=== PATIENT | female | born 1930 | race Caucasian/White ===

== ENCOUNTER 2016-12-04 13:31 | Inpatient (IN) | payer MEDICARE, OTHER ==
[~2016-12-04] VITALS: Ht 152.4 cm; Wt 71.8 kg
[~2016-12-04 13:31] MED LIST: ADV25050 INH; ASPI325T4 PO; CARV6.2579 PO; LEVO50TA71 PO; LEVO750T25 PO; OMEP20CA9 PO; PRED5TAB PO; PROM6.25 PO; TIOT18CA IH; ZOC10 PO
[2016-12-04] MEDS ORDERED: SOD CHLORIDE 0.9% 500 ML IV STA (13:40)
[2016-12-04 14:08] LABS: BASOPHILS % 0.3 % (0.0-2.0); EOSINOPHILS # 0.2 10^3/ul (0.0-0.5); EOSINOPHILS % 2.8 % (0.0-7.0); HEMATOCRIT 33.4 % (37.0-47.0); HEMOGLOBIN 10.7 g/dl (12.0-16.0); LYMPHOCYTES % 25.4 % (15.0-51.0); MEAN CORPUSCULAR HEMOGLOBIN 29.6 pg (29.0-33.0); MEAN CORPUSCULAR VOLUME 92.3 fl (82.0-101.0); MEAN PLATELET VOLUME 8.7 fl (7.4-10.4); MONOCYTE # 0.7 10^3/ul (0.3-0.9); MONOCYTES % 8.5 % (0.0-11.0); NEUTROPHIL # 4.8 10^3/ul (1.6-7.5); NEUTROPHILS % 62.7 % (39.0-77.0); PLATELET COUNT 238 10^3/UL (140-415); RED BLOOD COUNT 3.62 10^6/ul (4.20-5.40); RED CELL DISTRIBUTION WIDTH 12.9 % (11.5-14.5); WHITE BLOOD COUNT 7.7 10^3/ul (4.8-10.8)
--- NOTE | 2016-12-04 14:28 | ERD ---
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 The history is provided by the daughter who states that she was talking with her mother who slumped over in a chair. She was unresponsive for less than 1 minute without seizure activity. EMS reports a second episode of syncope when I evaluated her. She had bradycardia in the field and hypotension in the field in the 70s. They started IV fluids. Upon arrival the patient is mentating well and denies any chest pain or shortness of breath. Family denies her taking extra medications. The patient denies any headache no fevers or chills no abdominal pain or back pain. ROS All systems reviewed and are negative except as per history of present illness. Medications Home Meds Reported Medications Simvastatin* (Zocor*) 20 Mg Tablet, 20 MG PO QHS, #30 TAB 12/04/16 Levothyroxine Sodium* (Levothyroxine Sodium*) 75 Mcg Tablet, 75 MCG PO BEFORE BREAKFAST, #30 TAB 12/04/16 Formoterol Fumarate (Perforomist) 20 Mcg/2 Ml Vial.neb, 20 MCG INHALATION BID, VIAL 12/04/16 Carvedilol* (Carvedilol*) 6.25 Mg Tablet, 6.25 MG PO BID, TAB 06/18/14 Aspirin* (Aspirin*) 325 Mg Tablet, 325 MG PO DAILY, TAB 06/18/14 Discontinued Reported Medications Salmeterol Xinaf/Fluticasone* (Advair*) 250-50 Diskus Inhaler, 1 INH INH BID, INH 06/18/14 Tiotropium [place]* (Spiriva*) 18 Mcg Cap.w.dev, 1 INH IH DAILY, EA 06/18/14 Omeprazole* (Prilosec*) 20 Mg Capsule.dr, 20 MG PO DAILY, CAP 06/18/14 Simvastatin (Simvastatin) 10 Mg Tablet, 10 MG PO HS, TAB 06/18/14 Levothyroxine Sodium* (Levoxyl*) 50 Mcg Tablet, 50 MCG PO AC BREAKFAST, TAB 06/18/14 Promethazine Hcl* (Phenergan* Liq) 6.25 Mg/5 Ml Syrup, 20 ML PO BID Y for COUGH , ML 06/18/14 Discontinued Scripts Prednisone* (Prednisone*) 5 Mg Tab, 10 MG PO DAILY, #30 TAB Take 2 tablets a day for 5 days, then 1 tablet a day for 5 days, then stop Prov:BANDAR GALAVIZ 06/20/14 Levofloxacin* (Levaquin*) 750 Mg Tablet, 750 MG PO DAILY for 5 Days, TAB Prov:BANDAR GALAVIZ 06/20/14 Allergies Allergies: Coded Allergies: No Known Allergy (Unverified , 12/04/16) PMhx/Soc History of Surgery: Yes (RT SHOULDER) Hx Neurological Disorder: Yes (MILD DEMENTIA) Hx Respiratory Disorders: Yes (PULMONARY FIBROSIS) Hx Cardiac Disorders: Yes (HTN) Hx Psychiatric Problems: No Hx Miscellaneous Medical Probl: No Hx Alcohol Use: No Hx Substance Use: No Hx Tobacco Use: No Smoking Status: Never smoker FmHx Family History: No diabetes Physical Exam Vitals Vital Signs Date Time Temp Pulse Resp B/P Pulse Ox O2 Delivery O2 Flow Rate FiO2 12/04/16 15:45 98.6 18 18 159/69 100 Room Air 12/04/16 15:30 17 17 141/60 100 Nasal Cannula 2.0 12/04/16 14:00 Nasal Cannula 2 12/04/16 13:35 97.8 48 20 150/68 100 Physical Exam General: Well developed, well nourished, no acute distress Head: Normocephalic, atraumatic. Eyes: Pupils equally reactive, EOM intact ENT: Moist mucous membranes Neck: Supple, no lymphadenopathy Respiratory: Lungs clear bilaterally, no distress Cardiovascular: Bradycardia, no murmurs, rubs, or gallops Abdominal: Soft, non-tender, non-distended, no peritoneal signs : Deferred MSK: No edema, no unilateral swelling, 5/5 strength Neurologic: Alert and oriented, moving all extremities, normal speech, no focal weakness, no cerebellar signs Skin: No rash Psych: Normal mood Result Diagram: 12/04/16 1400 12/04/16 1400 Results 24 hrs Laboratory Tests Test 12/04/16 14:00 12/04/16 16:00 White Blood Count 7.710^3/ul Red Blood Count 3.6210^6/ul Hemoglobin 10.7g/dl Hematocrit 33.4% Mean Corpuscular Volume 92.3fl Mean Corpuscular Hemoglobin 29.6pg Mean Corpuscular Hemoglobin Concent 32.0g/dl Red Cell Distribution Width 12.9% Platelet Count 30470^3/UL Mean Platelet Volume 8.7fl Neutrophils % 62.7% Lymphocytes % 25.4% Monocytes % 8.5% Eosinophils % 2.8% Basophils % 0.3% Nucleated Red Blood Cells % 0.0/100WBC Neutrophils # 4.810^3/ul Lymphocytes # 2.010^3/ul Monocytes # 0.710^3/ul Eosinophils # 0.210^3/ul Basophils # 0.010^3/ul Nucleated Red Blood Cells # 0.010^3/ul Prothrombin Time 14.1Sec Prothrombin Time Ratio 1.1 INR International Normalized Ratio 1.09 Activated Partial Thromboplast Time 31.8Sec Sodium Level 130mmol/L Potassium Level 4.4mmol/L Chloride Level 91mmol/L Carbon Dioxide Level 37mmol/L Anion Gap 6 Blood Urea Nitrogen 9mg/dl Creatinine 0.69mg/dl Glucose Level 99mg/dl Calcium Level 8.8mg/dl Troponin I < 0.012ng/ml Free Thyroxine Index 3.02ug/ml Thyroxine (T4) 7.9ug/dl Triiodothyronine (T3) Uptake 38.2% Hemoglobin A1c 5.3% Ferritin 31.0ng/ml B-Type Natriuretic Peptide 364PG/ML Thyroid Stimulating Hormone (TSH) 30.300MIU/L Current Medications Medications (Trade) Dose Ordered Sig/Gaudencio Route PRN Reason Start Time Stop Time Status Last Admin Dose Admin Sodium Chloride (NS) 500 ml @ 500 mls/hr Q1H STAT IV 12/04/16 13:40 12/04/16 14:39 DC 12/04/16 13:46 Ondansetron HCl (Zofran Inj) 4 mg ER BRIDGE PRN IV NAUSEA AND/OR VOMITING 12/04/16 15:30 12/05/16 15:29 Acetaminophen (Tylenol Tab) 650 mg ER BRIDGE PRN PO MILD PAIN/FEVER 12/04/16 15:30 12/05/16 15:29 IV Flush (NS 3 ml) 3 ml PER PROTOCOL IV 12/04/16 16:30 Ondansetron HCl (Zofran Inj) 4 mg Q6H PRN IV NAUSEA AND/OR VOMITING 12/04/16 16:30 Acetaminophen (Tylenol Tab) 650 mg Q6H PRN PO PAIN LEVEL 1-3 OR FEVER 12/04/16 16:30 Aspirin (Aspirin) 325 mg DAILY PO 12/05/16 09:00 Levothyroxine Sodium (Synthroid) 75 mcg BEFORE BREAKFAST PO 12/05/16 07:00 Atorvastatin Calcium (Lipitor) 10 mg DAILY@21 PO 12/04/16 21:00 Benazepril HCl (Lotensin) 5 mg BID PO 12/04/16 21:00 Albuterol (Proventil 0.083% (Neb)) 2.5 mg Q6HWA RESP THERAPY HHN 12/04/16 20:00 Albuterol (Proventil 0.083% (Neb)) 2.5 mg Q4H RESP THERAPY PRN HHN SHORTNESS OF BREATH 12/04/16 16:30 Procedures/MDM EKG, MONITORS, & DIAGNOSTIC IMAGING: Rhythm strip: From EMS Rate/Rhythm: Sinus bradycardia Impression: No evidence of ischemia or arrhythmia, sinus bradycardia EKG #1 EKG: I reviewed and interpreted a 12-lead EKG. Rhythm: Sinus bradycardia Ectopy: None Intervals: No abnormalities, normal QRS and QTC ST segments: No elevations or depressions T waves: No contiguous inversions EKG #2 EKG: I reviewed and interpreted a 12-lead EKG. Rhythm: Sinus bradycardia Ectopy: None Intervals: No abnormalities ST segments: No elevations or depressions T waves: No contiguous inversions Chest x-ray: I reviewed and interpreted a 1 view of the chest Mediastinum: No enlargement Cardiac silhouette: No cardiomegaly Airspace: Clear lung jasso bilaterally without evidence of pneumothorax Bones: No evidence of fracture LAB INTERPRETATION: Negative troponin MEDICAL DECISION MAKING: The patient presents with symptomatic bradycardia and 2 episodes of syncope. In the field she was bradycardic and hypotensive. Upon arrival however she remains bradycardic but her blood pressure is 150 systolic and she is maintaining mentation and blood pressure. At this time the patient is perfusing. Differential includes cardiac ischemia, electrolyte disturbance, medication related. The patient does take a beta-rosie, this is the most likely culprit. No evidence of heart block. Consider sick sinus syndrome. ER COURSE: Upon arrival the patient was mentating well. An IV access was obtained and the patient was placed on the monitor. She had bradycardia but normal blood pressure and was mentating well. Pacer pads were placed on the patient. She was given normal saline. The family expressed interest to be transferred to [facility] given continuity of care. We made a phone call but they do not have any telemetry beds. The patient cannot be transferred at this point. The family states understanding. The patient has remained hemodynamically stable without hypotension she has not required intervention or pacing. She is pending hospitalization at this point. I kept the patient and/or family informed of laboratory and diagnostic imaging results throughout the emergency room course. DISPOSITION PLAN: Telemetry admission for symptomatic bradycardia and syncope CONSULTATION: Accepting care team and consultations: I discussed the current laboratory data, diagnostic imaging and emergency care provided. Admitting team: Dr. Anderson Admitting team indication: Insurance directed Departure Diagnosis: Primary Impression: Symptomatic bradycardia Additional Impression: Syncope Syncope type: unspecified Qualified Code: R55 - Syncope, unspecified syncope type Condition: Stable STANLEY EUCEDA MD Dec 04, 2016 14:28
[2016-12-04 14:36] LABS: INR 1.09; PROTIME 14.1 Sec (12.2-14.2); PT RATIO 1.1
[2016-12-04 14:37] LABS: PARTIAL THROMBOPLASTIN TIME 31.8 Sec (25.0-35.0)
[2016-12-04 14:45] LABS: ANION GAP 6 (8-16); BLOOD UREA NITROGEN 9 mg/dl (7-20); CALCIUM 8.8 mg/dl (8.4-10.2); CARBON DIOXIDE 37 mmol/L (21-31); CHLORIDE 91 mmol/L (97-110); CREATININE 0.69 mg/dl (0.44-1.00); GLUCOSE 99 mg/dl (70-220); POTASSIUM 4.4 mmol/L (3.5-5.1); SODIUM 130 mmol/L (135-144)
--- NOTE | 2016-12-04 14:50 | RADRPT ---
PROCEDURE: Chest x-ray CLINICAL INDICATION: Chest pain TECHNIQUE: Chest single view COMPARISON: 06/19/2014 FINDINGS: There is stable moderate cardiomegaly and an sclerotic aortic calcification. Bilateral interstitial markings are noted. This is felt to represent mild interstitial CHF superimposed on chronic change. Lung volumes are low. Costophrenic angles sharp. There is right shoulder prosthesis. Bones are osteo penic.. IMPRESSION: 1. Stable moderate cardiomegaly and an sclerotic aortic calcification. 2. Mild interstitial CHF. 3. This is superimposed on chronic underlying interstitial change. 4. Right shoulder replacement. 5. Osteopenia RPTAT: HH .Lester Blackman MD, MD Date Time Electronically viewed and signed by .Lester Blackman MD, on 12/04/2016 14:50 .W/
[2016-12-04 14:59] LABS: TROPONIN-I < 0.012 ng/ml (0.00-0.12)
[2016-12-04 15:02] LABS: T3 UPTAKE 38.2 % (23.5-40.5)
[2016-12-04] MEDS ORDERED: FORM20VI INHALATION (15:19)
[2016-12-04] MEDS ORDERED: SIMV20TA PO (15:20)
[2016-12-04] MEDS ORDERED: LEVO75TA5 PO (15:20)
[2016-12-04] MEDS ORDERED: ONDANSETRON 4 MG INJ IV PRN ×2 (15:30→16:30)
[2016-12-04] MEDS ORDERED: ACETAMINOPHEN 325 MG TAB PO PRN ×2 (15:30→16:30)
[2016-12-04 15:45] VITALS: TEMP 98.6
--- NOTE | 2016-12-04 16:16 | HP ---
Date/Time of Note Date/Time of Note DATE: 12/04/16 TIME: 16:01 Assessment/Plan VTE Prophylaxis VTE Prophylaxis Intervention: SCD's Lines/Catheters [facility] Saline Lock Assessment/Plan Chief Complaint/Hosp Course 1. Syncope. Etiology unclear. Most probably secondary to underlying sinus bradycardia. The patient's beta-blockers will be put on hold. The patient will be evaluated for other causes of syncope. A brain CT scan will be obtained. Carotid Doppler study will be obtained to evaluate for any hemodynamically significant stenosis. A 2D echocardiogram will be obtained to evaluate the left ventricular ejection fraction and to evaluate for any underlying wall motion abnormalities. 2. Sinus bradycardia with first-degree AV block. Will avoid all AV jeff blocking agents. The patient will be closely monitored on telemetry. Cardiology consult will be obtained. 3. Pulmonary fibrosis. The patient will be continued on inhaled bronchodilators. The patient will be continued on supplemental oxygen. 4. Essential hypertension. The patient will be started on appropriate antihypertensives. Beta-blockers or other AV ejff blocking agents will be avoided. 5. Hypothyroidism. The patient's Synthroid will be resumed. However, thyroid function panel will be obtained specifically in the setting of underlying sinus bradycardia. 6. Dyslipidemia. The patient's statins will be resumed. A fasting lipid panel will be obtained. 7. Hyponatremia. Etiology unclear. The patient received 500 cc of IV normal saline in the ER. We will monitor the patient's electrolyte levels closely. 8. Normocytic, normochromic anemia. Etiology unclear. Will obtain an iron panel. We will monitor the H&H closely. Plan: The patient will be admitted to inpatient telemetry floor. The patient will be started on a low-cholesterol diet. The patient will be started on DVT prophylaxis. The patient will remain a full code. Activities will be with assist. The rest of the patient's management will be based on the clinical course and the results of diagnostic studies. Based on the patient's clinical presentation, she most probably requires at least one midnight's stay for further management and evaluation of her clinical presentation. The case and management of this patient was fully discussed with Dr. Anderson. Problems: HPI/ROS Admit Date/Time Admit Date/Time Hx of Present Illness Reason for admission: Syncope 2, bradycardia. Consultants 1. Franco Valerio MD, Cardiology. This is an 86-year-old female with past medical history of essential hypertension, hypothyroidism, and pulmonary fibrosis on home oxygen who was brought in by paramedics secondary to a witnessed syncopal episode at home followed by a second episode of witnessed syncope in the emergency room. As per the patient's daughter who was at the bedside, the patient has been feeling more lucid since the night of 12/03/2016. The patient's daughter dropped the patient at her sister's house. While the patient was sitting and eating lunch, she was found to be unresponsive and leaning backward. The patient's family members were able to hold the patient and prevent her from falling down. As per report, the patient was unresponsive for less than 1 minute. There was no reported seizure activity. There was no reported urinary incontinence. EMS found her to have significant bradycardia in the field with the patient hypotensive in the field with systolic blood pressure in the 70s. The patient denied any chest pain. She denied any dyspnea other than her chronic dyspnea secondary to pulmonary fibrosis. She denied any headache. The patient takes Coreg 6.25 twice daily at home. The patient took her morning dose of Coreg today. The patient's family verbalized that she follows up with a webfed offset press operator at [facility]. She also has a flight communications operator at [facility]. The patient's family verbalized no known coronary artery disease or other heart problems other than hypertension. In the emergency room, the patient was noticed to have sinus bradycardia with first-degree AV block. She was treated with IV bolus of sodium chloride. She was also noticed to have hyponatremia. ROS Constitutional: no complaints Eyes: no complaints ENT: no complaints Respiratory: shortness of breath (Chronic) Cardiovascular: no complaints Gastrointestinal: no complaints Genitourinary: no complaints Musculoskeletal: no complaints Skin: no complaints Neurologic: no complaints Endocrine: no complaints Lymphatic: no complaints Psychological: no complaints Immunologic: no complaints PMH/Family/Social Past Medical History Medical History: high cholesterol, hypertension, hypothyroid, other (Pulmonary fibrosis on O2 24X7) Past Surgical History Past Surgical Hx: other (Right shoulder surgery) Social History Lives at home with her daughter. Alcohol Use: none Smoking Status: Never smoker Drug Use: none Exam/Review of Systems Vital Signs Vitals Vital Signs Date Time Temp Pulse Resp B/P Pulse Ox O2 Delivery O2 Flow Rate FiO2 12/04/16 14:00 Nasal Cannula 2 12/04/16 13:35 97.8 48 20 150/68 100 Exam Exam General: Adequately build 86 year-old female lying in bed in no apparent distress. HEENT: Normocephalic, atraumatic. Eyes: Anicteric sclerae, conjunctivae clear. ENT: Nasal septum midline, oral mucosa moist. Neck supple, no JVD noticed. Respiratory: Bilaterally diminished breath sounds. Bilateral rales. Cardiovascular: S1, S2 heard. Bradycardia. Abdomen: Soft, nontender, and nondistended. Bowel sounds positive in all 4 quadrants. Genitourinary: Deferred. Extremities: No cyanosis no edema. Peripheral pulses palpable. Neurologic: Cranial nerves II through XII grossly intact. The patient is awake, alert, and oriented. Skin: Normal skin turgor. No skin rashes. Labs Result Diagram: 12/04/16 1400 12/04/16 1400 Procedures Procedures CXR IMPRESSION: 1. Stable moderate cardiomegaly and an sclerotic aortic calcification. 2. Mild interstitial CHF. 3. This is superimposed on chronic underlying interstitial change. 4. Right shoulder replacement. 5. Osteopenia. 12-Lead EKG Sinus bradycardia with 1st degree AV block. KENNY OVIEDO NP Dec 04, 2016 16:12
[2016-12-04] MEDS ORDERED: ALBUTEROL 0.083% (NEB) 2.5 MG/3 ML AMP HHN PRN (16:30)
[2016-12-04] MEDS ORDERED: NACL 0.9% 3 ML SYG IV SCH (16:30)
--- NOTE | 2016-12-04 17:12 | RADRPT ---
PROCEDURE: CT Brain without contrast. CLINICAL INDICATION: Syncope TECHNIQUE: A CT of the brain was performed on a GE [id number] 64-slice CT scanner utilizing axial imaging from the skull base through the vertex without IV contrast. Multiplanar reformatted images were made. Images were reviewed on a PACS workstation. The CTDIvol is 43.4 mGy and the DLP is 720 mGycm. One or more of the following dose reduction techniques were used: Automated exposure control. Adjustment of the mA and/or kV according to patient size. Use of iterative reconstruction technique. COMPARISON: None FINDINGS: There is no intracranial hemorrhage, mass effect, or midline shift. No extra-axial fluid collection is seen. The ventricles and sulci are normal in size and configuration. The density of the brain is normal, and the chowdhury white matter differentiation appears well-preserved. Limited evaluation of th e paranasal sinuses demonstrates partial opacification of the right ethmoid air cells as well as air -fluid levels in the sphenoid sinuses. The bilateral mastoid air cells are clear. IMPRESSION: 1. No evidence of acute intracranial pathology. 2. Limited evaluation of the paranasal sinuses demonstrates partial opacification of the right ethmo id air cells as well as air-fluid levels in the sphenoid sinuses. Recommend correlation for sinus di sease. Physician Juan Digeo Date Time Electronically viewed and signed by Physician Juan Diego on 12/04/2016 17:12 ML/
[2016-12-04 17:22] LABS: THYROID STIMULATING HORMONE 30.3 MIU/L (0.465-4.680)
[2016-12-04] MEDS: ALBUTEROL 0.083% (NEB) 2.5 MG/3 ML AMP HHN SCH (20:00)
[2016-12-04] MEDS: BENAZEPRIL 5 MG TAB PO SCH (21:00)
[2016-12-04 21:35] VITALS: PULSE 50
[2016-12-04 21:48] LABS: IRON 58 ug/dl (35-150)
[2016-12-04 21:58] LABS: TOTAL IRON BINDING CAPACITY 255 ug/dl (241-421)
[2016-12-04 22:09] VITALS: PULSE 40
[2016-12-04 22:17] VITALS: BP 179/78; RESP 18
[2016-12-04 22:20] LABS: CREATINE KINASE < 20 IU/L (23-200)
[2016-12-04] MEDS: ATORVASTATIN 10 MG TAB PO SCH (22:36)
[2016-12-04 22:58] LABS: CK-MB 0.47 ng/ml (0.0-2.4); TROPONIN-I < 0.012 ng/ml (0.00-0.12)
[2016-12-04] MEDS ORDERED: hydrALAzine 20 MG INJ IV ONE (23:00)
[2016-12-04 23:41] VITALS: Ht 152.4 cm; Wt 71.8 kg
[2016-12-05] VITALS (12 sets, daily range): BP systolic 128–194; BP diastolic 63–80; PULSE 40–64; RESP 16–18
[2016-12-05] MEDS ORDERED: BUDE0.25 INHALATION (00:03)
[2016-12-05 03:04] LABS: CREATINE KINASE < 20 IU/L (23-200); TROPONIN-I < 0.012 ng/ml (0.00-0.12)
[2016-12-05] MEDS: LEVOTHYROXINE 75 MCG TAB PO SCH (06:37)
[2016-12-05] MEDS: ALBUTEROL 0.083% (NEB) 2.5 MG/3 ML AMP HHN SCH (07:53)
[2016-12-05 08:39] LABS: BASOPHILS % 0.3 % (0.0-2.0); EOSINOPHILS # 0.2 10^3/ul (0.0-0.5); EOSINOPHILS % 3.6 % (0.0-7.0); HEMATOCRIT 35.4 % (37.0-47.0); HEMOGLOBIN 11.2 g/dl (12.0-16.0); LYMPHOCYTES # 1.9 10^3/ul (0.8-2.9); LYMPHOCYTES % 32.9 % (15.0-51.0); MEAN CORPUSCULAR HEMOGLOBIN 28.5 pg (29.0-33.0); MEAN CORPUSCULAR HGB CONC 31.6 g/dl (32.0-37.0); MEAN CORPUSCULAR VOLUME 90.1 fl (82.0-101.0); MEAN PLATELET VOLUME 9.5 fl (7.4-10.4); MONOCYTE # 0.5 10^3/ul (0.3-0.9); MONOCYTES % 8.1 % (0.0-11.0); NEUTROPHIL # 3.2 10^3/ul (1.6-7.5); NEUTROPHILS % 54.8 % (39.0-77.0); PLATELET COUNT 279 10^3/UL (140-415); RED BLOOD COUNT 3.93 10^6/ul (4.20-5.40); RED CELL DISTRIBUTION WIDTH 13.1 % (11.5-14.5); WHITE BLOOD COUNT 5.9 10^3/ul (4.8-10.8)
[2016-12-05] MEDS: BENAZEPRIL 5 MG TAB PO SCH (08:51)
[2016-12-05] MEDS: ASPIRIN 325 MG TAB PO SCH (08:51)
[2016-12-05 09:02] LABS: ALBUMIN 3.9 g/dl (3.3-4.9); ALBUMIN/GLOBULIN RATIO 1.14; BILIRUBIN,INDIRECT 0.4 mg/dl (0-1.1); BILIRUBIN,TOTAL 0.4 mg/dl (0.2-1.3); CREATININE 0.57 mg/dl (0.44-1.00); POTASSIUM 4.4 mmol/L (3.5-5.1); TOTAL PROTEIN 7.3 g/dl (6.1-8.1)
[2016-12-05 09:05] LABS: CHOL/HDL RATIO 2.2 RATIO; MAGNESIUM 1.8 mg/dl (1.7-2.5); PHOSPHORUS 4.1 mg/dl (2.5-4.9)
[2016-12-05] MEDS ORDERED: FORMOTEROL FUMARATE 20 MCG INHALATION SCH (09:30)
[2016-12-05] MEDS ORDERED: IPRATROPIUM ×2 (10:00→14:38)
[2016-12-05] MEDS ORDERED: [UNRECOGNIZED DRUG - OTHER] (10:00)
[2016-12-05] MEDS ORDERED: [UNRECOGNIZED DRUG - REMARK] XX SCH (10:30)
--- NOTE | 2016-12-05 10:47 | RADRPT ---
PROCEDURE: US carotid arteries. CLINICAL INDICATION: Syncope. Dizziness para TECHNIQUE: Multiple sonographic images of the carotid arteries and vertebral arteries were obtaine d utilizing chowdhury scale, duplex, and color-flow imaging. The images were reviewed on a PACS workstati on. COMPARISON: No prior studies are available for comparison. FINDINGS: Evaluation of the right carotid bifurcation region reveals mild atherosclerotic disease. Evaluation of the left carotid bifurcation region reveals mild atherosclerotic disease. There is antegrade flow within the vertebral arteries bilaterally. RIGHT CAROTID MEASUREMENTS: Common Carotid [id number] (cm/sec) Internal Carotid Artery 67 (cm/sec) External Carotid Artery 49 (cm/sec) Vertebral Artery 30 (cm/sec) Internal Carotid/Common Carotid1.1 LEFT CAROTID MEASUREMENTS: Common Carotid [id number] (cm/sec) Internal Carotid Artery 61 (cm/sec) External Carotid Artery 63 (cm/sec) Vertebral Artery 31 (cm/sec) Internal Carotid/Common Carotid0.9 Validated velocity measurements with angiographic measurements. Velocity criteria are extrapolated f rom diameter data as defined by the Society of Radiologists in Ultrasound Consensus Conference. Radi ology 2003; 229;340-346. This study does indirectly reference the measurement of the distal ICA zahra meter as the denominator for stenosis measurement. IMPRESSION: 1. Less than 50% stenosis bilaterally in the internal carotid arteries. 2. Normal antegrade flow in the vertebral arteries bilaterally. RPTAT: QQ SRU Consensus Conference Criteria for the Diagnosis of Carotid Artery Stenosis* Degree of Stenosis, % ICA PSV, cm/sec Plaque Estimate, % ICA/CCA PSV Ratio Normal <125 None <2.0 <50 <125 <50 <2.0 50 69 125-230 >50 2.0-4.0 >70 but less than near occlusion >230 >50 <4.0 Near occlusion High, low, or undetectable Visible Variable Total occlusion Undetectable Visible, no detectable lumen Not applicable *Cartoid artery stenosis: chowdhury-scale and Doppler US diagnosis. Society of Radiologists in Ultrasound Consensus Conference. Radiology 2003; 229: 340-346 .Andrew Saleem MD, Date Time Electronically viewed and signed by .Andrew Saleem MD, on 12/05/2016 10:47 .R/
[2016-12-05] MEDS: SOD CHLORIDE 0.9% 1,000 ML IV SCH (13:24)
--- NOTE | 2016-12-05 14:28 | PN ---
Date/Time of Note Date/Time of Note DATE: 12/05/16 TIME: 14:21 Assessment/Plan VTE Prophylaxis VTE Prophylaxis Intervention: SCD's Lines/Catheters [facility] Saline Lock Urinary Cath still in place: No Assessment/Plan Chief Complaint/Hosp Course Assessment and plan 1. Syncope suspect secondary to sinus bradycardia. Beta-blockers on hold at present. Echocardiogram is pending. Cardiology consultation is pending as well. CT scan of the brain was obtained with no significant findings. Will follow up. Continue fall precautions. Physical therapy to follow. 2. Bradycardia with AV block first-degree. Monitor on telemetry. Lead Instructor/Flight Attendant consultation is pending. 3. History of pulmonary fibrosis. Foot Specialist consulted. Will resume patient's home regimen. 4. Essential hypertension. Continue antihypertensives. Off beta blockers at present. 5. Hypothyroidism. Continue on Synthroid. Adjust as needed. 6. Dyslipidemia. Continue on statin 7. Hyponatremia. Continue IV fluids. Monitor level. Disposition plan: Monitor on telemetry. Lead Instructor/Flight Attendant eval pending. PT to follow. Resume patient's home pulmonary medications. Discussed plan of care with Problems: Subjective 24 Hr Interval Summary Free Text/Dictation Signs of distress seen at this time. Sitting in chair. No reports of chest pain or shortness of breath. Exam/Review of Systems Vital Signs Vitals Vital Signs Date Time Temp Pulse Resp B/P Pulse Ox O2 Delivery O2 Flow Rate FiO2 12/05/16 14:11 3.0 12/05/16 12:56 45 12/05/16 11:34 97.8 18 128/80 99 12/05/16 08:00 Nasal Cannula 12/05/16 07:55 28 Intake and Output 12/04/16 12/04/16 12/05/16 15:00 23:00 07:00 Intake Total 150 ml Balance 150 ml Exam Constitutional: alert, oriented Psych: nl mood/affect Head: normocephalic Eyes: nl conjunctiva Neck: supple Respiratory: other (Fine crackles auscultated at lung bases) Cardiovascular: other (Irregular rate) Gastrointestinal: non-tender, soft Musculoskeletal: No nl gait and stance Neurological: nl mental status, nl speech Results Result Diagram: 12/05/16 0740 12/05/16 0740 Results 24 hrs Laboratory Tests Test 12/04/16 16:00 12/04/16 21:16 12/05/16 01:42 12/05/16 07:40 Hemoglobin A1c 5.3 Ferritin 31.0 B-Type Natriuretic Peptide 364 Thyroid Stimulating Hormone (TSH) 30.300 H Iron Level 58 Total Iron Binding Capacity 255 Percent Iron Saturation 23 Creatine Kinase < 20 L < 20 L Creatine Kinase Index Creatinine Kinase MB (Mass) 0.47 0.50 Troponin I < 0.012 < 0.012 Free Thyroxine 1.23 White Blood Count 5.9 # Red Blood Count 3.93 L Hemoglobin 11.2 L Hematocrit 35.4 L Mean Corpuscular Volume 90.1 Mean Corpuscular Hemoglobin 28.5 L Mean Corpuscular Hemoglobin Concent 31.6 L Red Cell Distribution Width 13.1 Platelet Count 279 Mean Platelet Volume 9.5 Neutrophils % 54.8 Lymphocytes % 32.9 Monocytes % 8.1 Eosinophils % 3.6 Basophils % 0.3 Nucleated Red Blood Cells % 0.0 Neutrophils # 3.2 Lymphocytes # 1.9 Monocytes # 0.5 Eosinophils # 0.2 Basophils # 0.0 Nucleated Red Blood Cells # 0.0 Sodium Level 130 L Potassium Level 4.4 Chloride Level 87 L Carbon Dioxide Level 36 H Anion Gap 11 Blood Urea Nitrogen 8 Creatinine 0.57 Glucose Level 97 Calcium Level 9.0 Phosphorus Level 4.1 Magnesium Level 1.8 Total Bilirubin 0.4 Direct Bilirubin 0.00 Indirect Bilirubin 0.4 Aspartate Amino Transf (AST/SGOT) 30 Alanine Aminotransferase (ALT/SGPT) 28 Alkaline Phosphatase 94 Total Protein 7.3 Albumin 3.9 Globulin 3.40 H Albumin/Globulin Ratio 1.14 Triglycerides Level 54 Cholesterol Level 128 LDL Cholesterol, Calculated 60 HDL Cholesterol 57 Cholesterol/HDL Ratio 2.2 Medications Medications Current Medications Ondansetron HCl (Zofran Inj) 4 mg Q6H PRN IV NAUSEA AND/OR VOMITING; Start at 16:30 Acetaminophen (Tylenol Tab) 650 mg Q6H PRN PO PAIN LEVEL 1-3 OR FEVER; Start 12/04/16 at 16:30 Aspirin (Aspirin) 325 mg DAILY PO Last administered on 12/05/16 08:51; Admin Dose 325 MG; Start 12/05/16 at 09:00 Atorvastatin Calcium (Lipitor) 10 mg DAILY@21 PO Last administered on 22:36; Admin Dose 10 MG; Start 12/04/16 at 21:00 Benazepril HCl (Lotensin) 5 mg BID PO Last administered on 12/05/16 08:51; Admin Dose 5 MG; Start 12/04/16 at 21:00 Miscellaneous Information 20 mcg BID INHALATION ; Start 12/05/16 at 09:30; Status UNV Miscellaneous Information MEDICATION REQUIRES CLARIFICATION: Q8H XX ; Start 12/05/16 at 10:30 Sodium Chloride (NS) 1,000 ml @ 60 mls/hr [id number] IV Last administered on 13:24; Admin Dose 60 MLS/HR; Start 12/05/16 at 13:00 JEWEL DUARTE Dec 05, 2016 14:28
--- NOTE | 2016-12-05 16:38 | CONS ---
Date/Time of Note Date/Time of Note DATE: 12/05/16 TIME: 16:31 Assessment/Plan Assessment/Plan Additional Assessment/Plan Syncope Bradycardia Pulmonary fibrosis on home oxygen Hypertension Hyponatremia -Patient with 2 episodes of syncope yesterday. As per the family, heart rate in the emergency room was 37. Patient was on Coreg. On review of telemetry, heart rate ranged from mid 40s-60s. Agree with the seeing Coreg with hold any AV jeff blocking agents. Check echocardiogram, continue telemetry monitoring. Carotid ultrasound with no hemodynamic significant stenosis. Increased dose of JANA inhibitor given hypertension. Consultation Date/Type/Reason Admit Date/Time Type of Consultation: cv Reason for Consultation Syncope Hx of Present Illness This is an 86-year-old female with history of pulmonary fibrosis on home oxygen , hypertension presents with syncopal episode yesterday. As per the daughter, patient was at home and then became lightheaded and lost consciousness. Patient was laid down on the floor. EMS arrived and patient's mental status did slowly improve had a recurrent episode of syncope. As per the ER notes, patient was hypotensive with systolic blood pressure in the 70s but heart rate is not known. Patient was given IV fluids and improved. Since then, patient has been feeling better. Prior to this, she denies any history of syncope. She did have a Holter monitor placed a few years ago secondary palpitations. She is currently feeling back to her baseline mentally as per the family, this is her baseline. 12 point review of systems was performed with all pertinent positives and negatives mentioned above and all else is negative Eyes: no complaints ENT: no complaints Respiratory: shortness of breath (Chronic) Cardiovascular: no complaints Gastrointestinal: no complaints Genitourinary: no complaints Musculoskeletal: no complaints Skin: no complaints Neurologic: no complaints Lymphatic: no complaints Psychological: nl mood/affect Immunologic: no complaints Past Medical History Medical History: high cholesterol, hypertension, hypothyroid, other (Pulmonary fibrosis on O2 24X7) Past Surgical History Past Surgical Hx: other (Right shoulder surgery) Family History Significant Family History: no pertinent family hx Social History Alcohol Use: none Smoking Status: Never smoker Drug Use: none Exam/Review of Systems Vital Signs Vitals Vital Signs Date Time Temp Pulse Resp B/P Pulse Ox O2 Delivery O2 Flow Rate FiO2 12/05/16 15:46 98.1 66 18 178/63 99 12/05/16 14:11 3.0 12/05/16 08:00 Nasal Cannula 12/05/16 07:55 28 Intake and Output 12/04/16 12/04/16 12/05/16 15:00 23:00 07:00 Intake Total 150 ml Balance 150 ml Exam No apparent distress, family at bedside Constitutional: alert, frail, oriented Head: normocephalic Respiratory: other (Coarse breath sounds bilaterally with scattered fine rhonchi, no wheezing) Cardiovascular: other (S1-S2 heard), regular rate and rhythm Gastrointestinal: bowel sounds, non-tender, soft Extremities: edema (Trace) Results Result Diagram: 12/05/1640 12/05/16 0740 Results 24 hrs Laboratory Tests Test 12/04/16 21:16 12/05/16 01:42 12/05/16 07:40 Iron Level 58 Total Iron Binding Capacity 255 Percent Iron Saturation 23 Creatine Kinase < 20 L < 20 L Creatine Kinase Index Creatinine Kinase MB (Mass) 0.47 0.50 Troponin I < 0.012 < 0.012 Free Thyroxine 1.23 White Blood Count 5.9 # Red Blood Count 3.93 L Hemoglobin 11.2 L Hematocrit 35.4 L Mean Corpuscular Volume 90.1 Mean Corpuscular Hemoglobin 28.5 L Mean Corpuscular Hemoglobin Concent 31.6 L Red Cell Distribution Width 13.1 Platelet Count 279 Mean Platelet Volume 9.5 Neutrophils % 54.8 Lymphocytes % 32.9 Monocytes % 8.1 Eosinophils % 3.6 Basophils % 0.3 Nucleated Red Blood Cells % 0.0 Neutrophils # 3.2 Lymphocytes # 1.9 Monocytes # 0.5 Eosinophils # 0.2 Basophils # 0.0 Nucleated Red Blood Cells # 0.0 Sodium Level 130 L Potassium Level 4.4 Chloride Level 87 L Carbon Dioxide Level 36 H Anion Gap 11 Blood Urea Nitrogen 8 Creatinine 0.57 Glucose Level 97 Calcium Level 9.0 Phosphorus Level 4.1 Magnesium Level 1.8 Total Bilirubin 0.4 Direct Bilirubin 0.00 Indirect Bilirubin 0.4 Aspartate Amino Transf (AST/SGOT) 30 Alanine Aminotransferase (ALT/SGPT) 28 Alkaline Phosphatase 94 Total Protein 7.3 Albumin 3.9 Globulin 3.40 H Albumin/Globulin Ratio 1.14 Triglycerides Level 54 Cholesterol Level 128 LDL Cholesterol, Calculated 60 HDL Cholesterol 57 Cholesterol/HDL Ratio 2.2 Medications Medications Current Medications Ondansetron HCl (Zofran Inj) 4 mg Q6H PRN IV NAUSEA AND/OR VOMITING; Start at 16:30 Acetaminophen (Tylenol Tab) 650 mg Q6H PRN PO PAIN LEVEL 1-3 OR FEVER; Start 12/04/16 at 16:30 Aspirin (Aspirin) 325 mg DAILY PO Last administered on 12/05/16 08:51; Admin Dose 325 MG; Start 12/05/16 at 09:00 Atorvastatin Calcium (Lipitor) 10 mg DAILY@21 PO Last administered on 22:36; Admin Dose 10 MG; Start 12/04/16 at 21:00 Benazepril HCl 5 mg 5 mg BID PO Last administered on 12/05/16 08:51; Admin Dose 5 MG; Start 12/04/16 at 21:00 Sodium Chloride (NS) 1,000 ml @ 60 mls/hr [id number] IV Last administered on 13:24; Admin Dose 60 MLS/HR; Start 12/05/16 at 13:00 Procedures Procedures ECG done yesterday at 1332 demonstrates sinus bradycardia at 48 bpm, first- degree AV block at 214 ms, QRS 74 ms, no significant ischemic STT wave abnormalities Asad Underwood DO Dec 05, 2016 16:38
[2016-12-05] MEDS ORDERED: BENAZEPRIL 10 MG TAB PO SCH (16:42)
[2016-12-05] MEDS ORDERED: hydrALAzine 20 MG INJ IV PRN (17:00)
[2016-12-05] MEDS: ATORVASTATIN 10 MG TAB PO SCH (20:26)
[2016-12-05] MEDS: BENAZEPRIL 10 MG TAB PO SCH (20:28)
[2016-12-05] MEDS: IPRATROPIUM (NEB) 0.5 MG/2.5 ML AMP HHN SCH (20:35)
[2016-12-05] MEDS: PERFOROMIST INH SCH (20:41)
[2016-12-05] MEDS: BUDESONIDE (NEB) 0.25 MG/2 ML AMP HHN SCH (20:46)
[2016-12-06] VITALS (11 sets, daily range): BP systolic 90–154; BP diastolic 51–67; PULSE 50–73; RESP 18–20
[2016-12-06] MEDS: SOD CHLORIDE 0.9% 1,000 ML IV SCH (05:40)
[2016-12-06] MEDS: LEVOTHYROXINE 75 MCG TAB PO SCH (06:56)
[2016-12-06 07:57] LABS: BASOPHILS % 0.3 % (0.0-2.0); EOSINOPHILS # 0.2 10^3/ul (0.0-0.5); HEMOGLOBIN 12.7 g/dl (12.0-16.0); LYMPHOCYTES % 32.5 % (15.0-51.0); MEAN CORPUSCULAR HEMOGLOBIN 29.3 pg (29.0-33.0); MEAN CORPUSCULAR HGB CONC 32.6 g/dl (32.0-37.0); MEAN CORPUSCULAR VOLUME 89.9 fl (82.0-101.0); MEAN PLATELET VOLUME 9.1 fl (7.4-10.4); MONOCYTE # 0.4 10^3/ul (0.3-0.9); MONOCYTES % 7.1 % (0.0-11.0); NEUTROPHIL # 3.4 10^3/ul (1.6-7.5); NEUTROPHILS % 55.8 % (39.0-77.0); PLATELET COUNT 270 10^3/UL (140-415); RED BLOOD COUNT 4.34 10^6/ul (4.20-5.40); RED CELL DISTRIBUTION WIDTH 13.2 % (11.5-14.5); WHITE BLOOD COUNT 6.1 10^3/ul (4.8-10.8)
[2016-12-06 08:17] LABS: CALCIUM 8.8 mg/dl (8.4-10.2); CREATININE 0.62 mg/dl (0.44-1.00); POTASSIUM 4.9 mmol/L (3.5-5.1)
[2016-12-06] MEDS: ASPIRIN 325 MG TAB PO SCH (08:42)
[2016-12-06] MEDS: BENAZEPRIL 10 MG TAB PO SCH (08:44)
[2016-12-06] MEDS: PERFOROMIST INH SCH ×2 (09:00→20:30)
[2016-12-06] MEDS: BUDESONIDE (NEB) 0.25 MG/2 ML AMP HHN SCH ×2 (11:28→20:29)
[2016-12-06] MEDS: IPRATROPIUM (NEB) 0.5 MG/2.5 ML AMP HHN SCH ×2 (11:28→20:29)
--- NOTE | 2016-12-06 11:55 | RADRPT ---
Echocardiogram Report Patient Name: DEMETRIO FARMER Gender: Female Date: 1930 Study Date: 05-Dec-2016 Supervisor Shuttle Preparation: Anibal [facility] Location: [address] Ref. Physician: KENNY OVIEDO Quality: Technically Difficult Study Procedures: Transthoracic echocardiogram with complete 2D, M-Mode, and doppler examination. Indications: Evaluate Left Ventricular function. 2D/M Mode Doppler Measurement Value Normal Ranges Measurement Value Normal Ranges LVIDd 2D 3.2 3.5 - 5.6 cm AV Peak Arturo 1.6 m/sec LVIDs 2D 2.1 2.1 - 4.1 cm AV Peak PG 9.7 mmHg LVPWd 2D 1.3 0.6 - 1.1 cm LVOT Peak Arturo 1.2 m/sec IVSd 2D 1.6 0.6 - 1.1 cm LVOT Peak PG 6.1 mmHg AoR Diam 2D 2.7 2.0 - 3.7 cm MV E Peak Arturo 0.7 m/sec EDV 2D 40.3 cm3 MV A Peak Arturo 1.1 m/sec ESV 2D 8.8 cm3 MV E/A 0.6 LA Dimen 2D 3.2 2.3 - 4.0 cm MV Decel Time 299 msec MV Decel Posey 2 MV E/A 0.6 TR Peak Arturo 2.9 m/sec TR Peak PG 34.0 mmHg RVSP 37.0 mmHg Findings Left Ventricle: Normal left ventricular systolic function. Normal left ventricular cavity size. Mild concentric left ventricular hypertrophy. Ejection fraction is visually estimated at 65 %. Tissue Doppler/Mitral Doppler indices are consistent with impaired relaxation (Stage I diastolic dysfunction). Right Ventricle: Normal right ventricular size. Normal right ventricular systolic function. Left Atrium: The left atrium is normal in size. Right Atrium: The right atrium is normal in size. Mitral Valve: Mild mitral leaflet calcification. Mild mitral annular calcification. Trace mitral regurgitation. Aortic Valve: No significant aortic stenosis or insufficiency. Aortic cusps appear mildly calcified. Tricuspid Valve: Normal appearance of the tricuspid valve. Estimated peak PA systolic pressure 37 mmHg. There is mild tricuspid regurgitation. Pulmonic Valve: Pulmonic valve not well visualized. There is trace pulmonic regurgitation. Pericardium: Normal pericardium with no significant pericardial effusion. Aorta: Normal aortic root. IVC: Normal size and normal respiratory collapse consistent with normal right atrial pressure. Conclusions Normal left ventricular systolic function. Normal left ventricular cavity size. Mild concentric left ventricular hypertrophy. Ejection fraction is visually estimated at 65 %. Tissue Doppler/Mitral Doppler indices are consistent with impaired relaxation (Stage I diastolic dysfunction). Normal right ventricular size. Normal right ventricular systolic function. The left atrium is normal in size. The right atrium is normal in size. Estimated peak PA systolic pressure 37 mmHg. There is mild tricuspid regurgitation. No significant valvular stenosis or regurgitation seen of remaining visualized valves. Normal pericardium with no significant pericardial effusion. Electronically Signed By: Asad Underwood 06-Dec-2016 11:54:27 -0700 Patient Name: DEMETRIO FARMER Study Date: 05-Dec-[id number]
[2016-12-06] MEDS ORDERED: SODIUM CHLORIDE 1 GM TAB PO ONE (12:00)
--- NOTE | 2016-12-06 12:05 | CONS ---
Date/Time of Note Date/Time of Note DATE: 12/06/16 TIME: 12:03 Assessment/Plan Assessment/Plan Additional Assessment/Plan Syncope Preserved ejection fraction Bradycardia, improved Pulmonary fibrosis on home oxygen Hypertension Hyponatremia -Telemetry reviewed with no significant bradycardia or AV block. Ambulate today without symptoms. Blood pressure on the lower end, decrease dose of benazepril. Continue to hold beta-rosie or any other AV jeff blocking agents. No need for pacemaker at the current time. Consultation Date/Type/Reason Admit Date/Time Dec 04, 2016 at 15:29 Initial Consult Date Type of Consultation: cv 24 HR Interval Summary Free Text/Dictation Patient feeling better today, ambulate without dizziness, shortness of breath or lightheadedness. Exam/Review of Systems Vital Signs Vitals Vital Signs Date Time Temp Pulse Resp B/P Pulse Ox O2 Delivery O2 Flow Rate FiO2 12/06/16 11:32 80 18 98 Nasal Cannula 3.0 12/06/16 11:11 97.7 90/51 12/05/16 07:55 28 Intake and Output 12/05/16 12/05/16 12/06/16 15:00 23:00 07:00 Intake Total 980 ml Balance 980 ml Exam Sitting in chair, family bedside, no apparent distress Constitutional: alert, oriented Head: normocephalic Respiratory: other (Coarse breath sounds bilaterally, no wheezing) Cardiovascular: other (S1-S2 heard), regular rate and rhythm Gastrointestinal: bowel sounds, non-tender, soft Extremities: edema Results Result Diagram: 12/06/1627 12/06/16 0727 Results 24 hrs Laboratory Tests Test 12/06/16 07:27 White Blood Count 6.1 Red Blood Count 4.34 Hemoglobin 12.7 Hematocrit 39.0 Mean Corpuscular Volume 89.9 Mean Corpuscular Hemoglobin 29.3 Mean Corpuscular Hemoglobin Concent 32.6 Red Cell Distribution Width 13.2 Platelet Count 270 Mean Platelet Volume 9.1 Neutrophils % 55.8 Lymphocytes % 32.5 Monocytes % 7.1 Eosinophils % 4.0 Basophils % 0.3 Nucleated Red Blood Cells % 0.0 Neutrophils # 3.4 Lymphocytes # 2.0 Monocytes # 0.4 Eosinophils # 0.2 Basophils # 0.0 Nucleated Red Blood Cells # 0.0 Sodium Level 129 L Potassium Level 4.9 Chloride Level 88 L Carbon Dioxide Level 29 Anion Gap 17 H Blood Urea Nitrogen 10 Creatinine 0.62 Glucose Level 106 Calcium Level 8.8 Medications Medications Current Medications Ondansetron HCl (Zofran Inj) 4 mg Q6H PRN IV NAUSEA AND/OR VOMITING; Start at 16:30 Acetaminophen (Tylenol Tab) 650 mg Q6H PRN PO PAIN LEVEL 1-3 OR FEVER; Start 12/04/16 at 16:30 Aspirin (Aspirin) 325 mg DAILY PO Last administered on 12/06/16 08:42; Admin Dose 325 MG; Start 12/05/16 at 09:00 Atorvastatin Calcium 10 mg 10 mg DAILY@21 PO Last administered on 12/05/16 20 :26; Admin Dose 10 MG; Start 12/04/16 at 21:00 Sodium Chloride (NS) 1,000 ml @ 60 mls/hr [id number] IV Last administered on 13:24; Admin Dose 60 MLS/HR; Start 12/05/16 at 13:00 Benazepril HCl (Lotensin) 10 mg BID PO Last administered on 12/06/16 08:44; Admin Dose 10 MG; Start 12/05/16 at 21:00 Hydralazine HCl (Apresoline) 10 mg Q6H PRN IV sbp>160 Last administered on 00:17; Admin Dose 10 MG; Start 12/05/16 at 17:00 Sodium Chloride (Nacl) 2 gm ONCE ONCE PO ; Start 12/06/16 at 12:00; Stop at 12:01; Status Asad Kennedy DO Dec 06, 2016 12:05
[2016-12-06] MEDS ORDERED: VIT D2 (12:15)
[2016-12-06] MEDS ORDERED: BENA5TAB2 PO (13:38)
--- NOTE | 2016-12-06 13:42 | PDOCDIS ---
Discharge Instructions DIAGNOSIS Discharge Diagnosis 1. Syncope suspect secondary to sinus bradycardia. 2. Bradycardia with AV block first-degree. 3. History of pulmonary fibrosis. 4. Essential hypertension. 5. Hypothyroidism. 6. Dyslipidemia. 7. Hyponatremia. CONDITION Patient Condition: Stable FOLLOW UP/APPOINTMENTS Follow-up Plan 1. Follow up with your primary care provider in one week OTHER ORDERS: Other Orders: 1. Follow up with your primary care provider in a week for follow up for labs: basic metabolic panel JEWEL DUARTE Dec 06, 2016 13:42
[2016-12-06] MEDS ORDERED: ERGOCALCIFEROL 50,000 UNIT CAP PO SCH (14:00)
[2016-12-06] MEDS ORDERED: hydrALAzine 20 MG INJ IV PRN (17:00)
--- NOTE | 2016-12-06 20:01 | CONS ---
DATE OF ADMISSION: 12/04/2016 DATE OF CONSULTATION: TYPE OF CONSULTATION: Pulmonary. REASON FOR CONSULTATION: Shortness of breath. Thank you, Dr. Garcia, for this consultation. HISTORY OF PRESENT ILLNESS: This is a pleasant 86-year-old lady with a history of idiopathic pulmon rachel fibrosis. Came in with a several day history of increasing congestion and syncopal episode. Sh e was found to have no evidence of heart block. Blood pressure was on the low side, thought seconda ry to antihypertensive Benazepril, which was adjusted, and beta rosie was also held. The patient has since improved. Reports no further symptoms. Respiratory status remains stable at baseline. S he is followed by Dr. Thomas Martino of pulmonary and is scheduled to see him in a few weeks' time. PAST MEDICAL HISTORY: Idiopathic pulmonary fibrosis, essential hypertension. MEDICATIONS: Per chart. ALLERGIES: NONE. SOCIAL HISTORY: Nonsmoker, no alcohol, no history of drug use. FAMILY HISTORY: Noncontributory. REVIEW OF SYSTEMS: A 12-point review of systems was negative other than that mentioned above. PHYSICAL EXAMINATION: GENERAL: Well-nourished, well-developed lady, comfortable at rest, no acute distress. VITAL SIGNS: Currently afebrile, pulse is 80, blood pressure 95/60, O2 saturation 96% on 3 liters n rachel cannula. NECK: Supple. No JVD or lymphadenopathy. CARDIAC: S1, S2. No added sounds or murmurs. CHEST: Diminished air entry bilaterally. ABDOMEN: Soft, nontender. No guarding or rebound. EXTREMITIES: No cyanosis, clubbing, edema. NEUROLOGIC: Grossly intact. LABORATORIES: White count 6.1, hemoglobin 12.7. BUN 10, creatinine 0.62. IMAGING: Chest x-ray showed mild interstitial CHF, chronic interstitial changes. IMPRESSION AND PLAN: 1. Syncopal episode, likely secondary to excessive antihypertensives. 2. History of underlying idiopathic pulmonary fibrosis. The patient's medications have been adjust ed. She continues supplemental O2. Follow up with her primary surgical technician in 1 week's time. I discussed the case with the patient's daughter over the phone. Dictated By: SOO PATEL/OCDI Conf#: [id number] DID#: [id number]
[2016-12-06] MEDS: ATORVASTATIN 10 MG TAB PO SCH (20:13)
[2016-12-06] MEDS: BENAZEPRIL 5 MG TAB PO SCH (20:14)
--- NOTE | 2016-12-06 22:42 | RADRPT ---
Vent Rate: 76 bpm RR Interval: 0 msec TN Interval: 196 msec QRS Duration: 82 msec QT Interval: 380 msec QTC Interval: 427 msec P-R-T [place]: 49 - 13 - 20 degrees Normal sinus rhythm Possible Anterior infarct , age undetermined Abnormal ECG Electronically Signed By: Asad Underwood [id number]
[2016-12-07] VITALS (8 sets, daily range): BP systolic 149–161; BP diastolic 66–73; PULSE 56–71; RESP 16–20
[2016-12-07] MEDS: LEVOTHYROXINE 75 MCG TAB PO SCH (06:37)
[2016-12-07] MEDS: ASPIRIN 325 MG TAB PO SCH (08:21)
[2016-12-07] MEDS: BENAZEPRIL 5 MG TAB PO SCH (08:21)
[2016-12-07 08:31] LABS: BASOPHILS % 0.3 % (0.0-2.0); EOSINOPHILS # 0.3 10^3/ul (0.0-0.5); EOSINOPHILS % 3.5 % (0.0-7.0); HEMATOCRIT 36.5 % (37.0-47.0); HEMOGLOBIN 11.9 g/dl (12.0-16.0); LYMPHOCYTES # 2.7 10^3/ul (0.8-2.9); MEAN CORPUSCULAR HEMOGLOBIN 29.3 pg (29.0-33.0); MEAN CORPUSCULAR HGB CONC 32.6 g/dl (32.0-37.0); MEAN CORPUSCULAR VOLUME 89.9 fl (82.0-101.0); MEAN PLATELET VOLUME 9.1 fl (7.4-10.4); MONOCYTE # 0.5 10^3/ul (0.3-0.9); MONOCYTES % 7.5 % (0.0-11.0); NEUTROPHIL # 3.6 10^3/ul (1.6-7.5); NEUTROPHILS % 50.4 % (39.0-77.0); PLATELET COUNT 294 10^3/UL (140-415); RED BLOOD COUNT 4.06 10^6/ul (4.20-5.40); RED CELL DISTRIBUTION WIDTH 13.4 % (11.5-14.5); WHITE BLOOD COUNT 7.2 10^3/ul (4.8-10.8)
[2016-12-07 09:10] LABS: CALCIUM 9.3 mg/dl (8.4-10.2); CREATININE 0.6 mg/dl (0.44-1.00); POTASSIUM 4.6 mmol/L (3.5-5.1)
[2016-12-07] MEDS: IPRATROPIUM (NEB) 0.5 MG/2.5 ML AMP HHN SCH (09:31)
[2016-12-07] MEDS: BUDESONIDE (NEB) 0.25 MG/2 ML AMP HHN SCH (09:31)
[2016-12-07] MEDS: PERFOROMIST INH SCH (09:32)
--- NOTE | 2016-12-07 11:52 | CONS ---
Date/Time of Note Date/Time of Note DATE: 12/07/16 TIME: 11:50 Consult Date/Type/Reason Admit Date/Time Dec 04, 2016 at 15:29 Initial Consult Date Type of Consultation: Pulmonary Subjective No significant changes. Patient remained stable. Denies dizziness or chest pain baseline dyspnea. Objective Vital Signs Date Time Temp Pulse Resp B/P Pulse Ox O2 Delivery O2 Flow Rate FiO2 12/07/16 09:32 2.0 12/07/16 09:32 76 18 97 Nasal Cannula 12/07/16 08:04 97.9 157/70 12/05/16 07:55 28 Intake and Output 12/06/16 12/06/16 12/07/16 15:00 23:00 07:00 Intake Total 900 ml 1050 ml Output Total 1 ml Balance 900 ml 1049 ml Exam PHYSICAL EXAMINATION GENERAL: Elderly lady comfortable at rest no acute distress VITAL SIGNS: see below. HEENT: Pupils equal, round, and reactive to light CARDIAC: S1, S2, 1/6 systolic ejection murmur CHEST: Diminished air entry bilaterally. Bibasilar rales. ABDOMEN: Mildly distended. Bowel sounds present no guarding or rebound EXTREMITIES: No cyanosis, clubbing edema +1 NEUROLOGIC: Generalized weakness Results/Medications Result Diagram: 12/07/16 0753 12/07/16 0753 Results 24 hrs Laboratory Tests Test 12/06/16 15:03 12/07/16 07:53 Sodium Level 128 L 132 L White Blood Count 7.2 Red Blood Count 4.06 L Hemoglobin 11.9 L Hematocrit 36.5 L Mean Corpuscular Volume 89.9 Mean Corpuscular Hemoglobin 29.3 Mean Corpuscular Hemoglobin Concent 32.6 Red Cell Distribution Width 13.4 Platelet Count 294 Mean Platelet Volume 9.1 Neutrophils % 50.4 Lymphocytes % 38.0 Monocytes % 7.5 Eosinophils % 3.5 Basophils % 0.3 Nucleated Red Blood Cells % 0.0 Neutrophils # 3.6 Lymphocytes # 2.7 Monocytes # 0.5 Eosinophils # 0.3 Basophils # 0.0 Nucleated Red Blood Cells # 0.0 Potassium Level 4.6 Chloride Level 92 L Carbon Dioxide Level 34 H Anion Gap 11 Blood Urea Nitrogen 9 Creatinine 0.60 Glucose Level 105 Calcium Level 9.3 Medications Current Medications Ondansetron HCl (Zofran Inj) 4 mg Q6H PRN IV NAUSEA AND/OR VOMITING; Start at 16:30 Acetaminophen (Tylenol Tab) 650 mg Q6H PRN PO PAIN LEVEL 1-3 OR FEVER; Start 12/04/16 at 16:30 Aspirin (Aspirin) 325 mg DAILY PO Last administered on 12/07/16 08:21; Admin Dose 325 MG; Start 12/05/16 at 09:00 Atorvastatin Calcium 10 mg 10 mg DAILY@21 PO Last administered on 12/06/16 20 :13; Admin Dose 10 MG; Start 12/04/16 at 21:00 Sodium Chloride (NS) 1,000 ml @ 60 mls/hr [id number] IV Last administered on 13:24; Admin Dose 60 MLS/HR; Start 12/05/16 at 13:00 Benazepril HCl (Lotensin) 5 mg BID PO Last administered on 12/07/16 08:21; Admin Dose 5 MG; Start 12/06/16 at 21:00 Hydralazine HCl (Apresoline) 5 mg Q6H PRN IV sbp>170; Start 12/06/16 at 17:00 Ergocalciferol (Drisdol) 50,000 unit Tu@09 PO Last administered on 12/06/16 14:14; Admin Dose 50,000 UNIT; Start 12/06/16 at 14:00 Assessment/Plan Chief Complaint/Hosp Course Assessment 1. Hypotension likely secondary to BP medications 2. 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 Cardiac medications adjusted 2. Continue supplemental O2 and follow-up with her outpatient hand alterations tailor Problems: SOO FERRARA [facility] Dec 07, 2016 11:52
--- NOTE | 2016-12-07 13:16 | CONS ---
Date/Time of Note Date/Time of Note DATE: 12/07/16 TIME: 13:15 Assessment/Plan Assessment/Plan Additional Assessment/Plan Syncope Preserved ejection fraction Bradycardia, improved Pulmonary fibrosis on home oxygen Hypertension Hyponatremia -Telemetry reviewed with no significant bradycardia or AV block. Blood pressure trend overall remains stable, will tolerate slightly higher blood pressures, even systolic in the 150s given recent syncope. Continue to hold beta-rosie or any other AV jeff blocking agents. No need for pacemaker at the current time. DC planning Consultation Date/Type/Reason Admit Date/Time Dec 04, 2016 at 15:29 Type of Consultation: cv 24 HR Interval Summary Free Text/Dictation Denies dizziness, shortness of breath or palpitations. Feeling better Exam/Review of Systems Vital Signs Vitals Vital Signs Date Time Temp Pulse Resp B/P Pulse Ox O2 Delivery O2 Flow Rate FiO2 12/07/16 12:13 71 12/07/16 11:56 97.8 16 155/67 100 12/07/16 09:32 2.0 12/07/16 09:32 Nasal Cannula 12/05/16 07:55 28 Intake and Output 12/06/16 12/06/16 12/07/16 15:00 23:00 07:00 Intake Total 900 ml 1050 ml Output Total 1 ml Balance 900 ml 1049 ml Exam No apparent distress, sitting in chair, family at bedside Constitutional: alert, oriented Head: normocephalic Respiratory: other (Scattered fine rhonchi, no wheezing) Cardiovascular: other (S1-S2 heard), regular rate and rhythm Gastrointestinal: bowel sounds, non-tender, soft Extremities: edema (Trace) Results Result Diagram: 12/07/16 0753 12/07/16 0753 Results 24 hrs Laboratory Tests Test 12/06/16 15:03 12/07/16 07:53 Sodium Level 128 L 132 L White Blood Count 7.2 Red Blood Count 4.06 L Hemoglobin 11.9 L Hematocrit 36.5 L Mean Corpuscular Volume 89.9 Mean Corpuscular Hemoglobin 29.3 Mean Corpuscular Hemoglobin Concent 32.6 Red Cell Distribution Width 13.4 Platelet Count 294 Mean Platelet Volume 9.1 Neutrophils % 50.4 Lymphocytes % 38.0 Monocytes % 7.5 Eosinophils % 3.5 Basophils % 0.3 Nucleated Red Blood Cells % 0.0 Neutrophils # 3.6 Lymphocytes # 2.7 Monocytes # 0.5 Eosinophils # 0.3 Basophils # 0.0 Nucleated Red Blood Cells # 0.0 Potassium Level 4.6 Chloride Level 92 L Carbon Dioxide Level 34 H Anion Gap 11 Blood Urea Nitrogen 9 Creatinine 0.60 Glucose Level 105 Calcium Level 9.3 Medications Medications Current Medications Ondansetron HCl (Zofran Inj) 4 mg Q6H PRN IV NAUSEA AND/OR VOMITING; Start at 16:30 Acetaminophen (Tylenol Tab) 650 mg Q6H PRN PO PAIN LEVEL 1-3 OR FEVER; Start 12/04/16 at 16:30 Aspirin (Aspirin) 325 mg DAILY PO Last administered on 12/07/16 08:21; Admin Dose 325 MG; Start 12/05/16 at 09:00 Atorvastatin Calcium 10 mg 10 mg DAILY@21 PO Last administered on 12/06/16 20 :13; Admin Dose 10 MG; Start 12/04/16 at 21:00 Sodium Chloride (NS) 1,000 ml @ 60 mls/hr [id number] IV Last administered on 13:24; Admin Dose 60 MLS/HR; Start 12/05/16 at 13:00 Benazepril HCl (Lotensin) 5 mg BID PO Last administered on 12/07/16 08:21; Admin Dose 5 MG; Start 12/06/16 at 21:00 Hydralazine HCl (Apresoline) 5 mg Q6H PRN IV sbp>170; Start 12/06/16 at 17:00 Ergocalciferol (Drisdol) 50,000 unit Tu@09 PO Last administered on 12/06/16 14:14; Admin Dose 50,000 UNIT; Start 12/06/16 at 14:00 Asad Underwood DO Dec 07, 2016 13:16
== END 2016-12-07 14:00 | disposition home health service (06) | DRG 309 ==
LOC: E/R 13:31 → TEL 15:29
PROVIDERS: ADMIT Internal Medicine; ATTEND Internal Medicine
DX: R00.1 Bradycardia, unspecified (principal); J96.11 Chronic respiratory failure with hypoxia; J84.10 Pulmonary fibrosis, unspecified; E87.1 Hypo-osmolality and hyponatremia; I95.2 Hypotension due to drugs; I10 Essential (primary) hypertension; E03.9 Hypothyroidism, unspecified; E78.5 Hyperlipidemia, unspecified; D64.9 Anemia, unspecified; T46.4X5A Adverse effect of angiotensin-converting-enzyme inhibitors, initial encounter; Z99.81 Dependence on supplemental oxygen; Y92.9 Unspecified place or not applicable
CPT/HCPCS: 70450; 71010; 80048; 80053; 80061; 82550; 82553; 82728; 83036; 83540; 83735; 83880; 84100; 84295; 84436; 84439; 84443; 84479; 84484; 85025; 85610; 85730; 93005; 93306; 93880; 94640; 97116; 97161; 97530; J0360; J7030; J7040

== ENCOUNTER 2018-03-28 10:48 | Observation (INO) | payer MEDICARE, OTHER ==
[2018-03-28] VITALS (8 sets, daily range): BP systolic 140–170; BP diastolic 65–78; PULSE 70–78; RESP 17–21; Ht 152.4 cm; Wt 72.4 kg
[~2018-03-28] VITALS: Ht 152.4 cm; Wt 72.4 kg
[~2018-03-28 10:48] MED LIST changes: -ADV25050 INH; +ASPI325T30 PO; -ASPI325T4 PO; +BENA5TAB33 PO; +BUDE0.25 INHALATION; -CARV6.2579 PO; +FORM20VI INHALATION; +IPRATROPIUM; -LEVO50TA71 PO; -LEVO750T25 PO; +LEVO75TA5 PO; -OMEP20CA9 PO; -PRED5TAB PO; -PROM6.25 PO; +SIMV20TA PO; -TIOT18CA IH; +VIT D2; -ZOC10 PO
[2018-03-28] MEDS ORDERED: ASPI325T32 PO (11:49)
[2018-03-28] MEDS ORDERED: ASPI-817 PO (11:49)
[2018-03-28] MEDS ORDERED: LEVO88TA3 PO (11:49)
[2018-03-28] MEDS ORDERED: SIMV20TA PO (11:52)
[2018-03-28] MEDS ORDERED: CHOL100062 PO (11:52)
[2018-03-28] MEDS ORDERED: IPRA3AMP29 INHALATION (11:53)
[2018-03-28] MEDS ORDERED: BUDE0.25 INHALATION (11:53)
[2018-03-28] MEDS ORDERED: ONDANSETRON 4 MG INJ IV PRN ×2 (13:00→14:00)
[2018-03-28] MEDS ORDERED: ACETAMINOPHEN 325 MG TAB PO PRN (13:00)
--- NOTE | 2018-03-28 13:04 | ERD ---
ER Documentation Chief Complaint Chief Complaint Sob while getting the mail HPI Patient is an 87-year-old female with pulmonary fibrosis and hypertension who presents with shortness of breath. The patient was brought in by ambulance. The patient had shortness of breath with minimal exertion just going to the mailbox and then syncopized. She uses oxygen 24 hours a day for her pulmonary fibrosis. She has no fevers. She has a usual cough. She denies chest pain. She was "unresponsive" by the granddaughter until oxygen was placed by paramedics. Her primary doctor is at [facility]. ROS All systems reviewed and are negative except as per history of present illness. Medications Home Meds Reported Medications Ipratropium-Albuterol (Ipratropium-Albuterol) 0.5-3 Mg/3 Ml Ampul.neb, 3 ML INHALATION Q6, #30 VIAL 03/28/18 Budesonide* (Budesonide*) 0.25 Mg/2 Ml Ampul.neb, 0.25 MG INHALATION BID, AMP 03/28/18 Cholecalciferol* (Vitamin D3*) 1,000 Unit Tablet, 1000 UNIT PO DAILY, TAB 03/28/18 Simvastatin* (Zocor*) 20 Mg Tablet, 20 MG PO QHS, #30 TAB 03/28/18 Aspirin* (Aspirin* EC) 325 Mg Tab, 325 MG PO DAILY, TAB 03/28/18 Levothyroxine Sodium* (Levothyroxine Sodium*) 88 Mcg Tablet, 88 MCG PO BEFORE BREAKFAST, #30 TAB 03/28/18 Discontinued Reported Medications Aspirin* (Aspirin* EC) 81 Mg Tablet.dr, 81 MG PO DAILY, TAB 03/28/18 [Vit D2] No Conflict Check, 81054 Q 7DAYS 12/06/16 [Ipratropium] No Conflict Check 12/05/16 Budesonide* (Budesonide*) 0.25 Mg/2 Ml Ampul.neb, 0.25 MG INHALATION BID, AMP 12/05/16 Simvastatin* (Zocor*) 20 Mg Tablet, 20 MG PO QHS, #30 TAB 12/04/16 Levothyroxine Sodium* (Levothyroxine Sodium*) 75 Mcg Tablet, 75 MCG PO BEFORE BREAKFAST, #30 TAB 12/04/16 Formoterol Fumarate (Perforomist) 20 Mcg/2 Ml Vial.neb, 20 MCG INHALATION BID, VIAL 12/04/16 Aspirin* (Aspirin*) 325 Mg Tablet, 325 MG PO DAILY, TAB 06/18/14 Discontinued Scripts Benazepril Hcl* (Benazepril Hcl*) 5 Mg Tablet, 5 MG PO BID, #60 TAB Prov:JEWEL DUARTE 12/06/16 Allergies Allergies: Coded Allergies: No Known Allergy (Unverified , 03/28/18) PMhx/Soc History of Surgery: Yes (R shoulder) Anesthesia Reaction: No Hx Neurological Disorder: Yes (mild dementia ) Hx Respiratory Disorders: Yes (pulmonary fribosis ) Hx Cardiac Disorders: Yes (HTN has been off meds.) Hx Psychiatric Problems: No Hx Miscellaneous Medical Probl: Yes Hx Alcohol Use: No Hx Substance Use: No Hx Tobacco Use: No Smoking Status: Never smoker FmHx Family History: diabetes Physical Exam Vitals Vital Signs Date Temp Pulse Resp B/P (MAP) Pulse Ox O2 O2 Flow FiO2 Time Delivery Rate 03/28/18 Nasal 4.0 11:03 Cannula 03/28/18 Nasal 4 11:03 Cannula 03/28/18 98.6 78 22 109/91 100 11:00 (97) Physical Exam Const: No acute distress Head: Atraumatic Eyes: Normal Conjunctiva ENT: Normal External Ears, Nose and Mouth. Neck: Full range of motion. No meningismus. Resp: Crackles diffusely Cardio: Regular rate and rhythm, no murmurs Abd: Soft, non tender, non distended. Normal bowel sounds Skin: No petechiae or rashes Back: No midline or flank tenderness Ext: No cyanosis, or edema Neur: Awake and alert Psych: Normal Mood and Affect Result Diagram: 03/28/18 1149 03/28/18 1149 Results 24 hrs Laboratory Tests Test 03/28/18 11:49 03/28/18 11:53 White Blood Count 8.5 10^3/ul Red Blood Count 3.99 10^6/ul Hemoglobin 11.3 g/dl Hematocrit 36.6 % Mean Corpuscular Volume 91.7 fl Mean Corpuscular Hemoglobin 28.3 pg Mean Corpuscular Hemoglobin Concent 30.9 g/dl Red Cell Distribution Width 13.5 % Platelet Count 288 10^3/UL Mean Platelet Volume 9.4 fl Immature Granulocytes % 0.400 % Neutrophils % 76.4 % Lymphocytes % 14.1 % Monocytes % 6.3 % Eosinophils % 2.6 % Basophils % 0.2 % Nucleated Red Blood Cells % 0.0 /100WBC Immature Granulocytes # 0.030 10^3/ul Neutrophils # 6.5 10^3/ul Lymphocytes # 1.2 10^3/ul Monocytes # 0.5 10^3/ul Eosinophils # 0.2 10^3/ul Basophils # 0.0 10^3/ul Nucleated Red Blood Cells # 0.0 10^3/ul Prothrombin Time 12.2 Sec Prothrombin Time Ratio 1.0 INR International Normalized Ratio 0.89 Activated Partial Thromboplast Time 38.1 Sec Sodium Level 133 mmol/L Potassium Level 4.7 mmol/L Chloride Level 87 mmol/L Carbon Dioxide Level 38 mmol/L Anion Gap 8 Blood Urea Nitrogen 11 mg/dl Creatinine 0.59 mg/dl Est Glomerular Filtrat Rate mL/min mL/min Glucose Level 128 mg/dl Calcium Level 9.3 mg/dl Total Bilirubin 0.3 mg/dl Direct Bilirubin 0.00 mg/dl Indirect Bilirubin 0.3 mg/dl Aspartate Amino Transf (AST/SGOT) 26 IU/L Alanine Aminotransferase (ALT/SGPT) 8 IU/L Alkaline Phosphatase 81 IU/L Troponin I 0.016 ng/ml Total Protein 7.9 g/dl Albumin 4.1 g/dl Globulin 3.80 g/dl Albumin/Globulin Ratio 1.07 POC Venous Lactate 2.3 mmol/L Current Medications Medications Dose Sig/Gaudencio Start Time Status Last (Trade) Ordered Route PRN Stop Time Admin Dose Reason Admin Ondansetron 4 mg ER BRIDGE 03/28/18 HCl (Zofran PRN IV 13:00 Inj) NAUSEA/VOMITI 03/29/18 12:59 NG 650 mg ER BRIDGE 03/28/18 Acetaminophen PRN PO 13:00 (Tylenol .MILD PAIN 03/29/18 12:59 Tab) 1-3 OR TEMP Procedures/MDM Chest x-ray read by radiology. EKG read by me: Rate/Rhythm: Regular rate and rhythm at a normal rate Intervals: Normal Impression: No evidence of ischemia or arrhythmia Patient is a 87-year-old female with hypertension and pulmonary fibrosis who presents with syncope. The patient will need to be admitted for telemetry monitoring. She was placed on submental oxygen. The patient will be admitted to the care of the panel team to a telemetry observation bed. Departure Diagnosis: Primary Impression: Syncope Syncope type: unspecified Qualified Codes: R55 - Syncope and collapse Additional Impression: Shortness of breath Condition: ARABELLA Jones MD Mar 28, 2018 13:04
[2018-03-28] MEDS ORDERED: SOD CHLORIDE 0.9% 1,000 ML IV SCH (13:41)
[2018-03-28] MEDS ORDERED: ALBUTEROL/IPRATROPIUM (NEB) 3 ML AMP INH PRN ×2 (14:00→15:00)
[2018-03-28] MEDS ORDERED: IPRA5POW MC (15:02)
[2018-03-28] MEDS ORDERED: FORM20VI INHALATION (15:02)
[2018-03-28] MEDS ORDERED: FUROSEMIDE 20 MG INJ IV ONE (16:00)
[2018-03-28] MEDS ORDERED: METHYLPREDNISOLONE 40 MG INJ IV ONE (16:00)
--- NOTE | 2018-03-28 16:29 | HP ---
DATE OF ADMISSION: 03/28/2018 PRESENTING COMPLAINT: Syncopal episode and shortness of breath. HISTORY OF PRESENTING COMPLAINT: This is a very pleasant 87-year-old female who was brought in by her daughter and her granddaughter after she had a transient syncopal episode earlier the day today. The patient has a history of chronic hypoxic respiratory failure secondary to idiopathic pulmonary fibrosis and she is cared for at home with her family. She is on oxygen 24/7 at 2 to 3 liters a minute at home. Today while the family was attempting to go out, the patient had lost of consciousness transiently and the family panicked and called 911 and the ambulance brought her to the emergency room for evaluation. She was not out for more than a few minutes. She had been having some shortness of breath with exertion prior to this happened. However, the patient had not complained about chest pain. She had not complained about dizziness. There is no extremity weakness and she sustained no deformity from the episode and did not hit her head. There have been no fevers. No abdominal pain. No melenic stools. No dysuria or hematuria. PAST MEDICAL HISTORY: 1. Positive for idiopathic pulmonary fibrosis with chronic hypoxemic respiratory failure. 2. Chronic mild dementia. 3. Hypothyroidism. 4. Dyslipidemia. PAST SURGICAL HISTORY: Right shoulder surgery with titanium plate in place ALLERGIES: SHE HAS NO KNOWN DRUG ALLERGIES. SOCIAL HISTORY: Never smoker, never drinker, never abused drugs. FAMILY HISTORY: Noncontributory. HOME MEDICATIONS: Reviewed and reconciled. The patient's primary care doctor and conference organizer work at [facility]. PHYSICAL EXAMINATION: VITAL SIGNS: Temperature 96, pulse 70, respirations 18, blood pressure 140/65, saturations ____ about 96% to 97% with a rate of about 3 to 4 liters a minute. GENERAL: The patient was lying in bed, fairly comfortable elderly female. She was in no significant distress. HEENT: Head is normocephalic and atraumatic. Pupils are equal and reactive with minimal conjunctival pallor. Mucous membranes were moist. Posterior pharynx was clear of erythema and exudate. NECK: Supple without significant JVD. CHEST: With diminished breath sounds significantly bilaterally. There was some coarseness to her breath sounds. Prior documentation did note that the patient had crackles when she first got here. ABDOMEN: Soft, nontender, nondistended. Normoactive bowel sounds. EXTREMITIES: She had minimal to no lower extremity edema. SKIN: Devoid of rash or jaundice. PSYCHIATRIC: She was calm, cooperative with exam. LABORATORY VALUES: She had a microcytic and hypochromic picture with a hemoglobin of 11.3. Her serum sodium and chloride was low at 133 and 87. Her CO2 levels were high at 38. The rest of her basic metabolic profile and her liver profile were basically unremarkable. A venous lactate in the emergency room was elevated at 2.3. Regarding the CO2 levels on prior admission here about a year ago, CO2 levels were also elevated intermittently at that time. IMAGING STUDIES: Chest x-ray shows a left lower lobe opacity that is similar to previous imaging, likely secondary to chronic pulmonary fibrosis but an infiltrate cannot be ruled out. No other imaging studies to report at this time. DIAGNOSTIC DATA: EKG shows sinus rhythm without concern of acute ischemic pathology. ASSESSMENT: This is a pleasant 87-year-old female who came in after a couple of days' history of shortness of breath ____ and transient syncopal episode, currently managed for the followin. Transient syncope, likely secondary to transient hypoxia. 2. Chronic idiopathic pulmonary fibrosis with exacerbation. 3. Chronic hypoxemic respiratory failure with mild acute exacerbation secondary to #2. 4. Rule out congestive heart failure. 5. Lactic acidosis secondary to hypoxemia. 6. Chronic hypothyroidism. 7. Dyslipidemia. 8. Hyponatremia. 9. Hypochromic anemia (chronic and stable). PLAN OF CARE: Admit her to telemetry floor and basically work up for syncopal episode. In addition, treat her for pulmonary fibrosis exacerbation. She will get scheduled bronchodilator therapy. I will give 1 dose of diuresis. Continue intravenous steroids and home inhaled steroids. We will get pulmonary and cardiology consultations as well. Continue all other home medications for her comorbidities. We will be getting a new 2D echo. The last one we have on file was from more than a year ago. We will also get a urinalysis to rule out an occult urinary tract infection and check urine sodium as well for her hyponatremia. Further interventions will depend on her clinical course. Prior to discharge, we will have the physical therapist evaluate her and ensure that she is safe for ambulation. This plan of care has been discussed with patient and family in detail. Questions have been answered. She will be on Lovenox and Pepcid. Dictated By: SCOT MAC MD BA/NTS Conf#: [id number] DID#: [id number] CC: AKSHAT HAY MD;*EndCC* MTDD
[2018-03-28] MEDS ORDERED: hydrALAzine 20 MG INJ IV PRN (17:00)
[2018-03-28] MEDS ORDERED: LEVOFLOXACIN 500MG/D5W (PMX) 100 ML IVPB SCH (18:00)
[2018-03-28] MEDS ORDERED: LEVOFLOXACIN 500MG/D5W (PMX) 100 ML IVPB ONE (18:00)
--- NOTE | 2018-03-28 19:11 | CONS ---
DATE OF ADMISSION: 03/28/2018 DATE OF CONSULTATION: 03/28/2018 TYPE OF CONSULTATION: Cardiology. REASON FOR CONSULTATION: Syncope, rule cardiac rhythm. REQUESTING PHYSICIAN: Scot Mac MD, from the hospitalist service. HISTORY OF PRESENT ILLNESS: Ms. Marcio Johnson is an 87-year-old female with a history of idiopathic pu lmonary fibrosis on home O2, mild dementia, hypothyroidism, dyslipidemia, who presented with worsenin g respiratory failure and presyncopal, syncopal episode at home. Per daughter at bedside, the patien veena had been having problems with oxygenation and turned off oxygenation overnight. She did fine. In the morning, they went to get her up and walked her and as they are walking around on a portable O2 o f 3 liters, she began to feel faint and somewhat collapsed in her granddaughter's arms. The granddau danna laid her on the ground and 911 was called. Upon arrival, temperature was 98.6, blood pressure 109/91, pulse 78, respiratory rate 22, satting 100%. The patient's labs, white blood cell count of 8 .5, hemoglobin 11.3, platelet count of 288. Sodium 133, potassium 4.7, creatinine 0.59, BUN 11. Tro ponin negative. INR 0.89. The patient underwent a chest x-ray revealing stable bilateral interstiti al marking, chronic lung changes, ____ lung bases similar to remote prior exam, likely to chronic int erstitial lung disease and a carotid Doppler that revealed ____, mild to moderate calcified plaque in the left carotid bulb; otherwise, no evidence for hemodynamic significant stenoses in the bilateral internal carotid arteries. The patient's electrocardiogram revealed normal sinus rhythm, rate of 75, normal axis, inferior Q's, borderline anterior progression with lead malpositioned. The patient was subsequently admitted to the telemetry floor where at this time she is monitored on telemetry reveal ing sinus rhythm, no significant arrhythmias or pauses. PAST MEDICAL HISTORY: As above in HPI. MEDICATIONS CURRENTLY IN HOSPITAL: 1. Aspirin 81 mg daily. 2. Vitamin D. 3. Solu-Medrol. 4. Lovenox 40 mg subcutaneously daily. 5. Synthroid 88 mcg daily. 6. Pepcid 20 mg q.12. 7. Pulmicort. 8. Lipitor 10 mg at bedtime. 9. Atrovent. 10. Lasix 20 mg x1. 11. Solu-Medrol 40 mg IV. 12. Levofloxacin. 13. DuoNeb 14. Zofran p.r.n. ALLERGIES: NO KNOWN DRUG ALLERGIES. SOCIAL HISTORY: No current tobacco, EtOH or illicit drug use. FAMILY HISTORY: No history of sudden cardiac or early CAD. REVIEW OF SYSTEMS: As above in HPI. CONSTITUTIONAL: No fevers, chills. PULMONARY: Pulmonary fibrosis, shortness of breath. GASTROINTESTINAL: No vomiting. GENITOURINARY: No hematuria. MUSCULOSKELETAL: Degenerative joint disease. PSYCHIATRIC: No documented psych history. NEUROLOGIC: No documented history of CVA. ENDOCRINE: Thyroid disease. PHYSICAL EXAMINATION: VITAL SIGNS: Temperature of 98.6, blood pressure most recently 140/65, pulse 73, respiratory rate of 18, satting 97%. GENERAL: The patient is alert, awake, in no acute distress. NECK: JVP approximately is 9 cm of water. CHEST: Diffuse coarse sounds throughout. HEART: Regular rate and rhythm. Normal S1, increased S2, I/ systolic murmur. ABDOMEN: Positive bowel sounds, soft. EXTREMITIES: No significant pitting edema, 1+ pulses bilateral posterior tibial. LABORATORY DATA: As above in HPI. No further labs for my review at this time. IMAGING STUDIES: As above in HPI. No further imaging for my review at this time. ELECTROCARDIOGRAM: As above in HPI. No further electrocardiograms for my review at this time. IMPRESSION: 1. Syncope, presyncope, rule out cardiac etiology. Rule out cardiac arrhythmia, likely due to chron ic hypoxia. 2. Abnormal electrocardiogram with inferior Q's. Assess for acute coronary syndrome. 3. Hypertension, borderline. 4. History of dyslipidemia. 5. Pulmonary fibrosis. 6. Mild dementia. 7. Anemia. 8. Hyponatremia. RECOMMENDATIONS: 1. At this time, we would maintain the patient on telemetry monitoring to follow rhythm and rates cl osely. 2. We would complete the patient's rule out for myocardial infarction to ensure the patient's EKG ab normalities are chronic in nature and not due to recent acute coronary syndrome. 3. Check a 2D echo for this patient's ejection fraction, wall motion or ruling out major valve abnor malities. 4. Continue to check serial EKGs, assess for significant ongoing changes, an EKG in the morning, EKG for any complaints of chest pain or change in rhythm. 5. Check a fasting lipid panel and initiate the patient on lipid-lowering medication as necessary. 6. Check orthostatics to ensure that orthostasis is not contributing to the patient's fall. 7. Continue the patient's baseline steroids, bronchodilators. 8. We will check a BNP to further assess the patient's current volume status. Thank you for allowing me to take part in the care of this patient. I will continue to follow her al leni very closely with you with further recommendations to be made as the patient progresses through [facility] clinical course. Dictated By: AKSHAT VELOZ/CODI Conf#: [id number] DID#: [id number] CC: SCOT MAC MD;*End*
[2018-03-28] MEDS: ALBUTEROL/IPRATROPIUM (NEB) 3 ML AMP HHN SCH (20:05)
[2018-03-28] MEDS: BUDESONIDE (NEB) 0.25 MG/2 ML AMP INH SCH (20:11)
[2018-03-28] MEDS ORDERED: IPRATROPIUM (NEB) 0.5 MG/2.5 ML AMP HHN SCH (21:00)
[2018-03-28] MEDS ORDERED: FORMOTEROL FUMARATE 20 MCG INHALATION SCH (21:00)
[2018-03-28] MEDS: ATORVASTATIN 10 MG TAB PO SCH (21:59)
[2018-03-28] MEDS: FAMOTIDINE 20 MG TAB PO SCH (21:59)
[2018-03-28] MEDS ORDERED: ARTIFICIAL TEARS 15 ML OPH BOTH EYES SCH (22:30)
[2018-03-28] MEDS ORDERED: ARTIFICIAL TEARS 15 ML OPH BOTH EYES PRN (23:00)
[2018-03-29] VITALS (13 sets, daily range): BP systolic 125–177; BP diastolic 58–94; PULSE 65–93; RESP 16–20
[2018-03-29] MEDS ORDERED: traZODone 50 MG TAB PO PRN (00:30)
[2018-03-29] MEDS: ALBUTEROL/IPRATROPIUM (NEB) 3 ML AMP HHN SCH ×4 (02:00→20:32)
[2018-03-29] MEDS: LEVOTHYROXINE 88 MCG TAB PO SCH (06:15)
[2018-03-29] MEDS: BUDESONIDE (NEB) 0.25 MG/2 ML AMP INH SCH ×2 (08:22→20:32)
[2018-03-29] MEDS: METHYLPREDNISOLONE 40 MG INJ IV SCH (08:34)
[2018-03-29] MEDS: FAMOTIDINE 20 MG TAB PO SCH ×2 (08:34→21:22)
[2018-03-29] MEDS: ASPIRIN 81 MG TAB PO SCH (08:35)
[2018-03-29] MEDS: CHOLECALCIFEROL 1,000 UNIT TAB PO SCH (08:35)
[2018-03-29] MEDS ORDERED: INFLUENZA VIRUS VACCINE 0.5 ML (DISPENSING) IM* ONE (09:00)
[2018-03-29] MEDS: ENOXAPARIN 30 MG/0.3 ML SYG SC SCH (09:09)
--- NOTE | 2018-03-29 12:39 | CONS ---
Assessment/Plan Assessment/Plan Hospital Course (Demo Recall) IMPRESSION: 1. Syncope, presyncope, rule out cardiac etiology. Rule out cardiac arrhythmia, likely due to chronic hypoxia.-neg trop x 3. neg orthostatics 2. Abnormal electrocardiogram with inferior Q's. Assess for acute coronary syndrome. 3. Hypertension-labile 4. History of dyslipidemia. 5. Pulmonary fibrosis. 6. Mild dementia. 7. Anemia. 8. Hyponatremia.-ongoing and slightly worse REcc: -Continue asa/statin -will f/u echo -start low dose antihypertensives -contineu steroids/bronchodilators Consultation Date/Type/Reason Admit Date/Time Mar 28, 2018 at 12:50 Initial Consult Date 03/28/18 Type of Consult Cardiology Reason for Consultation syncope Requesting Provider: SCOT MAC Date/Time of Note DATE: 03/29/18 TIME: 12:36 Exam/Review of Systems Vital Signs Vitals Vital Signs Date Temp Pulse Resp B/P (MAP) Pulse Ox O2 O2 Flow FiO2 Time Delivery Rate 03/29/18 97.9 83 18 177/94 96 11:42 (121) 03/29/18 Nasal 3.0 08:35 Cannula 03/29/18 28 08:24 Intake and Output 03/28/18 03/28/18 03/29/18 1515:00 23:00 07:00 IntakeIntake Total 280 ml 240 ml OutputOutput Total 150 ml BalanceBalance 130 ml 240 ml Exam Exam Review of Systems: CONSTITUTIONAL: No fevers, chills. PULMONARY: No sob CARDIOVASCULAR: No chest pain/palpitations GASTROINTESTINAL: No nausea/vomiting. GENITOURINARY: No hematuria/dysuria. MUSCULOSKELETAL: No myagias/arthalgias. PSYCHIATRIC: The patient denies depression. NEUROLOGIC: generalized weakness Constitutional: alert Psych: no complaints Head: normocephalic ENMT: mucosa pink and moist Neck: supple, jvd (9 cm water) Respiratory: diminished breath sounds (at bases/B) Cardiovascular: regular rate and rhythm Gastrointestinal: soft, non-tender Musculoskeletal: muscle weakness (generalized) Extremities: edema (none) Neurological: other (No focal deficits) Labs Result Diagram: 03/29/18 0815 03/29/18 0815 Results 24hrs Laboratory Tests Test 03/28/18 16:09 03/28/18 17:40 03/28/18 21:53 03/29/18 08:15 Lactic Acid Level 1.3 0.7 Creatine Kinase 21 L 28 Creatine Kinase 4.5 2.9 Index Creatinine Kinase MB 0.94 0.82 (Mass) Troponin I 0.055 0.032 B-Type Natriuretic 236 Peptide Urine Color YELLOW Urine Clarity CLOUDY A Urine pH 8.0 Urine Specific 1.010 [place] Urine Ketones NEGATIVE Urine Nitrite NEGATIVE Urine Bilirubin NEGATIVE Urine Urobilinogen NEGATIVE Urine Leukocyte NEGATIVE Esterase Urine Microscopic 2 RBC Urine Microscopic 2 WBC Urine Squamous FEW Epithelial Cells Urine Amorphous MANY A Crystals Urine Bacteria FEW A Urine Mucus FEW A Urine Hemoglobin NEGATIVE Urine Random Sodium 102 H Urine Glucose NEGATIVE Urine Total Protein NEGATIVE White Blood Count 5.6 # Red Blood Count 3.66 L Hemoglobin 10.3 L Hematocrit 32.6 L Mean Corpuscular 89.1 Volume Mean Corpuscular 28.1 L Hemoglobin Mean Corpuscular 31.6 L Hemoglobin Concent Red Cell 13.4 Distribution Width Platelet Count 278 Mean Platelet Volume 9.1 Immature 0.400 Granulocytes % Neutrophils % 59.8 Lymphocytes % 25.9 Monocytes % 8.7 Eosinophils % 4.8 Basophils % 0.4 Nucleated Red Blood 0.0 Cells % Immature 0.020 Granulocytes # Neutrophils # 3.4 Lymphocytes # 1.5 Monocytes # 0.5 Eosinophils # 0.3 Basophils # 0.0 Nucleated Red Blood 0.0 Cells # Sodium Level 130 L Potassium Level 4.6 Chloride Level 87 L Carbon Dioxide Level 37 H Anion Gap 6 Blood Urea Nitrogen 12 Creatinine 0.54 Est Glomerular Filtrat Rate mL/min Glucose Level 101 Calcium Level 8.7 Magnesium Level 1.8 Iron Level 57 Total Iron Binding 257 Capacity Percent Iron 22 Saturation Thyroid Stimulating 2.710 Hormone (TSH) Free Thyroxine 1.07 Medications Medications Current Medications Ondansetron HCl (Zofran Inj) 4 mg Q6H PRN IV NAUSEA/VOMITING; Start 03/28/18 at 14:00 Aspirin (Aspirin) 81 mg DAILY PO Last administered on 03/29/18at 08:35; Admin Dose 81 MG; Start 03/29/18 at 09:00 Famotidine (Pepcid) 20 mg Q12 PO Last administered on 03/29/18at 08:34; Admin Dose 20 MG; Start 03/28/18 at 21:00 Budesonide (Pulmicort (Neb)) 0.25 mg BID RESP THERAPY INH Last administered on 03/29/18 08:22; Admin Dose 0.25 MG; Start 03/28/18 at 21:00 Cholecalciferol (Vitamin D) 1,000 unit DAILY PO Last administered on 03/29/18 08:35; Admin Dose 1,000 UNIT; Start 03/29/18 at 09:00 Levothyroxine Sodium (Synthroid) 88 mcg BEFORE BREAKFAST PO Last administered on 03/29/18 06:15; Admin Dose 88 MCG; Start 03/29/18 at 07:00 Atorvastatin Calcium (Lipitor) 10 mg DAILY@21 PO Last administered on 03/28/18 21:59; Admin Dose 10 MG; Start 03/28/18 at 21:00 Albuterol/ Ipratropium (Duoneb) 3 ml Q6H RESP THERAPY PRN INH sob; Start 03/28/18 at 15:00 Miscellaneous Information 20 mcg BID INHALATION ; Start 03/28/18 at 21:00; Status UNV Methylprednisolone Sodium Succinate (Solu-Medrol) 40 mg DAILY IV Last administered on 03/29/18 08:34; Admin Dose 40 MG; Start 03/29/18 at 09:00 Albuterol/ Ipratropium (Duoneb) 3 ml Q6H RESP THERAPY HHN Last administered on 03/29/18 08:05; Admin Dose 3 ML; Start 03/28/18 at 20:00; Stop 03/30/18 at 19:59 Enoxaparin Sodium (Lovenox) 30 mg DAILY SC Last administered on 03/29/18 09:09; Admin Dose 30 MG; Start 03/29/18 at 09:00 Hydralazine HCl (Apresoline) 10 mg Q4H PRN IV SBP>170; Start 03/28/18 at 17:00 Levofloxacin/ Dextrose 50 ml @ 50 mls/hr Q24H IVPB ; Start 03/29/18 at 18:00 Eye Lubricant (Artificial Tears Oph) 2 drop PRN PRN BOTH EYES DRY EYES; Start 03/28/18 at 23:00 Trazodone HCl (Desyrel) 50 mg HS PRN PO INSOMNIA Last administered on 03/29/18 00:39; Admin Dose 50 MG; Start 03/29/18 at 00:30 Patient Own Medication 1 ea BID HHN ; Start 03/29/18 at 21:00 AKSHAT HAY Mar 29, 2018 12:39
--- NOTE | 2018-03-29 14:20 | RADRPT ---
Echocardiogram Report Patient Name: Vanessa FARMERnt ID: [id number] : 1930 (87y 7m)Study Date: 03/29/2018 9:27:03 AM Gender: FAccession #: [id number] Tech: Varun Guzmán [facility] Location: [address] Ref.Physician: SCOT MAC Height(Cm): BSA: Weight(Kg): Quality: AdequateAccount #: Procedures: Echocardiographic Report: Transthoracic echocardiogram with complete 2D, M-Mode, and doppler examination. Indications: Syncope. Measurements: 2D/M Mode Doppler Measurement Value Normal Range Measurement Value Normal Range LVIDd 2D 4.9 [ 3.8 - 5.2 ] cm AV Peak Arturo 1.5 [ 100.0 - 170.0 ] cm/sec LVIDs 2D 3.3 [ 2.2 - 3.5 ] cm AV Peak PG 9.0 [ 2.0 - 9.0 ] mmHg LVPWd 2D 0.9 [ 0.6 - 0.9 ] cm LVOT Peak Arturo 1.3 [ 70.0 - 110.0 ] cm/sec IVSd 2D 1.0 [ 0.6 - 0.9 ] cm LVOT Peak PG 6.0 [ 2.0 - 6.0 ] mmHg AoR Diam 2D 2.6 [ 2.3 - 3.1 ] cm MV E Peak Arturo 0.7 [ 60.0 - 130.0 ] cm/sec EDV 2D 114.0 [ 46.0 - 106.0 ] ml MV A Peak Arturo 1.1 [ 100.0 - 120.0 ] cm/sec ESV 2D 43.5 [ 14.0 - 42.0 ] ml MV E/A 0.6 [ 0.8 - 1.5 ] ratio EF 2D 61.8 [ 54.0 - 74.0 ] percent MV Decel Time 176 [ 104 - 258 ] msec LA Dimen 2D 4.6 [ 2.7 - 3.8 ] cm Lat E` Arturo 0.0 [ 10.0 - 15.0 ] cm/sec Lateral E/E` 14.7 [ 1.0 - 2.0 ] ratio Med E` Arturo 0.0 cm/sec MV E/A 0.6 [ 0.8 - 1.5 ] ratio TR Peak Arturo 4.5 [ 100.0 - 280.0 ] cm/sec TR Peak PG 81.0 mmHg RVSP 84.0 [ 10.0 - 36.0 ] mmHg Findings: Left Ventricle: Normal left ventricular systolic function. Normal left ventricular cavity size. Normal left ventricular wall thickness. Ejection fraction is visually estimated at 65 %. Tissue Doppler/Mitral Doppler indices are consistent with impaired relaxation (Stage I diastolic dysfunction). Right Ventricle: Normal right ventricular size. Normal right ventricular systolic function. Left Atrium: There is mild enlargement of left atrium. Right Atrium: The right atrium is normal in size. Mitral Valve: Mild mitral leaflet calcification. Mild mitral annular calcification. Trace mitral regurgitation. Aortic Valve: No significant aortic stenosis or insufficiency. Aortic cusps appear mildly calcified. Tricuspid Valve: Normal appearance of the tricuspid valve. Estimated peak PA systolic pressure 84 mmHg. There is moderate tricuspid regurgitation. Pulmonic Valve: Pulmonic valve not well visualized. Pericardium: Trivial pericardial effusion. Aorta: Normal aortic root. IVC: Normal size and normal respiratory collapse consistent with normal right atrial pressure. Conclusions: Normal left ventricular systolic function. Normal left ventricular cavity size. Normal left ventricular wall thickness. Ejection fraction is visually estimated at 65 %. Tissue Doppler/Mitral Doppler indices are consistent with impaired relaxation (Stage I diastolic dysfunction). There is mild enlargement of left atrium. Mild mitral leaflet calcification. Mild mitral annular calcification. Trace mitral regurgitation. Normal appearance of the tricuspid valve. Estimated peak PA systolic pressure 84 mmHg. There is moderate tricuspid regurgitation. Pulmonic valve not well visualized. Trivial pericardial effusion. Electronically Signed By: Toy Soria 2018-03-29 14:19:27 PST
--- NOTE | 2018-03-29 16:22 | PDOCDIS ---
Discharge Instructions CONDITION [id number] Patient Condition: [id number] Good HOME CARE INSTRUCTIONS: [id number] Diet Instructions: [id number] Regular ACTIVITY: [id number] Activity Restrictions: [id number] Slowly Increase Activity FOLLOW UP/APPOINTMENTS Follow-up Plan FOLLOW UP WITH YOUR PRIMARY CARE PHYSICIAN IN 1-2 WEEKS JONAH RIOJAS Mar 29, 2018 16:22
--- NOTE | 2018-03-29 16:29 | DS ---
Date/Time of Note Date/Time of Note DATE: 03/29/18 TIME: 16:24 Discharge Summary Admission/Discharge Info Admit Date/Time Mar 28, 2018 at 12:50 Discharge Date/Time March 29, 2018 Discharge Diagnosis 1. Syncope secondary to hypoxia from pulmonary fibrosis Vitals and echo are stable 2. Chronic idiopathic pulmonary fibrosis Continue home meds and supplements O2 3. Hypothyroidism Continue meds 4. Anemia of chronic disease Monitor 5. Bacteriuria with no infection UA is negative for pyuria Patient asymptomatic and is likely colonized, no indication for antibiotics Patient Condition: Good Hospital Course Patient is a 87-year-old female history of chronic idiopathic pulmonary fibrosis, hypothyroidism who presents with syncope secondary to hypoxia due to exacerbation of her pulmonary fibrosis. Carotid ultrasound and 2D echo showed no significant acute findings with preserved EF, patient had no evidence of pneumonia or sepsis and was stable for DC to home. On day of discharge patient's vitals, labs of exam are stable, patient and family were offered home health but they were not interested. Home Meds Reported Medications Formoterol Fumarate (Perforomist) 20 Mcg/2 Ml Vial.neb, 20 MCG INHALATION BID, V IAL 03/28/18 Ipratropium Cook (Ipratropium Cook) 5 Gm Powder, 10.5 MG MC BID 03/28/18 Ipratropium-Albuterol (Ipratropium-Albuterol) 0.5-3 Mg/3 Ml Ampul.neb, 3 ML INHALATION Q6, #30 VIAL 03/28/18 Budesonide* (Budesonide*) 0.25 Mg/2 Ml Ampul.neb, 0.25 MG INHALATION BID, AMP 03/28/18 Cholecalciferol* (Vitamin D3*) 1,000 Unit Tablet, 1000 UNIT PO DAILY, TAB 03/28/18 Simvastatin* (Zocor*) 20 Mg Tablet, 20 MG PO QHS, #30 TAB 03/28/18 Aspirin* (Aspirin* EC) 325 Mg Tab, 325 MG PO DAILY, TAB 03/28/18 Levothyroxine Sodium* (Levothyroxine Sodium*) 88 Mcg Tablet, 88 MCG PO BEFORE BREAKFAST, #30 TAB 03/28/18 Discontinued Reported Medications Aspirin* (Aspirin* EC) 81 Mg Tablet.dr, 81 MG PO DAILY, TAB 03/28/18 [Vit D2] No Conflict Check, [id number] Q 7DAYS 12/06/16 [Ipratropium] No Conflict Check 12/05/16 Budesonide* (Budesonide*) 0.25 Mg/2 Ml Ampul.neb, 0.25 MG INHALATION BID, AMP 12/05/16 Simvastatin* (Zocor*) 20 Mg Tablet, 20 MG PO QHS, #30 TAB 12/04/16 Levothyroxine Sodium* (Levothyroxine Sodium*) 75 Mcg Tablet, 75 MCG PO BEFORE BREAKFAST, #30 TAB 12/04/16 Formoterol Fumarate (Perforomist) 20 Mcg/2 Ml Vial.neb, 20 MCG INHALATION BID, VIAL 12/04/16 Aspirin* (Aspirin*) 325 Mg Tablet, 325 MG PO DAILY, TAB 06/18/14 Discontinued Scripts Benazepril Hcl* (Benazepril Hcl*) 5 Mg Tablet, 5 MG PO BID, #60 TAB Prov:JEWEL DUARTE 12/06/16 Follow-up Plan FOLLOW UP WITH YOUR PRIMARY CARE PHYSICIAN IN 1-2 WEEKS Primary Care Provider Not On Staff Doctor Time spent on discharge: > 30 minutes JONAH RIOJAS Mar 29, 2018 16:29
[2018-03-29] MEDS ORDERED: LEVOFLOXACIN 250MG/D5W (PMX) 50 ML IVPB SCH (18:00)
[2018-03-29] MEDS ORDERED: FORMETEROL HHN SCH (21:00)
[2018-03-29] MEDS: ATORVASTATIN 10 MG TAB PO SCH (21:22)
[2018-03-29] MEDS: BENAZEPRIL 10 MG TAB PO SCH (21:23)
[2018-03-30 01:00] VITALS: PULSE 70
[2018-03-30] MEDS: ALBUTEROL/IPRATROPIUM (NEB) 3 ML AMP HHN SCH ×2 (02:50→08:28)
[2018-03-30 04:00] VITALS: PULSE 69
[2018-03-30 07:17] VITALS: BP 140/66; PULSE 69; RESP 16
[2018-03-30] MEDS: LEVOTHYROXINE 88 MCG TAB PO SCH (08:07)
[2018-03-30 08:50] VITALS: PULSE 63
[2018-03-30] MEDS: FAMOTIDINE 20 MG TAB PO SCH (08:51)
[2018-03-30] MEDS: ASPIRIN 81 MG TAB PO SCH (08:51)
[2018-03-30] MEDS: BENAZEPRIL 10 MG TAB PO SCH (08:52)
[2018-03-30] MEDS: CHOLECALCIFEROL 1,000 UNIT TAB PO SCH (08:52)
[2018-03-30] MEDS: METHYLPREDNISOLONE 40 MG INJ IV SCH (08:52)
[2018-03-30] MEDS: ENOXAPARIN 30 MG/0.3 ML SYG SC SCH (09:02)
== END 2018-03-30 10:16 | disposition home or self-care (01) ==
LOC: E/R 10:48 → TEL 12:50
PROVIDERS: ADMIT Family Medicine; ATTEND Internal Medicine
DX: J84.112 Idiopathic pulmonary fibrosis (principal); E03.9 Hypothyroidism, unspecified; D64.9 Anemia, unspecified; R94.31 Abnormal electrocardiogram [ECG] [EKG]; E78.5 Hyperlipidemia, unspecified; E87.1 Hypo-osmolality and hyponatremia; F03.90 Unspecified dementia, unspecified severity, without behavioral disturbance, psychotic disturbance, mood disturbance, and anxiety; Z79.82 Long term (current) use of aspirin
CPT/HCPCS: 36415; 71045; 80048; 80053; 81001; 82550; 82553; 83540; 83605; 83735; 83880; 84300; 84439; 84443; 84484; 85025; 85610; 85730; 87040; 87086; 87400; 90686; 93005; 93306; 93880; 94640; 94664; 97161; 99285; G0378; J1650; J1956; J2920; J7030

== ENCOUNTER 2018-04-26 23:35 | Inpatient (IN) | payer MEDICARE, OTHER ==
[~2018-04-26] VITALS: Ht 154.9 cm; Wt 76.0 kg
[~2018-04-26 23:35] MED LIST changes: -ASPI325T30 PO; +ASPI325T32 PO; -BENA5TAB33 PO; +CHOL100062 PO; +IPRA3AMP29 INHALATION; +IPRA5POW MC; -IPRATROPIUM; -LEVO75TA5 PO; +LEVO88TA3 PO; -VIT D2
[2018-04-26] MEDS ORDERED: VANCOMYCIN 1 GM (PMX) 250 ML IVPB STA (23:52)
[2018-04-26] MEDS ORDERED: CEFEPIME 1GM/50 ML (PMX) 50 ML IVPB STA (23:52)
[2018-04-27] VITALS (26 sets, daily range): BP systolic 103–149; BP diastolic 48–93; PULSE 59–81; RESP 18–35; Ht 154.9 cm; Wt 76.0 kg
[2018-04-27] MEDS ORDERED: ALBUTEROL 0.083% (NEB) 2.5 MG/3 ML AMP INH ONE
--- NOTE | 2018-04-27 00:18 | ERD ---
ER Documentation Chief Complaint Chief Complaint BIBA, pt dtr at bedside; SOB, chronic cough; hx of pulmonary fibrosis HPI This is a 87-year-old female who is on 24/7 oxygen for pulmonary fibrosis. The patient has a chronic cough and has been a little bit worse lately according to family. The patient was given some promethazine cough syrup this evening and the family checked on her about 20 minutes later and she was difficult to arouse. They got scared and called the ambulance and so the patient became arousable about 5-10 minutes later. Patient says she feels back to normal and feels fine. She is in no respiratory distress no chest pain no recent fever no abdominal pain or vomiting or dysuria ROS All systems reviewed and are negative except as per history of present illness. Medications Home Meds Reported Medications Formoterol Fumarate (Perforomist) 20 Mcg/2 Ml Vial.neb, 20 MCG INHALATION BID, VIAL 03/28/18 Ipratropium [place] (Ipratropium [place]) 5 Gm Powder, 10.5 MG MC BID 03/28/18 Ipratropium-Albuterol (Ipratropium-Albuterol) 0.5-3 Mg/3 Ml Ampul.neb, 3 ML INHALATION Q6, #30 VIAL 03/28/18 Budesonide* (Budesonide*) 0.25 Mg/2 Ml Ampul.neb, 0.25 MG INHALATION BID, AMP 03/28/18 Cholecalciferol* (Vitamin D3*) 1,000 Unit Tablet, 1000 UNIT PO DAILY, TAB 03/28/18 Simvastatin* (Zocor*) 20 Mg Tablet, 20 MG PO QHS, #30 TAB 03/28/18 Aspirin* (Aspirin* EC) 325 Mg Tab, 325 MG PO DAILY, TAB 03/28/18 Levothyroxine Sodium* (Levothyroxine Sodium*) 88 Mcg Tablet, 88 MCG PO BEFORE BREAKFAST, #30 TAB 03/28/18 Allergies Allergies: Coded Allergies: No Known Allergy (Unverified , 04/27/18) PMhx/Soc History of Surgery: Yes (right shoulder - titanium implant) Anesthesia Reaction: No Hx Neurological Disorder: Yes (forgetfulness) Hx Respiratory Disorders: Yes (pulmonary fibrosis) Hx Cardiac Disorders: Yes (htn) Hx Psychiatric Problems: No Hx Miscellaneous Medical Probl: Yes (idiopathic pulmonary fibrosis with chronic hypoxemic resp failure, mild dem) Hx Alcohol Use: No Hx Substance Use: No Hx Tobacco Use: No Smoking Status: Never smoker FmHx Family History: No coronary disease Physical Exam Vitals Vital Signs Date Temp Pulse Resp B/P (MAP) Pulse Ox O2 O2 Flow FiO2 Time Delivery Rate 04/27/18 65 33 99 Non 15.0 00:16 Rebreather Mask 04/27/18 Non 15.0 00:16 Rebreather 04/26/18 Non 15 23:56 Rebreather 04/26/18 98.9 73 20 154/82 100 23:54 (106) Physical Exam Const: Well-developed, well-nourished Head: Atraumatic, normocephalic Eyes: Normal Conjunctiva, PERRLA, EOMI, normal sclera, no nystagmus ENT: Normal External Ears, Nose and Mouth, moist mucus membranes. Neck: Full range of motion. No meningismus, no lymphadenopathy. Resp: Decreased breath sounds bilaterally Cardio: Regular rate and rhythm, no murmurs, S1 S2 present Abd: Soft, non tender x 4, non distended. Normal bowel sounds, no guarding or rebound, no pulsitile abdominal masses or bruits Skin: No petechiae or rashes, no ecchymosis , no maculopapular rash Back: No midline or flank tenderness Ext: No cyanosis, or edema, FROM x 4, normal inspection, neurovascular ly intact x 4 Neur: Awake and alert, STR 5/5 x 4, sensation intact x 4, no focal findings, cerebellum intact Psych: Normal Mood and Affect Result Diagram: 04/26/18704/26/187 Results 24 hrs Laboratory Tests Test 04/26/18 00:08 White Blood Count 6.4 10^3/ul Red Blood Count 4.05 10^6/ul Hemoglobin 11.4 g/dl Hematocrit 36.0 % Mean Corpuscular Volume 88.9 fl Mean Corpuscular Hemoglobin 28.1 pg Mean Corpuscular Hemoglobin Concent 31.7 g/dl Red Cell Distribution Width 13.3 % Platelet Count 263 10^3/UL Mean Platelet Volume 8.9 fl Immature Granulocytes % 0.500 % Neutrophils % 74.5 % Lymphocytes % 12.8 % Monocytes % 11.4 % Eosinophils % 0.5 % Basophils % 0.3 % Nucleated Red Blood Cells % 0.0 /100WBC Immature Granulocytes # 0.030 10^3/ul Neutrophils # 4.8 10^3/ul Lymphocytes # 0.8 10^3/ul Monocytes # 0.7 10^3/ul Eosinophils # 0.0 10^3/ul Basophils # 0.0 10^3/ul Nucleated Red Blood Cells # 0.0 10^3/ul Sodium Level 119 mmol/L Potassium Level 5.7 mmol/L Chloride Level 77 mmol/L Carbon Dioxide Level 39 mmol/L Anion Gap 3 Blood Urea Nitrogen 16 mg/dl Creatinine 0.50 mg/dl Est Glomerular Filtrat Rate mL/min mL/min Glucose Level 97 mg/dl Calcium Level 8.7 mg/dl Total Bilirubin 0.2 mg/dl Direct Bilirubin 0.00 mg/dl Indirect Bilirubin 0.2 mg/dl Aspartate Amino Transf (AST/SGOT) 37 IU/L Alanine Aminotransferase (ALT/SGPT) 23 IU/L Alkaline Phosphatase 84 IU/L Troponin I 0.046 ng/ml B-Type Natriuretic Peptide 1060 PG/ML Total Protein 7.3 g/dl Albumin 3.7 g/dl Globulin 3.60 g/dl Albumin/Globulin Ratio 1.02 Current Medications Medications Dose Sig/Gaudencio Start Time Status Last (Trade) Ordered Route PRN Stop Time Admin Dose Reason Admin Albuterol 7.5 mg ONCE ONCE 04/27/18 DC 04/27/18 (Proventil INH 00:00 00:15 0.083% (Neb)) 04/27/18 00:01 Cefepime HCl 50 ml @ ONCE STAT 04/26/18 DC 04/27/18 100 mls/hr IVPB 23:52 00:20 04/27/18 00:21 Vancomycin 250 ml @ ONCE STAT 04/26/18 DC 04/26/18 HCl 125 mls/hr IVPB 23:52 23:52 04/27/18 01:51 Sodium 500 ml @ Q1H STAT 04/27/18 04/27/18 Chloride 500 mls/hr IV 01:42 02:05 04/27/18 02:41 Procedures/MDM Ordering MD: CAREY FERNANDEZ DO Location: E/R Room/Bed: PROCEDURE: Portable chest x-ray. CLINICAL INDICATION: Shortness of breath. TECHNIQUE: Portable AP view of the chest. COMPARISON: 06/19/2014. FINDINGS: There is increased interstitial prominence. Bilateral lower lung opacities are n oted. The cardiac silhouette is enlarged. There are aortic calcifications. There is a small to moderate left pleural effusion. There is no pneumothorax. There is a right shoulder hemiarthroplasty. IMPRESSION: Increased interstitial prominence. This is nonspecific but could represent interstitial edema, a viral chest infection, and/or chronic lung changes. Bilateral lower lung opacities, possibly representing atelectasis or pneumonia. Small to moderate left pleural effusion. Enlarged cardiac silhouette and aortic atherosclerosis. RPTAT: HTAR .Jacky Elise MD, MD Date Time Electronically viewed and signed by .Jacky Elise MD, MD on 04/27/2018 01:55 .R/ CC: CAREY FERNANDEZ DO [id number] This patient has some blood cultures and antibiotics given however she has some probable atelectasis in the bases and less likely pneumonia which she is been treated just in case. The patient has hyponatremia of sodium of 119. We will need to admit for this reason. Patient was likely sleepy because she was given promethazine cough syrup. She feels completely normal at this time however again we will need to admit for low sodium and other electrolyte disturbance Departure Diagnosis: Primary Impression: Hyponatremia Condition: Stable CAREY FERNANDEZ DO Apr 27, 2018 00:18
[2018-04-27] MEDS ORDERED: SOD CHLORIDE 0.9% 500 ML IV STA (01:42)
[2018-04-27] MEDS ORDERED: ACETAMINOPHEN 325 MG TAB PO PRN ×2 (02:30→03:00)
[2018-04-27] MEDS ORDERED: ONDANSETRON 4 MG INJ IV PRN ×2 (02:30→03:00)
[2018-04-27] MEDS ORDERED: SOD CHLORIDE 0.9% 1,000 ML IV SCH (02:57)
[2018-04-27] MEDS ORDERED: NACL 0.9% 3 ML SYG IV SCH (03:00)
[2018-04-27] MEDS: LEVOTHYROXINE 88 MCG TAB PO SCH (06:13)
--- NOTE | 2018-04-27 06:41 | HP ---
Date/Time of Note Date/Time of Note DATE: 04/27/18 TIME: 06:29 Assessment/Plan VTE Prophylaxis Pharmacological prophylaxis: heparin Lines/Catheters IV Catheter Type (from Nrs): Saline Lock Assessment/Plan Assessment/Plan 1. Syncope VS lethargic: Patient was given promethazine for her chronic cough last night in bed this morning she was difficult to arouse -She was admitted here last month for syncope. At that time 2D echo and carotid Doppler ultrasound were negative. -Patient with severe hyponatremia -Admit to telemetry -We will consider head CT -Treat hyponatremia -PT eval 2. Hyponatremia -Check urine electrolytes, osmolality and uric acid -Suspect from hypovolemia, therefore will be placed on NS IVF -Nephrology consult 3. Pulmonary fibrosis -Supplemental oxygen. Continue home inhalers -Add steroid because of worsening cough -Follow-up chest CT 4. Hypothyroidism continue Synthroid 5. Dyslipidemia: Continue statin 6. Dementia: Supportive care Result Diagram: 04/27/18 0523 04/27/18 0523 Results 24hrs Laboratory Tests Test 04/27/18 05:23 White Blood Count 6.2 Red Blood Count 4.09 L Hemoglobin 11.5 L Hematocrit 37.3 Mean Corpuscular Volume 91.2 Mean Corpuscular Hemoglobin 28.1 L Mean Corpuscular Hemoglobin Concent 30.8 L Red Cell Distribution Width 13.5 Platelet Count 240 Mean Platelet Volume 8.7 Immature Granulocytes % 0.300 Neutrophils % 81.8 H Lymphocytes % 8.0 L Monocytes % 9.1 Eosinophils % 0.3 Basophils % 0.5 Nucleated Red Blood Cells % 0.0 Immature Granulocytes # 0.020 Neutrophils # 5.0 Lymphocytes # 0.5 L Monocytes # 0.6 Eosinophils # 0.0 Basophils # 0.0 Nucleated Red Blood Cells # 0.0 Sodium Level 123 L Potassium Level 4.9 Chloride Level 79 L Carbon Dioxide Level 41 *H Anion Gap 3 L Blood Urea Nitrogen 14 Creatinine 0.52 Est Glomerular Filtrat Rate mL/min Glucose Level 111 Osmolality 260 L Uric Acid 3.1 Calcium Level 8.6 Magnesium Level 2.0 Total Bilirubin 0.1 L Direct Bilirubin 0.00 Indirect Bilirubin 0.1 Aspartate Amino Transf (AST/SGOT) 31 Alanine Aminotransferase (ALT/SGPT) 21 Alkaline Phosphatase 88 Total Protein 7.1 Albumin 3.6 Globulin 3.50 H Albumin/Globulin Ratio 1.02 Triglycerides Level 35 Cholesterol Level 106 LDL Cholesterol, Calculated 40 HDL Cholesterol 59 Cholesterol/HDL Ratio 1.7 Thyroid Stimulating Hormone (TSH) Pending HPI/ROS Admit Date/Time Admit Date/Time Apr 27, 2018 at 02:15 Hx of Present Illness This is an 87-year-old female with a history of dementia, pulmonary fibrosis, hypothyroidism, dyslipidemia who was brought to the ER after she was found unresponsive. She was given promethazine last night and about 30 minutes or so after when the family tries to wake her up, she was very lethargic and difficult to arouse. It took about 10 minutes for the patient to wake up. No focal weakness/numbness, seizure-like activity, facial droop, slurred speech reported Patient was admitted here last month for syncope which was thought to be from hypoxia caused by her pulmonary fibrosis. At that time echo and carotid Doppler ultrasound were nondiagnostic. Reportedly patient has been coughing, which is chronic. When she presented to ER, sodium was found to be 119, potassium 5.7. Chest x- ray shows the following Increased interstitial prominence. This is nonspecific but could represent interstitial edema, a viral chest infection, and/or chronic lung changes. Bilateral lower lung opacities, possibly representing atelectasis or pneumonia. Small to moderate left pleural effusion. Enlarged cardiac silhouette and aortic atherosclerosis. PMH/Family/Social Past Medical History Medical History: other (See HPI) Medications Current Medications Ondansetron HCl (Zofran Inj) 4 mg BRIDGE ORDER PRN IV NAUSEA/VOMITING; Start 04/27/18 at 02:30; Stop 04/28/18 at 02:29 Acetaminophen (Tylenol Tab) 650 mg ER BRIDGE PRN PO .MILD PAIN 1-3 OR TEMP; Start 04/27/18 at 02:30; Stop 04/28/18 at 02:29 Sodium Chloride 1,000 ml @ 100 mls/hr Q10H IV Last administered on 04/27/18at 05:29; Admin Dose 100 MLS/HR; Start 04/27/18 at 02:57 IV Flush (NS 3 ml) 3 ml PER PROTOCOL IV ; Start 04/27/18 at 03:00 Ondansetron HCl (Zofran Inj) 4 mg Q6H PRN IV NAUSEA/VOMITING; Start 04/27/18 at 03:00 Acetaminophen (Tylenol Tab) 650 mg Q6H PRN PO .PAIN 1-3 OR TEMP; Start 04/27/18 at 03:00 Aspirin (Ecotrin) 325 mg DAILY PO ; Start 04/27/18 at 09:00 Budesonide (Pulmicort (Neb)) 0.25 mg BID RESP THERAPY INH ; Start 04/27/18 at 09:00 Cholecalciferol (Vitamin D) 1,000 unit DAILY PO ; Start 04/27/18 at 09:00 Albuterol/ Ipratropium (Duoneb) 3 ml Q6H RESP THERAPY INH ; Start 04/27/18 at 08:00 Levothyroxine Sodium (Synthroid) 88 mcg BEFORE BREAKFAST PO Last administered on 04/27/18at 06:13; Admin Dose 88 MCG; Start 04/27/18 at 07:00 Miscellaneous Information 20 mcg BID INHALATION ; Start 04/27/18 at 09:00; Status UNV Miscellaneous Information 10.5 mg BID MC ; Start 04/27/18 at 09:00; Status UNV Atorvastatin Calcium (Lipitor) 10 mg DAILY@21 PO ; Start 04/27/18 at 21:00 Coded Allergies: No Known Allergy (Unverified , 04/27/18) Past Surgical History Past Surgical Hx: other (See HPI) Family History Significant Family History: no pertinent family hx Social History Alcohol Use: none Smoking Status: Never smoker Drug Use: none Exam/Review of Systems Vital Signs Vitals Vital Signs Date Temp Pulse Resp B/P (MAP) Pulse Ox O2 O2 Flow FiO2 Time Delivery Rate 04/27/18 100 12.0 05:17 04/27/18 77 04:02 04/27/18 28 129/60 Non 03:30 (83) Rebreather 04/26/18 98.9 23:54 Exam Constitutional: other (No acute distress noted even though occasionally she was coughing. She is not oriented.) Head: normocephalic, atraumatic Eyes: PERRL Respiratory: congested cough, other Cardiovascular: regular rate and rhythm, nl pulses Gastrointestinal: soft, non-tender Extremities: normal pulses RICHARDSON BROWN MD Apr 27, 2018 06:40
[2018-04-27] MEDS: ALBUTEROL/IPRATROPIUM (NEB) 3 ML AMP INH SCH ×3 (08:06→21:03)
[2018-04-27] MEDS: ASPIRIN (EC) 325 MG TAB PO SCH (08:47)
[2018-04-27] MEDS: CHOLECALCIFEROL 1,000 UNIT TAB PO SCH (08:48)
--- NOTE | 2018-04-27 08:49 | CONS ---
DATE OF ADMISSION: 04/27/2018 DATE OF CONSULTATION: 04/27/2018 TYPE OF CONSULTATION: Nephrology. REASON FOR CONSULTATION: Hyponatremia. HISTORY OF PRESENT ILLNESS: This is an 87-year-old female with a past medical history of pulmonary f ibrosis, dyslipidemia, previous history of hypothyroidism, who presents to [facility] Emerge ncy Room after patient was found unresponsive. The patient was admitted 1 month ago to [facility] for syncope. At that time, the patient had a cardiac workup which was nondiagnostic. The patient was subsequently discharged. She has been complaining recently of cough. Patient was given promethazine. When she woke in the morning she felt lethargic, unable to be aroused. As a res ult, the patient was brought in to [facility] Emergency Room. Upon arrival, the patient in the Emergency Department was noted to have sodium 119, potassium 5.7. Chest x-ray was done which howie wed nonspecific findings, possible viral infection, bilateral lung opacities were noted and small to moderate left pleural effusion. In the Emergency Room, the patient was given IV fluids and admitted to telemetry for evaluation. The patient was also started on IV antibiotics. In terms of the patient's sodium history, the patient has had previous episodes of hyponatremia per p atient's family, they are aware of it, but no formal diagnosis has been made. The patient during thi s time has also had poor p.o. intake, has been drinking moderate amounts of water. There has been no hemoptysis, hematemesis or hematochezia. PAST MEDICAL HISTORY: As stated above, history of pulmonary fibrosis, history of hypothyroidism, dys lipidemia. PAST SURGICAL HISTORY: Reviewed. ALLERGIES: No known drug allergies. FAMILY HISTORY: No family history of kidney disease. SOCIAL HISTORY: Does not drink, smoke or do drugs. MEDICATIONS: The patient's medications have been reviewed. REVIEW OF SYSTEMS: A 14-point review of systems was conducted. Pertinent positives stated in HPI, o therwise negative. PHYSICAL EXAMINATION: VITAL SIGNS: Blood pressure is 133/66, respiration 19, pulse 81, temperature 97.6. HEENT: Head is normocephalic. NECK: Supple. HEART: Regular rate. LUNGS: Show diminished breath sounds at the base. ABDOMEN: Soft, nontender to palpation without rebound or guarding. EXTREMITIES: Negative for clubbing, cyanosis. Trace edema. DERMATOLOGIC: No rashes. MUSCULOSKELETAL: No joint effusions. NEUROLOGIC: No change in exam. MEDICATIONS: The patient's medications have been reviewed. LABORATORY DATA: Shows sodium 133, potassium 4.9. bicarbonate 41, BUN 14, creatinine 0.52. White c ount 6.2, hemoglobin 11.5, platelet count is 240. IMAGING STUDIES: Reviewed. ASSESSMENT AND PLAN: This is an 87-year-old female who presents with: 1. Hyponatremia, possible acute, possible chronic. 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 The fabienne ent's full evaluation will be done. Plan is to check urine sodium, urine osmolarity, a TSH level, ur ic acid level, a.m. cortisol level. The patient's sodium levels have been improving with IV hydratio n. Will continue to monitor serial sodium levels closely to ensure correction of no more than 10 to 12 mEq in any 24-hour period. The patient's sodium level appropriately corrected 4 mEq in 24 hours. 2. Hyperkalemia, resolved. 3. Alkalosis. Etiology is possibly compensatory due to chronic respiratory failure. Will check an ABG. 4. Anemia. Continue to monitor hemoglobin and hematocrit levels. 5. Lethargy, syncope, etiology may be secondary to hyponatremia. The patient had previous neurologi c workup that was negative. Continue to monitor on telemetry. 6. Chronic respiratory failure, pulmonary fibrosis. Continue current medical management. Continue supplemental oxygen. Continue inhalers. 7. Hypothyroidism. Continue Synthroid. 8. Dyslipidemia. Continue statin therapy. Thank you, Dr. Brown, for this interesting consult. It will be a pleasure to follow patient with you throughout the hospital course. Dictated By: GABO DURAN DO NR/NTS Conf#: [id number] DID#: [id number] CC: RICHARDSON BROWN MD;*End*
[2018-04-27] MEDS ORDERED: ARFORMOTEROL TARTRATE 15MCG/2 ML AMP INH SCH (09:00)
[2018-04-27] MEDS ORDERED: METHYLPREDNISOLONE 125 MG INJ IV SCH (09:00)
[2018-04-27] MEDS ORDERED: IPRATROPIUM (NEB) 0.5 MG/2.5 ML AMP INH SCH (09:00)
[2018-04-27] MEDS ORDERED: METHYLPREDNISOLONE 40 MG INJ IV SCH (10:00)
[2018-04-27] MEDS ORDERED: FUROSEMIDE 20 MG INJ IV ONE (10:00)
[2018-04-27] MEDS ORDERED: METHYLPREDNISOLONE 125 MG INJ IV ONE (10:00)
[2018-04-27] MEDS ORDERED: ALBUTEROL/IPRATROPIUM (NEB) 3 ML AMP HHN PRN (10:00)
[2018-04-27] MEDS: PIPER-TAZO 3.375 GM IV (PMX) 100 ML IVPB SCH ×3 (11:17→23:31)
--- NOTE | 2018-04-27 15:00 | PN ---
Date/Time of Note Date/Time of Note DATE: 04/27/18 TIME: 15:00 Assessment/Plan VTE Prophylaxis Risk score (from [facility])>0 risk: 4 SCD applied (from [facility]): Yes Pharmacological prophylaxis: LMWH Lines/Catheters IV Catheter Type (from [facility]): Peripheral IV Assessment/Plan Assessment/Plan 1. Respiratory failure, acute on chronic, on BiPAP, follow up with pulmonology 2. Possible aspiration pneumonia, on zosyn 3. Severe pulmonary fibrosis, chronic, poor prognosis 4. Altered mental status, respiratory failure related, on BiPAP 5. Hyponatremia, pulmonary inflammation related, on IVF with NS 6. Hyperkalemia due to respiratory acidosis, on BiPAP 7. Hypothyroidism continue Synthroid 8. Dyslipidemia 9. Dementia: Supportive care 10. DVT prophylaxis: lovenox Result Diagram: 04/27/18 0523 04/27/18 1133 Results 24hrs Laboratory Tests Test 04/27/18 05:23 04/27/18 08:01 04/27/18 11:33 04/27/18 13:20 White Blood Count 6.2 Red Blood Count 4.09 L Hemoglobin 11.5 L Hematocrit 37.3 Mean Corpuscular 91.2 Volume Mean Corpuscular 28.1 L Hemoglobin Mean Corpuscular 30.8 L Hemoglobin Concen t Red Cell 13.5 Distribution Width Platelet Count 240 Mean Platelet 8.7 Volume Immature 0.300 Granulocytes % Neutrophils % 81.8 H Lymphocytes % 8.0 L Monocytes % 9.1 Eosinophils % 0.3 Basophils % 0.5 Nucleated Red 0.0 Blood Cells % Immature 0.020 Granulocytes # Neutrophils # 5.0 Lymphocytes # 0.5 L Monocytes # 0.6 Eosinophils # 0.0 Basophils # 0.0 Nucleated Red 0.0 Blood Cells # Sodium Level 123 L 126 L Potassium Level 4.9 5.2 H Chloride Level 79 L 81 L Carbon Dioxide 41 *H 35 H Level Anion Gap 3 L 10 # Blood Urea 14 13 Nitrogen Creatinine 0.52 0.53 Est Glomerular Filtrat Rate mL/min Glucose Level 111 108 Osmolality 260 L Uric Acid 3.3 Calcium Level 8.6 8.4 Magnesium Level 2.0 Total Bilirubin 0.1 L Direct Bilirubin 0.00 Indirect 0.1 Bilirubin Aspartate Amino 31 Transf (AST/SGOT) Alanine 21 Aminotransferase (ALT/SGPT) Alkaline 88 Phosphatase Total Protein 7.1 Albumin 3.6 Globulin 3.50 H Albumin/Globulin 1.02 Ratio Triglycerides 35 Level Cholesterol Level 106 LDL Cholesterol, 40 Calculated HDL Cholesterol 59 Cholesterol/HDL 1.7 Ratio Thyroid 3.220 Stimulating Hormone (TSH) Random Cortisol 16.0 Blood Gas Blood arterial Specimen Source Arterial Blood 04/27/2018 8:40:0 Date Drawn 0 AM Arterial Blood pH 7.253 *L (Temp corrected) Arterial Blood 91.4 *H pCO2 (Temp correct) Arterial Blood 110.1 H pO2 (Temp corrected) Arterial Blood 39.5 H HCO3 Arterial Blood 9.2 H Base Excess Arterial Blood 97.8 Oxygen Saturation Abhishek Test N/A Arterial Blood Right Brachial Gas Puncture Site Arterial 0.4 Blood Carboxyhemo globin Arterial Blood 0.3 Methemoglobin Blood Gas A-a O2 40.6 H Differential Oxyhemoglobin 97.1 Percent Blood Gas 37.0 Temperature Blood Gas NASAL CANNULA Modality FiO2 36.0 Blood Gas KAYLENE GALVIN Critical Value Read Back Blood Gas TM Notified Whom Blood Gas 04/27/2018 8:48:0 Notified Time 0 AM Urine Color YELLOW Urine Clarity CLEAR Urine pH 6.0 Urine Specific 1.010 [place] Urine Ketones NEGATIVE Urine Nitrite NEGATIVE Urine Bilirubin NEGATIVE Urine NEGATIVE Urobilinogen Urine Leukocyte NEGATIVE Esterase Urine Hemoglobin NEGATIVE Urine Random 81 Sodium Urine Random 44.9 Potassium Urine Glucose NEGATIVE Urine Total NEGATIVE Protein Subjective 24 Hr Interval Summary Free Text/Dictation responds to pain Exam/Review of Systems Exam Vitals Vital Signs Date Temp Pulse Resp B/P (MAP) Pulse Ox O2 O2 Flow FiO2 Time Delivery Rate 04/27/18 72 29 118/52 96 BIPAP 14:00 (74) 04/27/18 99.1 13:17 04/27/18 50 13:00 04/27/18 5.0 08:16 Constitutional: well developed, other (resp[onsds to pain) Head: normocephalic, atraumatic Eyes: nl conjunctiva, EOMI, nl lids ENMT: nl external ears & nose, nl lips & teeth, nl nasal mucosa & septum Neck: supple, non-tender Respiratory: diminished breath sounds Cardiovascular: regular rate and rhythm, nl pulses Gastrointestinal: soft, nl liver, spleen Musculoskeletal: nl extremities to inspection Extremities: normal pulses; No calf tenderness, No cyanosis, No clubbing, No edema, No pitting pedal edema, No palpable cord, No tenderness, No other Neurological: lethargic, other (responds to pain) Results Results 24hrs Laboratory Tests Test 04/27/18 05:23 04/27/18 08:01 04/27/18 11:33 04/27/18 13:20 White Blood Count 6.2 Red Blood Count 4.09 L Hemoglobin 11.5 L Hematocrit 37.3 Mean Corpuscular 91.2 Volume Mean Corpuscular 28.1 L Hemoglobin Mean Corpuscular 30.8 L Hemoglobin Concen t Red Cell 13.5 Distribution Width Platelet Count 240 Mean Platelet 8.7 Volume Immature 0.300 Granulocytes % Neutrophils % 81.8 H Lymphocytes % 8.0 L Monocytes % 9.1 Eosinophils % 0.3 Basophils % 0.5 Nucleated Red 0.0 Blood Cells % Immature 0.020 Granulocytes # Neutrophils # 5.0 Lymphocytes # 0.5 L Monocytes # 0.6 Eosinophils # 0.0 Basophils # 0.0 Nucleated Red 0.0 Blood Cells # Sodium Level 123 L 126 L Potassium Level 4.9 5.2 H Chloride Level 79 L 81 L Carbon Dioxide 41 *H 35 H Level Anion Gap 3 L 10 # Blood Urea 14 13 Nitrogen Creatinine 0.52 0.53 Est Glomerular Filtrat Rate mL/min Glucose Level 111 108 Osmolality 260 L Uric Acid 3.3 Calcium Level 8.6 8.4 Magnesium Level 2.0 Total Bilirubin 0.1 L Direct Bilirubin 0.00 Indirect 0.1 Bilirubin Aspartate Amino 31 Transf (AST/SGOT) Alanine 21 Aminotransferase (ALT/SGPT) Alkaline 88 Phosphatase Total Protein 7.1 Albumin 3.6 Globulin 3.50 H Albumin/Globulin 1.02 Ratio Triglycerides 35 Level Cholesterol Level 106 LDL Cholesterol, 40 Calculated HDL Cholesterol 59 Cholesterol/HDL 1.7 Ratio Thyroid 3.220 Stimulating Hormone (TSH) Random Cortisol 16.0 Blood Gas Blood arterial Specimen Source Arterial Blood 04/27/2018 8:40:0 Date Drawn 0 AM Arterial Blood pH 7.253 *L (Temp corrected) Arterial Blood 91.4 *H pCO2 (Temp correct) Arterial Blood 110.1 H pO2 (Temp corrected) Arterial Blood 39.5 H HCO3 Arterial Blood 9.2 H Base Excess Arterial Blood 97.8 Oxygen Saturation Abhishek Test N/A Arterial Blood Right Brachial Gas Puncture Site Arterial 0.4 Blood Carboxyhemo globin Arterial Blood 0.3 Methemoglobin Blood Gas A-a O2 40.6 H Differential Oxyhemoglobin 97.1 Percent Blood Gas 37.0 Temperature Blood Gas NASAL CANNULA Modality FiO2 36.0 Blood Gas KAYLENE GALVIN Critical Value Read Back Blood Gas TM Notified Whom Blood Gas 04/27/2018 8:48:0 Notified Time 0 AM Urine Color YELLOW Urine Clarity CLEAR Urine pH 6.0 Urine Specific 1.010 [place] Urine Ketones NEGATIVE Urine Nitrite NEGATIVE Urine Bilirubin NEGATIVE Urine NEGATIVE Urobilinogen Urine Leukocyte NEGATIVE Esterase Urine Hemoglobin NEGATIVE Urine Random 81 Sodium Urine Random 44.9 Potassium Urine Glucose NEGATIVE Urine Total NEGATIVE Protein Medications Medication Current Medications IV Flush (NS 3 ml) 3 ml PER PROTOCOL IV ; Start 04/27/18 at 03:00 Ondansetron HCl (Zofran Inj) 4 mg Q6H PRN IV NAUSEA/VOMITING; Start 04/27/18 at 03:00 Acetaminophen (Tylenol Tab) 650 mg Q6H PRN PO .PAIN 1-3 OR TEMP; Start 04/27/18 at 03:00 Aspirin (Ecotrin) 325 mg DAILY PO ; Start 04/27/18 at 09:00 Budesonide (Pulmicort (Neb)) 0.25 mg BID RESP THERAPY INH ; Start 04/27/18 at 09:00 Cholecalciferol (Vitamin D) 1,000 unit DAILY PO ; Start 04/27/18 at 09:00 Albuterol/ Ipratropium (Duoneb) 3 ml Q6H RESP THERAPY INH Last administered on 04/27/18at 08:06; Admin Dose 3 ML; Start 04/27/18 at 08:00 Levothyroxine Sodium (Synthroid) 88 mcg BEFORE BREAKFAST PO Last administered on 04/27/18at 06:13; Admin Dose 88 MCG; Start 04/27/18 at 07:00 Atorvastatin Calcium (Lipitor) 10 mg DAILY@21 PO ; Start 04/27/18 at 21:00 Albuterol/ Ipratropium (Duoneb) 3 ml Q2H RESP THERAPY PRN HHN shortness of breath; Start 04/27/18 at 10:00 Piperacillin Sod/ Tazobactam Sod 100 ml @ 200 mls/hr Q6 IVPB Last administered on 04/27/18at 11:17; Admin Dose 200 MLS/HR; Start 04/27/18 at 10:00 Methylprednisolone Sodium Succinate (Solu-Medrol) 40 mg BID IV ; Start 04/27/18 at 21:00 HELENE QUICK MD Apr 27, 2018 15:00
--- NOTE | 2018-04-27 15:19 | CONS ---
DATE OF ADMISSION: 04/27/2018 DATE OF CONSULTATION: TYPE OF CONSULTATION: Pulmonary. REASON FOR CONSULTATION: Shortness of breath. Thank you, Dr. Brown, for this consultation. 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 The p atient was found to be minimally responsive with evidence of hypercapnia and significant hyponatremia . This morning, she is still lethargic, placed on noninvasive positive pressure ventilation and lewis sferred to intensive care unit. PAST MEDICAL HISTORY: Idiopathic pulmonary fibrosis for the last 7 to 10 years and early dementia. MEDICATIONS: Per chart. ALLERGIES: NONE. SOCIAL HISTORY: Nonsmoker, no alcohol, no history of drug use. FAMILY HISTORY: Noncontributory. SYSTEMS REVIEW: A 12-point review of systems was negative other than that mentioned above. PHYSICAL EXAMINATION: GENERAL: Elderly-appearing lady, lethargic, on bilevel ventilation. VITAL SIGNS: Currently afebrile, pulse is 60, blood pressure 149/90, O2 saturation 96%, FiO2 of 50%. NECK: Supple. No JVD or lymphadenopathy. CARDIAC: S1, S2. No added sounds or murmurs. CHEST: Diminished air entry bilaterally. ABDOMEN: Soft, nontender. No guarding or rebound. EXTREMITIES: No cyanosis, clubbing. A 1+ edema. NEUROLOGIC: Generalized weakness. LABORATORY DATA: White count 6.2, hemoglobin 11.5, platelets 240. BUN 13, creatinine 0.53. Initial ABG: pH 7.25, pCO2 of 91, pO2 of 110. DIAGNOSTIC DATA: Chest x-ray shows significant interstitial lung disease, possible left lower lobe p neumonia. IMPRESSION AND PLAN: Progressive hypoxemic and hypercapnic respiratory failure secondary to likely a cute exacerbation of idiopathic pulmonary fibrosis, possible component of diastolic dysfunction also. I had a long discussion with the patient's family and primary pulmonary physician based at [facility]. He feels and I feel that intubation and mechanical ventilation would not be consistent with he r goals of care. He will discuss this with the DPOA and we may change code status. In the meantime, she will continue current supportive care with steroids, antibiotics and noninvasive positive pressu re ventilation. Dictated By: SOO FERRARA MD SV/NTS Conf#: [id number] DID#: [id number] CC: HELENE QUICK MD; RICHARDSON BROWN MD;*EndCC*
[2018-04-27] MEDS: BUDESONIDE (NEB) 0.25 MG/2 ML AMP INH SCH ×2 (16:34→21:03)
[2018-04-27] MEDS: DEXTROSE 5%-0.9% NACL 1,000 ML IV SCH (16:36)
--- NOTE | 2018-04-27 18:15 | CONS ---
Assessment/Plan Assessment/Plan Assessment/Plan (Daily) I am in the process of attempting to contact family members and establish goals of care is most important to make sure that family members have spoken to the physician at [facility]. That would be most helpful if patient's pulmonary physician who knows her best speak to family members. In lieu of that we will still speak to family members about goals of care in patient's overall prognosis. Palliative care note to follow Consultation Date/Type/Reason Admit Date/Time Apr 27, 2018 at 02:15 Date/Time of Note DATE: 04/27/18 TIME: 18:14 Hx of Present Illness I am asked to see this unfortunate 87-year-old female who was admitted to [facility] unresponsive with hypoxic and hypercapnic respiratory failure secondary to idiopathic pulmonary fibrosis. However in reviewing patient's medical records the family feels that she may have became unresponsive secondary to the use of a antitussive. She has a history of pulmonary fibrosis being followed by pulmonary physician at [facility] and apparently symptoms were worsening for a few days prior to this emergency hospitalization. I have an incomplete database at this time however Dr. Hernández has been in contact with patient's pulmonary doctor and he is in contact with family members but patient's CODE STATUS has not changed at this time. It is noted in medical records at patient's addition would in all likelihood not impro ve her overall outcome or quality of life. Other medical problems include aspiration pneumonia altered mental status, hyponatremia fluid and electrolyte abnormalities and dementia. I am asked to speak to family members and so far as goals of care however once again I do not have information as to the conversation between patient's primary applications systems analyst and family members. It is noted by primary care team at [facility] patient's overall prognosis is extremely poor Past Medical History Medical History: other (See HPI) Home Meds Reported Medications Formoterol Fumarate (Perforomist) 20 Mcg/2 Ml Vial.neb, 20 MCG INHALATION BID, VIAL 03/28/18 Ipratropium Sagle (Ipratropium Sagle) 5 Gm Powder, 10.5 MG MC BID 03/28/18 Ipratropium-Albuterol (Ipratropium-Albuterol) 0.5-3 Mg/3 Ml Ampul.neb, 3 ML INHALATION Q6, #30 VIAL 03/28/18 Budesonide* (Budesonide*) 0.25 Mg/2 Ml Ampul.neb, 0.25 MG INHALATION BID, AMP 03/28/18 Cholecalciferol* (Vitamin D3*) 1,000 Unit Tablet, 1000 UNIT PO DAILY, TAB 03/28/18 Simvastatin* (Zocor*) 20 Mg Tablet, 20 MG PO QHS, #30 TAB 03/28/18 Aspirin* (Aspirin* EC) 325 Mg Tab, 325 MG PO DAILY, TAB 03/28/18 Levothyroxine Sodium* (Levothyroxine Sodium*) 88 Mcg Tablet, 88 MCG PO BEFORE BREAKFAST, #30 TAB 03/28/18 Medications Current Medications IV Flush (NS 3 ml) 3 ml PER PROTOCOL IV ; Start 04/27/18 at 03:00 Ondansetron HCl (Zofran Inj) 4 mg Q6H PRN IV NAUSEA/VOMITING; Start 04/27/18 at 03:00 Acetaminophen (Tylenol Tab) 650 mg Q6H PRN PO .PAIN 1-3 OR TEMP; Start 04/27/18 at 03:00 Aspirin (Ecotrin) 325 mg DAILY PO ; Start 04/27/18 at 09:00 Budesonide (Pulmicort (Neb)) 0.25 mg BID RESP THERAPY INH Last administered on 04/27/18at 16:34; Admin Dose 0.25 MG; Start 04/27/18 at 09:00 Cholecalciferol (Vitamin D) 1,000 unit DAILY PO ; Start 04/27/18 at 09:00 Albuterol/ Ipratropium (Duoneb) 3 ml Q6H RESP THERAPY INH Last administered on 04/27/18at 15:44; Admin Dose 3 ML; Start 04/27/18 at 08:00 Levothyroxine Sodium (Synthroid) 88 mcg BEFORE BREAKFAST PO Last administered on 04/27/18at 06:13; Admin Dose 88 MCG; Start 04/27/18 at 07:00 Atorvastatin Calcium (Lipitor) 10 mg DAILY@21 PO ; Start 04/27/18 at 21:00 Albuterol/ Ipratropium (Duoneb) 3 ml Q2H RESP THERAPY PRN HHN shortness of breath; Start 04/27/18 at 10:00 Piperacillin Sod/ Tazobactam Sod 100 ml @ 200 mls/hr Q6 IVPB Last administered on 04/27/18at 17:42; Admin Dose 200 MLS/HR; Start 04/27/18 at 10:00 Methylprednisolone Sodium Succinate (Solu-Medrol) 40 mg BID IV ; Start 04/27/18 at 21:00 Dextrose/Sodium Chloride 1,000 ml @ 75 mls/hr [id number] IV Last administered on 04/27/18at 16:36; Admin Dose 75 MLS/HR; Start 04/27/18 at 15:30 Enoxaparin Sodium (Lovenox) 40 mg DAILY SC ; Start 04/28/18 at 09:00 Allergies: Coded Allergies: No Known Allergy (Unverified , 04/27/18) Past Surgical History Past Surgical Hx: other (See HPI) Social History Alcohol Use: none Smoking Status: Never smoker Drug Use: none Exam/Review of Systems Exam Vitals Vital Signs Date Temp Pulse Resp B/P (MAP) Pulse Ox O2 O2 Flow FiO2 Time Delivery Rate 04/27/18 71 97 40 17:29 04/27/18 99.0 29 125/59 BIPAP 16:00 (81) 04/27/18 5.0 08:16 Results Result Diagram: 04/27/18 0523 04/27/18 1133 Results 24hrs Laboratory Tests Test 04/27/18 05:23 04/27/18 08:01 04/27/18 11:33 04/27/18 13:20 White Blood 6.2 Count Red Blood Count 4.09 L Hemoglobin 11.5 L Hematocrit 37.3 Mean Corpuscular 91.2 Volume Mean Corpuscular 28.1 L Hemoglobin Mean Corpuscular 30.8 L Hemoglobin Kristy nt Red Cell 13.5 Distribution Width Platelet Count 240 Mean Platelet 8.7 Volume Immature 0.300 Granulocytes % Neutrophils % 81.8 H Lymphocytes % 8.0 L Monocytes % 9.1 Eosinophils % 0.3 Basophils % 0.5 Nucleated Red 0.0 Blood Cells % Immature 0.020 Granulocytes # Neutrophils # 5.0 Lymphocytes # 0.5 L Monocytes # 0.6 Eosinophils # 0.0 Basophils # 0.0 Nucleated Red 0.0 Blood Cells # Sodium Level 123 L 126 L Potassium Level 4.9 5.2 H Chloride Level 79 L 81 L Carbon Dioxide 41 *H 35 H Level Anion Gap 3 L 10 # Blood Urea 14 13 Nitrogen Creatinine 0.52 0.53 Est Glomerular Filtrat Rate mL/min Glucose Level 111 108 Osmolality 260 L Uric Acid 3.3 Calcium Level 8.6 8.4 Magnesium Level 2.0 Total Bilirubin 0.1 L Direct Bilirubin 0.00 Indirect 0.1 Bilirubin Aspartate Amino 31 Transf (AST/SGOT ) Alanine 21 Aminotransferase (ALT/SGPT) Alkaline 88 Phosphatase Total Protein 7.1 Albumin 3.6 Globulin 3.50 H Albumin/Globulin 1.02 Ratio Triglycerides 35 Level Cholesterol 106 Level LDL Cholesterol, 40 Calculated HDL Cholesterol 59 Cholesterol/HDL 1.7 Ratio Thyroid 3.220 Stimulating Hormone (TSH) Random Cortisol 16.0 Blood Gas Blood arterial Specimen Source Arterial Blood 04/27/2018 8:40: Date Drawn 00 AM Arterial Blood 7.253 *L pH (Temp corrected) Arterial Blood 91.4 *H pCO2 (Temp correct) Arterial Blood 110.1 H pO2 (Temp corrected) Arterial Blood 39.5 H HCO3 Arterial Blood 9.2 H Base Excess Arterial Blood 97.8 Oxygen Saturatio n Abhishek Test N/A Arterial Blood Right Brachial Gas Puncture Site Arterial 0.4 Blood Carboxyhem oglobin Arterial Blood 0.3 Methemoglobin Blood Gas A-a O2 40.6 H Differential Oxyhemoglobin 97.1 Percent Blood Gas 37.0 Temperature Blood Gas NASAL CANNULA Modality FiO2 36.0 Blood Gas KAYLENE GALVIN Critical Value Read Back Blood Gas TM Notified Whom Blood Gas 04/27/2018 8:48: Notified Time 00 AM Urine Color YELLOW Urine Clarity CLEAR Urine pH 6.0 Urine Specific 1.010 [place] Urine Ketones NEGATIVE Urine Nitrite NEGATIVE Urine Bilirubin NEGATIVE Urine NEGATIVE Urobilinogen Urine Leukocyte NEGATIVE Esterase Urine Hemoglobin NEGATIVE Urine Osmolality 382 Urine Random 35.35 Creatinine Urine Random 82 Sodium Urine Random 44.9 Potassium Urine Glucose NEGATIVE Urine Total 34.0 H Protein Urine Opiates Negative Screen Urine Negative Barbiturates Urine Negative Amphetamines Screen Urine Negative Benzodiazepines Screen Urine Cocaine Negative Screen Urine Negative Cannabinoids Test 04/27/18 16:00 Blood Gas Blood arterial Specimen Source Arterial Blood 04/27/2018 4:00: Date Drawn 46 PM Arterial Blood 7.264 *L pH (Temp corrected) Arterial Blood 92.3 *H pCO2 (Temp correct) Arterial Blood 88.4 pO2 (Temp corrected) Arterial Blood 40.9 *H HCO3 Arterial Blood 10.2 H Base Excess Arterial Blood 96.5 Oxygen Saturatio n Abhishek Test ACCEPTAB Arterial Blood Right Radial Gas Puncture Site Arterial 0.8 Blood Carboxyhem oglobin Arterial Blood 0.3 Methemoglobin Blood Gas A-a O2 164.3 H Differential Oxyhemoglobin 95.4 Percent Blood Gas 37.0 Temperature Blood Gas 14.0 Respiration Rate Blood Gas Actual 32 Respiration Rate Blood Gas MASK - BIPAP Modality FiO2 50.0 Blood Gas 10 Pressure Support Blood Gas 15/5 IPAP/EPAP Ratio Blood Gas Richard. ARTURO Critical Value Read Back Blood Gas M.DRaghav Notified Whom Blood Gas 04/27/2018 4:11: Notified Time 35 PM Medications Medication Current Medications IV Flush (NS 3 ml) 3 ml PER PROTOCOL IV ; Start 04/27/18 at 03:00 Ondansetron HCl (Zofran Inj) 4 mg Q6H PRN IV NAUSEA/VOMITING; Start 04/27/18 at 03:00 Acetaminophen (Tylenol Tab) 650 mg Q6H PRN PO .PAIN 1-3 OR TEMP; Start 04/27/18 at 03:00 Aspirin (Ecotrin) 325 mg DAILY PO ; Start 04/27/18 at 09:00 Budesonide (Pulmicort (Neb)) 0.25 mg BID RESP THERAPY INH Last administered on 04/27/18at 16:34; Admin Dose 0.25 MG; Start 04/27/18 at 09:00 Cholecalciferol (Vitamin D) 1,000 unit DAILY PO ; Start 04/27/18 at 09:00 Albuterol/ Ipratropium (Duoneb) 3 ml Q6H RESP THERAPY INH Last administered on 04/27/18at 15:44; Admin Dose 3 ML; Start 04/27/18 at 08:00 Levothyroxine Sodium (Synthroid) 88 mcg BEFORE BREAKFAST PO Last administered on 04/27/18at 06:13; Admin Dose 88 MCG; Start 04/27/18 at 07:00 Atorvastatin Calcium (Lipitor) 10 mg DAILY@21 PO ; Start 04/27/18 at 21:00 Albuterol/ Ipratropium (Duoneb) 3 ml Q2H RESP THERAPY PRN HHN shortness of breath; Start 04/27/18 at 10:00 Piperacillin Sod/ Tazobactam Sod 100 ml @ 200 mls/hr Q6 IVPB Last administered on 04/27/18at 17:42; Admin Dose 200 MLS/HR; Start 04/27/18 at 10:00 Methylprednisolone Sodium Succinate (Solu-Medrol) 40 mg BID IV ; Start 04/27/18 at 21:00 Dextrose/Sodium Chloride 1,000 ml @ 75 mls/hr [id number] IV Last administered on 04/27/18at 16:36; Admin Dose 75 MLS/HR; Start 04/27/18 at 15:30 Enoxaparin Sodium (Lovenox) 40 mg DAILY SC ; Start 04/28/18 at 09:00 JUDITH MCBRIDE Apr 27, 2018 18:15
[2018-04-27] MEDS ORDERED: NON-FORMULARY/PATIENT OWN MED (Simvastatin* (Zocor*) 20 MG) PO SCH (21:00)
[2018-04-27] MEDS: ATORVASTATIN 10 MG TAB PO SCH (21:00)
[2018-04-27] MEDS: METHYLPREDNISOLONE 40 MG INJ IV SCH (21:33)
[2018-04-28] VITALS (33 sets, daily range): BP systolic 103–137; BP diastolic 44–87; PULSE 60–84; RESP 16–40
[2018-04-28] MEDS ORDERED: VANCOMYCIN 1 GM 250 ML IVPB SCH (01:00)
[2018-04-28] MEDS ORDERED: VANCOMYCIN IV PER PHARMACY XX SCH (01:00)
[2018-04-28] MEDS: ALBUTEROL/IPRATROPIUM (NEB) 3 ML AMP INH SCH ×4 (02:02→20:09)
[2018-04-28] MEDS: PIPER-TAZO 3.375 GM IV (PMX) 100 ML IVPB SCH ×3 (05:12→18:01)
[2018-04-28] MEDS: ASPIRIN (EC) 325 MG TAB PO SCH (08:23)
[2018-04-28] MEDS: DEXTROSE 5%-0.9% NACL 1,000 ML IV SCH (08:23)
[2018-04-28] MEDS: METHYLPREDNISOLONE 40 MG INJ IV SCH (08:23)
[2018-04-28] MEDS: LEVOTHYROXINE 88 MCG TAB PO SCH (08:24)
[2018-04-28] MEDS: CHOLECALCIFEROL 1,000 UNIT TAB PO SCH (08:24)
[2018-04-28] MEDS: ENOXAPARIN 40 MG/0.4 ML SYG SC SCH (08:25)
--- NOTE | 2018-04-28 09:33 | PN ---
Date/Time of Note Date/Time of Note DATE: 04/28/18 TIME: 09:32 Objective Vitals Vital Signs Date Temp Pulse Resp B/P (MAP) Pulse Ox O2 O2 Flow FiO2 Time Delivery Rate 04/28/18 67 100 40 08:55 04/28/18 97.9 36 110/49 BIPAP 04:00 (69) 04/27/18 5.0 08:16 Intake and Output 04/27/18 04/27/18 04/28/18 1515:00 23:00 07:00 IntakeIntake Total 100 ml 625 ml 650 ml OutputOutput Total 900 ml 675 ml 300 ml BalanceBalance -800 ml -50 ml 350 ml Results Result Diagram: 04/28/18 0424 04/28/18 0423 Medications Medications Current Medications IV Flush (NS 3 ml) 3 ml PER PROTOCOL IV ; Start 04/27/18 at 03:00 Ondansetron HCl (Zofran Inj) 4 mg Q6H PRN IV NAUSEA/VOMITING; Start 04/27/18 at 03:00 Acetaminophen (Tylenol Tab) 650 mg Q6H PRN PO .PAIN 1-3 OR TEMP; Start 04/27/18 at 03:00 Aspirin (Ecotrin) 325 mg DAILY PO Last administered on 04/28/18at 08:23; Admin Dose 325 MG; Start 04/27/18 at 09:00 Budesonide (Pulmicort (Neb)) 0.25 mg BID RESP THERAPY INH Last administered on 04/27/18at 21:03; Admin Dose 0.25 MG; Start 04/27/18 at 09:00 Cholecalciferol (Vitamin D) 1,000 unit DAILY PO Last administered on 04/28/18 08:24; Admin Dose 1,000 UNIT; Start 04/27/18 at 09:00 Albuterol/ Ipratropium (Duoneb) 3 ml Q6H RESP THERAPY INH Last administered on 04/28/18at 08:52; Admin Dose 3 ML; Start 04/27/18 at 08:00 Levothyroxine Sodium (Synthroid) 88 mcg BEFORE BREAKFAST PO Last administered on 04/28/18 08:24; Admin Dose 88 MCG; Start 04/27/18 at 07:00 Atorvastatin Calcium (Lipitor) 10 mg DAILY@21 PO ; Start 04/27/18 at 21:00 Albuterol/ Ipratropium (Duoneb) 3 ml Q2H RESP THERAPY PRN HHN shortness of breath; Start 04/27/18 at 10:00 Piperacillin Sod/ Tazobactam Sod 100 ml @ 200 mls/hr Q6 IVPB Last administered on 04/28/18at 05:12; Admin Dose 200 MLS/HR; Start 04/27/18 at 10:00 Methylprednisolone Sodium Succinate (Solu-Medrol) 40 mg BID IV Last administered on 04/28/18at 08:23; Admin Dose 40 MG; Start 04/27/18 at 21:00 Dextrose/Sodium Chloride 1,000 ml @ 75 mls/hr [id number] IV Last administered on 04/28/18at 08:23; Admin Dose 75 MLS/HR; Start 04/27/18 at 15:30 Enoxaparin Sodium (Lovenox) 40 mg DAILY SC Last administered on 04/28/18at 08:25; Admin Dose 40 MG; Start 04/28/18 at 09:00 Vancomycin HCl (Vanco Iv Per Pharmacy) VANCOMYCIN PER PHARMACY PER PROTOCOL XX ; Start 04/28/18 at 01:00 Vancomycin HCl 250 ml @ 125 mls/hr Q36H IVPB Last administered on 04/28/18at 01:24; Admin Dose 125 MLS/HR; Start 04/28/18 at 01:00 Miscellaneous Information (*Rx Drug Level Order Reminder*) RANDOM VANCO LEVEL... ONCE ONCE XX ; Start 04/29/18 at 05:00; Stop 04/29/18 at 05:01 VTE Prophylaxis Risk score (from Ns)>0 risk: 5 SCD applied (from Ns): Yes Lines/Catheters IV Catheter Type: Strange in Place: Yes Cont'd strange catheter reason: terminal illness/intractable pain Assessment/Plan Hospital Course Subjective Patient doing well, alert, on BiPAP, daughter at bedside, answered all questions Objective Physical exam General: Patient is laying in bed and answers questions appropriately Mentation: Patient is alert and oriented 4, Head: Normocephalic atraumatic Eyes: EOMI, pupils reactive to light Neck: Supple, nontender, midline Respiratory: Coarse to auscultation bilaterally Cardiovascular: regular rate, no obvious murmurs Gastrointestinal: non-tender to palpation, bowel sounds heard. Neurological: Moves all extremities spontaneously Skin: No new skin lesions Assessment and plan Acute hypoxic hypercapnic respiratory failure -Likely combination of likely pneumonia, pleural effusion and moderate to severe pulmonary fibrosis. -In ICU, on BiPAP Pneumonia -Broad-spectrum IV antibiotics Encephalopathy -Likely secondary to hypercapnia, improving, patient is now alert and oriented Severe pulmonary fibrosis -Chronic, follows up at [facility], likely reason why patient suffers from recurrent respiratory failure -DuoNeb, budesonide, steroids Electrolyte derangement -Due to multiple reasons as above, mild IV hydration as patient is not eating well subsequently being on BiPAP Hypothyroidism -Continue home meds Dyslipidemia -Continue home meds Disposition -Over 40 minutes of critical care time was spent on this evaluation -Spoke with daughter, TANNER at bedside, patient is full code at the moment, intubation will be on a case by case basis will need to confirm with daughter before elective intubation. MERNA BLAKE Apr 28, 2018 09:33
--- NOTE | 2018-04-28 09:39 | PN ---
Date/Time of Note Date/Time of Note DATE: 04/28/18 TIME: 09:36 Assessment/Plan VTE Prophylaxis Risk score (from Nsg)>0 risk: 5 SCD applied (from Nsg): Yes Pharmacological prophylaxis: other Lines/Catheters IV Catheter Type (from Nrsg): Urinary Cath still in place: Yes Reason Cath still needed: urinary retention Assessment/Plan Hospital Course all noted remains in icu serum sodium is stable There has been no hemoptysis, hematemesis or hematochezia. d/w Dr Mcmillan PHYSICAL EXAMINATION: HEENT: Head is normocephalic. NECK: Supple. HEART: Regular rate. LUNGS: Show diminished breath sounds at the base. ABDOMEN: Soft, nontender to palpation without rebound or guarding. EXTREMITIES: Negative for clubbing, cyanosis. Trace edema. DERMATOLOGIC: No rashes. MUSCULOSKELETAL: No joint effusions. NEUROLOGIC: No change in exam. MEDICATIONS: The patient's medications have been reviewed. ASSESSMENT AND PLAN: This is an 87-year-old female who presents with: 1. Hyponatremia, possible acute, possible chronic. urine studies reviewed. possible siadh due to pulm fibrosis. hypervolemic. will dc ivf. will give one dose of bumex. no indication for 3 percent saline 2. Hyperkalemia, resolved. 3. Alkalosis. Etiology is possibly compensatory due to chronic respiratory failure. 4. Anemia. Continue to monitor hemoglobin and hematocrit levels. 5. Lethargy, syncope, etiology may be secondary to hyponatremia. The patient had previous neurologic workup that was negative. Continue to monitor on telemetry. 6. Chronic respiratory failure, pulmonary fibrosis. Continue current medical management. Continue supplemental oxygen. Continue inhalers. 7. Hypothyroidism. Continue Synthroid. 8. Dyslipidemia. Continue statin therapy. Result Diagram: 04/28/18 0424 04/28/18 0423 Results 24hrs Laboratory Tests Test 04/27/18 11:33 04/27/18 13:20 04/27/18 16:00 04/27/18 20:00 Sodium Level 126 L Potassium Level 5.2 H Chloride Level 81 L Carbon Dioxide 35 H Level Anion Gap 10 # Blood Urea 13 Nitrogen Creatinine 0.53 Est Glomerular Filtrat Rate mL/min Glucose Level 108 Calcium Level 8.4 Urine Color YELLOW Urine Clarity CLEAR Urine pH 6.0 Urine Specific 1.010 [place] Urine Ketones NEGATIVE Urine Nitrite NEGATIVE Urine Bilirubin NEGATIVE Urine NEGATIVE Urobilinogen Urine Leukocyte NEGATIVE Esterase Urine Hemoglobin NEGATIVE Urine Osmolality 382 Urine Random 35.35 Creatinine Urine Random 82 Sodium Urine Random 44.9 Potassium Urine Glucose NEGATIVE Urine Total 34.0 H Protein Urine Opiates Negative Screen Urine Negative Barbiturates Urine Negative Amphetamines Screen Urine Negative Benzodiazepines Screen Urine Cocaine Negative Screen Urine Negative Cannabinoids Blood Gas Blood arterial Blood arterial Specimen Source Arterial Blood 04/27/2018 4:00: 04/27/2018 8:35: Date Drawn 46 PM 45 PM Arterial Blood 7.264 *L 7.258 *L pH (Temp corrected) Arterial Blood 92.3 *H 95.6 *H pCO2 (Temp correct) Arterial Blood 88.4 87.4 pO2 (Temp corrected) Arterial Blood 40.9 *H 41.7 *H HCO3 Arterial Blood 10.2 H 11.1 H Base Excess Arterial Blood 96.5 96.2 Oxygen Saturatio n Abhishek Test ACCEPTAB ACCEPTAB Arterial Blood Right Radial Left Radial Gas Puncture Site Arterial 0.8 0.3 Blood Carboxyhem oglobin Arterial Blood 0.3 0.3 Methemoglobin Blood Gas A-a O2 164.3 H 87.9 H Differential Oxyhemoglobin 95.4 95.6 Percent Blood Gas 37.0 37.0 Temperature Blood Gas 14.0 24.0 Respiration Rate Blood Gas Actual 32 27 Respiration Rate Blood Gas MASK - BIPAP MASK - BIPAP Modality FiO2 50.0 40.0 Blood Gas 10 13 Pressure Support Blood Gas 15 20/8 IPAP/EPAP Ratio Blood Gas Sean GUTIERREZ RN Critical Value Read Back Blood Gas Romy UP Notified Whom Blood Gas 04/27/2018 4:11: 04/27/2018 8:48: Notified Time 35 PM 37 PM Test 04/28/18 04:23 04/28/18 04:24 04/28/18 07:00 Sodium Level 126 L Potassium Level 4.5 Chloride Level 80 L Carbon Dioxide 40 H Level Anion Gap 6 Blood Urea 15 Nitrogen Creatinine 0.52 Est Glomerular Filtrat Rate mL/min Glucose Level 139 Calcium Level 8.3 L Phosphorus Level 3.7 Magnesium Level 1.9 White Blood 4.1 #L Count Red Blood Count 3.68 L Hemoglobin 10.2 L Hematocrit 32.9 L Mean Corpuscular 89.4 Volume Mean Corpuscular 27.7 L Hemoglobin Mean Corpuscular 31.0 L Hemoglobin Kristy nt Red Cell 13.2 Distribution Width Platelet Count 242 Mean Platelet 9.2 Volume Immature 0.500 H Granulocytes % Neutrophils % 89.6 H Lymphocytes % 7.2 L Monocytes % 2.7 Eosinophils % 0.0 Basophils % 0.0 Nucleated Red 0.0 Blood Cells % Immature 0.020 Granulocytes # Neutrophils # 3.6 Lymphocytes # 0.3 L Monocytes # 0.1 L Eosinophils # 0.0 Basophils # 0.0 Nucleated Red 0.0 Blood Cells # Blood Gas Blood arterial Specimen Source Arterial Blood 04/28/2018 8:50: Date Drawn 20 AM Arterial Blood 7.355 pH (Temp corrected) Arterial Blood 79.0 H pCO2 (Temp correct) Arterial Blood 76.3 L pO2 (Temp corrected) Arterial Blood 43.1 *H HCO3 Arterial Blood 14.7 H Base Excess Arterial Blood 94.9 L Oxygen Saturatio n Abhishek Test ACCEPTAB Arterial Blood Right Radial Gas Puncture Site Arterial 0.5 Blood Carboxyhem oglobin Arterial Blood 0.2 Methemoglobin Blood Gas A-a O2 118.1 H Differential Oxyhemoglobin 94.2 Percent Blood Gas 37.0 Temperature Blood Gas 24.0 Respiration Rate Blood Gas Actual 40 Respiration Rate Blood Gas MASK - BIPAP Modality FiO2 40.0 Blood Gas 12 Pressure Support Blood Gas 20/8 IPAP/EPAP Ratio Blood Gas ASHA Mcneal Critical Value Read Back Blood Gas MDA Notified Whom Blood Gas 04/28/2018 9:01: Notified Time 41 AM Exam/Review of Systems Exam Vitals Vital Signs Date Temp Pulse Resp B/P (MAP) Pulse Ox O2 O2 Flow FiO2 Time Delivery Rate 04/28/18 67 100 40 08:55 04/28/18 97.9 36 110/49 BIPAP 04:00 (69) 04/27/18 5.0 08:16 Intake and Output 04/27/18 04/27/18 04/28/18 1515:00 23:00 07:00 IntakeIntake Total 100 ml 625 ml 650 ml OutputOutput Total 900 ml 675 ml 300 ml BalanceBalance -800 ml -50 ml 350 ml Results Results 24hrs Laboratory Tests Test 04/27/18 11:33 04/27/18 13:20 04/27/18 16:00 04/27/18 20:00 Sodium Level 126 L Potassium Level 5.2 H Chloride Level 81 L Carbon Dioxide 35 H Level Anion Gap 10 # Blood Urea 13 Nitrogen Creatinine 0.53 Est Glomerular Filtrat Rate mL/min Glucose Level 108 Calcium Level 8.4 Urine Color YELLOW Urine Clarity CLEAR Urine pH 6.0 Urine Specific 1.010 [place] Urine Ketones NEGATIVE Urine Nitrite NEGATIVE Urine Bilirubin NEGATIVE Urine NEGATIVE Urobilinogen Urine Leukocyte NEGATIVE Esterase Urine Hemoglobin NEGATIVE Urine Osmolality 382 Urine Random 35.35 Creatinine Urine Random 82 Sodium Urine Random 44.9 Potassium Urine Glucose NEGATIVE Urine Total 34.0 H Protein Urine Opiates Negative Screen Urine Negative Barbiturates Urine Negative Amphetamines Screen Urine Negative Benzodiazepines Screen Urine Cocaine Negative Screen Urine Negative Cannabinoids Blood Gas Blood arterial Blood arterial Specimen Source Arterial Blood 04/27/2018 4:00: 04/27/2018 8:35: Date Drawn 46 PM 45 PM Arterial Blood 7.264 *L 7.258 *L pH (Temp corrected) Arterial Blood 92.3 *H 95.6 *H pCO2 (Temp correct) Arterial Blood 88.4 87.4 pO2 (Temp corrected) Arterial Blood 40.9 *H 41.7 *H HCO3 Arterial Blood 10.2 H 11.1 H Base Excess Arterial Blood 96.5 96.2 Oxygen Saturatio n Abhishek Test ACCEPTAB ACCEPTAB Arterial Blood Right Radial Left Radial Gas Puncture Site Arterial 0.8 0.3 Blood Carboxyhem oglobin Arterial Blood 0.3 0.3 Methemoglobin Blood Gas A-a O2 164.3 H 87.9 H Differential Oxyhemoglobin 95.4 95.6 Percent Blood Gas 37.0 37.0 Temperature Blood Gas 14.0 24.0 Respiration Rate Blood Gas Actual 32 27 Respiration Rate Blood Gas MASK - BIPAP MASK - BIPAP Modality FiO2 50.0 40.0 Blood Gas 10 13 Pressure Support Blood Gas 27/06 20/8 IPAP/EPAP Ratio Blood Gas Sean GUTIERREZ RN Critical Value Read Back Blood Gas Romy UP Notified Whom Blood Gas 04/27/2018 4:11: 04/27/2018 8:48: Notified Time 35 PM 37 PM Test 04/28/18 04:23 04/28/18 04:24 04/28/18 07:00 Sodium Level 126 L Potassium Level 4.5 Chloride Level 80 L Carbon Dioxide 40 H Level Anion Gap 6 Blood Urea 15 Nitrogen Creatinine 0.52 Est Glomerular Filtrat Rate mL/min Glucose Level 139 Calcium Level 8.3 L Phosphorus Level 3.7 Magnesium Level 1.9 White Blood 4.1 #L Count Red Blood Count 3.68 L Hemoglobin 10.2 L Hematocrit 32.9 L Mean Corpuscular 89.4 Volume Mean Corpuscular 27.7 L Hemoglobin Mean Corpuscular 31.0 L Hemoglobin Kristy nt Red Cell 13.2 Distribution Width Platelet Count 242 Mean Platelet 9.2 Volume Immature 0.500 H Granulocytes % Neutrophils % 89.6 H Lymphocytes % 7.2 L Monocytes % 2.7 Eosinophils % 0.0 Basophils % 0.0 Nucleated Red 0.0 Blood Cells % Immature 0.020 Granulocytes # Neutrophils # 3.6 Lymphocytes # 0.3 L Monocytes # 0.1 L Eosinophils # 0.0 Basophils # 0.0 Nucleated Red 0.0 Blood Cells # Blood Gas Blood arterial Specimen Source Arterial Blood 04/28/2018 8:50: Date Drawn 20 AM Arterial Blood 7.355 pH (Temp corrected) Arterial Blood 79.0 H pCO2 (Temp correct) Arterial Blood 76.3 L pO2 (Temp corrected) Arterial Blood 43.1 *H HCO3 Arterial Blood 14.7 H Base Excess Arterial Blood 94.9 L Oxygen Saturatio n Abhishek Test ACCEPTAB Arterial Blood Right Radial Gas Puncture Site Arterial 0.5 Blood Carboxyhem oglobin Arterial Blood 0.2 Methemoglobin Blood Gas A-a O2 118.1 H Differential Oxyhemoglobin 94.2 Percent Blood Gas 37.0 Temperature Blood Gas 24.0 Respiration Rate Blood Gas Actual 40 Respiration Rate Blood Gas MASK - BIPAP Modality FiO2 40.0 Blood Gas 12 Pressure Support Blood Gas 20/8 IPAP/EPAP Ratio Blood Gas ASHA R.NRaghav Critical Value Read Back Blood Gas [facility] Notified Whom Blood Gas 04/28/2018 9:01: Notified Time 41 AM Medications Medication Current Medications IV Flush (NS 3 ml) 3 ml PER PROTOCOL IV ; Start 04/27/18 at 03:00 Ondansetron HCl (Zofran Inj) 4 mg Q6H PRN IV NAUSEA/VOMITING; Start 04/27/18 at 03:00 Acetaminophen (Tylenol Tab) 650 mg Q6H PRN PO .PAIN 1-3 OR TEMP; Start 04/27/18 at 03:00 Aspirin (Ecotrin) 325 mg DAILY PO Last administered on 3/16/19at 08:23; Admin Dose 325 MG; Start 04/27/18 at 09:00 Budesonide (Pulmicort (Neb)) 0.25 mg BID RESP THERAPY INH Last administered on 04/27/18 21:03; Admin Dose 0.25 MG; Start 04/27/18 at 09:00 Cholecalciferol (Vitamin D) 1,000 unit DAILY PO Last administered on 04/28/18 08:24; Admin Dose 1,000 UNIT; Start 04/27/18 at 09:00 Albuterol/ Ipratropium (Duoneb) 3 ml Q6H RESP THERAPY INH Last administered on 04/28/18 08:52; Admin Dose 3 ML; Start 04/27/18 at 08:00 Levothyroxine Sodium (Synthroid) 88 mcg BEFORE BREAKFAST PO Last administered on 04/28/18 08:24; Admin Dose 88 MCG; Start 04/27/18 at 07:00 Atorvastatin Calcium (Lipitor) 10 mg DAILY@21 PO ; Start 04/27/18 at 21:00 Albuterol/ Ipratropium (Duoneb) 3 ml Q2H RESP THERAPY PRN HHN shortness of breath; Start 04/27/18 at 10:00 Piperacillin Sod/ Tazobactam Sod 100 ml @ 200 mls/hr Q6 IVPB Last administered on 04/28/18 05:12; Admin Dose 200 MLS/HR; Start 04/27/18 at 10:00 Methylprednisolone Sodium Succinate (Solu-Medrol) 40 mg BID IV Last administered on 04/28/18 08:23; Admin Dose 40 MG; Start 04/27/18 at 21:00 Dextrose/Sodium Chloride 1,000 ml @ 75 mls/hr [id number] IV Last administered on 04/28/18 08:23; Admin Dose 75 MLS/HR; Start 04/27/18 at 15:30 Enoxaparin Sodium (Lovenox) 40 mg DAILY SC Last administered on 04/28/18 08:25; Admin Dose 40 MG; Start 04/28/18 at 09:00 Vancomycin HCl (Vanco Iv Per Pharmacy) VANCOMYCIN PER PHARMACY PER PROTOCOL XX ; Start 04/28/18 at 01:00 Vancomycin HCl 250 ml @ 125 mls/hr Q36H IVPB Last administered on 3/16/19at 01:24; Admin Dose 125 MLS/HR; Start 04/28/18 at 01:00 Miscellaneous Information (*Rx Drug Level Order Reminder*) RANDOM VANCO LEVEL... ONCE ONCE XX ; Start 04/29/18 at 05:00; Stop 04/29/18 at 05:01 JUANITA METCALF DO Apr 28, 2018 09:39
[2018-04-28] MEDS ORDERED: BUMETANIDE 1 MG INJ IV ONE (10:00)
[2018-04-28] MEDS: BUDESONIDE (NEB) 0.25 MG/2 ML AMP INH SCH ×2 (11:56→20:00)
--- NOTE | 2018-04-28 12:09 | CONS ---
Consult Date/Type/Reason Admit Date/Time Apr 27, 2018 at 02:15 Initial Consult Date Type of Consultation: Pulm/CCM Date/Time of Note DATE: 04/28/18 TIME: 12:04 Subjective Remains on BiPAP 18/8; FiO2 .40. Awake and alert. Objective Vitals Vital Signs Date Temp Pulse Resp B/P (MAP) Pulse Ox O2 O2 Flow FiO2 Time Delivery Rate 04/28/18 65 97 40 11:53 04/28/18 27 109/55 BIPAP 11:00 (73) 04/28/18 98.2 08:00 04/27/18 5.0 08:16 Intake and Output 04/27/18 04/27/18 04/28/18 1515:00 23:00 07:00 IntakeIntake Total 100 ml 625 ml 725 ml OutputOutput Total 900 ml 675 ml 300 ml BalanceBalance -800 ml -50 ml 425 ml Exam NECK: Supple. No JVD or lymphadenopathy. CARDIAC: S1, S2. No added sounds or murmurs. CHEST: Bibasilar fine inspiratory rales ABDOMEN: Soft, nontender. No guarding or rebound. EXTREMITIES: No cyanosis, clubbing. 1+ edema. NEUROLOGIC: Generalized weakness. Results/Medications Result Diagram: 04/28/18 0424 04/28/18 0423 Results 24 hrs Laboratory Tests Test 04/27/18 13:20 04/27/18 16:00 04/27/18 20:00 04/28/18 04:23 Urine Color YELLOW Urine Clarity CLEAR Urine pH 6.0 Urine Specific 1.010 [place] Urine Ketones NEGATIVE Urine Nitrite NEGATIVE Urine Bilirubin NEGATIVE Urine NEGATIVE Urobilinogen Urine Leukocyte NEGATIVE Esterase Urine Hemoglobin NEGATIVE Urine Osmolality 382 Urine Random 35.35 Creatinine Urine Random 82 Sodium Urine Random 44.9 Potassium Urine Glucose NEGATIVE Urine Total 34.0 H Protein Urine Opiates Negative Screen Urine Negative Barbiturates Urine Negative Amphetamines Screen Urine Negative Benzodiazepines Screen Urine Cocaine Negative Screen Urine Negative Cannabinoids Blood Gas Blood arterial Blood arterial Specimen Source Arterial Blood 04/27/2018 4:00: 04/27/2018 8:35: Date Drawn 46 PM 45 PM Arterial Blood 7.264 *L 7.258 *L pH (Temp corrected) Arterial Blood 92.3 *H 95.6 *H pCO2 (Temp correct) Arterial Blood 88.4 87.4 pO2 (Temp corrected) Arterial Blood 40.9 *H 41.7 *H HCO3 Arterial Blood 10.2 H 11.1 H Base Excess Arterial Blood 96.5 96.2 Oxygen Saturatio n Abhishek Test ACCEPTAB ACCEPTAB Arterial Blood Right Radial Left Radial Gas Puncture Site Arterial 0.8 0.3 Blood Carboxyhem oglobin Arterial Blood 0.3 0.3 Methemoglobin Blood Gas A-a O2 164.3 H 87.9 H Differential Oxyhemoglobin 95.4 95.6 Percent Blood Gas 37.0 37.0 Temperature Blood Gas 14.0 24.0 Respiration Rate Blood Gas Actual 32 27 Respiration Rate Blood Gas MASK - BIPAP MASK - BIPAP Modality FiO2 50.0 40.0 Blood Gas 10 13 Pressure Support Blood Gas 27/06 20/8 IPAP/EPAP Ratio Blood Gas Sean GUTIERREZ RN Critical Value Read Back Blood Gas Romy UP Notified Whom Blood Gas 04/27/2018 4:11: 04/27/2018 8:48: Notified Time 35 PM 37 PM Sodium Level 126 L Potassium Level 4.5 Chloride Level 80 L Carbon Dioxide 40 H Level Anion Gap 6 Blood Urea 15 Nitrogen Creatinine 0.52 Est Glomerular Filtrat Rate mL/min Glucose Level 139 Calcium Level 8.3 L Phosphorus Level 3.7 Magnesium Level 1.9 Test 04/28/18 04:24 04/28/18 07:00 White Blood 4.1 #L Count Red Blood Count 3.68 L Hemoglobin 10.2 L Hematocrit 32.9 L Mean Corpuscular 89.4 Volume Mean Corpuscular 27.7 L Hemoglobin Mean Corpuscular 31.0 L Hemoglobin Kristy nt Red Cell 13.2 Distribution Width Platelet Count 242 Mean Platelet 9.2 Volume Immature 0.500 H Granulocytes % Neutrophils % 89.6 H Lymphocytes % 7.2 L Monocytes % 2.7 Eosinophils % 0.0 Basophils % 0.0 Nucleated Red 0.0 Blood Cells % Immature 0.020 Granulocytes # Neutrophils # 3.6 Lymphocytes # 0.3 L Monocytes # 0.1 L Eosinophils # 0.0 Basophils # 0.0 Nucleated Red 0.0 Blood Cells # Blood Gas Blood arterial Specimen Source Arterial Blood 04/28/2018 8:50: Date Drawn 20 AM Arterial Blood 7.355 pH (Temp corrected) Arterial Blood 79.0 H pCO2 (Temp correct) Arterial Blood 76.3 L pO2 (Temp corrected) Arterial Blood 43.1 *H HCO3 Arterial Blood 14.7 H Base Excess Arterial Blood 94.9 L Oxygen Saturatio n Abhishek Test ACCEPTAB Arterial Blood Right Radial Gas Puncture Site Arterial 0.5 Blood Carboxyhem oglobin Arterial Blood 0.2 Methemoglobin Blood Gas A-a O2 118.1 H Differential Oxyhemoglobin 94.2 Percent Blood Gas 37.0 Temperature Blood Gas 24.0 Respiration Rate Blood Gas Actual 40 Respiration Rate Blood Gas MASK - BIPAP Modality FiO2 40.0 Blood Gas 12 Pressure Support Blood Gas 20/8 IPAP/EPAP Ratio Blood Gas JOVITA R.NRaghav Critical Value Read Back Blood Gas MDA Notified Whom Blood Gas 04/28/2018 9:01: Notified Time 41 AM Home Meds Reported Medications Formoterol Fumarate (Perforomist) 20 Mcg/2 Ml Vial.neb, 20 MCG INHALATION BID, VIAL 03/28/18 Ipratropium Left Hand (Ipratropium Left Hand) 5 Gm Powder, 10.5 MG MC BID 03/28/18 Ipratropium-Albuterol (Ipratropium-Albuterol) 0.5-3 Mg/3 Ml Ampul.neb, 3 ML INHALATION Q6, #30 VIAL 03/28/18 Budesonide* (Budesonide*) 0.25 Mg/2 Ml Ampul.neb, 0.25 MG INHALATION BID, AMP 03/28/18 Cholecalciferol* (Vitamin D3*) 1,000 Unit Tablet, 1000 UNIT PO DAILY, TAB 03/28/18 Simvastatin* (Zocor*) 20 Mg Tablet, 20 MG PO QHS, #30 TAB 03/28/18 Aspirin* (Aspirin* EC) 325 Mg Tab, 325 MG PO DAILY, TAB 03/28/18 Levothyroxine Sodium* (Levothyroxine Sodium*) 88 Mcg Tablet, 88 MCG PO BEFORE BREAKFAST, #30 TAB 03/28/18 Medications Current Medications IV Flush (NS 3 ml) 3 ml PER PROTOCOL IV ; Start 04/27/18 at 03:00 Ondansetron HCl (Zofran Inj) 4 mg Q6H PRN IV NAUSEA/VOMITING; Start 04/27/18 at 03:00 Acetaminophen (Tylenol Tab) 650 mg Q6H PRN PO .PAIN 1-3 OR TEMP; Start 04/27/18 at 03:00 Aspirin (Ecotrin) 325 mg DAILY PO Last administered on 04/28/18 08:23; Admin Dose 325 MG; Start 04/27/18 at 09:00 Budesonide (Pulmicort (Neb)) 0.25 mg BID RESP THERAPY INH Last administered on 04/28/18 11:56; Admin Dose 0.25 MG; Start 04/27/18 at 09:00 Cholecalciferol (Vitamin D) 1,000 unit DAILY PO Last administered on 04/28/18 08:24; Admin Dose 1,000 UNIT; Start 04/27/18 at 09:00 Albuterol/ Ipratropium (Duoneb) 3 ml Q6H RESP THERAPY INH Last administered on 04/28/18 08:52; Admin Dose 3 ML; Start 04/27/18 at 08:00 Levothyroxine Sodium (Synthroid) 88 mcg BEFORE BREAKFAST PO Last administered on 04/28/18 08:24; Admin Dose 88 MCG; Start 04/27/18 at 07:00 Atorvastatin Calcium (Lipitor) 10 mg DAILY@21 PO ; Start 04/27/18 at 21:00 Albuterol/ Ipratropium (Duoneb) 3 ml Q2H RESP THERAPY PRN HHN shortness of breath; Start 04/27/18 at 10:00 Piperacillin Sod/ Tazobactam Sod 100 ml @ 200 mls/hr Q6 IVPB Last administered on 04/28/18 11:31; Admin Dose 200 MLS/HR; Start 04/27/18 at 10:00 Methylprednisolone Sodium Succinate (Solu-Medrol) 40 mg BID IV Last administered on 04/28/18 08:23; Admin Dose 40 MG; Start 04/27/18 at 21:00 Enoxaparin Sodium (Lovenox) 40 mg DAILY SC Last administered on 04/28/18 08:25; Admin Dose 40 MG; Start 04/28/18 at 09:00 Vancomycin HCl (Vanco Iv Per Pharmacy) VANCOMYCIN PER PHARMACY PER PROTOCOL XX ; Start 04/28/18 at 01:00 Vancomycin HCl 250 ml @ 125 mls/hr Q36H IVPB Last administered on 04/28/18 01:24; Admin Dose 125 MLS/HR; Start 04/28/18 at 01:00 Miscellaneous Information (*Rx Drug Level Order Reminder*) RANDOM VANCO LEVEL... ONCE ONCE XX ; Start 04/29/18 at 05:00; Stop 04/29/18 at 05:01 Assessment/Plan Assessment/Plan (Daily) IMP: 1. 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 Acute exacerbation of IPF 3. Hyponatremia 4. Anemia 5. G+ cocci bacteremia RECS: 1. Increase solumedrol to 250 mg BID x 3 days for AEIPF 2. Continue abx 3. Gentle diuresis 4. ECHO 5. Continue BiPAP for the time being Case d/w RN and family 40 min cc time SKYLA DODSON MD Apr 28, 2018 12:09
[2018-04-28] MEDS ORDERED: METHYLPREDNISOLONE 40 MG INJ IV SCH (21:00)
[2018-04-28] MEDS: SOD CHLORIDE 0.9% IV SCH (21:47)
[2018-04-28] MEDS: ATORVASTATIN 10 MG TAB PO SCH (21:47)
[2018-04-28] MEDS: METHYLPRED NA SUCC IV SCH (21:47)
[2018-04-29] VITALS (28 sets, daily range): BP systolic 118–160; BP diastolic 55–91; PULSE 57–96; RESP 17–49
[2018-04-29] MEDS: PIPER-TAZO 3.375 GM IV (PMX) 100 ML IVPB SCH ×5 (00:40→23:33)
[2018-04-29] MEDS: ALBUTEROL/IPRATROPIUM (NEB) 3 ML AMP INH SCH ×4 (01:48→19:49)
[2018-04-29] MEDS: CHOLECALCIFEROL 1,000 UNIT TAB PO SCH (08:55)
[2018-04-29] MEDS: SOD CHLORIDE 0.9% IV SCH ×2 (08:55→21:06)
[2018-04-29] MEDS: ASPIRIN (EC) 325 MG TAB PO SCH (08:55)
[2018-04-29] MEDS: LEVOTHYROXINE 88 MCG TAB PO SCH (08:55)
[2018-04-29] MEDS: METHYLPRED NA SUCC IV SCH ×2 (08:55→21:06)
[2018-04-29] MEDS: ENOXAPARIN 40 MG/0.4 ML SYG SC SCH (08:56)
[2018-04-29] MEDS ORDERED: BUDESONIDE (NEB) 0.5MG/2ML AMP ONE (09:00)
[2018-04-29] MEDS: BUDESONIDE (NEB) 0.5MG/2ML AMP INH SCH ×2 (09:06→19:49)
--- NOTE | 2018-04-29 09:15 | PN ---
Date/Time of Note Date/Time of Note DATE: 04/29/18 TIME: 09:14 Objective Vitals Vital Signs Date Temp Pulse Resp B/P (MAP) Pulse Ox O2 O2 Flow FiO2 Time Delivery Rate 04/29/18 98.0 66 27 160/70 97 BIPAP 08:00 (100) 04/29/18 40 03:10 04/27/18 5.0 08:16 Intake and Output 04/28/18 04/28/18 04/29/18 1515:00 23:00 07:00 IntakeIntake Total 285 ml 664 ml 470 ml OutputOutput Total 1075 ml 700 ml 425 ml BalanceBalance -790 ml -36 ml 45 ml Results Result Diagram: 04/29/188 04/29/18447 Medications Medications Current Medications IV Flush (NS 3 ml) 3 ml PER PROTOCOL IV ; Start 04/27/18 at 03:00 Ondansetron HCl (Zofran Inj) 4 mg Q6H PRN IV NAUSEA/VOMITING; Start 04/27/18 at 03:00 Acetaminophen (Tylenol Tab) 650 mg Q6H PRN PO .PAIN 1-3 OR TEMP; Start 04/27/18 at 03:00 Aspirin (Ecotrin) 325 mg DAILY PO Last administered on 04/29/18at 08:55; Admin Dose 325 MG; Start 04/27/18 at 09:00 Cholecalciferol (Vitamin D) 1,000 unit DAILY PO Last administered on 04/29/18at 08:55; Admin Dose 1,000 UNIT; Start 04/27/18 at 09:00 Albuterol/ Ipratropium (Duoneb) 3 ml Q6H RESP THERAPY INH Last administered on 04/29/18at 09:02; Admin Dose 3 ML; Start 04/27/18 at 08:00 Levothyroxine Sodium (Synthroid) 88 mcg BEFORE BREAKFAST PO Last administered on 04/29/18at 08:55; Admin Dose 88 MCG; Start 04/27/18 at 07:00 Atorvastatin Calcium (Lipitor) 10 mg DAILY@21 PO Last administered on 04/28/18at 21:47; Admin Dose 10 MG; Start 04/27/18 at 21:00 Albuterol/ Ipratropium (Duoneb) 3 ml Q2H RESP THERAPY PRN HHN shortness of breath; Start 04/27/18 at 10:00 Piperacillin Sod/ Tazobactam Sod 100 ml @ 200 mls/hr Q6 IVPB Last administered on 04/29/18at 05:37; Admin Dose 200 MLS/HR; Start 04/27/18 at 10:00 Enoxaparin Sodium (Lovenox) 40 mg DAILY SC Last administered on 04/29/18at 08:56; Admin Dose 40 MG; Start 04/28/18 at 09:00 Vancomycin HCl (Vanco Iv Per Pharmacy) VANCOMYCIN PER PHARMACY PER PROTOCOL XX ; Start 04/28/18 at 01:00 Vancomycin HCl 250 ml @ 125 mls/hr Q36H IVPB Last administered on 04/28/18at 01:24; Admin Dose 125 MLS/HR; Start 04/28/18 at 01:00 Methylprednisolone Sodium Succinate 250 mg/Sodium Chloride 104 ml @ 208 mls/hr BID IV Last administered on 04/29/18at 08:55; Admin Dose 208 MLS/HR; Start 04/28/18 at 21:00 Budesonide (Pulmicort (Neb)) 0.5 mg BID RESP THERAPY INH Last administered on 04/29/18at 09:06; Admin Dose 0.5 MG; Start 04/29/18 at 09:00 VTE Prophylaxis Risk score (from Nsg)>0 risk: 9 SCD applied (from Nsg): Yes Lines/Catheters IV Catheter Type: Strange in Place: Yes Cont'd strange catheter reason: terminal illness/intractable pain Assessment/Plan Hospital Course Subjective Patient doing well, alert, on BiPAP, grand daughter at bedside, answered all questions Objective Physical exam General: Patient is laying in bed and answers questions appropriately Mentation: Patient is alert and oriented 4, Head: Normocephalic atraumatic Eyes: EOMI, pupils reactive to light Neck: Supple, nontender, midline Respiratory: Coarse to auscultation bilaterally Cardiovascular: regular rate, no obvious murmurs Gastrointestinal: non-tender to palpation, bowel sounds heard. Neurological: Moves all extremities spontaneously Skin: No new skin lesions Assessment and plan Acute hypoxic hypercapnic respiratory failure -Likely combination of likely pneumonia, pleural effusion and moderate to severe pulmonary fibrosis. -In ICU, on BiPAP Pneumonia -Broad-spectrum IV antibiotics Encephalopathy -Likely secondary to hypercapnia, improving, patient is now alert and oriented Severe pulmonary fibrosis -Chronic, follows up at [facility], likely reason why patient suffers from recurrent respiratory failure -DuoNeb, budesonide, steroids high dose per pulm Electrolyte derangement -Due to multiple reasons as above, mild IV hydration as patient is not eating well subsequently being on BiPAP Hypothyroidism -Continue home meds Dyslipidemia -Continue home meds Disposition -Over 40 minutes of critical care time was spent on this evaluation -Spoke with daughter, POA at bedside, patient is full code at the moment, intubation will be on a case by case basis will need to confirm with daughter before elective intubation. MERNA BLAKE Apr 29, 2018 09:15
[2018-04-29] MEDS: VANCOMYCIN 1 GM 250 ML IVPB SCH (10:15)
--- NOTE | 2018-04-29 10:31 | PN ---
Date/Time of Note Date/Time of Note DATE: 04/29/18 TIME: 10:30 Assessment/Plan VTE Prophylaxis Risk score (from Nsg)>0 risk: 9 SCD applied (from Nsg): Yes Pharmacological prophylaxis: other Lines/Catheters IV Catheter Type (from Nrsg): Urinary Cath still in place: Yes Reason Cath still needed: urinary retention Assessment/Plan Hospital Course all noted remains in icu serum sodium is increasing There has been no hemoptysis, hematemesis or hematochezia. d/w Dr Mcmillan PHYSICAL EXAMINATION: HEENT: Head is normocephalic. NECK: Supple. HEART: Regular rate. LUNGS: Show diminished breath sounds at the base. ABDOMEN: Soft, nontender to palpation without rebound or guarding. EXTREMITIES: Negative for clubbing, cyanosis. Trace edema. DERMATOLOGIC: No rashes. MUSCULOSKELETAL: No joint effusions. NEUROLOGIC: No change in exam. MEDICATIONS: The patient's medications have been reviewed. ASSESSMENT AND PLAN: This is an 87-year-old female who presents with: 1. Hyponatremia, possible acute, possible chronic. urine studies reviewed. possible siadh due to pulm fibrosis. hypervolemic. monitor off ivf. s/p bumex. no indication for 3 percent saline. has met alkalosis. Ph at target. diamox is not indicated 2. Hyperkalemia, resolved. 3. Alkalosis. Etiology is possibly compensatory due to chronic respiratory failure. 4. Anemia. Continue to monitor hemoglobin and hematocrit levels. 5. Lethargy, syncope, etiology may be secondary to hyponatremia. The patient had previous neurologic workup that was negative. Continue to monitor on telemetry. 6. Chronic respiratory failure, pulmonary fibrosis. Continue current medical management. Continue supplemental oxygen. Continue inhalers. 7. Hypothyroidism. Continue Synthroid. 8. Dyslipidemia. Continue statin therapy. Result Diagram: 04/29/18 0448 04/29/18 0448 Results 24hrs Laboratory Tests Test 04/29/18 04:48 04/29/18 05:00 White Blood Count 5.4 # Red Blood Count 3.69 L Hemoglobin 10.2 L Hematocrit 33.0 L Mean Corpuscular Volume 89.4 Mean Corpuscular Hemoglobin 27.6 L Mean Corpuscular Hemoglobin Concent 30.9 L Red Cell Distribution Width 13.2 Platelet Count 248 Mean Platelet Volume 9.1 Immature Granulocytes % 0.400 Neutrophils % 94.1 H Lymphocytes % 3.5 L Monocytes % 2.0 Eosinophils % 0.0 Basophils % 0.0 Nucleated Red Blood Cells % 0.0 Immature Granulocytes # 0.020 Neutrophils # 5.1 Lymphocytes # 0.2 L Monocytes # 0.1 L Eosinophils # 0.0 Basophils # 0.0 Nucleated Red Blood Cells # 0.0 Sodium Level 128 L Potassium Level 3.9 Chloride Level 78 L Carbon Dioxide Level 44 *H Anion Gap 6 Blood Urea Nitrogen 18 Creatinine 0.52 Est Glomerular Filtrat Rate mL/min Glucose Level 139 Calcium Level 8.4 Phosphorus Level 3.0 Magnesium Level 1.8 Random Vancomycin Level 5.2 Blood Gas Specimen Source Blood arterial Arterial Blood Date Drawn 04/29/2018 4:44:09 AM Arterial Blood pH (Temp corrected) 7.404 Arterial Blood pCO2 (Temp correct) 68.8 H Arterial Blood pO2 (Temp corrected) 97.4 H Arterial Blood HCO3 42.0 *H Arterial Blood Base Excess 13.8 H Arterial Blood Oxygen Saturation 97.8 Abhishek Test ACCEPTAB Arterial Blood Gas Puncture Site Left Radial Arterial Blood Carboxyhemoglobin 0.9 Arterial Blood Methemoglobin 0.2 Blood Gas A-a O2 Differential 108.7 H Oxyhemoglobin Percent 96.7 Blood Gas Temperature 37.0 Blood Gas Respiration Rate 24.0 Blood Gas Actual Respiration Rate 28 Blood Gas Modality BIPAP - S/T FiO2 40.0 Blood Gas Pressure Support 12 Blood Gas IPAP/EPAP Ratio 20/8 Blood Gas Critical Value Read Back Shanel GOFF RN Blood Gas Notified Whom MR Blood Gas Notified Time 04/29/2018 5:00:11 AM Exam/Review of Systems Exam Vitals Vital Signs Date Temp Pulse Resp B/P (MAP) Pulse Ox O2 O2 Flow FiO2 Time Delivery Rate 04/29/18 67 20 137/65 94 BIPAP 10:00 (89) 04/29/18 98.0 08:00 04/29/18 40 03:10 04/27/18 5.0 08:16 Intake and Output 04/28/18 04/28/18 04/29/18 1515:00 23:00 07:00 IntakeIntake Total 285 ml 664 ml 470 ml OutputOutput Total 1075 ml 700 ml 425 ml BalanceBalance -790 ml -36 ml 45 ml Results Results 24hrs Laboratory Tests Test 04/29/18 04:48 04/29/18 05:00 White Blood Count 5.4 # Red Blood Count 3.69 L Hemoglobin 10.2 L Hematocrit 33.0 L Mean Corpuscular Volume 89.4 Mean Corpuscular Hemoglobin 27.6 L Mean Corpuscular Hemoglobin Concent 30.9 L Red Cell Distribution Width 13.2 Platelet Count 248 Mean Platelet Volume 9.1 Immature Granulocytes % 0.400 Neutrophils % 94.1 H Lymphocytes % 3.5 L Monocytes % 2.0 Eosinophils % 0.0 Basophils % 0.0 Nucleated Red Blood Cells % 0.0 Immature Granulocytes # 0.020 Neutrophils # 5.1 Lymphocytes # 0.2 L Monocytes # 0.1 L Eosinophils # 0.0 Basophils # 0.0 Nucleated Red Blood Cells # 0.0 Sodium Level 128 L Potassium Level 3.9 Chloride Level 78 L Carbon Dioxide Level 44 *H Anion Gap 6 Blood Urea Nitrogen 18 Creatinine 0.52 Est Glomerular Filtrat Rate mL/min Glucose Level 139 Calcium Level 8.4 Phosphorus Level 3.0 Magnesium Level 1.8 Random Vancomycin Level 5.2 Blood Gas Specimen Source Blood arterial Arterial Blood Date Drawn 04/29/2018 4:44:09 AM Arterial Blood pH (Temp corrected) 7.404 Arterial Blood pCO2 (Temp correct) 68.8 H Arterial Blood pO2 (Temp corrected) 97.4 H Arterial Blood HCO3 42.0 *H Arterial Blood Base Excess 13.8 H Arterial Blood Oxygen Saturation 97.8 Abhishek Test ACCEPTAB Arterial Blood Gas Puncture Site Left Radial Arterial Blood Carboxyhemoglobin 0.9 Arterial Blood Methemoglobin 0.2 Blood Gas A-a O2 Differential 108.7 H Oxyhemoglobin Percent 96.7 Blood Gas Temperature 37.0 Blood Gas Respiration Rate 24.0 Blood Gas Actual Respiration Rate 28 Blood Gas Modality BIPAP - S/T FiO2 40.0 Blood Gas Pressure Support 12 Blood Gas IPAP/EPAP Ratio 20/8 Blood Gas Critical Value Read Back Sahnel GOFF RN Blood Gas Notified Whom MR Blood Gas Notified Time 04/29/2018 5:00:11 AM Medications Medication Current Medications IV Flush (NS 3 ml) 3 ml PER PROTOCOL IV ; Start 04/27/18 at 03:00 Ondansetron HCl (Zofran Inj) 4 mg Q6H PRN IV NAUSEA/VOMITING; Start 04/27/18 at 03:00 Acetaminophen (Tylenol Tab) 650 mg Q6H PRN PO .PAIN 1-3 OR TEMP; Start 04/27/18 at 03:00 Aspirin (Ecotrin) 325 mg DAILY PO Last administered on 04/29/18 08:55; Admin Dose 325 MG; Start 04/27/18 at 09:00 Cholecalciferol (Vitamin D) 1,000 unit DAILY PO Last administered on 04/29/18 08:55; Admin Dose 1,000 UNIT; Start 04/27/18 at 09:00 Albuterol/ Ipratropium (Duoneb) 3 ml Q6H RESP THERAPY INH Last administered on 04/29/18 09:02; Admin Dose 3 ML; Start 04/27/18 at 08:00 Levothyroxine Sodium (Synthroid) 88 mcg BEFORE BREAKFAST PO Last administered on 04/29/18 08:55; Admin Dose 88 MCG; Start 04/27/18 at 07:00 Atorvastatin Calcium (Lipitor) 10 mg DAILY@21 PO Last administered on 04/28/18at 21:47; Admin Dose 10 MG; Start 04/27/18 at 21:00 Albuterol/ Ipratropium (Duoneb) 3 ml Q2H RESP THERAPY PRN HHN shortness of breath; Start 04/27/18 at 10:00 Piperacillin Sod/ Tazobactam Sod 100 ml @ 200 mls/hr Q6 IVPB Last administered on 04/29/18at 05:37; Admin Dose 200 MLS/HR; Start 04/27/18 at 10:00 Enoxaparin Sodium (Lovenox) 40 mg DAILY SC Last administered on 04/29/18 08:56; Admin Dose 40 MG; Start 04/28/18 at 09:00 Vancomycin HCl (Vanco Iv Per Pharmacy) VANCOMYCIN PER PHARMACY PER PROTOCOL XX ; Start 04/28/18 at 01:00 Methylprednisolone Sodium Succinate 250 mg/Sodium Chloride 104 ml @ 208 mls/hr BID IV Last administered on 04/29/18 08:55; Admin Dose 208 MLS/HR; Start 04/28/18 at 21:00 Budesonide (Pulmicort (Neb)) 0.5 mg BID RESP THERAPY INH Last administered on 04/29/18 09:06; Admin Dose 0.5 MG; Start 04/29/18 at 09:00 Vancomycin HCl 250 ml @ 125 mls/hr Q24H IVPB Last administered on 04/29/18at 10:15; Admin Dose 125 MLS/HR; Start 04/29/18 at 10:00 JUANITA METCALF DO Apr 29, 2018 10:31
--- NOTE | 2018-04-29 12:06 | CONS ---
Consult Date/Type/Reason Admit Date/Time Apr 27, 2018 at 02:15 Initial Consult Date Type of Consultation: Pulm/CCM Date/Time of Note DATE: 04/29/18 TIME: 12:03 Subjective No events. Off BiPAP. Confused a bit today. Appears restless. Objective Vitals Vital Signs Date Temp Pulse Resp B/P (MAP) Pulse Ox O2 O2 Flow FiO2 Time Delivery Rate 04/29/18 75 20 149/55 97 Nasal 11:00 (86) Cannula 04/29/18 2.0 10:00 04/29/18 98.0 08:00 04/29/18 40 03:10 Intake and Output 04/28/18 04/28/18 04/29/18 1515:00 23:00 07:00 IntakeIntake Total 285 ml 664 ml 470 ml OutputOutput Total 1075 ml 700 ml 425 ml BalanceBalance -790 ml -36 ml 45 ml Exam NECK: Supple. No JVD or lymphadenopathy. CARDIAC: S1, S2. No added sounds or murmurs. CHEST: Bibasilar fine inspiratory rales ABDOMEN: Soft, nontender. No guarding or rebound. EXTREMITIES: No cyanosis, clubbing. 1+ edema. NEUROLOGIC: Generalized weakness. Results/Medications Result Diagram: 04/29/18 0448 04/29/18 0448 Results 24 hrs Laboratory Tests Test 04/29/18 04:48 04/29/18 05:00 White Blood Count 5.4 # Red Blood Count 3.69 L Hemoglobin 10.2 L Hematocrit 33.0 L Mean Corpuscular Volume 89.4 Mean Corpuscular Hemoglobin 27.6 L Mean Corpuscular Hemoglobin Concent 30.9 L Red Cell Distribution Width 13.2 Platelet Count 248 Mean Platelet Volume 9.1 Immature Granulocytes % 0.400 Neutrophils % 94.1 H Lymphocytes % 3.5 L Monocytes % 2.0 Eosinophils % 0.0 Basophils % 0.0 Nucleated Red Blood Cells % 0.0 Immature Granulocytes # 0.020 Neutrophils # 5.1 Lymphocytes # 0.2 L Monocytes # 0.1 L Eosinophils # 0.0 Basophils # 0.0 Nucleated Red Blood Cells # 0.0 Sodium Level 128 L Potassium Level 3.9 Chloride Level 78 L Carbon Dioxide Level 44 *H Anion Gap 6 Blood Urea Nitrogen 18 Creatinine 0.52 Est Glomerular Filtrat Rate mL/min Glucose Level 139 Calcium Level 8.4 Phosphorus Level 3.0 Magnesium Level 1.8 Random Vancomycin Level 5.2 Blood Gas Specimen Source Blood arterial Arterial Blood Date Drawn 04/29/2018 4:44:09 AM Arterial Blood pH (Temp corrected) 7.404 Arterial Blood pCO2 (Temp correct) 68.8 H Arterial Blood pO2 (Temp corrected) 97.4 H Arterial Blood HCO3 42.0 *H Arterial Blood Base Excess 13.8 H Arterial Blood Oxygen Saturation 97.8 Abhishek Test ACCEPTAB Arterial Blood Gas Puncture Site Left Radial Arterial Blood Carboxyhemoglobin 0.9 Arterial Blood Methemoglobin 0.2 Blood Gas A-a O2 Differential 108.7 H Oxyhemoglobin Percent 96.7 Blood Gas Temperature 37.0 Blood Gas Respiration Rate 24.0 Blood Gas Actual Respiration Rate 28 Blood Gas Modality BIPAP - S/T FiO2 40.0 Blood Gas Pressure Support 12 Blood Gas IPAP/EPAP Ratio 20/8 Blood Gas Critical Value Read Back Shanel GOFF RN Blood Gas Notified Whom MR Blood Gas Notified Time 04/29/2018 5:00:11 AM Home Meds Reported Medications Formoterol Fumarate (Perforomist) 20 Mcg/2 Ml Vial.neb, 20 MCG INHALATION BID, VIAL 03/28/18 Ipratropium [place] (Ipratropium [place]) 5 Gm Powder, 10.5 MG MC BID 03/28/18 Ipratropium-Albuterol (Ipratropium-Albuterol) 0.5-3 Mg/3 Ml Ampul.neb, 3 ML INHALATION Q6, #30 VIAL 03/28/18 Budesonide* (Budesonide*) 0.25 Mg/2 Ml Ampul.neb, 0.25 MG INHALATION BID, AMP 03/28/18 Cholecalciferol* (Vitamin D3*) 1,000 Unit Tablet, 1000 UNIT PO DAILY, TAB 03/28/18 Simvastatin* (Zocor*) 20 Mg Tablet, 20 MG PO QHS, #30 TAB 03/28/18 Aspirin* (Aspirin* EC) 325 Mg Tab, 325 MG PO DAILY, TAB 03/28/18 Levothyroxine Sodium* (Levothyroxine Sodium*) 88 Mcg Tablet, 88 MCG PO BEFORE BREAKFAST, #30 TAB 03/28/18 Medications Current Medications IV Flush (NS 3 ml) 3 ml PER PROTOCOL IV ; Start 04/27/18 at 03:00 Ondansetron HCl (Zofran Inj) 4 mg Q6H PRN IV NAUSEA/VOMITING; Start 04/27/18 at 03:00 Acetaminophen (Tylenol Tab) 650 mg Q6H PRN PO .PAIN 1-3 OR TEMP; Start 04/27/18 at 03:00 Aspirin (Ecotrin) 325 mg DAILY PO Last administered on 04/29/18 08:55; Admin Dose 325 MG; Start 04/27/18 at 09:00 Cholecalciferol (Vitamin D) 1,000 unit DAILY PO Last administered on 04/29/18 08:55; Admin Dose 1,000 UNIT; Start 04/27/18 at 09:00 Albuterol/ Ipratropium (Duoneb) 3 ml Q6H RESP THERAPY INH Last administered on 04/29/18 09:02; Admin Dose 3 ML; Start 04/27/18 at 08:00 Levothyroxine Sodium (Synthroid) 88 mcg BEFORE BREAKFAST PO Last administered on 04/29/18 08:55; Admin Dose 88 MCG; Start 04/27/18 at 07:00 Atorvastatin Calcium (Lipitor) 10 mg DAILY@21 PO Last administered on 04/28/18at 21:47; Admin Dose 10 MG; Start 04/27/18 at 21:00 Albuterol/ Ipratropium (Duoneb) 3 ml Q2H RESP THERAPY PRN HHN shortness of breath; Start 04/27/18 at 10:00 Piperacillin Sod/ Tazobactam Sod 100 ml @ 200 mls/hr Q6 IVPB Last administered on 04/29/18at 11:30; Admin Dose 200 MLS/HR; Start 04/27/18 at 10:00 Enoxaparin Sodium (Lovenox) 40 mg DAILY SC Last administered on 04/29/18 08:56; Admin Dose 40 MG; Start 04/28/18 at 09:00 Vancomycin HCl (Vanco Iv Per Pharmacy) VANCOMYCIN PER PHARMACY PER PROTOCOL XX ; Start 04/28/18 at 01:00 Methylprednisolone Sodium Succinate 250 mg/Sodium Chloride 104 ml @ 208 mls/hr BID IV Last administered on 04/29/18at 08:55; Admin Dose 208 MLS/HR; Start 04/28/18 at 21:00 Budesonide (Pulmicort (Neb)) 0.5 mg BID RESP THERAPY INH Last administered on 04/29/18at 09:06; Admin Dose 0.5 MG; Start 04/29/18 at 09:00 Vancomycin HCl 250 ml @ 125 mls/hr Q24H IVPB Last administered on 04/29/18at 10:15; Admin Dose 125 MLS/HR; Start 04/29/18 at 10:00 Assessment/Plan Assessment/Plan (Daily) IMP: 1. 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 Acute exacerbation of IPF 3. Hyponatremia 4. Anemia 5. G+ cocci bacteremia 6. Encephalopathy--toxic metabolic and steroids RECS: 1. Solumedrol to 250 mg BID x 3 days for AEIPF 2. Continue abx 3. Gentle diuresis 4. Follow-up ECHO 5. Reduce FiO2 to SpO2 88-92% 6. PT/OT eval 7. PPI and VTE prophylaxis Case d/w RN and family 40 min cc time SKYLA DODSON MD Apr 29, 2018 12:05
--- NOTE | 2018-04-29 17:33 | RADRPT ---
Echocardiogram Report Patient Name: Vanessa FARMERnt ID: [id number] : 1930 (87y 8m)Study Date: 04/29/2018 9:29:17 AM Gender: FAccession #: [id number] Tech: SEBASTIEN Jaimes RDCS Location: [address] Ref[address]Physician: MERNA BLAKE Height(Cm): BSA: Weight(Kg): Quality: AdequateAccount #: Procedures: Echocardiographic Report: Transthoracic echocardiogram with complete 2D, M-Mode, and doppler examination. Indications: Evaluate Left Ventricular function. Measurements: 2D/M Mode Doppler Measurement Value Normal Range Measurement Value Normal Range LVIDd 2D 3.1 [ 3.8 - 5.2 ] cm AV Peak Arturo 1.5 [ 100.0 - 170.0 ] cm/se c LVIDs 2D 2.0 [ 2.2 - 3.5 ] cm AV Peak PG 10.0 [ 2.0 - 9.0 ] mmHg LVPWd 2D 1.1 [ 0.6 - 0.9 ] cm LVOT Peak Arturo 0.6 [ 70.0 - 110.0 ] cm/sec IVSd 2D 1.1 [ 0.6 - 0.9 ] cm LVOT Peak PG 2.0 [ 2.0 - 6.0 ] mmHg AoR Diam 2D 2.3 [ 2.3 - 3.1 ] cm MV E Peak Arturo 0.4 [ 60.0 - 130.0 ] cm/sec EDV 2D 37.6 [ 46.0 - 106.0 ] ml MV A Peak Arturo 0.6 [ 100.0 - 120.0 ] cm/se c ESV 2D 12.6 [ 14.0 - 42.0 ] ml MV E/A 0.7 [ 0.8 - 1.5 ] ratio EF 2D 66.5 [ 54.0 - 74.0 ] percent MV PHT 44.0 [ 20.0 - 100.0 ] msec LA Dimen 2D 3.4 [ 2.7 - 3.8 ] cm MV Decel Time 151 [ 104 - 258 ] msec MV Decel St[place] 3 Med E` Arturo 0.0 cm/sec MV E/A 0.7 [ 0.8 - 1.5 ] ratio MVA PHT 5.0 [ 2.0 - 4.0 ] cm2 TR Peak Arturo 3.8 [ 100.0 - 280.0 ] cm/se c TR Peak PG 59.0 mmHg RVSP 59.0 [ 10.0 - 36.0 ] mmHg Findings: Left Ventricle: Normal left ventricular systolic function. Normal left ventricular cavity size. Mild concentric left ventricular hypertrophy. Ejection fraction is visually estimated at 60 - 65 %. Tissue Doppler/Mitral Doppler indices are consistent with impaired relaxation (Stage I diastolic dysfunction). Right Ventricle: Normal right ventricular size. Normal right ventricular systolic function. Left Atrium: The left atrium is normal in size. Right Atrium: The right atrium is normal in size. Atrial Septum: Normal atrial septum. Ventricular septum: Normal/intact ventricular septum. Mitral Valve: Normal appearance of the mitral valve. Trace mitral regurgitation. Aortic Valve: Normal appearance of the aortic valve. Trace aortic valve regurgitation. Tricuspid Valve: Normal appearance of the tricuspid valve. Estimated peak PA systolic pressure 67 mmHg. There is mild tricuspid regurgitation. Pulmonic Valve: Normal pulmonic valve appearance. There is trace pulmonic regurgitation. Pericardium: Normal pericardium with no significant pericardial effusion. Aorta: Normal aortic root. IVC: The IVC is not well visualized. Conclusions: Normal left ventricular systolic function. Normal left ventricular cavity size. Mild concentric left ventricular hypertrophy. Ejection fraction is visually estimated at 60 - 65 %. Tissue Doppler/Mitral Doppler indices are consistent with impaired relaxation (Stage I diastolic dysfunction). Normal appearance of the tricuspid valve. Estimated peak PA systolic pressure 67 mmHg. There is mild tricuspid regurgitation. Electronically Signed By: Odell Bah 2018-04-29 17:32:45 PDT
[2018-04-29] MEDS: ATORVASTATIN 10 MG TAB PO SCH (21:06)
[2018-04-29] MEDS: BALSAM PERU/CASTOR OIL 60 GM TUBE TOP SCH (22:30)
[2018-04-30] VITALS (32 sets, daily range): BP systolic 88–174; BP diastolic 53–103; PULSE 56–103; RESP 20–46
[2018-04-30] MEDS: ALBUTEROL/IPRATROPIUM (NEB) 3 ML AMP INH SCH ×4 (02:18→19:34)
[2018-04-30] MEDS: PIPER-TAZO 3.375 GM IV (PMX) 100 ML IVPB SCH ×3 (08:00→17:43)
--- NOTE | 2018-04-30 08:26 | PN ---
DATE: 04/30/2018 SUBJECTIVE: The patient is in a serious condition. The patient is on BiPAP. No other events noted overnight. OBJECTIVE: VITAL SIGNS: Blood pressure is 113/61, respirations 34, pulse 57, temperature 99.0. HEENT: Head is normocephalic. NECK: Supple. HEART: Regular rate. LUNGS: Show diminished breath sounds at the base. ABDOMEN: Soft, nontender to palpation without rebound or guarding. EXTREMITIES: Negative for clubbing, cyanosis, no edema. DERMATOLOGIC: No rashes. MUSCULOSKELETAL: No joint effusion. NEUROLOGIC: No change in exam. MEDICATIONS: Reviewed. LABORATORY DATA: Shows sodium 132, potassium 3.5, BUN 13, creatinine 0.51. White count 5.6, hemoglo bin 10.4, platelet count is 223. The patient's x-ray was reviewed. ASSESSMENT AND PLAN: 1. Hypernatremia. 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 The patient's sodium levels have slowly been improving wi th free water restriction. At this point, continue to monitor, continue to monitor serum sodium leve ls. 2. Hyperkalemia, resolved. 3. Respiratory acidosis with metabolic compensation. The patient's ABG was reviewed. Continue to m onitor. 4. Anemia. Continue to monitor hemoglobin and hematocrit levels. 5. Acute hypoxemic hypercapnic respiratory failure. The patient is currently on BiPAP. We will con tinue. 6. Hypothyroidism. Continue Synthroid. 7. Dyslipidemia. Continue statin therapy. Dictated By: GABO DURAN DO NR/NTS Conf#: [id number] DID#: [id number] CC: SOO FERRARA MD; MERNA BLAKE MD; RICHARDSON BROWN MD;*EndCC*
[2018-04-30] MEDS: BUDESONIDE (NEB) 0.5MG/2ML AMP INH SCH ×2 (08:40→19:34)
[2018-04-30] MEDS ORDERED: DEXTROSE 5%-0.9% NACL 1,000 ML IV SCH (09:30)
[2018-04-30] MEDS: ASPIRIN (EC) 325 MG TAB PO SCH (09:59)
[2018-04-30] MEDS: LEVOTHYROXINE 88 MCG TAB PO SCH (09:59)
[2018-04-30] MEDS: POTASSIUM CHLORIDE 100 ML IVPB SCH ×2 (09:59→12:05)
[2018-04-30] MEDS: BALSAM PERU/CASTOR OIL 60 GM TUBE TOP SCH ×2 (09:59→20:05)
[2018-04-30] MEDS: CHOLECALCIFEROL 1,000 UNIT TAB PO SCH (09:59)
[2018-04-30] MEDS: VANCOMYCIN 1 GM 250 ML IVPB SCH (10:00)
[2018-04-30] MEDS: SOD CHLORIDE 0.9% IV SCH ×2 (10:02→20:05)
[2018-04-30] MEDS: METHYLPRED NA SUCC IV SCH ×2 (10:02→20:05)
[2018-04-30] MEDS: ENOXAPARIN 40 MG/0.4 ML SYG SC SCH (10:12)
--- NOTE | 2018-04-30 10:52 | CONS ---
Consult Date/Type/Reason Admit Date/Time Apr 27, 2018 at 02:15 Initial Consult Date Type of Consult Pulmonary Date/Time of Note DATE: 04/30/18 TIME: 10:51 Subjective Patient will BiPAP overnight. No significant changes this morning remains awake alert comfortable. Objective Vital Signs Date Temp Pulse Resp B/P (MAP) Pulse Ox O2 O2 Flow FiO2 Time Delivery Rate 04/30/18 68 35 147/81 98 BIPAP 10:00 (103) 04/30/18 35 08:22 04/30/18 98.5 08:00 04/29/18 2.0 23:45 Intake and Output 04/29/18 04/29/18 04/30/18 1515:00 23:00 07:00 IntakeIntake Total 1054 ml 684 ml 200 ml OutputOutput Total 650 ml 775 ml 310 ml BalanceBalance 404 ml -91 ml -110 ml Exam NECK: Supple. No JVD or lymphadenopathy. CARDIAC: S1, S2. No added sounds or murmurs. CHEST: Bibasilar fine inspiratory rales ABDOMEN: Soft, nontender. No guarding or rebound. EXTREMITIES: No cyanosis, clubbing. 1+ edema. NEUROLOGIC: Generalized weakness. Results/Medications Result Diagram: 04/30/18 0445 04/30/18 0444 Results 24 hrs Laboratory Tests Test 04/30/18 04:44 04/30/18 04:45 04/30/18 05:00 Sodium Level 132 L Potassium Level 3.5 Chloride Level 79 L Carbon Dioxide Level 44 *H Anion Gap 9 Blood Urea Nitrogen 13 Creatinine 0.51 Est Glomerular Filtrat Rate mL/min Glucose Level 146 Calcium Level 8.3 L Phosphorus Level 2.8 Magnesium Level 1.9 White Blood Count 4.6 L Red Blood Count 3.76 L Hemoglobin 10.4 L Hematocrit 33.7 L Mean Corpuscular Volume 89.6 Mean Corpuscular Hemoglobin 27.7 L Mean Corpuscular 30.9 L Hemoglobin Concent Red Cell Distribution Width 13.2 Platelet Count 223 Mean Platelet Volume 8.9 Immature Granulocytes % 0.400 Neutrophils % 91.6 H Lymphocytes % 4.8 L Monocytes % 3.2 Eosinophils % 0.0 Basophils % 0.0 Nucleated Red Blood Cells % 0.0 Immature Granulocytes # 0.020 Neutrophils # 4.2 Lymphocytes # 0.2 L Monocytes # 0.2 L Eosinophils # 0.0 Basophils # 0.0 Nucleated Red Blood Cells # 0.0 Blood Gas Specimen Source Blood arterial Arterial Blood Date Drawn 04/30/2018 4:15:12 AM Arterial Blood pH 7.378 (Temp corrected) Arterial Blood pCO2 77.5 H (Temp correct) Arterial Blood pO2 98.3 H (Temp corrected) Arterial Blood HCO3 44.6 *H Arterial Blood Base Excess 15.8 H Arterial Blood 97.6 Oxygen Saturation Abhishek Test ACCEPTAB Arterial Blood Gas Right Radial Puncture Site Arterial 0.8 Blood Carboxyhemoglobin Arterial Blood Methemoglobin 0.4 Blood Gas A-a O2 97.8 H Differential Oxyhemoglobin Percent 96.4 Blood Gas Temperature 37.0 Blood Gas Respiration Rate 24.0 Blood Gas Actual 30 Respiration Rate Blood Gas Modality MASK - BIPAP FiO2 40.0 Blood Gas IPAP/EPAP Ratio 20/8 Blood Gas Critical Value Gurjit MOORE RN Read Back Blood Gas Notified Whom MM Blood Gas Notified Time 04/30/2018 4:52:11 AM Medications Current Medications IV Flush (NS 3 ml) 3 ml PER PROTOCOL IV ; Start 04/27/18 at 03:00 Ondansetron HCl (Zofran Inj) 4 mg Q6H PRN IV NAUSEA/VOMITING; Start 04/27/18 at 03:00 Acetaminophen (Tylenol Tab) 650 mg Q6H PRN PO .PAIN 1-3 OR TEMP; Start 04/27/18 at 03:00 Aspirin (Ecotrin) 325 mg DAILY PO Last administered on 04/30/18 09:59; Admin Dose 325 MG; Start 04/27/18 at 09:00 Cholecalciferol (Vitamin D) 1,000 unit DAILY PO Last administered on 04/30/18 09:59; Admin Dose 1,000 UNIT; Start 04/27/18 at 09:00 Albuterol/ Ipratropium (Duoneb) 3 ml Q6H RESP THERAPY INH Last administered on 04/30/18 08:29; Admin Dose 3 ML; Start 04/27/18 at 08:00 Levothyroxine Sodium (Synthroid) 88 mcg BEFORE BREAKFAST PO Last administered on 04/30/18 09:59; Admin Dose 88 MCG; Start 04/27/18 at 07:00 Atorvastatin Calcium (Lipitor) 10 mg DAILY@21 PO Last administered on 3/17/19at 21:06; Admin Dose 10 MG; Start 04/27/18 at 21:00 Albuterol/ Ipratropium (Duoneb) 3 ml Q2H RESP THERAPY PRN HHN shortness of breath; Start 04/27/18 at 10:00 Piperacillin Sod/ Tazobactam Sod 100 ml @ 200 mls/hr Q6 IVPB Last administered on 04/29/18at 23:33; Admin Dose 200 MLS/HR; Start 04/27/18 at 10:00 Enoxaparin Sodium (Lovenox) 40 mg DAILY SC Last administered on 04/30/18at 10:12; Admin Dose 40 MG; Start 04/28/18 at 09:00 Vancomycin HCl (Vanco Iv Per Pharmacy) VANCOMYCIN PER PHARMACY PER PROTOCOL XX ; Start 04/28/18 at 01:00 Methylprednisolone Sodium Succinate 250 mg/Sodium Chloride 104 ml @ 208 mls/hr BID IV Last administered on 04/30/18 10:02; Admin Dose 208 MLS/HR; Start 04/28/18 at 21:00 Budesonide (Pulmicort (Neb)) 0.5 mg BID RESP THERAPY INH Last administered on 04/30/18 08:40; Admin Dose 0.5 MG; Start 04/29/18 at 09:00 Vancomycin HCl 250 ml @ 125 mls/hr Q24H IVPB Last administered on 04/30/18 10:00; Admin Dose 125 MLS/HR; Start 04/29/18 at 10:00 Dextrose/Sodium Chloride 1,000 ml @ 40 mls/hr Q24H IV Last administered on 04/30/18 09:58; Admin Dose 40 MLS/HR; Start 04/30/18 at 09:30 Potassium Chloride 100 ml @ 50 mls/hr Q2H IVPB Last administered on 04/30/18 09:59; Admin Dose 50 MLS/HR; Start 04/30/18 at 09:30; Stop 04/30/18 at 13:29 Assessment/Plan Hospital Course (Demo Recall) IMP: 1. 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 Acute exacerbation of IPF 3. Hyponatremia 4. Anemia 5. G+ cocci bacteremia 6. Encephalopathy--toxic metabolic and steroids RECS: 1. Solumedrol 6 2. Continue abx 3. Gentle diuresis 4. Follow-up ECHO 5. Reduce FiO2 to SpO2 88-92% 6. PT/OT eval 7. PPI and VTE prophylaxis Case d/w RN and family 40 min cc time SOO FERRARA MD, [facility] Apr 30, 2018 10:52
--- NOTE | 2018-04-30 14:44 | PN ---
Date/Time of Note Date/Time of Note DATE: 04/30/18 TIME: 14:38 Assessment/Plan VTE Prophylaxis Risk score (from Nsg)>0 risk: 8 SCD applied (from Nsg): Yes Pharmacological prophylaxis: LMWH Lines/Catheters IV Catheter Type (from Nrsg): Saline Lock Urinary Cath still in place: Yes Reason Cath still needed: terminal illness/intractable pain Assessment/Plan Assessment/Plan 1. Acute hypoxic hypercapnic respiratory failure - Patient has history of severe pulmonary fibrosis - pulm on board and appreciate recommendations - Tolerating BIPAP 2. Acute metabolic Encephalopathy - Likely secondary to hypercapnia, improving 3. Exacerbation of IPF - Follows with Pulm as outpatient - Continue high dose steroids, nebs, and antibiotics at this time 4. Hypothyroidism -Continue home meds 5. Dyslipidemia -Continue home meds 6. Disposition - Stable for downgrade to Telemetry once front room available - continue current treatment and monitor for improvement in respiratory status Result Diagram: 04/30/18 0445 04/30/18 0444 Results 24hrs Laboratory Tests Test 04/30/18 04:44 04/30/18 04:45 04/30/18 05:00 Sodium Level 132 L Potassium Level 3.5 Chloride Level 79 L Carbon Dioxide Level 44 *H Anion Gap 9 Blood Urea Nitrogen 13 Creatinine 0.51 Est Glomerular Filtrat Rate mL/min Glucose Level 146 Calcium Level 8.3 L Phosphorus Level 2.8 Magnesium Level 1.9 White Blood Count 4.6 L Red Blood Count 3.76 L Hemoglobin 10.4 L Hematocrit 33.7 L Mean Corpuscular Volume 89.6 Mean Corpuscular Hemoglobin 27.7 L Mean Corpuscular 30.9 L Hemoglobin Concent Red Cell Distribution Width 13.2 Platelet Count 223 Mean Platelet Volume 8.9 Immature Granulocytes % 0.400 Neutrophils % 91.6 H Lymphocytes % 4.8 L Monocytes % 3.2 Eosinophils % 0.0 Basophils % 0.0 Nucleated Red Blood Cells % 0.0 Immature Granulocytes # 0.020 Neutrophils # 4.2 Lymphocytes # 0.2 L Monocytes # 0.2 L Eosinophils # 0.0 Basophils # 0.0 Nucleated Red Blood Cells # 0.0 Blood Gas Specimen Source Blood arterial Arterial Blood Date Drawn 04/30/2018 4:15:12 AM Arterial Blood pH 7.378 (Temp corrected) Arterial Blood pCO2 77.5 H (Temp correct) Arterial Blood pO2 98.3 H (Temp corrected) Arterial Blood HCO3 44.6 *H Arterial Blood Base Excess 15.8 H Arterial Blood 97.6 Oxygen Saturation Abhishek Test ACCEPTAB Arterial Blood Gas Right Radial Puncture Site Arterial 0.8 Blood Carboxyhemoglobin Arterial Blood Methemoglobin 0.4 Blood Gas A-a O2 97.8 H Differential Oxyhemoglobin Percent 96.4 Blood Gas Temperature 37.0 Blood Gas Respiration Rate 24.0 Blood Gas Actual 30 Respiration Rate Blood Gas Modality MASK - BIPAP FiO2 40.0 Blood Gas IPAP/EPAP Ratio 20/8 Blood Gas Critical Value Gurjit MOORE RN Read Back Blood Gas Notified Whom MM Blood Gas Notified Time 04/30/2018 4:52:11 AM Subjective 24 Hr Interval Summary Free Text/Dictation Patient tolerating BIPAP. Daughter at bedside and plan of care discussed. Exam/Review of Systems Exam Vitals Vital Signs Date Temp Pulse Resp B/P (MAP) Pulse Ox O2 O2 Flow FiO2 Time Delivery Rate 04/30/18 97 3.0 13:48 04/30/18 73 23 Nasal 13:47 Cannula 04/30/18 174/82 13:00 (112) 04/30/18 98.3 12:00 04/30/18 35 08:22 Intake and Output 04/29/18 04/29/18 04/30/18 1515:00 23:00 07:00 IntakeIntake Total 1054 ml 684 ml 200 ml OutputOutput Total 650 ml 775 ml 310 ml BalanceBalance 404 ml -91 ml -110 ml Exam General: Patient is laying in bed and no acute distress Eyes: EOMI, pupils reactive to light Neck: Supple, nontender, midline Respiratory: Coarse to auscultation bilaterally. Cardiovascular: regular rate and rhythm, no obvious murmurs Gastrointestinal: soft, non-tender to palpation, bowel sounds heard. Neurological: Moves all extremities spontaneously Skin: No new skin lesions Results Results 24hrs Laboratory Tests Test 04/30/18 04:44 04/30/18 04:45 04/30/18 05:00 Sodium Level 132 L Potassium Level 3.5 Chloride Level 79 L Carbon Dioxide Level 44 *H Anion Gap 9 Blood Urea Nitrogen 13 Creatinine 0.51 Est Glomerular Filtrat Rate mL/min Glucose Level 146 Calcium Level 8.3 L Phosphorus Level 2.8 Magnesium Level 1.9 White Blood Count 4.6 L Red Blood Count 3.76 L Hemoglobin 10.4 L Hematocrit 33.7 L Mean Corpuscular Volume 89.6 Mean Corpuscular Hemoglobin 27.7 L Mean Corpuscular 30.9 L Hemoglobin Concent Red Cell Distribution Width 13.2 Platelet Count 223 Mean Platelet Volume 8.9 Immature Granulocytes % 0.400 Neutrophils % 91.6 H Lymphocytes % 4.8 L Monocytes % 3.2 Eosinophils % 0.0 Basophils % 0.0 Nucleated Red Blood Cells % 0.0 Immature Granulocytes # 0.020 Neutrophils # 4.2 Lymphocytes # 0.2 L Monocytes # 0.2 L Eosinophils # 0.0 Basophils # 0.0 Nucleated Red Blood Cells # 0.0 Blood Gas Specimen Source Blood arterial Arterial Blood Date Drawn 04/30/2018 4:15:12 AM Arterial Blood pH 7.378 (Temp corrected) Arterial Blood pCO2 77.5 H (Temp correct) Arterial Blood pO2 98.3 H (Temp corrected) Arterial Blood HCO3 44.6 *H Arterial Blood Base Excess 15.8 H Arterial Blood 97.6 Oxygen Saturation Abhishek Test ACCEPTAB Arterial Blood Gas Right Radial Puncture Site Arterial 0.8 Blood Carboxyhemoglobin Arterial Blood Methemoglobin 0.4 Blood Gas A-a O2 97.8 H Differential Oxyhemoglobin Percent 96.4 Blood Gas Temperature 37.0 Blood Gas Respiration Rate 24.0 Blood Gas Actual 30 Respiration Rate Blood Gas Modality MASK - BIPAP FiO2 40.0 Blood Gas IPAP/EPAP Ratio 20/8 Blood Gas Critical Value Gurjit MOORE RN Read Back Blood Gas Notified Whom MM Blood Gas Notified Time 04/30/2018 4:52:11 AM Medications Medication Current Medications IV Flush (NS 3 ml) 3 ml PER PROTOCOL IV ; Start 04/27/18 at 03:00 Ondansetron HCl (Zofran Inj) 4 mg Q6H PRN IV NAUSEA/VOMITING; Start 04/27/18 at 03:00 Acetaminophen (Tylenol Tab) 650 mg Q6H PRN PO .PAIN 1-3 OR TEMP; Start 04/27/18 at 03:00 Aspirin (Ecotrin) 325 mg DAILY PO Last administered on 04/30/18at 09:59; Admin Dose 325 MG; Start 04/27/18 at 09:00 Cholecalciferol (Vitamin D) 1,000 unit DAILY PO Last administered on 04/30/18at 09:59; Admin Dose 1,000 UNIT; Start 04/27/18 at 09:00 Albuterol/ Ipratropium (Duoneb) 3 ml Q6H RESP THERAPY INH Last administered on 04/30/18 13:47; Admin Dose 3 ML; Start 04/27/18 at 08:00 Levothyroxine Sodium (Synthroid) 88 mcg BEFORE BREAKFAST PO Last administered on 04/30/18 09:59; Admin Dose 88 MCG; Start 04/27/18 at 07:00 Atorvastatin Calcium (Lipitor) 10 mg DAILY@21 PO Last administered on 04/29/18 21:06; Admin Dose 10 MG; Start 04/27/18 at 21:00 Albuterol/ Ipratropium (Duoneb) 3 ml Q2H RESP THERAPY PRN HHN shortness of breath; Start 04/27/18 at 10:00 Piperacillin Sod/ Tazobactam Sod 100 ml @ 200 mls/hr Q6 IVPB Last administered on 04/30/18 12:07; Admin Dose 200 MLS/HR; Start 04/27/18 at 10:00 Enoxaparin Sodium (Lovenox) 40 mg DAILY SC Last administered on 04/30/18 10:12; Admin Dose 40 MG; Start 04/28/18 at 09:00 Vancomycin HCl (Vanco Iv Per Pharmacy) VANCOMYCIN PER PHARMACY PER PROTOCOL XX ; Start 04/28/18 at 01:00 Methylprednisolone Sodium Succinate 250 mg/Sodium Chloride 104 ml @ 208 mls/hr BID IV Last administered on 04/30/18 10:02; Admin Dose 208 MLS/HR; Start 04/28/18 at 21:00 Budesonide (Pulmicort (Neb)) 0.5 mg BID RESP THERAPY INH Last administered on 04/30/18 08:40; Admin Dose 0.5 MG; Start 04/29/18 at 09:00 Vancomycin HCl 250 ml @ 125 mls/hr Q24H IVPB Last administered on 04/30/18 10:00; Admin Dose 125 MLS/HR; Start 04/29/18 at 10:00 Dextrose/Sodium Chloride 1,000 ml @ 40 mls/hr Q24H IV Last administered on 04/30/18 09:58; Admin Dose 40 MLS/HR; Start 3/18/19 at 09:30 Miscellaneous Information (*Rx Drug Level Order Reminder*) NEFTALI VELARDE ON 05/01 @ 0,900 ONCE ONCE XX ; Start 05/01/18 at 09:00; Stop 05/01/18 at 09:01 KALEB JAIMES MD Apr 30, 2018 14:44
[2018-04-30] MEDS: ATORVASTATIN 10 MG TAB PO SCH (20:05)
--- NOTE | 2018-04-30 20:30 | CONS ---
Consultation Date/Type/Reason Admit Date/Time Apr 27, 2018 at 02:15 Initial Consult Date Date/Time of Note DATE: 04/30/18 TIME: 20:30 Exam/Review of Systems Exam Vitals Vital Signs Date Temp Pulse Resp B/P (MAP) Pulse Ox O2 O2 Flow FiO2 Time Delivery Rate 04/30/18 67 95 30 20:13 04/30/18 Nasal 3.0 20:01 Cannula 04/30/18 97.9 46 139/78 20:00 (98) Intake and Output 04/29/18 04/29/18 04/30/18 1414:59 22:59 06:59 IntakeIntake Total 1054 ml 684 ml 200 ml OutputOutput Total 625 ml 790 ml 365 ml BalanceBalance 429 ml -106 ml -165 ml Results Result Diagram: 04/30/18 0445 04/30/18 0444 Results 24hrs Laboratory Tests Test 04/30/18 04:44 04/30/18 04:45 04/30/18 05:00 Sodium Level 132 L Potassium Level 3.5 Chloride Level 79 L Carbon Dioxide Level 44 *H Anion Gap 9 Blood Urea Nitrogen 13 Creatinine 0.51 Est Glomerular Filtrat Rate mL/min Glucose Level 146 Calcium Level 8.3 L Phosphorus Level 2.8 Magnesium Level 1.9 White Blood Count 4.6 L Red Blood Count 3.76 L Hemoglobin 10.4 L Hematocrit 33.7 L Mean Corpuscular Volume 89.6 Mean Corpuscular Hemoglobin 27.7 L Mean Corpuscular 30.9 L Hemoglobin Concent Red Cell Distribution Width 13.2 Platelet Count 223 Mean Platelet Volume 8.9 Immature Granulocytes % 0.400 Neutrophils % 91.6 H Lymphocytes % 4.8 L Monocytes % 3.2 Eosinophils % 0.0 Basophils % 0.0 Nucleated Red Blood Cells % 0.0 Immature Granulocytes # 0.020 Neutrophils # 4.2 Lymphocytes # 0.2 L Monocytes # 0.2 L Eosinophils # 0.0 Basophils # 0.0 Nucleated Red Blood Cells # 0.0 Blood Gas Specimen Source Blood arterial Arterial Blood Date Drawn 04/30/2018 4:15:12 AM Arterial Blood pH 7.378 (Temp corrected) Arterial Blood pCO2 77.5 H (Temp correct) Arterial Blood pO2 98.3 H (Temp corrected) Arterial Blood HCO3 44.6 *H Arterial Blood Base Excess 15.8 H Arterial Blood 97.6 Oxygen Saturation Abhishek Test ACCEPTAB Arterial Blood Gas Right Radial Puncture Site Arterial 0.8 Blood Carboxyhemoglobin Arterial Blood Methemoglobin 0.4 Blood Gas A-a O2 97.8 H Differential Oxyhemoglobin Percent 96.4 Blood Gas Temperature 37.0 Blood Gas Respiration Rate 24.0 Blood Gas Actual 30 Respiration Rate Blood Gas Modality MASK - BIPAP FiO2 40.0 Blood Gas IPAP/EPAP Ratio 20/8 Blood Gas Critical Value Gurjit MOORE RN Read Back Blood Gas Notified Whom MM Blood Gas Notified Time 04/30/2018 4:52:11 AM Medications Medication Current Medications IV Flush (NS 3 ml) 3 ml PER PROTOCOL IV ; Start 04/27/18 at 03:00 Ondansetron HCl (Zofran Inj) 4 mg Q6H PRN IV NAUSEA/VOMITING; Start 04/27/18 at 03:00 Acetaminophen (Tylenol Tab) 650 mg Q6H PRN PO .PAIN 1-3 OR TEMP; Start 04/27/18 at 03:00 Aspirin (Ecotrin) 325 mg DAILY PO Last administered on 04/30/18 09:59; Admin Dose 325 MG; Start 04/27/18 at 09:00 Cholecalciferol (Vitamin D) 1,000 unit DAILY PO Last administered on 04/30/18 09:59; Admin Dose 1,000 UNIT; Start 04/27/18 at 09:00 Albuterol/ Ipratropium (Duoneb) 3 ml Q6H RESP THERAPY INH Last administered on 04/30/18 19:34; Admin Dose 3 ML; Start 04/27/18 at 08:00 Levothyroxine Sodium (Synthroid) 88 mcg BEFORE BREAKFAST PO Last administered on 04/30/18 09:59; Admin Dose 88 MCG; Start 04/27/18 at 07:00 Atorvastatin Calcium (Lipitor) 10 mg DAILY@21 PO Last administered on 04/30/18 20:05; Admin Dose 10 MG; Start 04/27/18 at 21:00 Albuterol/ Ipratropium (Duoneb) 3 ml Q2H RESP THERAPY PRN HHN shortness of breath; Start 04/27/18 at 10:00 Piperacillin Sod/ Tazobactam Sod 100 ml @ 200 mls/hr Q6 IVPB Last administered on 04/30/18 17:43; Admin Dose 200 MLS/HR; Start 04/27/18 at 10:00 Enoxaparin Sodium (Lovenox) 40 mg DAILY SC Last administered on 04/30/18at 10:12; Admin Dose 40 MG; Start 04/28/18 at 09:00 Vancomycin HCl (Vanco Iv Per Pharmacy) VANCOMYCIN PER PHARMACY PER PROTOCOL XX ; Start 04/28/18 at 01:00 Methylprednisolone Sodium Succinate 250 mg/Sodium Chloride 104 ml @ 208 mls/hr BID IV Last administered on 04/30/18at 20:05; Admin Dose 208 MLS/HR; Start 04/28/18 at 21:00 Budesonide (Pulmicort (Neb)) 0.5 mg BID RESP THERAPY INH Last administered on 04/30/18at 19:34; Admin Dose 0.5 MG; Start 04/29/18 at 09:00 Vancomycin HCl 250 ml @ 125 mls/hr Q24H IVPB Last administered on 04/30/18at 10:00; Admin Dose 125 MLS/HR; Start 04/29/18 at 10:00 Dextrose/Sodium Chloride 1,000 ml @ 40 mls/hr Q24H IV Last administered on 04/30/18at 09:58; Admin Dose 40 MLS/HR; Start 04/30/18 at 09:30 Miscellaneous Information (*Rx Drug Level Order Reminder*) NEFTALI TR ON 05/01 @ 0,900 ONCE ONCE XX ; Start 05/01/18 at 09:00; Stop 05/01/18 at 09:01 JUDITH MCBRIDE Apr 30, 2018 20:30
[2018-05-01] VITALS (23 sets, daily range): BP systolic 114–188; BP diastolic 55–81; PULSE 59–94; RESP 19–42
[2018-05-01] MEDS: PIPER-TAZO 3.375 GM IV (PMX) 100 ML IVPB SCH ×5 (00:07→23:53)
[2018-05-01] MEDS: ALBUTEROL/IPRATROPIUM (NEB) 3 ML AMP INH SCH ×4 (01:49→20:05)
[2018-05-01] MEDS: LEVOTHYROXINE 88 MCG TAB PO SCH (06:27)
[2018-05-01] MEDS ORDERED: NEUTRA-PHOS 250 MG PACKET PO ONE (07:00)
[2018-05-01] MEDS: BUDESONIDE (NEB) 0.5MG/2ML AMP INH SCH ×2 (07:29→20:05)
[2018-05-01] MEDS: ASPIRIN (EC) 325 MG TAB PO SCH (08:14)
[2018-05-01] MEDS: CHOLECALCIFEROL 1,000 UNIT TAB PO SCH (08:14)
[2018-05-01] MEDS: ENOXAPARIN 40 MG/0.4 ML SYG SC SCH (08:15)
[2018-05-01] MEDS: SOD CHLORIDE 0.9% IV SCH ×2 (08:15→22:42)
[2018-05-01] MEDS: BALSAM PERU/CASTOR OIL 60 GM TUBE TOP SCH ×2 (08:15→22:27)
[2018-05-01] MEDS: METHYLPRED NA SUCC IV SCH ×2 (08:15→22:42)
--- NOTE | 2018-05-01 08:25 | PN ---
DATE: 05/01/2018 SUBJECTIVE: The patient is stable, no events overnight. The patient is currently on BiPAP. OBJECTIVE: VITAL SIGNS: Blood pressure is 141/67, pulse 60, respirations 32, temperature 98.6. HEENT: Head is normocephalic. NECK: Supple. HEART: Regular rate. LUNGS: Show diminished breath sounds at the base. ABDOMEN: Soft, nontender to palpation without rebound or guarding. EXTREMITIES: Negative for clubbing, cyanosis, no edema. DERMATOLOGIC: No rashes. MUSCULOSKELETAL: No joint effusion. NEUROLOGIC: No change in exam. MEDICATIONS: Reviewed. LABORATORY DATA: Shows a sodium 134, potassium 3.6, chloride 93, BUN 15, creatinine 0.49. White cou nt 4.7, hemoglobin 10.6, platelet count is 203. IMAGING STUDIES: The patient's imaging studies were reviewed. ASSESSMENT AND PLAN: 1. 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 The patient's sodium levels have been improving with free uday er stricture. Monitor closely. 2. Hyperkalemia, resolved. 3. Respiratory acidosis, metabolic compensation. Continue to monitor. 4. Anemia. Monitor hemoglobin and hematocrit levels. 5. Hypoxemic hypercapnic respiratory failure. The patient is currently on BiPAP. Continue to monit or. 6. Hypothyroidism. Continue Synthroid. 7. Pulmonary fibrosis. Continue medical management. 8. Dyslipidemia. Continue statin therapy. Dictated By: GABO DURAN DO NR/NTS Conf#: [id number] DID#: [id number] CC: SOO FERRARA MD; KALEB JAIMES MD; RICHARDSON BROWN MD;*End*
[2018-05-01] MEDS: VANCOMYCIN 1 GM 250 ML IVPB SCH (10:38)
[2018-05-01] MEDS ORDERED: hydrALAzine 20 MG INJ ONE (12:49)
[2018-05-01] MEDS: hydrALAzine 20 MG INJ IV PRN (12:53)
[2018-05-01] MEDS: POTASSIUM CHLORIDE 100 ML IVPB SCH ×2 (14:05→16:23)
--- NOTE | 2018-05-01 14:29 | PN ---
Date/Time of Note Date/Time of Note DATE: 05/01/18 TIME: 14:22 Assessment/Plan VTE Prophylaxis Risk score (from Nsg)>0 risk: 9 SCD applied (from Nsg): Yes Pharmacological prophylaxis: LMWH Lines/Catheters IV Catheter Type (from Nrsg): Peripheral IV Urinary Cath still in place: Yes Reason Cath still needed: terminal illness/intractable pain Assessment/Plan Assessment/Plan 1. Acute hypoxic and hypercapnic respiratory failure- improving - Patient has history of severe pulmonary fibrosis - Pulm on board and appreciate recommendations - Tolerating NC this am and in no respiratory distress 2. Acute metabolic Encephalopathy - Likely secondary to hypercapnia, improving 3. Exacerbation of IPF- improving - Follows with Pulm as outpatient - Continue high dose steroids, nebs, and antibiotics at this time 4. Hypothyroidism -Continue home meds 5. Dyslipidemia -Continue home meds 6. Disposition - Continue current treatment and continue weaning O2 as tolerated Result Diagram: 05/01/18 0501 05/01/18 0501 Results 24hrs Laboratory Tests Test 05/01/18 05:01 05/01/18 10:03 White Blood Count 4.7 L Red Blood Count 3.84 L Hemoglobin 10.6 L Hematocrit 34.2 L Mean Corpuscular Volume 89.1 Mean Corpuscular Hemoglobin 27.6 L Mean Corpuscular Hemoglobin Concent 31.0 L Red Cell Distribution Width 13.4 Platelet Count 203 Mean Platelet Volume 9.0 Immature Granulocytes % 0.600 H Neutrophils % 90.2 H Lymphocytes % 4.9 L Monocytes % 4.3 Eosinophils % 0.0 Basophils % 0.0 Nucleated Red Blood Cells % 0.0 Immature Granulocytes # 0.030 Neutrophils # 4.2 Lymphocytes # 0.2 L Monocytes # 0.2 L Eosinophils # 0.0 Basophils # 0.0 Nucleated Red Blood Cells # 0.0 Sodium Level 134 L Potassium Level 3.6 Chloride Level 83 L Carbon Dioxide Level 45 *H Anion Gap 6 Blood Urea Nitrogen 15 Creatinine 0.49 Est Glomerular Filtrat Rate mL/min Glucose Level 164 Calcium Level 8.4 Phosphorus Level 2.3 L Magnesium Level 1.9 Vancomycin Level Trough < 5.0 L Subjective 24 Hr Interval Summary Free Text/Dictation Patient doing well and tolerating nasal cannula this am. She admits to having irritation of her eyes. Grand daughter in room. Exam/Review of Systems Exam Vitals Vital Signs Date Temp Pulse Resp B/P (MAP) Pulse Ox O2 O2 Flow FiO2 Time Delivery Rate 05/01/18 94 20 90 Nasal 3.0 14:08 Cannula 05/01/18 144/56 13:29 (85) 05/01/18 99.2 13:03 05/01/18 35 05:15 Intake and Output 04/30/18 04/30/18 05/01/18 1515:00 23:00 07:00 IntakeIntake Total 1164 ml 824 ml 380 ml OutputOutput Total 575 ml 560 ml 440 ml BalanceBalance 589 ml 264 ml -60 ml Exam General: Patient is laying in bed and no acute distress Eyes: EOMI, watering of eyes bilaterally Respiratory: Coarse to auscultation bilaterally. Cardiovascular: regular rate and rhythm, no obvious murmurs Gastrointestinal: soft, non-tender to palpation, bowel sounds heard. Neurological: Moves all extremities spontaneously Skin: No new skin lesions Results Results 24hrs Laboratory Tests Test 05/01/18 05:01 05/01/18 10:03 White Blood Count 4.7 L Red Blood Count 3.84 L Hemoglobin 10.6 L Hematocrit 34.2 L Mean Corpuscular Volume 89.1 Mean Corpuscular Hemoglobin 27.6 L Mean Corpuscular Hemoglobin Concent 31.0 L Red Cell Distribution Width 13.4 Platelet Count 203 Mean Platelet Volume 9.0 Immature Granulocytes % 0.600 H Neutrophils % 90.2 H Lymphocytes % 4.9 L Monocytes % 4.3 Eosinophils % 0.0 Basophils % 0.0 Nucleated Red Blood Cells % 0.0 Immature Granulocytes # 0.030 Neutrophils # 4.2 Lymphocytes # 0.2 L Monocytes # 0.2 L Eosinophils # 0.0 Basophils # 0.0 Nucleated Red Blood Cells # 0.0 Sodium Level 134 L Potassium Level 3.6 Chloride Level 83 L Carbon Dioxide Level 45 *H Anion Gap 6 Blood Urea Nitrogen 15 Creatinine 0.49 Est Glomerular Filtrat Rate mL/min Glucose Level 164 Calcium Level 8.4 Phosphorus Level 2.3 L Magnesium Level 1.9 Vancomycin Level Trough < 5.0 L Medications Medication Current Medications IV Flush (NS 3 ml) 3 ml PER PROTOCOL IV ; Start 04/27/18 at 03:00 Ondansetron HCl (Zofran Inj) 4 mg Q6H PRN IV NAUSEA/VOMITING; Start 04/27/18 at 03:00 Acetaminophen (Tylenol Tab) 650 mg Q6H PRN PO .PAIN 1-3 OR TEMP; Start 04/27/18 at 03:00 Aspirin (Ecotrin) 325 mg DAILY PO Last administered on 05/01/18 08:14; Admin Dose 325 MG; Start 04/27/18 at 09:00 Cholecalciferol (Vitamin D) 1,000 unit DAILY PO Last administered on 05/01/18 08:14; Admin Dose 1,000 UNIT; Start 04/27/18 at 09:00 Albuterol/ Ipratropium (Duoneb) 3 ml Q6H RESP THERAPY INH Last administered on 05/01/18 14:03; Admin Dose 3 ML; Start 04/27/18 at 08:00 Levothyroxine Sodium (Synthroid) 88 mcg BEFORE BREAKFAST PO Last administered on 05/01/18 06:27; Admin Dose 88 MCG; Start 04/27/18 at 07:00 Atorvastatin Calcium (Lipitor) 10 mg DAILY@21 PO Last administered on 04/30/18 20:05; Admin Dose 10 MG; Start 04/27/18 at 21:00 Albuterol/ Ipratropium (Duoneb) 3 ml Q2H RESP THERAPY PRN HHN shortness of breath; Start 04/27/18 at 10:00 Piperacillin Sod/ Tazobactam Sod 100 ml @ 200 mls/hr Q6 IVPB Last administered on 05/01/18at 12:53; Admin Dose 200 MLS/HR; Start 04/27/18 at 10:00 Enoxaparin Sodium (Lovenox) 40 mg DAILY SC Last administered on 05/01/18 08:15; Admin Dose 40 MG; Start 04/28/18 at 09:00 Vancomycin HCl (Vanco Iv Per Pharmacy) VANCOMYCIN PER PHARMACY PER PROTOCOL XX ; Start 04/28/18 at 01:00 Methylprednisolone Sodium Succinate 250 mg/Sodium Chloride 104 ml @ 208 mls/hr BID IV Last administered on 05/01/18 08:15; Admin Dose 208 MLS/HR; Start 04/28/18 at 21:00 Budesonide (Pulmicort (Neb)) 0.5 mg BID RESP THERAPY INH Last administered on 05/01/18 07:29; Admin Dose 0.5 MG; Start 04/29/18 at 09:00 Vancomycin/Sodium Chloride 250 ml @ 125 mls/hr Q12H IVPB ; Start 05/01/18 at 23:00 Hydralazine HCl (Apresoline) 10 mg Q4H PRN IV SBP >160 Last administered on 05/01/18at 12:53; Admin Dose 10 MG; Start 05/01/18 at 13:00 KALEB JAIMES MD May 01, 2018 14:29
[2018-05-01] MEDS: ATORVASTATIN 10 MG TAB PO SCH (22:27)
[2018-05-02] VITALS (17 sets, daily range): BP systolic 141–187; BP diastolic 68–93; PULSE 44–100; RESP 16–20
[2018-05-02] MEDS: VANCOMYCIN 750 MG (PMX) 250 ML IVPB SCH ×2 (00:36→10:31)
[2018-05-02] MEDS: ALBUTEROL/IPRATROPIUM (NEB) 3 ML AMP INH SCH ×4 (01:18→20:30)
[2018-05-02] MEDS: PIPER-TAZO 3.375 GM IV (PMX) 100 ML IVPB SCH ×4 (06:24→23:26)
[2018-05-02] MEDS: BUDESONIDE (NEB) 0.5MG/2ML AMP INH SCH ×2 (08:01→20:30)
--- NOTE | 2018-05-02 08:56 | PN ---
DATE: 05/02/2018 SUBJECTIVE: The patient is stable, no events overnight. OBJECTIVE: VITAL SIGNS: Blood pressure is 159/75, respirations 16, pulse 76, temperature 98.2. HEENT: Head is normocephalic. NECK: Supple. HEART: Regular rate. LUNGS: Show diminished breath sounds at the base. ABDOMEN: Soft, nontender to palpation. No rebound or guarding. EXTREMITIES: Negative for clubbing, cyanosis, no edema. DERMATOLOGIC: No rashes. MUSCULOSKELETAL: No joint effusion. NEUROLOGIC: No change in exam. MEDICATIONS: Have been reviewed. LABORATORY DATA: Has been reviewed. ASSESSMENT AND PLAN: 1. Hyponatremia. 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 The patient's sodium levels have improved with free water restriction. Continue current treatment plan. 2. Hyperkalemia, resolved. 3. Respiratory acidosis with metabolic compensation. 4. Anemia. Monitor H and H levels. 5. Hypoxemic hypercapnic respiratory failure, possibly due to underlying pulmonary fibrosis . The patient is improving. Continue BiPAP as needed. Follow up with pulmonary. 6. Hypothyroidism. Continue Synthroid. 7. Pulmonary fibrosis. Continue medical management. 8. Dyslipidemia. Continue statin therapy. Dictated By: GABO GOMEZ/NTS Conf#: [id number] DID#: [id number] CC: RICHARDSON BROWN MD;*EndCC*
--- NOTE | 2018-05-02 09:33 | CONS ---
Consultation Date/Type/Reason Admit Date/Time Apr 27, 2018 at 02:15 Date/Time of Note DATE: 05/02/18 TIME: 09:33 Hx of Present Illness Palliative care consultation on this 87-year-old female who was recently discharged from the intensive care unit [facility] for exacerbation of IPF. She was ill 1 of multiple times but she did not require intubation. She did well in the intensive care unit was successfully discharged to the medical floor telemetry. I am asked to speak to family members concerning her present serious respiratory disorder and ongoing goals of care and decision makers on behalf of patient. First patient is a full code they have been given a as directed by the primary care physician at [facility] which daughter has refused to fill out. Daughter who is the kosta gest daughter states that the other family members and not involved with care and that she is the primary caregiver. During this episode she was called to her mother's respiratory condition worsened and she instructed the caregiver to call the paramedics to have patient transferred. She states that she was there she would have done so much quicker. Therefore the daughter is the primarily voice for patient's ongoing level of care and she states that she is the DURABLE POWER OF LAUNDRY BAG PUNCH OPERATOR for healthcare. Patient's background history was reviewed. Daughter has a clear understanding of her mother's underlying medical illness and the progressive nature which show resulted in progressively decreasing quality of life. She hopes that her mother does not suffer suffer that she has no desire at this timer changing her CODE STATUS or discussing levels of care in the event her mother becomes extremely ill. My impressions are that there are issues within the family members and the caregiver daughter feels like she is doing all of the sickle emotional care for her mother. Patient next made a prognosis is unknown is deferred to her primary care visual display associate at [facility]. Goals of care are to keep her comfortable per daughter, but she has a clear understanding what her prognosis is and what acceptable quality of life she would prefer to see her mother live. Her strengths in her role is heavily spiritual there are no major cultural differences communication preferences is 101 with her caregivers follow-up recommendations are with her primary care physician after discharge. Strongly recommended to patient's daughter to consider filling out the advance directive and POLST form. Past Medical History Medical History: other (See HPI) Home Meds Reported Medications Formoterol Fumarate (Perforomist) 20 Mcg/2 Ml Vial.neb, 20 MCG INHALATION BID, VIAL 03/28/18 Ipratropium [place] (Ipratropium [place]) 5 Gm Powder, 10.5 MG MC BID 03/28/18 Ipratropium-Albuterol (Ipratropium-Albuterol) 0.5-3 Mg/3 Ml Ampul.neb, 3 ML INHALATION Q6, #30 VIAL 03/28/18 Budesonide* (Budesonide*) 0.25 Mg/2 Ml Ampul.neb, 0.25 MG INHALATION BID, AMP 03/28/18 Cholecalciferol* (Vitamin D3*) 1,000 Unit Tablet, 1000 UNIT PO DAILY, TAB 03/28/18 Simvastatin* (Zocor*) 20 Mg Tablet, 20 MG PO QHS, #30 TAB 03/28/18 Aspirin* (Aspirin* EC) 325 Mg Tab, 325 MG PO DAILY, TAB 03/28/18 Levothyroxine Sodium* (Levothyroxine Sodium*) 88 Mcg Tablet, 88 MCG PO BEFORE BREAKFAST, #30 TAB 03/28/18 Medications Current Medications IV Flush (NS 3 ml) 3 ml PER PROTOCOL IV ; Start 04/27/18 at 03:00 Ondansetron HCl (Zofran Inj) 4 mg Q6H PRN IV NAUSEA/VOMITING; Start 04/27/18 at 03:00 Acetaminophen (Tylenol Tab) 650 mg Q6H PRN PO .PAIN 1-3 OR TEMP; Start 04/27/18 at 03:00 Aspirin (Ecotrin) 325 mg DAILY PO Last administered on 05/01/18at 08:14; Admin Dose 325 MG; Start 04/27/18 at 09:00 Cholecalciferol (Vitamin D) 1,000 unit DAILY PO Last administered on 05/01/18at 08:14; Admin Dose 1,000 UNIT; Start 04/27/18 at 09:00 Albuterol/ Ipratropium (Duoneb) 3 ml Q6H RESP THERAPY INH Last administered on 05/02/18at 08:02; Admin Dose 3 ML; Start 04/27/18 at 08:00 Levothyroxine Sodium (Synthroid) 88 mcg BEFORE BREAKFAST PO Last administered on 05/01/18at 06:27; Admin Dose 88 MCG; Start 04/27/18 at 07:00 Atorvastatin Calcium (Lipitor) 10 mg DAILY@21 PO Last administered on 05/01/18at 22:27; Admin Dose 10 MG; Start 04/27/18 at 21:00 Albuterol/ Ipratropium (Duoneb) 3 ml Q2H RESP THERAPY PRN HHN shortness of breath; Start 04/27/18 at 10:00 Piperacillin Sod/ Tazobactam Sod 100 ml @ 200 mls/hr Q6 IVPB Last administered on 05/02/18at 06:24; Admin Dose 200 MLS/HR; Start 04/27/18 at 10:00 Enoxaparin Sodium (Lovenox) 40 mg DAILY SC Last administered on 05/01/18at 08:15; Admin Dose 40 MG; Start 04/28/18 at 09:00 Vancomycin HCl (Vanco Iv Per Pharmacy) VANCOMYCIN PER PHARMACY PER PROTOCOL XX ; Start 04/28/18 at 01:00 Methylprednisolone Sodium Succinate 250 mg/Sodium Chloride 104 ml @ 208 mls/hr BID IV Last administered on 05/01/18at 22:42; Admin Dose 208 MLS/HR; Start 04/28/18 at 21:00 Budesonide (Pulmicort (Neb)) 0.5 mg BID RESP THERAPY INH Last administered on 05/02/18at 08:01; Admin Dose 0.5 MG; Start 04/29/18 at 09:00 Vancomycin/Sodium Chloride 250 ml @ 125 mls/hr Q12H IVPB Last administered on 05/02/18at 00:36; Admin Dose 125 MLS/HR; Start 05/01/18 at 23:00 Hydralazine HCl (Apresoline) 10 mg Q4H PRN IV SBP >160 Last administered on 05/01/18at 12:53; Admin Dose 10 MG; Start 05/01/18 at 13:00 Allergies: Coded Allergies: No Known Allergy (Unverified , 04/27/18) Past Surgical History Past Surgical Hx: other (See HPI) Social History Alcohol Use: none Smoking Status: Never smoker Drug Use: none Exam/Review of Systems Exam Vitals Vital Signs Date Temp Pulse Resp B/P (MAP) Pulse Ox O2 O2 Flow FiO2 Time Delivery Rate 05/02/18 159/75 07:56 (103) 05/02/18 98.2 76 16 98 Nasal 07:53 Cannula 05/02/18 3.0 05:14 05/02/18 35 03:15 Intake and Output 05/01/18 05/01/18 05/02/18 1515:00 23:00 07:00 IntakeIntake Total 390 ml 1100 ml 450 ml OutputOutput Total 2000 ml 800 ml BalanceBalance 390 ml -900 ml -350 ml Results Result Diagram: 05/01/18 0501 05/01/18 0501 Results 24hrs Laboratory Tests Test 05/01/18 10:03 05/02/18 07:29 Vancomycin Level Trough < 5.0 L White Blood Count 6.3 # Red Blood Count 4.02 L Hemoglobin 11.1 L Hematocrit 35.5 L Mean Corpuscular Volume 88.3 Mean Corpuscular Hemoglobin 27.6 L Mean Corpuscular Hemoglobin Concent 31.3 L Red Cell Distribution Width 13.5 Platelet Count 220 Mean Platelet Volume 9.7 Immature Granulocytes % 1.000 H Neutrophils % 89.8 H Lymphocytes % 6.6 L Monocytes % 2.6 Eosinophils % 0.0 Basophils % 0.0 Nucleated Red Blood Cells % 0.0 Immature Granulocytes # 0.060 H Neutrophils # 5.6 Lymphocytes # 0.4 L Monocytes # 0.2 L Eosinophils # 0.0 Basophils # 0.0 Nucleated Red Blood Cells # 0.0 Sodium Level 133 L Potassium Level 4.1 Chloride Level 84 L Carbon Dioxide Level 40 H Anion Gap 9 Blood Urea Nitrogen 14 Creatinine 0.53 Est Glomerular Filtrat Rate mL/min Glucose Level 138 Calcium Level 8.4 Phosphorus Level 3.2 Magnesium Level 1.8 Medications Medication Current Medications IV Flush (NS 3 ml) 3 ml PER PROTOCOL IV ; Start 04/27/18 at 03:00 Ondansetron HCl (Zofran Inj) 4 mg Q6H PRN IV NAUSEA/VOMITING; Start 04/27/18 at 03:00 Acetaminophen (Tylenol Tab) 650 mg Q6H PRN PO .PAIN 1-3 OR TEMP; Start 04/27/18 at 03:00 Aspirin (Ecotrin) 325 mg DAILY PO Last administered on 05/01/18at 08:14; Admin Dose 325 MG; Start 04/27/18 at 09:00 Cholecalciferol (Vitamin D) 1,000 unit DAILY PO Last administered on 05/01/18at 08:14; Admin Dose 1,000 UNIT; Start 04/27/18 at 09:00 Albuterol/ Ipratropium (Duoneb) 3 ml Q6H RESP THERAPY INH Last administered on 05/02/18 08:02; Admin Dose 3 ML; Start 04/27/18 at 08:00 Levothyroxine Sodium (Synthroid) 88 mcg BEFORE BREAKFAST PO Last administered on 05/01/18 06:27; Admin Dose 88 MCG; Start 04/27/18 at 07:00 Atorvastatin Calcium (Lipitor) 10 mg DAILY@21 PO Last administered on 05/01/18 22:27; Admin Dose 10 MG; Start 04/27/18 at 21:00 Albuterol/ Ipratropium (Duoneb) 3 ml Q2H RESP THERAPY PRN HHN shortness of breath; Start 04/27/18 at 10:00 Piperacillin Sod/ Tazobactam Sod 100 ml @ 200 mls/hr Q6 IVPB Last administered on 05/02/18 06:24; Admin Dose 200 MLS/HR; Start 04/27/18 at 10:00 Enoxaparin Sodium (Lovenox) 40 mg DAILY SC Last administered on 05/01/18 08:15; Admin Dose 40 MG; Start 04/28/18 at 09:00 Vancomycin HCl (Vanco Iv Per Pharmacy) VANCOMYCIN PER PHARMACY PER PROTOCOL XX ; Start 04/28/18 at 01:00 Methylprednisolone Sodium Succinate 250 mg/Sodium Chloride 104 ml @ 208 mls/hr BID IV Last administered on 05/01/18 22:42; Admin Dose 208 MLS/HR; Start 04/28/18 at 21:00 Budesonide (Pulmicort (Neb)) 0.5 mg BID RESP THERAPY INH Last administered on 05/02/18 08:01; Admin Dose 0.5 MG; Start 04/29/18 at 09:00 Vancomycin/Sodium Chloride 250 ml @ 125 mls/hr Q12H IVPB Last administered on 05/02/18 00:36; Admin Dose 125 MLS/HR; Start 05/01/18 at 23:00 Hydralazine HCl (Apresoline) 10 mg Q4H PRN IV SBP >160 Last administered on 05/01/18 12:53; Admin Dose 10 MG; Start 05/01/18 at 13:00 JUDITH MCBRIDE May 02, 2018 09:33
[2018-05-02] MEDS: ASPIRIN (EC) 325 MG TAB PO SCH (09:34)
[2018-05-02] MEDS: CHOLECALCIFEROL 1,000 UNIT TAB PO SCH (09:35)
[2018-05-02] MEDS: LEVOTHYROXINE 88 MCG TAB PO SCH (09:35)
[2018-05-02] MEDS: BALSAM PERU/CASTOR OIL 60 GM TUBE TOP SCH ×2 (09:35→20:17)
[2018-05-02] MEDS: ENOXAPARIN 40 MG/0.4 ML SYG SC SCH (09:45)
[2018-05-02] MEDS ORDERED: DOCUSATE SODIUM 100 MG CAP PO PRN (10:30)
[2018-05-02] MEDS: POLYETHYLENE GLYCOL 17 GM PACKET PO SCH (10:31)
--- NOTE | 2018-05-02 10:42 | CONS ---
Assessment/Plan Assessment/Plan Assessment/Plan (Daily) Assessment and recommendations; 1. Patient admitted with acute IPF exacerbation with interval improvement. Currently on high-dose pulse Solu-Medrol. 2. Severe underlying hypercapnic respiratory failure, patient on BiPAP nocturnally. 3. Superimposed pneumonia unlikely. 4. Gram-positive bacteremia. Possibly contaminant. Continue current supportive care. Patient will need home BiPAP. Taper Solu- Medrol in 24 hours. Repeat blood cultures. I did have a detailed discussion with the patient's daughter at bedside and answered all her questions. Consultation Date/Type/Reason Admit Date/Time Apr 27, 2018 at 02:15 Initial Consult Date Type of Consult Pulmonary Patient's condition is continually improving. Wean down to 3 L nasal cannula with adequate O2 saturation. Patient denies any coughing, wheezing, any shor tness of breath at rest. General exam; elderly woman, awake and alert. Currently no distress. Reason for Consultation H EENT exam; supple neck, no JVD. No lymphadenopathy. Midline trachea. No thyromegaly. Patient has few remaining carious teeth. Pupils are small bilaterally. Chest exam; bilateral scattered crackles. S1-S2 audible, no murmurs. Regular rhythm. Abdomen exam; soft, nontender. No organomegaly. Bowel sounds audible. Extremity exam; no peripheral edema. TASSEL CLIPPER exam; no focal deficit. Date/Time of Note DATE: 05/02/18 TIME: 10:40 Exam/Review of Systems Exam Vitals Vital Signs Date Temp Pulse Resp B/P (MAP) Pulse Ox O2 O2 Flow FiO2 Time Delivery Rate 05/02/18 44 08:58 05/02/18 98 3.0 08:02 05/02/18 20 Nasal 08:02 Cannula 05/02/18 159/75 07:56 (103) 05/02/18 98.2 07:53 05/02/18 35 03:15 Intake and Output 05/01/18 05/01/18 05/02/18 1515:00 23:00 07:00 IntakeIntake Total 390 ml 1100 ml 450 ml OutputOutput Total 2000 ml 800 ml BalanceBalance 390 ml -900 ml -350 ml Results Result Diagram: 05/02/18 0729 05/02/18 0729 Results 24hrs Laboratory Tests Test 05/02/18 07:29 White Blood Count 6.3 # Red Blood Count 4.02 L Hemoglobin 11.1 L Hematocrit 35.5 L Mean Corpuscular Volume 88.3 Mean Corpuscular Hemoglobin 27.6 L Mean Corpuscular Hemoglobin Concent 31.3 L Red Cell Distribution Width 13.5 Platelet Count 220 Mean Platelet Volume 9.7 Immature Granulocytes % 1.000 H Neutrophils % 89.8 H Lymphocytes % 6.6 L Monocytes % 2.6 Eosinophils % 0.0 Basophils % 0.0 Nucleated Red Blood Cells % 0.0 Immature Granulocytes # 0.060 H Neutrophils # 5.6 Lymphocytes # 0.4 L Monocytes # 0.2 L Eosinophils # 0.0 Basophils # 0.0 Nucleated Red Blood Cells # 0.0 Sodium Level 133 L Potassium Level 4.1 Chloride Level 84 L Carbon Dioxide Level 40 H Anion Gap 9 Blood Urea Nitrogen 14 Creatinine 0.53 Est Glomerular Filtrat Rate mL/min Glucose Level 138 Calcium Level 8.4 Phosphorus Level 3.2 Magnesium Level 1.8 Medications Medication Current Medications IV Flush (NS 3 ml) 3 ml PER PROTOCOL IV ; Start 04/27/18 at 03:00 Ondansetron HCl (Zofran Inj) 4 mg Q6H PRN IV NAUSEA/VOMITING; Start 04/27/18 at 03:00 Acetaminophen (Tylenol Tab) 650 mg Q6H PRN PO .PAIN 1-3 OR TEMP; Start 04/27/18 at 03:00 Aspirin (Ecotrin) 325 mg DAILY PO Last administered on 05/02/18at 09:34; Admin Dose 325 MG; Start 04/27/18 at 09:00 Cholecalciferol (Vitamin D) 1,000 unit DAILY PO Last administered on 05/02/18 09:35; Admin Dose 1,000 UNIT; Start 04/27/18 at 09:00 Albuterol/ Ipratropium (Duoneb) 3 ml Q6H RESP THERAPY INH Last administered on 05/02/18 08:02; Admin Dose 3 ML; Start 04/27/18 at 08:00 Levothyroxine Sodium (Synthroid) 88 mcg BEFORE BREAKFAST PO Last administered on 05/02/18 09:35; Admin Dose 88 MCG; Start 04/27/18 at 07:00 Atorvastatin Calcium (Lipitor) 10 mg DAILY@21 PO Last administered on 05/01/18 22:27; Admin Dose 10 MG; Start 04/27/18 at 21:00 Albuterol/ Ipratropium (Duoneb) 3 ml Q2H RESP THERAPY PRN HHN shortness of breath; Start 04/27/18 at 10:00 Piperacillin Sod/ Tazobactam Sod 100 ml @ 200 mls/hr Q6 IVPB Last administered on 05/02/18 06:24; Admin Dose 200 MLS/HR; Start 04/27/18 at 10:00 Enoxaparin Sodium (Lovenox) 40 mg DAILY SC Last administered on 05/02/18at 09:45; Admin Dose 40 MG; Start 04/28/18 at 09:00 Vancomycin HCl (Vanco Iv Per Pharmacy) VANCOMYCIN PER PHARMACY PER PROTOCOL XX ; Start 04/28/18 at 01:00 Methylprednisolone Sodium Succinate 250 mg/Sodium Chloride 104 ml @ 208 mls/hr BID IV Last administered on 05/01/18 22:42; Admin Dose 208 MLS/HR; Start 04/28/18 at 21:00 Budesonide (Pulmicort (Neb)) 0.5 mg BID RESP THERAPY INH Last administered on 05/02/18 08:01; Admin Dose 0.5 MG; Start 04/29/18 at 09:00 Vancomycin/Sodium Chloride 250 ml @ 125 mls/hr Q12H IVPB Last administered on 05/02/18 10:31; Admin Dose 125 MLS/HR; Start 05/01/18 at 23:00 Hydralazine HCl (Apresoline) 10 mg Q4H PRN IV SBP >160 Last administered on 05/01/18 12:53; Admin Dose 10 MG; Start 05/01/18 at 13:00 Polyethylene Glycol (Miralax) 17 gm DAILY PO Last administered on 05/02/18 10:31; Admin Dose 17 GM; Start 05/02/18 at 10:30 Docusate Sodium (Colace) 100 mg BID PRN PO CONSTIPATION; Start 05/02/18 at 10:30 RAJESH BASS 20, 2019 10:42
[2018-05-02] MEDS: SOD CHLORIDE 0.9% IV SCH ×2 (11:52→20:17)
[2018-05-02] MEDS: METHYLPRED NA SUCC IV SCH ×2 (11:52→20:17)
--- NOTE | 2018-05-02 16:04 | PN ---
Date/Time of Note Date/Time of Note DATE: 05/02/18 TIME: 15:58 Assessment/Plan VTE Prophylaxis Risk score (from Nsg)>0 risk: 8 SCD applied (from Nsg): Yes Pharmacological prophylaxis: LMWH Lines/Catheters IV Catheter Type (from Nrsg): Peripheral IV Urinary Cath still in place: Yes Reason Cath still needed: terminal illness/intractable pain Assessment/Plan Assessment/Plan 1. Acute hypoxic and hypercapnic respiratory failure- improving - Patient has history of severe pulmonary fibrosis and follows with Dr. Thomas Martino as outpatient. Daughter requested patient be transferred for continued care. Discussed will consult CM but lateral transfer may not be possible at this time. - Pulm on board and appreciate recommendations. Plans for steroid taper in 24 hours - BIPAP qhs and NC during the day 2. Acute metabolic Encephalopathy- resolving - Likely secondary to hypercapnia 3. Exacerbation of IPF- improving - Follows with Pulm as outpatient - Continue high dose steroids, nebs, and antibiotics at this time 4. Hypothyroidism -Continue home meds 5. Dyslipidemia -Continue home meds 6. Disposition - Continue current treatment and continue weaning O2 as tolerated - Will need home BIPAP if d/c home - CM consulted for possible transfer to [facility] per family request Result Diagram: 05/02/18 0729 05/02/18 0729 Results 24hrs Laboratory Tests Test 05/02/18 07:29 White Blood Count 6.3 # Red Blood Count 4.02 L Hemoglobin 11.1 L Hematocrit 35.5 L Mean Corpuscular Volume 88.3 Mean Corpuscular Hemoglobin 27.6 L Mean Corpuscular Hemoglobin Concent 31.3 L Red Cell Distribution Width 13.5 Platelet Count 220 Mean Platelet Volume 9.7 Immature Granulocytes % 1.000 H Neutrophils % 89.8 H Lymphocytes % 6.6 L Monocytes % 2.6 Eosinophils % 0.0 Basophils % 0.0 Nucleated Red Blood Cells % 0.0 Immature Granulocytes # 0.060 H Neutrophils # 5.6 Lymphocytes # 0.4 L Monocytes # 0.2 L Eosinophils # 0.0 Basophils # 0.0 Nucleated Red Blood Cells # 0.0 Sodium Level 133 L Potassium Level 4.1 Chloride Level 84 L Carbon Dioxide Level 40 H Anion Gap 9 Blood Urea Nitrogen 14 Creatinine 0.53 Est Glomerular Filtrat Rate mL/min Glucose Level 138 Calcium Level 8.4 Phosphorus Level 3.2 Magnesium Level 1.8 Subjective 24 Hr Interval Summary Free Text/Dictation Patient denies any shortness of breath or acute issues. Per Daughter she fell asleep at 2am. Daughter concerned about BP and discussed could be secondary to pulmonary strain on heart vs steroid induced. Discussed code status and she stated she would be more comfortable if patient was under care of Dr. Martino at [facility] since he knows her well. Exam/Review of Systems Exam Vitals Vital Signs Date Temp Pulse Resp B/P (MAP) Pulse Ox O2 O2 Flow FiO2 Time Delivery Rate 05/02/18 98.4 86 18 154/75 92 Nasal 15:48 (101) Cannula 05/02/18 3.0 14:20 05/02/18 35 03:15 Intake and Output 05/01/18 05/01/18 05/02/18 1515:00 23:00 07:00 IntakeIntake Total 390 ml 1100 ml 450 ml OutputOutput Total 2000 ml 800 ml BalanceBalance 390 ml -900 ml -350 ml Exam General: Patient is laying in bed and no acute distress Respiratory: diffuse crackles, more prominent with expiration, no wheezing. Cardiovascular: regular rate and rhythm, no obvious murmurs Gastrointestinal: soft, non-tender to palpation, bowel sounds heard. Neurological: Moves all extremities spontaneously Skin: No new skin lesions Results Results 24hrs Laboratory Tests Test 05/02/18 07:29 White Blood Count 6.3 # Red Blood Count 4.02 L Hemoglobin 11.1 L Hematocrit 35.5 L Mean Corpuscular Volume 88.3 Mean Corpuscular Hemoglobin 27.6 L Mean Corpuscular Hemoglobin Concent 31.3 L Red Cell Distribution Width 13.5 Platelet Count 220 Mean Platelet Volume 9.7 Immature Granulocytes % 1.000 H Neutrophils % 89.8 H Lymphocytes % 6.6 L Monocytes % 2.6 Eosinophils % 0.0 Basophils % 0.0 Nucleated Red Blood Cells % 0.0 Immature Granulocytes # 0.060 H Neutrophils # 5.6 Lymphocytes # 0.4 L Monocytes # 0.2 L Eosinophils # 0.0 Basophils # 0.0 Nucleated Red Blood Cells # 0.0 Sodium Level 133 L Potassium Level 4.1 Chloride Level 84 L Carbon Dioxide Level 40 H Anion Gap 9 Blood Urea Nitrogen 14 Creatinine 0.53 Est Glomerular Filtrat Rate mL/min Glucose Level 138 Calcium Level 8.4 Phosphorus Level 3.2 Magnesium Level 1.8 Medications Medication Current Medications IV Flush (NS 3 ml) 3 ml PER PROTOCOL IV ; Start 04/27/18 at 03:00 Ondansetron HCl (Zofran Inj) 4 mg Q6H PRN IV NAUSEA/VOMITING; Start 04/27/18 at 03:00 Acetaminophen (Tylenol Tab) 650 mg Q6H PRN PO .PAIN 1-3 OR TEMP; Start 04/27/18 at 03:00 Aspirin (Ecotrin) 325 mg DAILY PO Last administered on 05/02/18 09:34; Admin Dose 325 MG; Start 04/27/18 at 09:00 Cholecalciferol (Vitamin D) 1,000 unit DAILY PO Last administered on 05/02/18 09:35; Admin Dose 1,000 UNIT; Start 04/27/18 at 09:00 Albuterol/ Ipratropium (Duoneb) 3 ml Q6H RESP THERAPY INH Last administered on 05/02/18 14:20; Admin Dose 3 ML; Start 04/27/18 at 08:00 Levothyroxine Sodium (Synthroid) 88 mcg BEFORE BREAKFAST PO Last administered on 05/02/18 09:35; Admin Dose 88 MCG; Start 04/27/18 at 07:00 Atorvastatin Calcium (Lipitor) 10 mg DAILY@21 PO Last administered on 05/01/18 22:27; Admin Dose 10 MG; Start 04/27/18 at 21:00 Albuterol/ Ipratropium (Duoneb) 3 ml Q2H RESP THERAPY PRN HHN shortness of breath; Start 04/27/18 at 10:00 Piperacillin Sod/ Tazobactam Sod 100 ml @ 200 mls/hr Q6 IVPB Last administered on 05/02/18 12:57; Admin Dose 200 MLS/HR; Start 04/27/18 at 10:00 Enoxaparin Sodium (Lovenox) 40 mg DAILY SC Last administered on 05/02/18 09:45; Admin Dose 40 MG; Start 04/28/18 at 09:00 Vancomycin HCl (Vanco Iv Per Pharmacy) VANCOMYCIN PER PHARMACY PER PROTOCOL XX ; Start 04/28/18 at 01:00 Methylprednisolone Sodium Succinate 250 mg/Sodium Chloride 104 ml @ 208 mls/hr BID IV Last administered on 05/02/18at 11:52; Admin Dose 208 MLS/HR; Start 04/28/18 at 21:00 Budesonide (Pulmicort (Neb)) 0.5 mg BID RESP THERAPY INH Last administered on 05/02/18 08:01; Admin Dose 0.5 MG; Start 04/29/18 at 09:00 Vancomycin/Sodium Chloride 250 ml @ 125 mls/hr Q12H IVPB Last administered on 05/02/18 10:31; Admin Dose 125 MLS/HR; Start 05/01/18 at 23:00 Hydralazine HCl (Apresoline) 10 mg Q4H PRN IV SBP >160 Last administered on 05/01/18 12:53; Admin Dose 10 MG; Start 05/01/18 at 13:00 Polyethylene Glycol (Miralax) 17 gm DAILY PO Last administered on 05/02/18 10:31; Admin Dose 17 GM; Start 05/02/18 at 10:30 Docusate Sodium (Colace) 100 mg BID PRN PO CONSTIPATION; Start 05/02/18 at 10:30 KALEB JAIMES MD May 02, 2018 16:04
[2018-05-02] MEDS: hydrALAzine 20 MG INJ IV PRN (18:50)
[2018-05-02] MEDS: ATORVASTATIN 10 MG TAB PO SCH (20:16)
[2018-05-03] VITALS (17 sets, daily range): BP systolic 130–171; BP diastolic 63–82; PULSE 65–98; RESP 18–22
[2018-05-03] MEDS: ALBUTEROL/IPRATROPIUM (NEB) 3 ML AMP INH SCH ×4 (01:29→19:44)
[2018-05-03] MEDS: PIPER-TAZO 3.375 GM IV (PMX) 100 ML IVPB SCH ×2 (05:49→11:19)
[2018-05-03] MEDS: BUDESONIDE (NEB) 0.5MG/2ML AMP INH SCH ×2 (08:14→19:44)
--- NOTE | 2018-05-03 08:37 | PN ---
DATE: 05/03/2018 SUBJECTIVE: The patient is stable, currently on BiPAP. No other events noted. OBJECTIVE: VITAL SIGNS: Blood pressure is 171/79, respirations 19, pulse 79, temperature 98.3. HEENT: Head is normocephalic. NECK: Supple. HEART: Regular rate. LUNGS: Show diminished breath sounds at the base. ABDOMEN: Soft, nontender to palpation without rebound or guarding. EXTREMITIES: Negative for clubbing, cyanosis, no edema. DERMATOLOGIC: No rashes. MUSCULOSKELETAL: No joint effusion. NEUROLOGIC: No change in exam. LABORATORY DATA: From 05/03/2018 is pending. ASSESSMENT AND PLAN: 1. Hypernatremia, etiology is felt to be secondary to syndrome of inappropriate antidiuretic hormone . The patient's sodium levels have improved with free water restriction, continue to monitor. 2. Hypokalemia, resolved. 3. Respiratory acidosis with metabolic compensation. 4. Anemia. Continue to monitor hemoglobin and hematocrit levels. 5. Hypoxemic hypercapnic respiratory failure secondary to pulmonary fibrosis. The patient is on BiP AP, will continue. 6. Hypothyroidism. Continue Synthroid. 7. Pulmonary fibrosis. Continue medical management. 8. Dyslipidemia. Continue statin therapy. 9. Acute encephalopathy, etiology is toxic metabolic. Mental status is improving. 10. Bacteremia, systemic inflammatory response syndrome. The patient is on antibiotic therapy. We will continue. Dictated By: GABO DURAN DO NR/NTS Conf#: [id number] DID#: [id number] CC: KALEB JAIMES MD; SOO FERRARA MD; RICHARDSON BROWN MD;*[facility]*
[2018-05-03] MEDS: ASPIRIN (EC) 325 MG TAB PO SCH (08:54)
[2018-05-03] MEDS: LEVOTHYROXINE 88 MCG TAB PO SCH (08:54)
[2018-05-03] MEDS: BALSAM PERU/CASTOR OIL 60 GM TUBE TOP SCH ×2 (08:54→21:46)
[2018-05-03] MEDS: CHOLECALCIFEROL 1,000 UNIT TAB PO SCH (08:54)
[2018-05-03] MEDS: POLYETHYLENE GLYCOL 17 GM PACKET PO SCH (08:55)
[2018-05-03] MEDS: METHYLPRED NA SUCC IV SCH (08:59)
[2018-05-03] MEDS: SOD CHLORIDE 0.9% IV SCH (08:59)
[2018-05-03] MEDS: ENOXAPARIN 40 MG/0.4 ML SYG SC SCH (09:11)
--- NOTE | 2018-05-03 11:24 | CONS ---
Assessment/Plan Assessment/Plan Assessment/Plan (Daily) Assessment and recommendations; 1. Patient admitted with IPF exacerbation with marked overall clinical improvement. Currently on tapering Solu-Medrol dosing. 2. Gram-positive bacteremia, likely contaminant with most recent blood cultures been negative. Patient is afebrile and has no leukocytosis. 3. Chronic hypercapnic respiratory failure. Discontinue antibiotic. Further Solu-Medrol dosing tapering in 24 hours. Patient will need to have home BiPAP. Consultation Date/Type/Reason Admit Date/Time Apr 27, 2018 at 02:15 Initial Consult Date Type of Consult Pulmonary Patient's condition is continually improving. Wean down to 3 L nasal cannula with adequate O2 saturation. Patient denies any coughing, wheezing, any shortness of breath at rest. General exam; elderly woman, awake and alert. Currently no distress. Date/Time of Note DATE: 05/03/18 TIME: 11:22 24 HR Interval Summary Free Text/Dictation Patient's condition is stable. Doing fairly well on nasal cannula and daytime. General exam; elderly female, awake, currently no distress. Exam/Review of Systems Exam Vitals Vital Signs Date Temp Pulse Resp B/P (MAP) Pulse Ox O2 O2 Flow FiO2 Time Delivery Rate 05/03/18 88 18 98 Nasal 3.0 08:15 Cannula 05/03/18 98.3 171/79 07:58 (109) 05/03/18 35 05:50 Intake and Output 05/02/18 05/02/18 05/03/18 1515:00 23:00 07:00 IntakeIntake Total 558 ml 300 ml OutputOutput Total 1000 ml BalanceBalance 558 ml -700 ml Exam H EENT exam; supple neck, no JVD. No lymphadenopathy. Midline trachea. No thyromegaly. Patient has few remaining carious teeth. Chest exam; bilateral crackles. S1-S2 audible, no murmurs. Regular rhythm. Abdomen exam; soft, no organomegaly. Bowel sounds audible. Extremity exam; no peripheral edema. LEATHER COVERER exam; no focal deficit. Results Result Diagram: 05/03/1859 05/03/1859 Results 24hrs Laboratory Tests Test 05/03/18 09:59 White Blood Count 7.2 Red Blood Count 4.38 Hemoglobin 12.0 Hematocrit 37.7 Mean Corpuscular Volume 86.1 Mean Corpuscular Hemoglobin 27.4 L Mean Corpuscular Hemoglobin Concent 31.8 L Red Cell Distribution Width 13.5 Platelet Count 241 Mean Platelet Volume 9.3 Immature Granulocytes % 0.800 H Neutrophils % 88.8 H Lymphocytes % 5.3 L Monocytes % 5.0 Eosinophils % 0.0 Basophils % 0.1 Nucleated Red Blood Cells % 0.0 Immature Granulocytes # 0.060 H Neutrophils # 6.4 Lymphocytes # 0.4 L Monocytes # 0.4 Eosinophils # 0.0 Basophils # 0.0 Nucleated Red Blood Cells # 0.0 Sodium Level 132 L Potassium Level 3.1 L Chloride Level 87 L Carbon Dioxide Level 39 H Anion Gap 6 Blood Urea Nitrogen 17 Creatinine 0.54 Est Glomerular Filtrat Rate mL/min Glucose Level 193 Calcium Level 8.9 Phosphorus Level 3.3 Magnesium Level 1.8 Medications Medication Current Medications IV Flush (NS 3 ml) 3 ml PER PROTOCOL IV ; Start 04/27/18 at 03:00 Ondansetron HCl (Zofran Inj) 4 mg Q6H PRN IV NAUSEA/VOMITING; Start 04/27/18 at 03:00 Acetaminophen (Tylenol Tab) 650 mg Q6H PRN PO .PAIN 1-3 OR TEMP; Start 04/27/18 at 03:00 Aspirin (Ecotrin) 325 mg DAILY PO Last administered on 05/03/18at 08:54; Admin Dose 325 MG; Start 04/27/18 at 09:00 Albuterol/ Ipratropium (Duoneb) 3 ml Q6H RESP THERAPY INH Last administered on 05/03/18at 08:14; Admin Dose 3 ML; Start 04/27/18 at 08:00 Levothyroxine Sodium (Synthroid) 88 mcg BEFORE BREAKFAST PO Last administered on 05/03/18at 08:54; Admin Dose 88 MCG; Start 04/27/18 at 07:00 Atorvastatin Calcium (Lipitor) 10 mg DAILY@21 PO Last administered on 05/02/18at 20:16; Admin Dose 10 MG; Start 04/27/18 at 21:00 Albuterol/ Ipratropium (Duoneb) 3 ml Q2H RESP THERAPY PRN HHN shortness of robert ath; Start 04/27/18 at 10:00 Piperacillin Sod/ Tazobactam Sod 100 ml @ 200 mls/hr Q6 IVPB Last administered on 05/03/18 11:19; Admin Dose 200 MLS/HR; Start 04/27/18 at 10:00 Enoxaparin Sodium (Lovenox) 40 mg DAILY SC Last administered on 05/03/18at 09:11; Admin Dose 40 MG; Start 04/28/18 at 09:00 Budesonide (Pulmicort (Neb)) 0.5 mg BID RESP THERAPY INH Last administered on 05/03/18at 08:14; Admin Dose 0.5 MG; Start 04/29/18 at 09:00 Hydralazine HCl (Apresoline) 10 mg Q4H PRN IV SBP >160 Last administered on 05/02/18at 18:50; Admin Dose 10 MG; Start 05/01/18 at 13:00 Polyethylene Glycol (Miralax) 17 gm DAILY PO Last administered on 05/02/18at 10:31; Admin Dose 17 GM; Start 05/02/18 at 10:30 Docusate Sodium (Colace) 100 mg BID PRN PO CONSTIPATION; Start 05/02/18 at 10:30 Methylprednisolone Sodium Succinate (Solu-Medrol) 100 mg BID IV ; Start 05/03/18 at 11:30 Calcium/Vitamin D (Oyster Shell/ Vit-D (500/200)) 1 tab BID PO ; Start 05/03/18 at 21:00 Magnesium Sulfate 50 ml @ 25 mls/hr ONCE ONCE IVPB ; Start 05/03/18 at 11:30; Stop 05/03/18 at 13:29 RAJESH BASS May 03, 2018 11:24
[2018-05-03] MEDS ORDERED: MAGNESIUM SULFATE 2 GM/50 ML 50 ML IVPB ONE (11:30)
[2018-05-03] MEDS: METHYLPREDNISOLONE 125 MG INJ IV SCH ×2 (11:30→21:45)
--- NOTE | 2018-05-03 12:28 | EN ---
Date/Time of Note Date/Time of Note DATE: 05/03/18 TIME: 12:27 Event Note Medicine Medicine Event Note Patient suffers from severe pulmonary fibrosis with chronic hypercapnic respiratory failure. Due to her restrictive lung disease she will benefit from noninvasive Trilogy. Trilogy AVAPS AE mode therapy will help normalize her oxygenation and PCO2 levels. All other devices have been ruled out. SOO FERRARA MD, [facility] May 03, 2018 12:28
--- NOTE | 2018-05-03 15:51 | PN ---
Date/Time of Note Date/Time of Note DATE: 05/03/18 TIME: 15:47 Assessment/Plan VTE Prophylaxis Risk score (from Nsg)>0 risk: 7 SCD applied (from Nsg): Yes Pharmacological prophylaxis: LMWH Lines/Catheters IV Catheter Type (from Nrsg): Saline Lock Urinary Cath still in place: Yes Reason Cath still needed: terminal illness/intractable pain Assessment/Plan Assessment/Plan 1. Acute hypoxic and hypercapnic respiratory failure- improving - Will taper steroids since respiratory status improving. Home BIPAP ordered per CM - Pulm on board and appreciate recommendations. Plans for further steroid taper in 24 hours - BIPAP qhs and NC during the day 2. Acute metabolic Encephalopathy - patient slightly more lethargic this am. ABG ordered - Likely secondary to hypercapnia 3. Exacerbation of IPF- improving - Follows with Pulm as outpatient - Continue high dose steroids, nebs, and antibiotics at this time 4. Hypothyroidism -Continue home meds 5. Dyslipidemia -Continue home meds 6. Disposition - CM on board for ordering BIPAP as outpatient - more lethargic this am and will check ABG - steroid taper and will d/c antibiotics given completed 7 day course Result Diagram: 05/03/18 0959 05/03/18 0959 Results 24hrs Laboratory Tests Test 05/03/18 09:59 05/03/18 13:27 White Blood Count 7.2 Red Blood Count 4.38 Hemoglobin 12.0 Hematocrit 37.7 Mean Corpuscular Volume 86.1 Mean Corpuscular Hemoglobin 27.4 L Mean Corpuscular Hemoglobin Concent 31.8 L Red Cell Distribution Width 13.5 Platelet Count 241 Mean Platelet Volume 9.3 Immature Granulocytes % 0.800 H Neutrophils % 88.8 H Lymphocytes % 5.3 L Monocytes % 5.0 Eosinophils % 0.0 Basophils % 0.1 Nucleated Red Blood Cells % 0.0 Immature Granulocytes # 0.060 H Neutrophils # 6.4 Lymphocytes # 0.4 L Monocytes # 0.4 Eosinophils # 0.0 Basophils # 0.0 Nucleated Red Blood Cells # 0.0 Sodium Level 132 L Potassium Level 3.1 L Chloride Level 87 L Carbon Dioxide Level 39 H Anion Gap 6 Blood Urea Nitrogen 17 Creatinine 0.54 Est Glomerular Filtrat Rate mL/min Glucose Level 193 Calcium Level 8.9 Phosphorus Level 3.3 Magnesium Level 1.8 Blood Gas Specimen Source Blood arterial Arterial Blood Date Drawn 05/03/2018 2:40:59 PM Arterial Blood pH (Temp corrected) 7.479 H Arterial Blood pCO2 (Temp correct) 59.4 H Arterial Blood pO2 (Temp corrected) 72.8 L Arterial Blood HCO3 43.1 *H Arterial Blood Base Excess 16.7 H Arterial Blood Oxygen Saturation 95.5 Abhishek Test ACCEPTAB Arterial Blood Gas Puncture Site Right Radial Arterial Blood Carboxyhemoglobin 0.6 Arterial Blood Methemoglobin 0.4 Blood Gas A-a O2 Differential 85.9 H Oxyhemoglobin Percent 94.5 Blood Gas Temperature 37.0 Blood Gas Modality NASAL CANNULA FiO2 32.0 Blood Gas Critical Value Read Back KKEERS RN Blood Gas Notified Whom TM Blood Gas Notified Time 05/03/2018 2:51:37 PM Subjective 24 Hr Interval Summary Free Text/Dictation Patient more lethargic this am with shivering of her jaw. Granddaughter at bedside who states she noticed it this am. No acute overnight events. Exam/Review of Systems Exam Vitals Vital Signs Date Temp Pulse Resp B/P (MAP) Pulse Ox O2 O2 Flow FiO2 Time Delivery Rate 05/03/18 97.5 67 18 134/63 98 Nasal 12:08 (86) Cannula 05/03/18 3.0 08:15 05/03/18 35 05:50 Intake and Output 05/02/18 05/02/18 05/03/18 1414:59 22:59 06:59 IntakeIntake Total 558 ml 300 ml OutputOutput Total 1000 ml BalanceBalance 558 ml -700 ml Exam General: Patient is laying in bed, more fatigued, lower jaw shivering. answering simple questions Respiratory: bilateral crackles appreciated. no wheezing Cardiovascular: regular rate and rhythm, no obvious murmurs Gastrointestinal: soft, non-tender to palpation, bowel sounds heard. Neurological: Moves all extremities spontaneously Skin: No new skin lesions Results Results 24hrs Laboratory Tests Test 05/03/18 09:59 05/03/18 13:27 White Blood Count 7.2 Red Blood Count 4.38 Hemoglobin 12.0 Hematocrit 37.7 Mean Corpuscular Volume 86.1 Mean Corpuscular Hemoglobin 27.4 L Mean Corpuscular Hemoglobin Concent 31.8 L Red Cell Distribution Width 13.5 Platelet Count 241 Mean Platelet Volume 9.3 Immature Granulocytes % 0.800 H Neutrophils % 88.8 H Lymphocytes % 5.3 L Monocytes % 5.0 Eosinophils % 0.0 Basophils % 0.1 Nucleated Red Blood Cells % 0.0 Immature Granulocytes # 0.060 H Neutrophils # 6.4 Lymphocytes # 0.4 L Monocytes # 0.4 Eosinophils # 0.0 Basophils # 0.0 Nucleated Red Blood Cells # 0.0 Sodium Level 132 L Potassium Level 3.1 L Chloride Level 87 L Carbon Dioxide Level 39 H Anion Gap 6 Blood Urea Nitrogen 17 Creatinine 0.54 Est Glomerular Filtrat Rate mL/min Glucose Level 193 Calcium Level 8.9 Phosphorus Level 3.3 Magnesium Level 1.8 Blood Gas Specimen Source Blood arterial Arterial Blood Date Drawn 05/03/2018 2:40:59 PM Arterial Blood pH (Temp corrected) 7.479 H Arterial Blood pCO2 (Temp correct) 59.4 H Arterial Blood pO2 (Temp corrected) 72.8 L Arterial Blood HCO3 43.1 *H Arterial Blood Base Excess 16.7 H Arterial Blood Oxygen Saturation 95.5 Abhishek Test ACCEPTAB Arterial Blood Gas Puncture Site Right Radial Arterial Blood Carboxyhemoglobin 0.6 Arterial Blood Methemoglobin 0.4 Blood Gas A-a O2 Differential 85.9 H Oxyhemoglobin Percent 94.5 Blood Gas Temperature 37.0 Blood Gas Modality NASAL CANNULA FiO2 32.0 Blood Gas Critical Value Read Back KKEERS RN Blood Gas Notified Whom TM Blood Gas Notified Time 05/03/2018 2:51:37 PM Medications Medication Current Medications IV Flush (NS 3 ml) 3 ml PER PROTOCOL IV ; Start 04/27/18 at 03:00 Ondansetron HCl (Zofran Inj) 4 mg Q6H PRN IV NAUSEA/VOMITING; Start 04/27/18 at 03:00 Acetaminophen (Tylenol Tab) 650 mg Q6H PRN PO .PAIN 1-3 OR TEMP; Start 04/27/18 at 03:00 Aspirin (Ecotrin) 325 mg DAILY PO Last administered on 05/03/18at 08:54; Admin Dose 325 MG; Start 04/27/18 at 09:00 Albuterol/ Ipratropium (Duoneb) 3 ml Q6H RESP THERAPY INH Last administered on 05/03/18at 13:50; Admin Dose 3 ML; Start 04/27/18 at 08:00 Levothyroxine Sodium (Synthroid) 88 mcg BEFORE BREAKFAST PO Last administered on 05/03/18 08:54; Admin Dose 88 MCG; Start 04/27/18 at 07:00 Atorvastatin Calcium (Lipitor) 10 mg DAILY@21 PO Last administered on 05/02/18at 20:16; Admin Dose 10 MG; Start 04/27/18 at 21:00 Albuterol/ Ipratropium (Duoneb) 3 ml Q2H RESP THERAPY PRN HHN shortness of breath; Start 04/27/18 at 10:00 Enoxaparin Sodium (Lovenox) 40 mg DAILY SC Last administered on 05/03/18at 09:11; Admin Dose 40 MG; Start 04/28/18 at 09:00 Budesonide (Pulmicort (Neb)) 0.5 mg BID RESP THERAPY INH Last administered on 05/03/18at 08:14; Admin Dose 0.5 MG; Start 04/29/18 at 09:00 Hydralazine HCl (Apresoline) 10 mg Q4H PRN IV SBP >160 Last administered on 05/02/18at 18:50; Admin Dose 10 MG; Start 05/01/18 at 13:00 Polyethylene Glycol (Miralax) 17 gm DAILY PO Last administered on 05/02/18at 10:31; Admin Dose 17 GM; Start 05/02/18 at 10:30 Docusate Sodium (Colace) 100 mg BID PRN PO CONSTIPATION; Start 05/02/18 at 10:30 Methylprednisolone Sodium Succinate (Solu-Medrol) 100 mg BID IV ; Start 05/03/18 at 11:30 Calcium/Vitamin D (Oyster Shell/ Vit-D (500/200)) 1 tab BID PO ; Start 05/03/18 at 21:00 KALEB JAIMES MD May 03, 2018 15:51
[2018-05-03] MEDS ORDERED: VITAMIN A & D 5 GM OINT PACKET TOP ONE (20:12)
[2018-05-03] MEDS: ATORVASTATIN 10 MG TAB PO SCH (21:45)
[2018-05-03] MEDS: CALCIUM/VITAMIN D (500/200) TAB PO SCH (21:45)
[2018-05-04] VITALS (13 sets, daily range): BP systolic 140–155; BP diastolic 66–67; PULSE 43–91; RESP 21–22
[2018-05-04] MEDS: ALBUTEROL/IPRATROPIUM (NEB) 3 ML AMP INH SCH ×4 (01:23→19:44)
[2018-05-04] MEDS: BUDESONIDE (NEB) 0.5MG/2ML AMP INH SCH ×2 (08:22→19:44)
--- NOTE | 2018-05-04 08:29 | PN ---
DATE: 05/04/2018 SUBJECTIVE: Overnight, the patient refused BiPAP. No other events noted. OBJECTIVE: VITAL SIGNS: Blood pressure is 171/79, pulse 91, respirations 22, temperature 98.8. HEENT: Head is normocephalic. NECK: Supple. HEART: Regular rate. LUNGS: Show diminished breath sounds at the base. ABDOMEN: Soft, nontender to palpation. No rebound or guarding. EXTREMITIES: Negative for clubbing, cyanosis, no edema. DERMATOLOGIC: No rashes. MUSCULOSKELETAL: No joint effusion. NEUROLOGIC: No change in exam. MEDICATIONS: Reviewed. LABORATORY DATA: From 05/03/2018 has been reviewed. Laboratory data from 05/04/2018 is pending. ASSESSMENT AND PLAN: 1. Hyponatremia. Etiology is felt to be secondary to syndrome of inappropriate antidiuretic hormone . The patient's sodium levels are improving. Continue to limit free water restriction. 2. Hypokalemia. Continue to monitor and replete as needed. 3. Respiratory acidosis with metabolic compensation. Continue to monitor. 4. Anemia. Continue to monitor hemoglobin and hematocrit levels. 5. Hypoxemic hypercapnic respiratory failure, questionable pulmonary fibrosis, possible pneumonia. Continue BiPAP. Continue antibiotic therapy. 6. Hypothyroidism. Continue Synthroid. 7. Dyslipidemia. Continue statin therapy. 8. Acute encephalopathy, etiology is toxic metabolic. 9. Systemic inflammatory response syndrome. Continue current antibiotic regimen. 10. Pulmonary fibrosis. Continue high dose steroids. Follow up with pulmonary. Dictated By: GABO DURAN DO NR/NTS Conf#: [id number] DID#: [id number] CC: KALEB JAIMES MD; SOO FERRARA MD; RICHARDSON BROWN MD;*[facility]*
[2018-05-04] MEDS: ASPIRIN (EC) 325 MG TAB PO SCH (08:51)
[2018-05-04] MEDS: CALCIUM/VITAMIN D (500/200) TAB PO SCH ×2 (08:51→20:04)
[2018-05-04] MEDS: LEVOTHYROXINE 88 MCG TAB PO SCH (08:51)
[2018-05-04] MEDS: METHYLPREDNISOLONE 125 MG INJ IV SCH (08:52)
[2018-05-04] MEDS: BALSAM PERU/CASTOR OIL 60 GM TUBE TOP SCH ×2 (08:53→20:27)
[2018-05-04] MEDS: POLYETHYLENE GLYCOL 17 GM PACKET PO SCH (09:00)
[2018-05-04] MEDS: ENOXAPARIN 40 MG/0.4 ML SYG SC SCH (09:21)
--- NOTE | 2018-05-04 09:33 | CONS ---
Assessment/Plan Assessment/Plan Assessment/Plan (Daily) Assessment recommendations; 1. Patient admitted with IPF exacerbation with significant clinical i mprovement. 2. Gram-positive bacteremia likely contaminant with most recent blood cultures been negative. Patient is afebrile without any leukocytosis. Off antibiotics. 3. Chronic type II respiratory failure with significant hypercapnia. On nocturnal BiPAP. Continue current supportive care. BiPAP is being arranged for home use. Decrease Solu-Medrol from 100 mg every 12 hours to 40 mg every 8 hours with further tapering in 24 hours. Overall prognosis remains poor. CODE STATUS needs to be addressed with the family. Consultation Date/Type/Reason Admit Date/Time Apr 27, 2018 at 02:15 Initial Consult Date Type of Consult Pulmonary Patient's condition is continually improving. Wean down to 3 L nasal cannula with adequate O2 saturation. Patient denies any coughing, wheezing, any shortness of breath at rest. General exam; elderly woman, awake and alert. Currently no distress. Date/Time of Note DATE: 05/04/18 TIME: 09:30 24 HR Interval Summary Free Text/Dictation Patient's condition is stable. Doing fairly well on 3 L nasal cannula. On nocturnal BiPAP. General exam; elderly female, awake and alert. Currently no distress. Exam/Review of Systems Exam Vitals Vital Signs Date Temp Pulse Resp B/P (MAP) Pulse Ox O2 O2 Flow FiO2 Time Delivery Rate 05/04/18 Nasal 3.0 09:05 Cannula 05/04/18 74 08:29 05/04/18 20 94 08:28 05/04/18 97.6 155/67 08:00 (96) 05/04/18 35 01:24 Intake and Output 05/03/18 05/03/18 05/04/18 1515:00 23:00 07:00 IntakeIntake Total 750 ml OutputOutput Total 850 ml BalanceBalance -100 ml Exam H EENT exam; supple neck, no JVD. No lymphadenopathy. Midline trachea. No thyromegaly. Patient has few remaining carious teeth. Chest exam; bilateral scattered crackles. S1-S2 audible, no murmurs. Regular rhythm. Abdomen exam; soft, no organomegaly. Bowel sounds audible. Extremity exam; no peripheral edema. DIETIST exam; no focal deficit. Results Result Diagram: 05/03/1859 3/21/19 0959 Results 24hrs Laboratory Tests Test 05/03/18 09:59 05/03/18 13:27 White Blood Count 7.2 Red Blood Count 4.38 Hemoglobin 12.0 Hematocrit 37.7 Mean Corpuscular Volume 86.1 Mean Corpuscular Hemoglobin 27.4 L Mean Corpuscular Hemoglobin Concent 31.8 L Red Cell Distribution Width 13.5 Platelet Count 241 Mean Platelet Volume 9.3 Immature Granulocytes % 0.800 H Neutrophils % 88.8 H Lymphocytes % 5.3 L Monocytes % 5.0 Eosinophils % 0.0 Basophils % 0.1 Nucleated Red Blood Cells % 0.0 Immature Granulocytes # 0.060 H Neutrophils # 6.4 Lymphocytes # 0.4 L Monocytes # 0.4 Eosinophils # 0.0 Basophils # 0.0 Nucleated Red Blood Cells # 0.0 Sodium Level 132 L Potassium Level 3.1 L Chloride Level 87 L Carbon Dioxide Level 39 H Anion Gap 6 Blood Urea Nitrogen 17 Creatinine 0.54 Est Glomerular Filtrat Rate mL/min Glucose Level 193 Calcium Level 8.9 Phosphorus Level 3.3 Magnesium Level 1.8 Blood Gas Specimen Source Blood arterial Arterial Blood Date Drawn 05/03/2018 2:40:59 PM Arterial Blood pH (Temp corrected) 7.479 H Arterial Blood pCO2 (Temp correct) 59.4 H Arterial Blood pO2 (Temp corrected) 72.8 L Arterial Blood HCO3 43.1 *H Arterial Blood Base Excess 16.7 H Arterial Blood Oxygen Saturation 95.5 Abhishek Test ACCEPTAB Arterial Blood Gas Puncture Site Right Radial Arterial Blood Carboxyhemoglobin 0.6 Arterial Blood Methemoglobin 0.4 Blood Gas A-a O2 Differential 85.9 H Oxyhemoglobin Percent 94.5 Blood Gas Temperature 37.0 Blood Gas Modality NASAL CANNULA FiO2 32.0 Blood Gas Critical Value Read Back KKEERS RN Blood Gas Notified Whom TM Blood Gas Notified Time 05/03/2018 2:51:37 PM Medications Medication Current Medications IV Flush (NS 3 ml) 3 ml PER PROTOCOL IV ; Start 04/27/18 at 03:00 Ondansetron HCl (Zofran Inj) 4 mg Q6H PRN IV NAUSEA/VOMITING; Start 04/27/18 at 03:00 Acetaminophen (Tylenol Tab) 650 mg Q6H PRN PO .PAIN 1-3 OR TEMP; Start 04/27/18 at 03:00 Aspirin (Ecotrin) 325 mg DAILY PO Last administered on 05/04/18 08:51; Admin Dose 325 MG; Start 04/27/18 at 09:00 Albuterol/ Ipratropium (Duoneb) 3 ml Q6H RESP THERAPY INH Last administered on 05/04/18 08:22; Admin Dose 3 ML; Start 04/27/18 at 08:00 Levothyroxine Sodium (Synthroid) 88 mcg BEFORE BREAKFAST PO Last administered on 05/04/18 08:51; Admin Dose 88 MCG; Start 04/27/18 at 07:00 Atorvastatin Calcium (Lipitor) 10 mg DAILY@21 PO Last administered on 05/03/18 21:45; Admin Dose 10 MG; Start 04/27/18 at 21:00 Albuterol/ Ipratropium (Duoneb) 3 ml Q2H RESP THERAPY PRN HHN shortness of b reath; Start 04/27/18 at 10:00 Enoxaparin Sodium (Lovenox) 40 mg DAILY SC Last administered on 05/04/18 09:21; Admin Dose 40 MG; Start 04/28/18 at 09:00 Budesonide (Pulmicort (Neb)) 0.5 mg BID RESP THERAPY INH Last administered on 05/04/18 08:22; Admin Dose 0.5 MG; Start 04/29/18 at 09:00 Hydralazine HCl (Apresoline) 10 mg Q4H PRN IV SBP >160 Last administered on 05/02/18 18:50; Admin Dose 10 MG; Start 05/01/18 at 13:00 Polyethylene Glycol (Miralax) 17 gm DAILY PO Last administered on 05/02/18 10:31; Admin Dose 17 GM; Start 05/02/18 at 10:30 Docusate Sodium (Colace) 100 mg BID PRN PO CONSTIPATION; Start 05/02/18 at 10:30 Methylprednisolone Sodium Succinate (Solu-Medrol) 100 mg BID IV Last administered on 05/04/18 08:52; Admin Dose 100 MG; Start 05/03/18 at 11:30 Calcium/Vitamin D (Oyster Shell/ Vit-D (500/200)) 1 tab BID PO Last administered on 05/04/18 08:51; Admin Dose 1 TAB; Start 05/03/18 at 21:00 RAJESH BASS May 04, 2018 09:32
[2018-05-04] MEDS: METHYLPREDNISOLONE 40 MG INJ IV SCH ×2 (14:53→22:13)
--- NOTE | 2018-05-04 16:10 | PN ---
Date/Time of Note Date/Time of Note DATE: 05/04/18 TIME: 16:04 Assessment/Plan VTE Prophylaxis Risk score (from Nsg)>0 risk: 7 SCD applied (from Nsg): Yes Pharmacological prophylaxis: LMWH Lines/Catheters IV Catheter Type (from Nrsg): Saline Lock Urinary Cath still in place: Yes Reason Cath still needed: terminal illness/intractable pain Assessment/Plan Assessment/Plan 1. Acute hypoxic and hypercapnic respiratory failure- stable - Patient appears back to baseline respiratory status de paz. Discussed with family she no longer has PNA showing on CXR and antibiotics discontinued. Per Pulm, will taper steroids as well. Spoke to family about possible [facility] t ransfer if unable to transfer to [facility] and not comfortable to d/c home - Pulm on board and appreciate recommendations. Plans for further steroid taper in 24 hours - BIPAP qhs and NC during the day 2. Acute metabolic Encephalopathy - patient slightly more lethargic this am - Likely secondary to hypercapnia 3. Exacerbation of IPF- improving - Follows with Pulm as outpatient - Continue high dose steroids, nebs, and antibiotics at this time 4. Hypothyroidism -Continue home meds 5. Dyslipidemia -Continue home meds 6. Disposition - Dr. Martino contacted by Dr. Hernández and will discuss [place] since highly unlikely [place] transfer will happen - continue steroid taper Result Diagram: 05/03/18 0959 05/04/18 0840 Results 24hrs Laboratory Tests Test 05/04/18 08:40 Sodium Level 133 L Potassium Level 4.0 Chloride Level 87 L Carbon Dioxide Level 37 H Anion Gap 9 Blood Urea Nitrogen 23 H Creatinine 0.62 Est Glomerular Filtrat Rate mL/min Glucose Level 131 # Calcium Level 8.8 Phosphorus Level 5.1 H Magnesium Level 2.5 Subjective 24 Hr Interval Summary Free Text/Dictation Patient doing well this am and back to baseline. Tired per granddaughter at bedside. Discussed [facility] as option since transfer to [facility] does not seem feasible at this time. Exam/Review of Systems Exam Vitals Vital Signs Date Temp Pulse Resp B/P (MAP) Pulse Ox O2 O2 Flow FiO2 Time Delivery Rate 05/04/18 69 15:45 05/04/18 20 96 Nasal 3.0 15:01 Cannula 05/04/18 98.0 140/67 12:32 (91) 05/04/18 35 01:24 Intake and Output 05/03/18 05/03/18 05/04/18 1515:00 23:00 07:00 IntakeIntake Total 750 ml OutputOutput Total 850 ml BalanceBalance -100 ml Exam General: Patient is laying in bed, no acute distress Respiratory: Diminished breath sounds. no wheezing Cardiovascular: regular rate and rhythm, no obvious murmurs Gastrointestinal: soft, non-tender to palpation, bowel sounds heard. Neurological: Moves all extremities spontaneously Skin: No new skin lesions Results Results 24hrs Laboratory Tests Test 05/04/18 08:40 Sodium Level 133 L Potassium Level 4.0 Chloride Level 87 L Carbon Dioxide Level 37 H Anion Gap 9 Blood Urea Nitrogen 23 H Creatinine 0.62 Est Glomerular Filtrat Rate mL/min Glucose Level 131 # Calcium Level 8.8 Phosphorus Level 5.1 H Magnesium Level 2.5 Medications Medication Current Medications IV Flush (NS 3 ml) 3 ml PER PROTOCOL IV ; Start 04/27/18 at 03:00 Ondansetron HCl (Zofran Inj) 4 mg Q6H PRN IV NAUSEA/VOMITING; Start 04/27/18 at 03:00 Acetaminophen (Tylenol Tab) 650 mg Q6H PRN PO .PAIN 1-3 OR TEMP; Start 04/27/18 at 03:00 Aspirin (Ecotrin) 325 mg DAILY PO Last administered on 05/04/18at 08:51; Admin Dose 325 MG; Start 04/27/18 at 09:00 Albuterol/ Ipratropium (Duoneb) 3 ml Q6H RESP THERAPY INH Last administered on 05/04/18at 14:57; Admin Dose 3 ML; Start 04/27/18 at 08:00 Levothyroxine Sodium (Synthroid) 88 mcg BEFORE BREAKFAST PO Last administered on 05/04/18 08:51; Admin Dose 88 MCG; Start 04/27/18 at 07:00 Atorvastatin Calcium (Lipitor) 10 mg DAILY@21 PO Last administered on 05/03/18at 21:45; Admin Dose 10 MG; Start 04/27/18 at 21:00 Albuterol/ Ipratropium (Duoneb) 3 ml Q2H RESP THERAPY PRN HHN shortness of breath; Start 04/27/18 at 10:00 Enoxaparin Sodium (Lovenox) 40 mg DAILY SC Last administered on 05/04/18at 09:21; Admin Dose 40 MG; Start 04/28/18 at 09:00 Budesonide (Pulmicort (Neb)) 0.5 mg BID RESP THERAPY INH Last administered on 05/04/18 08:22; Admin Dose 0.5 MG; Start 04/29/18 at 09:00 Hydralazine HCl (Apresoline) 10 mg Q4H PRN IV SBP >160 Last administered on 05/02/18 18:50; Admin Dose 10 MG; Start 05/01/18 at 13:00 Polyethylene Glycol (Miralax) 17 gm DAILY PO Last administered on 05/02/18 10:31; Admin Dose 17 GM; Start 05/02/18 at 10:30 Docusate Sodium (Colace) 100 mg BID PRN PO CONSTIPATION; Start 05/02/18 at 10:30 Calcium/Vitamin D (Oyster Shell/ Vit-D (500/200)) 1 tab BID PO Last administered on 05/04/18 08:51; Admin Dose 1 TAB; Start 05/03/18 at 21:00 Methylprednisolone Sodium Succinate (Solu-Medrol) 40 mg Q8 IV Last administered on 05/04/18 14:53; Admin Dose 40 MG; Start 05/04/18 at 14:00 KALEB JAIMES MD May 04, 2018 16:10
[2018-05-04] MEDS: ATORVASTATIN 10 MG TAB PO SCH (20:04)
[2018-05-05] VITALS (16 sets, daily range): BP systolic 126–173; BP diastolic 64–79; PULSE 54–96; RESP 20–38
[2018-05-05] MEDS: ALBUTEROL/IPRATROPIUM (NEB) 3 ML AMP INH SCH ×4 (01:04→19:50)
[2018-05-05] MEDS: METHYLPREDNISOLONE 40 MG INJ IV SCH ×3 (06:01→22:30)
[2018-05-05] MEDS: BUDESONIDE (NEB) 0.5MG/2ML AMP INH SCH ×2 (08:25→19:50)
[2018-05-05] MEDS: BALSAM PERU/CASTOR OIL 60 GM TUBE TOP SCH ×2 (09:00→22:29)
[2018-05-05] MEDS: ASPIRIN (EC) 325 MG TAB PO SCH (09:17)
[2018-05-05] MEDS: LEVOTHYROXINE 88 MCG TAB PO SCH (09:17)
[2018-05-05] MEDS: CALCIUM/VITAMIN D (500/200) TAB PO SCH ×2 (09:17→20:46)
[2018-05-05] MEDS: ENOXAPARIN 40 MG/0.4 ML SYG SC SCH (09:23)
[2018-05-05] MEDS: POLYETHYLENE GLYCOL 17 GM PACKET PO SCH (09:25)
--- NOTE | 2018-05-05 09:25 | PN ---
DATE: 05/05/2018 SUBJECTIVE: The patient is stable. No events overnight. OBJECTIVE: VITAL SIGNS: Blood pressure is 173/79, pulse 61, respirations 38, temperature 98.4. HEENT: Head is normocephalic. NECK: Supple. HEART: Regular rate. LUNGS: Show diminished breath sounds at the base. ABDOMEN: Soft, nontender to palpation without rebound or guarding. EXTREMITIES: Negative for clubbing, cyanosis, no edema. DERMATOLOGIC: No rashes. MUSCULOSKELETAL: No joint effusion. NEUROLOGIC: No change in exam. MEDICATIONS: Reviewed. LABORATORY DATA: Reviewed. ASSESSMENT AND PLAN: 1. Hypernatremia, etiology is felt to be secondary to syndrome of inappropriate antidiuretic hormone . Sodium levels have stabilized. Continue to monitor, continue free water restriction. 2. Hypokalemia. Continue to monitor and replete as needed. 3. Respiratory acidosis with metabolic compensation. 4. Anemia. Continue to monitor hemoglobin and hematocrit levels. 5. Hypoxemic hypercapnic respiratory failure secondary to pulmonary fibrosis, pneumonia. Continue B iPAP. Continue antibiotic therapy. Continue steroids. 6. Hypothyroidism. Continue Synthroid. 7. Dyslipidemia. Continue statin therapy. 8. Encephalopathy, etiology is toxic metabolic. Dictated By: GABO DURAN DO NR/NTS Conf#: [id number] DID#: [id number] CC: KALEB JAIMES MD; SOO FERRARA MD; RICHARDSON BROWN MD;*End*
--- NOTE | 2018-05-05 17:24 | CONS ---
Consult Date/Type/Reason Admit Date/Time Apr 27, 2018 at 02:15 Initial Consult Date Type of Consultation: Pulm/CCM Date/Time of Note DATE: 05/05/18 TIME: 17:22 Subjective No events. Overall improved. Objective Vitals Vital Signs Date Temp Pulse Resp B/P (MAP) Pulse Ox O2 O2 Flow FiO2 Time Delivery Rate 05/05/18 80 16:01 05/05/18 97.9 21 163/75 97 15:46 (104) 05/05/18 Nasal 3.0 13:28 Cannula 05/05/18 30 05:00 Intake and Output 05/04/18 05/04/18 05/05/18 1515:00 23:00 07:00 IntakeIntake Total 620 ml 400 ml OutputOutput Total 700 ml 300 ml BalanceBalance -80 ml 100 ml Exam HEENT: Neck supple; no JVD; no LAD CVS: RRR, S1 and S2 CHEST: Bibasilar fine rales ABD: Soft, NT, + BS EXT: No c/c/e Results/Medications Result Diagram: 05/03/18 0959 05/04/18 0840 Home Meds Reported Medications Formoterol Fumarate (Perforomist) 20 Mcg/2 Ml Vial.neb, 20 MCG INHALATION BID, VIAL 03/28/18 Ipratropium [place] (Ipratropium [place]) 5 Gm Powder, 10.5 MG MC BID 03/28/18 Ipratropium-Albuterol (Ipratropium-Albuterol) 0.5-3 Mg/3 Ml Ampul.neb, 3 ML INHALATION Q6, #30 VIAL 03/28/18 Budesonide* (Budesonide*) 0.25 Mg/2 Ml Ampul.neb, 0.25 MG INHALATION BID, AMP 03/28/18 Cholecalciferol* (Vitamin D3*) 1,000 Unit Tablet, 1000 UNIT PO DAILY, TAB 03/28/18 Simvastatin* (Zocor*) 20 Mg Tablet, 20 MG PO QHS, #30 TAB 03/28/18 Aspirin* (Aspirin* EC) 325 Mg Tab, 325 MG PO DAILY, TAB 03/28/18 Levothyroxine Sodium* (Levothyroxine Sodium*) 88 Mcg Tablet, 88 MCG PO BEFORE BREAKFAST, #30 TAB 03/28/18 Medications Current Medications IV Flush (NS 3 ml) 3 ml PER PROTOCOL IV ; Start 04/27/18 at 03:00 Ondansetron HCl (Zofran Inj) 4 mg Q6H PRN IV NAUSEA/VOMITING; Start 04/27/18 at 03:00 Acetaminophen (Tylenol Tab) 650 mg Q6H PRN PO .PAIN 1-3 OR TEMP; Start 04/27/18 at 03:00 Aspirin (Ecotrin) 325 mg DAILY PO Last administered on 05/05/18 09:17; Admin Dose 325 MG; Start 04/27/18 at 09:00 Albuterol/ Ipratropium (Duoneb) 3 ml Q6H RESP THERAPY INH Last administered on 05/05/18 13:28; Admin Dose 3 ML; Start 04/27/18 at 08:00 Levothyroxine Sodium (Synthroid) 88 mcg BEFORE BREAKFAST PO Last administered on 05/05/18 09:17; Admin Dose 88 MCG; Start 04/27/18 at 07:00 Atorvastatin Calcium (Lipitor) 10 mg DAILY@21 PO Last administered on 05/04/18 20:04; Admin Dose 10 MG; Start 04/27/18 at 21:00 Albuterol/ Ipratropium (Duoneb) 3 ml Q2H RESP THERAPY PRN HHN shortness of breath; Start 04/27/18 at 10:00 Enoxaparin Sodium (Lovenox) 40 mg DAILY SC Last administered on 05/05/18 09:23; Admin Dose 40 MG; Start 04/28/18 at 09:00 Budesonide (Pulmicort (Neb)) 0.5 mg BID RESP THERAPY INH Last administered on 05/05/18 08:25; Admin Dose 0.5 MG; Start 04/29/18 at 09:00 Hydralazine HCl (Apresoline) 10 mg Q4H PRN IV SBP >160 Last administered on 05/02/18 18:50; Admin Dose 10 MG; Start 05/01/18 at 13:00 Polyethylene Glycol (Miralax) 17 gm DAILY PO Last administered on 05/05/18 09:25; Admin Dose 17 GM; Start 05/02/18 at 10:30 Docusate Sodium (Colace) 100 mg BID PRN PO CONSTIPATION; Start 05/02/18 at 10:30 Calcium/Vitamin D (Oyster Shell/ Vit-D (500/200)) 1 tab BID PO Last administered on 05/05/18at 09:17; Admin Dose 1 TAB; Start 05/03/18 at 21:00 Methylprednisolone Sodium Succinate (Solu-Medrol) 40 mg Q8 IV Last administered on 05/05/18at 15:02; Admin Dose 40 MG; Start 05/04/18 at 14:00 Assessment/Plan Assessment/Plan (Daily) IMP: 1. 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 Acute exacerbation of IPF 3. Hyponatremia 4. Anemia 5. G+ cocci bacteremia 6. Encephalopathy RECS: 1. Continue CS taper 2. Titrate FiO2 to SpO2 88-92% SKYLA DODSON MD May 05, 2018 17:24
--- NOTE | 2018-05-05 18:21 | PN ---
Date/Time of Note Date/Time of Note DATE: 05/05/18 TIME: 18:15 Assessment/Plan VTE Prophylaxis Risk score (from Nsg)>0 risk: 3 SCD applied (from Nsg): Yes Pharmacological prophylaxis: heparin Lines/Catheters IV Catheter Type (from Nrsg): Saline Lock Urinary Cath still in place: Yes Reason Cath still needed: terminal illness/intractable pain Assessment/Plan Assessment/Plan 1. Acute hypoxic and hypercapnic respiratory failure- stable - Patient appears back to baseline respiratory status de paz. - Pulm on board and appreciate recommendations. Plans for further steroid taper tomorrow - BIPAP qhs and NC during the day 2. Acute metabolic Encephalopathy- resolved 3. Exacerbation of IPF- improving - Follows with Pulm as outpatient - Continue steroid taper and nebs 4. Hypothyroidism -Continue home meds 5. Dyslipidemia -Continue home meds 6. Disposition - Per Daughter, Dr. Martino will work on getting patient to [facility] - continue steroid taper Result Diagram: 05/03/18 0959 05/04/18 0840 Subjective 24 Hr Interval Summary Free Text/Dictation Patient improving and denies any acute issues. Discussed plan of care with daughter and still wanting patient transferred to [facility]. Exam/Review of Systems Exam Vitals Vital Signs Date Temp Pulse Resp B/P (MAP) Pulse Ox O2 O2 Flow FiO2 Time Delivery Rate 05/05/18 80 16:01 05/05/18 97.9 21 163/75 97 15:46 (104) 05/05/18 Nasal 3.0 13:28 Cannula 05/05/18 30 05:00 Intake and Output 05/04/18 05/04/18 05/05/18 1515:00 23:00 07:00 IntakeIntake Total 620 ml 400 ml OutputOutput Total 700 ml 300 ml BalanceBalance -80 ml 100 ml Exam General: Patient is laying in bed, no acute distress Respiratory: Diminished breath sounds. no wheezing Cardiovascular: regular rate and rhythm, no obvious murmurs Gastrointestinal: soft, non-tender to palpation, bowel sounds heard. Neurological: Moves all extremities spontaneously Skin: No new skin lesions Medications Medication Current Medications IV Flush (NS 3 ml) 3 ml PER PROTOCOL IV ; Start 04/27/18 at 03:00 Ondansetron HCl (Zofran Inj) 4 mg Q6H PRN IV NAUSEA/VOMITING; Start 04/27/18 at 03:00 Acetaminophen (Tylenol Tab) 650 mg Q6H PRN PO .PAIN 1-3 OR TEMP; Start 04/27/18 at 03:00 Aspirin (Ecotrin) 325 mg DAILY PO Last administered on 05/05/18 09:17; Admin Dose 325 MG; Start 04/27/18 at 09:00 Albuterol/ Ipratropium (Duoneb) 3 ml Q6H RESP THERAPY INH Last administered on 05/05/18 13:28; Admin Dose 3 ML; Start 04/27/18 at 08:00 Levothyroxine Sodium (Synthroid) 88 mcg BEFORE BREAKFAST PO Last administered on 05/05/18 09:17; Admin Dose 88 MCG; Start 04/27/18 at 07:00 Atorvastatin Calcium (Lipitor) 10 mg DAILY@21 PO Last administered on 05/04/18 20:04; Admin Dose 10 MG; Start 04/27/18 at 21:00 Albuterol/ Ipratropium (Duoneb) 3 ml Q2H RESP THERAPY PRN HHN shortness of breath; Start 04/27/18 at 10:00 Enoxaparin Sodium (Lovenox) 40 mg DAILY SC Last administered on 05/05/18 09:23; Admin Dose 40 MG; Start 04/28/18 at 09:00 Budesonide (Pulmicort (Neb)) 0.5 mg BID RESP THERAPY INH Last administered on 05/05/18 08:25; Admin Dose 0.5 MG; Start 04/29/18 at 09:00 Hydralazine HCl (Apresoline) 10 mg Q4H PRN IV SBP >160 Last administered on 05/02/18 18:50; Admin Dose 10 MG; Start 05/01/18 at 13:00 Polyethylene Glycol (Miralax) 17 gm DAILY PO Last administered on 05/05/18 09:25; Admin Dose 17 GM; Start 05/02/18 at 10:30 Docusate Sodium (Colace) 100 mg BID PRN PO CONSTIPATION; Start 05/02/18 at 10:30 Calcium/Vitamin D (Oyster Shell/ Vit-D (500/200)) 1 tab BID PO Last administer ed on 05/05/18 09:17; Admin Dose 1 TAB; Start 05/03/18 at 21:00 Methylprednisolone Sodium Succinate (Solu-Medrol) 40 mg Q8 IV Last administered on 05/05/18at 15:02; Admin Dose 40 MG; Start 05/04/18 at 14:00 KALEB JAIMES MD May 05, 2018 18:21
[2018-05-05] MEDS: ATORVASTATIN 10 MG TAB PO SCH (20:46)
[2018-05-05] MEDS ORDERED: LORAZEPAM 2 MG INJ IV PRN (23:30)
[2018-05-06] VITALS (16 sets, daily range): BP systolic 141–156; BP diastolic 67–70; PULSE 69–90; RESP 18
[2018-05-06] MEDS: ALBUTEROL/IPRATROPIUM (NEB) 3 ML AMP INH SCH ×4 (01:45→20:54)
[2018-05-06] MEDS: LEVOTHYROXINE 88 MCG TAB PO SCH (05:27)
[2018-05-06] MEDS: BUDESONIDE (NEB) 0.5MG/2ML AMP INH SCH ×2 (08:25→20:55)
[2018-05-06] MEDS: BALSAM PERU/CASTOR OIL 60 GM TUBE TOP SCH ×2 (09:00→20:42)
--- NOTE | 2018-05-06 09:21 | PN ---
Date/Time of Note Date/Time of Note DATE: 05/06/18 TIME: 09:21 Assessment/Plan VTE Prophylaxis Risk score (from Nsg)>0 risk: 8 SCD applied (from Nsg): Yes Pharmacological prophylaxis: heparin Lines/Catheters IV Catheter Type (from Nrsg): Saline Lock Urinary Cath still in place: Yes Reason Cath still needed: terminal illness/intractable pain Assessment/Plan Assessment/Plan 1. Acute hypoxic and hypercapnic respiratory failure- stable - Patient appears back to baseline respiratory status de paz. - Pulm on board and appreciate recommendations. Plans for further steroid taper tomorrow - BIPAP qhs and NC during the day 2. Acute metabolic Encephalopathy- resolved 3. Exacerbation of IPF- resolving - Follows with Pulm as outpatient - Continue steroid taper and nebs 4. Hypothyroidism -Continue home meds 5. Dyslipidemia -Continue home meds 6. Disposition - Family not comfortably taking patient home and requesting transfer to [facility]. [place] evaluation placed as well - Per Daughter, Dr. Martino will work on getting patient to [facility] - continue steroid taper Result Diagram: 05/03/18 0959 05/04/18 0840 Subjective 24 Hr Interval Summary Free Text/Dictation Patient doing well this am but fatigued. daughter at bedside. Patient only slept 2 hours overnight due to issues with BIPAP mask. Exam/Review of Systems Exam Vitals Vital Signs Date Temp Pulse Resp B/P (MAP) Pulse Ox O2 O2 Flow FiO2 Time Delivery Rate 05/06/18 76 20 98 Nasal 3.0 08:36 Cannula 05/06/18 98.2 156/70 07:48 (98) 05/06/18 30 05:40 Intake and Output 05/05/18 05/05/18 05/06/18 1515:00 23:00 07:00 IntakeIntake Total 480 ml 650 ml OutputOutput Total 550 ml 600 ml BalanceBalance -70 ml 50 ml Exam General: Patient is laying in bed, no acute distress Respiratory: Diminished breath sounds. no wheezing Cardiovascular: regular rate and rhythm, no obvious murmurs Gastrointestinal: soft, non-tender to palpation, bowel sounds heard. Neurological: Moves all extremities spontaneously Skin: No new skin lesions Medications Medication Current Medications IV Flush (NS 3 ml) 3 ml PER PROTOCOL IV ; Start 04/27/18 at 03:00 Ondansetron HCl (Zofran Inj) 4 mg Q6H PRN IV NAUSEA/VOMITING; Start 04/27/18 at 03:00 Acetaminophen (Tylenol Tab) 650 mg Q6H PRN PO .PAIN 1-3 OR TEMP; Start 04/27/18 at 03:00 Aspirin (Ecotrin) 325 mg DAILY PO Last administered on 05/05/18 09:17; Admin Dose 325 MG; Start 04/27/18 at 09:00 Albuterol/ Ipratropium (Duoneb) 3 ml Q6H RESP THERAPY INH Last administered on 05/06/18 08:26; Admin Dose 3 ML; Start 04/27/18 at 08:00 Levothyroxine Sodium (Synthroid) 88 mcg BEFORE BREAKFAST PO Last administered on 05/06/18 05:27; Admin Dose 88 MCG; Start 04/27/18 at 07:00 Atorvastatin Calcium (Lipitor) 10 mg DAILY@21 PO Last administered on 05/05/18 20:46; Admin Dose 10 MG; Start 04/27/18 at 21:00 Albuterol/ Ipratropium (Duoneb) 3 ml Q2H RESP THERAPY PRN HHN shortness of breath; Start 04/27/18 at 10:00 Enoxaparin Sodium (Lovenox) 40 mg DAILY SC Last administered on 05/05/18 09:23; Admin Dose 40 MG; Start 04/28/18 at 09:00 Budesonide (Pulmicort (Neb)) 0.5 mg BID RESP THERAPY INH Last administered on 05/06/18 08:25; Admin Dose 0.5 MG; Start 04/29/18 at 09:00 Hydralazine HCl (Apresoline) 10 mg Q4H PRN IV SBP >160 Last administered on 05/02/18 18:50; Admin Dose 10 MG; Start 05/01/18 at 13:00 Polyethylene Glycol (Miralax) 17 gm DAILY PO Last administered on 05/05/18 09:25; Admin Dose 17 GM; Start 05/02/18 at 10:30 Docusate Sodium (Colace) 100 mg BID PRN PO CONSTIPATION; Start 05/02/18 at 10:30 Calcium/Vitamin D (Oyster Shell/ Vit-D (500/200)) 1 tab BID PO Last administered on 05/05/18 20:46; Admin Dose 1 TAB; Start 05/03/18 at 21:00 Methylprednisolone Sodium Succinate (Solu-Medrol) 40 mg BID IV ; Start 05/06/18 at 09:00 KALEB JAIMES MD May 06, 2018 09:21
[2018-05-06] MEDS ORDERED: POTASSIUM CHLORIDE (SR) 20 MEQ TAB PO STA (09:49)
[2018-05-06] MEDS: METHYLPREDNISOLONE 40 MG INJ IV SCH ×2 (10:00→20:41)
[2018-05-06] MEDS: POLYETHYLENE GLYCOL 17 GM PACKET PO SCH (10:00)
[2018-05-06] MEDS ORDERED: SOD CHLORIDE 0.9% 1,000 ML IV ONE (10:00)
[2018-05-06] MEDS: ASPIRIN (EC) 325 MG TAB PO SCH (10:01)
[2018-05-06] MEDS: CALCIUM/VITAMIN D (500/200) TAB PO SCH ×2 (10:01→20:41)
[2018-05-06] MEDS: ENOXAPARIN 40 MG/0.4 ML SYG SC SCH (10:02)
--- NOTE | 2018-05-06 10:42 | PN ---
DATE: 05/06/2018 SUBJECTIVE: The patient is stable, no events overnight. OBJECTIVE: VITAL SIGNS: Blood pressure is 156/70, pulse 76, respiratory rate 20, temperature 98.2. HEENT: Head is normocephalic. NECK: Supple. HEART: Regular rate. LUNGS: Show diminished breath sounds at the base. ABDOMEN: Soft, nontender to palpation. No rebound or guarding. EXTREMITIES: Negative for clubbing, cyanosis, no edema. DERMATOLOGIC: No rashes. MUSCULOSKELETAL: No joint effusions. NEUROLOGIC: No change in exam. MEDICATIONS: The patient's medications have been reviewed. LABORATORY DATA: On 05/04 was reviewed. ASSESSMENT AND PLAN: 1. Hyponatremia. 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 The patient's sodium levels have stabilized. Continue free water restriction. 2. Hypokalemia. Continue to monitor and replete. 3. Respiratory acidosis with metabolic compensation. 4. Anemia. Monitor hemoglobin and hematocrit levels. 5. Hypoxemic hypercapnic respiratory failure secondary to pulmonary fibrosis, pneumonia. Continue B iPAP, antibiotic and steroids. 6. Hypothyroidism. Continue Synthroid. 7. Dyslipidemia. Continue statin therapy. 8. Encephalopathy, etiology is toxic metabolic. Dictated By: GABO DURAN DO NR/NTS Conf#: [id number] DID#: [id number] CC: SOO FERRARA MD; KALEB JAIMES MD; RICHARDSON BROWN MD;*End*
--- NOTE | 2018-05-06 15:48 | CONS ---
Consult Date/Type/Reason Admit Date/Time Apr 27, 2018 at 02:15 Initial Consult Date Type of Consultation: Pulm/CCM Date/Time of Note DATE: 05/06/18 TIME: 15:47 Subjective No events. Back to baseline oxygen requirements. Objective Vitals Vital Signs Date Temp Pulse Resp B/P (MAP) Pulse Ox O2 O2 Flow FiO2 Time Delivery Rate 05/06/18 71 20 98 Nasal 3.0 13:37 Cannula 05/06/18 97.6 146/70 11:50 (95) 05/06/18 30 05:40 Intake and Output 05/05/18 05/05/18 05/06/18 1515:00 23:00 07:00 IntakeIntake Total 480 ml 650 ml OutputOutput Total 550 ml 600 ml BalanceBalance -70 ml 50 ml Exam HEENT: Neck supple; no JVD; no LAD CVS: RRR, S1 and S2 CHEST: Bibasilar fine rales ABD: Soft, NT, + BS EXT: No c/c/e Results/Medications Result Diagram: 05/03/18 0959 05/04/18 0840 Home Meds Reported Medications Formoterol Fumarate (Perforomist) 20 Mcg/2 Ml Vial.neb, 20 MCG INHALATION BID, VIAL 03/28/18 Ipratropium Oden (Ipratropium Oden) 5 Gm Powder, 10.5 MG MC BID 03/28/18 Ipratropium-Albuterol (Ipratropium-Albuterol) 0.5-3 Mg/3 Ml Ampul.neb, 3 ML INHALATION Q6, #30 VIAL 03/28/18 Budesonide* (Budesonide*) 0.25 Mg/2 Ml Ampul.neb, 0.25 MG INHALATION BID, AMP 03/28/18 Cholecalciferol* (Vitamin D3*) 1,000 Unit Tablet, 1000 UNIT PO DAILY, TAB 03/28/18 Simvastatin* (Zocor*) 20 Mg Tablet, 20 MG PO QHS, #30 TAB 03/28/18 Aspirin* (Aspirin* EC) 325 Mg Tab, 325 MG PO DAILY, TAB 03/28/18 Levothyroxine Sodium* (Levothyroxine Sodium*) 88 Mcg Tablet, 88 MCG PO BEFORE BREAKFAST, #30 TAB 03/28/18 Medications Current Medications IV Flush (NS 3 ml) 3 ml PER PROTOCOL IV ; Start 3/15/19 at 03:00 Ondansetron HCl (Zofran Inj) 4 mg Q6H PRN IV NAUSEA/VOMITING; Start 04/27/18 at 03:00 Acetaminophen (Tylenol Tab) 650 mg Q6H PRN PO .PAIN 1-3 OR TEMP; Start 04/27/18 at 03:00 Aspirin (Ecotrin) 325 mg DAILY PO Last administered on 05/06/18 10:01; Admin Dose 325 MG; Start 04/27/18 at 09:00 Albuterol/ Ipratropium (Duoneb) 3 ml Q6H RESP THERAPY INH Last administered on 05/06/18 13:28; Admin Dose 3 ML; Start 04/27/18 at 08:00 Levothyroxine Sodium (Synthroid) 88 mcg BEFORE BREAKFAST PO Last administered on 05/06/18 05:27; Admin Dose 88 MCG; Start 04/27/18 at 07:00 Atorvastatin Calcium (Lipitor) 10 mg DAILY@21 PO Last administered on 05/05/18 20:46; Admin Dose 10 MG; Start 04/27/18 at 21:00 Albuterol/ Ipratropium (Duoneb) 3 ml Q2H RESP THERAPY PRN HHN shortness of breath; Start 04/27/18 at 10:00 Enoxaparin Sodium (Lovenox) 40 mg DAILY SC Last administered on 05/06/18 10:02; Admin Dose 40 MG; Start 04/28/18 at 09:00 Budesonide (Pulmicort (Neb)) 0.5 mg BID RESP THERAPY INH Last administered on 05/06/18 08:25; Admin Dose 0.5 MG; Start 04/29/18 at 09:00 Hydralazine HCl (Apresoline) 10 mg Q4H PRN IV SBP >160 Last administered on 05/02/18 18:50; Admin Dose 10 MG; Start 05/01/18 at 13:00 Polyethylene Glycol (Miralax) 17 gm DAILY PO Last administered on 05/06/18 10:00; Admin Dose 17 GM; Start 05/02/18 at 10:30 Docusate Sodium (Colace) 100 mg BID PRN PO CONSTIPATION; Start 05/02/18 at 10:30 Calcium/Vitamin D (Oyster Shell/ Vit-D (500/200)) 1 tab BID PO Last administered on 05/06/18at 10:01; Admin Dose 1 TAB; Start 05/03/18 at 21:00 Methylprednisolone Sodium Succinate (Solu-Medrol) 40 mg BID IV Last administered on 05/06/18at 10:00; Admin Dose 40 MG; Start 05/06/18 at 09:00 Assessment/Plan Assessment/Plan (Daily) IMP: 1. 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 Acute exacerbation of IPF 3. Hyponatremia 4. Anemia 5. G+ cocci bacteremia 6. Encephalopathy RECS: 1. Continue CS taper 2. Titrate FiO2 to SpO2 88-92% 3. Am labs SKYLA DODSON MD May 06, 2018 15:48
[2018-05-06] MEDS: ATORVASTATIN 10 MG TAB PO SCH (20:41)
[2018-05-07] VITALS (15 sets, daily range): BP systolic 128–141; BP diastolic 59–68; PULSE 66–83; RESP 16–18
[2018-05-07] MEDS: ALBUTEROL/IPRATROPIUM (NEB) 3 ML AMP INH SCH ×4 (02:25→21:05)
[2018-05-07] MEDS: LEVOTHYROXINE 88 MCG TAB PO SCH (08:17)
[2018-05-07] MEDS: ASPIRIN (EC) 325 MG TAB PO SCH (08:17)
[2018-05-07] MEDS: CALCIUM/VITAMIN D (500/200) TAB PO SCH ×2 (08:17→20:48)
[2018-05-07] MEDS: METHYLPREDNISOLONE 40 MG INJ IV SCH (08:18)
[2018-05-07] MEDS: POLYETHYLENE GLYCOL 17 GM PACKET PO SCH (08:18)
[2018-05-07] MEDS: BALSAM PERU/CASTOR OIL 60 GM TUBE TOP SCH ×2 (08:19→20:48)
[2018-05-07] MEDS: ENOXAPARIN 40 MG/0.4 ML SYG SC SCH (08:38)
--- NOTE | 2018-05-07 09:05 | PN ---
DATE: 05/07/2018 SUBJECTIVE: The patient is stable. No events overnight. OBJECTIVE: VITAL SIGNS: Blood pressure is 139/66, pulse 66, respirations 16, temperature 98.4. HEENT: Head is normocephalic. NECK: Supple. HEART: Regular rate. LUNGS: Show diminished breath sounds at the base. ABDOMEN: Soft, nontender to palpation. No rebound or guarding. EXTREMITIES: Negative for clubbing, cyanosis, no edema. DERMATOLOGIC: No rashes. MUSCULOSKELETAL: No joint effusion. NEUROLOGIC: No change in exam. MEDICATIONS: Reviewed. LABORATORY DATA: Reviewed. ASSESSMENT AND PLAN: 1. 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 Sodium levels have be en improving. Continue free water restriction. 2. Hypokalemia. Continue to monitor and replete as needed. 3. Respiratory acidosis with metabolic compensation. 4. Anemia. Continue to monitor hemoglobin and hematocrit levels. 5. Hypoxemic hypercapnic respiratory failure secondary to pulmonary fibrosis, pneumonia. Continue B iPAP. 6. Hypothyroidism. Continue Synthroid. 7. Dyslipidemia. Continue statin therapy. 8. Encephalopathy, etiology is toxic metabolic. Dictated By: GABO DURAN DO NR/NTS Conf#: [id number] DID#: [id number] CC: KALEB JAIMES MD; SOO FERRARA MD; RICHARDSON BROWN MD;*End*
[2018-05-07] MEDS: BUDESONIDE (NEB) 0.5MG/2ML AMP INH SCH ×2 (09:28→21:04)
--- NOTE | 2018-05-07 10:56 | CONS ---
Assessment/Plan Assessment/Plan Assessment/Plan (Daily) Assessment and recommendations; 1. Patient admitted for IPF exacerbation with significant interval improvement. Doing fairly well on 3 L nasal cannula. 2. Status post treatment for presumed pneumonia. 3. Coagulase negative staph aureus bacteremia likely skin contaminant, patient now off antibiotics with the most recent cultures been negative. 4. History of hypothyroidism. 5. Chronic type II respiratory failure with significant hypercapnia which is partly compensated. Continue current supportive care. Consider discharge. Patient will need to have home BiPAP. Consultation Date/Type/Reason Admit Date/Time Apr 27, 2018 at 02:15 Initial Consult Date Type of Consult Pulmonary Patient's condition is continually improving. Wean down to 3 L nasal cannula with adequate O2 saturation. Patient denies any coughing, wheezing, any shortness of breath at rest. General exam; elderly woman, awake and alert. Currently no distress. Date/Time of Note DATE: 05/07/18 TIME: 10:53 24 HR Interval Summary Free Text/Dictation Patient's condition is stable. Doing fairly well on 3 L nasal cannula. General exam; elderly woman, awake alert, currently no distress. Exam/Review of Systems Exam Vitals Vital Signs Date Temp Pulse Resp B/P (MAP) Pulse Ox O2 O2 Flow FiO2 Time Delivery Rate 05/07/18 3.0 09:31 05/07/18 71 20 100 Nasal 09:30 Cannula 05/07/18 98.4 139/66 07:36 (90) 05/07/18 30 05:10 Intake and Output 05/06/18 05/06/18 05/07/18 1515:00 23:00 07:00 IntakeIntake Total 200 ml OutputOutput Total 1100 ml 900 ml BalanceBalance -1100 ml -700 ml Exam HEENT exam; supple neck, no JVD. No lymphadenopathy. Midline trachea. No thyromegaly. No neck masses. Chest exam; diminished breath sounds bilaterally with scattered crackles. S1-S2 audible, no murmurs. Regular rhythm. Abdomen exam; soft, nondistended. No organomegaly. Bowel sounds audible. Extremity exam; no peripheral edema clubbing. [employer] exam; no focal deficit. Results Result Diagram: 05/07/18 0734 05/07/18 0734 Results 24hrs Laboratory Tests Test 05/07/18 07:34 White Blood Count 8.9 # Red Blood Count 4.17 L Hemoglobin 11.5 L Hematocrit 35.9 L Mean Corpuscular Volume 86.1 Mean Corpuscular Hemoglobin 27.6 L Mean Corpuscular Hemoglobin Concent 32.0 Red Cell Distribution Width 13.6 Platelet Count 287 Mean Platelet Volume 10.0 Immature Granulocytes % 0.800 H Neutrophils % 86.2 H Lymphocytes % 6.7 L Monocytes % 6.1 Eosinophils % 0.0 Basophils % 0.2 Nucleated Red Blood Cells % 0.0 Immature Granulocytes # 0.070 H Neutrophils # 7.7 H Lymphocytes # 0.6 L Monocytes # 0.5 Eosinophils # 0.0 Basophils # 0.0 Nucleated Red Blood Cells # 0.0 Sodium Level 131 L Potassium Level 5.1 Chloride Level 87 L Carbon Dioxide Level 40 H Anion Gap 4 L Blood Urea Nitrogen 19 Creatinine 0.47 Est Glomerular Filtrat Rate mL/min Glucose Level 110 Calcium Level 8.8 Phosphorus Level 4.2 Magnesium Level 2.2 Medications Medication Current Medications IV Flush (NS 3 ml) 3 ml PER PROTOCOL IV ; Start 04/27/18 at 03:00 Ondansetron HCl (Zofran Inj) 4 mg Q6H PRN IV NAUSEA/VOMITING; Start 04/27/18 at 03:00 Acetaminophen (Tylenol Tab) 650 mg Q6H PRN PO .PAIN 1-3 OR TEMP; Start 04/27/18 at 03:00 Aspirin (Ecotrin) 325 mg DAILY PO Last administered on 05/07/18at 08:17; Admin Dose 325 MG; Start 04/27/18 at 09:00 Albuterol/ Ipratropium (Duoneb) 3 ml Q6H RESP THERAPY INH Last administered on 05/07/18at 09:27; Admin Dose 3 ML; Start 04/27/18 at 08:00 Levothyroxine Sodium (Synthroid) 88 mcg BEFORE BREAKFAST PO Last administered on 05/07/18 08:17; Admin Dose 88 MCG; Start 04/27/18 at 07:00 Atorvastatin Calcium (Lipitor) 10 mg DAILY@21 PO Last administered on 05/06/18at 20:41; Admin Dose 10 MG; Start 04/27/18 at 21:00 Albuterol/ Ipratropium (Duoneb) 3 ml Q2H RESP THERAPY PRN HHN shortness of breath; Start 3/15/19 at 10:00 Enoxaparin Sodium (Lovenox) 40 mg DAILY SC Last administered on 05/07/18 08:38; Admin Dose 40 MG; Start 04/28/18 at 09:00 Budesonide (Pulmicort (Neb)) 0.5 mg BID RESP THERAPY INH Last administered on 05/07/18 09:28; Admin Dose 0.5 MG; Start 04/29/18 at 09:00 Hydralazine HCl (Apresoline) 10 mg Q4H PRN IV SBP >160 Last administered on 05/02/18 18:50; Admin Dose 10 MG; Start 05/01/18 at 13:00 Polyethylene Glycol (Miralax) 17 gm DAILY PO Last administered on 05/07/18 08:18; Admin Dose 17 GM; Start 05/02/18 at 10:30 Docusate Sodium (Colace) 100 mg BID PRN PO CONSTIPATION; Start 05/02/18 at 10:30 Calcium/Vitamin D (Oyster Shell/ Vit-D (500/200)) 1 tab BID PO Last administere d on 05/07/18 08:17; Admin Dose 1 TAB; Start 05/03/18 at 21:00 Methylprednisolone Sodium Succinate (Solu-Medrol) 40 mg BID IV Last administered on 05/07/18 08:18; Admin Dose 40 MG; Start 05/06/18 at 09:00 RAJESH BASS 25, 2019 10:56
--- NOTE | 2018-05-07 16:13 | PN ---
Date/Time of Note Date/Time of Note DATE: 05/07/18 TIME: 16:12 Objective Vitals Vital Signs Date Temp Pulse Resp B/P (MAP) Pulse Ox O2 O2 Flow FiO2 Time Delivery Rate 05/07/18 76 16:04 05/07/18 98.1 18 128/59 96 Mechanical 15:20 (82) Ventilator 05/07/18 3.0 13:28 05/07/18 30 05:10 Intake and Output 05/06/18 05/06/18 05/07/18 1515:00 23:00 07:00 IntakeIntake Total 200 ml OutputOutput Total 1100 ml 900 ml BalanceBalance -1100 ml -700 ml Results Result Diagram: 05/07/18 0734 05/07/18 0734 Medications Medications Current Medications IV Flush (NS 3 ml) 3 ml PER PROTOCOL IV ; Start 04/27/18 at 03:00 Ondansetron HCl (Zofran Inj) 4 mg Q6H PRN IV NAUSEA/VOMITING; Start 04/27/18 at 03:00 Acetaminophen (Tylenol Tab) 650 mg Q6H PRN PO .PAIN 1-3 OR TEMP; Start 04/27/18 at 03:00 Aspirin (Ecotrin) 325 mg DAILY PO Last administered on 05/07/18 08:17; Admin Dose 325 MG; Start 04/27/18 at 09:00 Albuterol/ Ipratropium (Duoneb) 3 ml Q6H RESP THERAPY INH Last administered on 05/07/18 13:25; Admin Dose 3 ML; Start 04/27/18 at 08:00 Levothyroxine Sodium (Synthroid) 88 mcg BEFORE BREAKFAST PO Last administered on 05/07/18 08:17; Admin Dose 88 MCG; Start 04/27/18 at 07:00 Atorvastatin Calcium (Lipitor) 10 mg DAILY@21 PO Last administered on 05/06/18at 20:41; Admin Dose 10 MG; Start 04/27/18 at 21:00 Albuterol/ Ipratropium (Duoneb) 3 ml Q2H RESP THERAPY PRN HHN shortness of breath; Start 04/27/18 at 10:00 Enoxaparin Sodium (Lovenox) 40 mg DAILY SC Last administered on 05/07/18at 08:38; Admin Dose 40 MG; Start 04/28/18 at 09:00 Budesonide (Pulmicort (Neb)) 0.5 mg BID RESP THERAPY INH Last administered on 05/07/18at 09:28; Admin Dose 0.5 MG; Start 04/29/18 at 09:00 Hydralazine HCl (Apresoline) 10 mg Q4H PRN IV SBP >160 Last administered on 05/02/18at 18:50; Admin Dose 10 MG; Start 05/01/18 at 13:00 Polyethylene Glycol (Miralax) 17 gm DAILY PO Last administered on 05/07/18at 08:18; Admin Dose 17 GM; Start 05/02/18 at 10:30 Docusate Sodium (Colace) 100 mg BID PRN PO CONSTIPATION; Start 05/02/18 at 10:30 Calcium/Vitamin D (Oyster Shell/ Vit-D (500/200)) 1 tab BID PO Last administered on 05/07/18 08:17; Admin Dose 1 TAB; Start 05/03/18 at 21:00 Prednisone (Prednisone) 30 mg DAILY PO ; Start 05/08/18 at 09:00 VTE Prophylaxis Risk score (from Ns)>0 risk: 7 SCD applied (from Ns): Yes Pharmacological prophylaxis: other Lines/Catheters IV Catheter Type: Rajan in Place: No Assessment/Plan Hospital Course Subjective Patient doing well, alert, on nasal cannula Objective Physical exam General: Patient is laying in bed and answers questions appropriately Mentation: Patient is alert and oriented 4, Head: Normocephalic atraumatic Eyes: EOMI, pupils reactive to light Neck: Supple, nontender, midline Respiratory: Mildly coarse to auscultation bilaterally Cardiovascular: regular rate, no obvious murmurs Gastrointestinal: non-tender to palpation, bowel sounds heard. Neurological: Moves all extremities spontaneously Skin: No new skin lesions Assessment/Plan 1. Acute hypoxic and hypercapnic respiratory failure- stable - Patient appears back to baseline respiratory status de paz. - Pulm on board and appreciate recommendations. Plans for further steroid taper as tolerated - BIPAP qhs and NC during the day 2. Acute metabolic Encephalopathy- resolved 3. Exacerbation of IPF- resolving - Follows with Pulm as outpatient - Continue steroid taper and nebs 4. Hypothyroidism -Continue home meds 5. Dyslipidemia -Continue home meds 6. Disposition - Family not comfortably taking patient home and requesting transfer to [facility] evaluation placed as well - Per Daughter, Dr. Martino will work on getting patient to [facility] - continue steroid taper -Spoke with daughter, POA at bedside, patient is full code at the moment, intubation will be on a case by case basis will need to confirm with daughter before elective intubation. MERNA BLAKE May 07, 2018 16:13
[2018-05-07] MEDS: ATORVASTATIN 10 MG TAB PO SCH (20:48)
[2018-05-08] VITALS (13 sets, daily range): BP systolic 125–149; BP diastolic 58–65; PULSE 67–92; RESP 18
[2018-05-08] MEDS: ALBUTEROL/IPRATROPIUM (NEB) 3 ML AMP INH SCH ×4 (01:43→20:02)
[2018-05-08] MEDS: LEVOTHYROXINE 88 MCG TAB PO SCH (08:30)
[2018-05-08] MEDS: CALCIUM/VITAMIN D (500/200) TAB PO SCH ×2 (08:30→20:50)
[2018-05-08] MEDS: POLYETHYLENE GLYCOL 17 GM PACKET PO SCH (08:30)
[2018-05-08] MEDS: ASPIRIN (EC) 325 MG TAB PO SCH (08:31)
[2018-05-08] MEDS: BALSAM PERU/CASTOR OIL 60 GM TUBE TOP SCH ×2 (08:31→20:51)
[2018-05-08] MEDS: ENOXAPARIN 40 MG/0.4 ML SYG SC SCH (08:45)
[2018-05-08] MEDS: predniSONE 10 MG TAB PO SCH (08:53)
--- NOTE | 2018-05-08 09:16 | PN ---
DATE: 05/08/2018 SUBJECTIVE: The patient remains stable. No events overnight. OBJECTIVE: VITAL SIGNS: Blood pressure is 125/60, pulse 73, respirations 18, temperature 97.9. HEENT: Head is normocephalic. NECK: Supple. HEART: Regular rate. LUNGS: Show diminished breath sounds at the base. ABDOMEN: Soft, nontender to palpation without rebound or guarding. EXTREMITIES: Negative for clubbing, cyanosis, no edema. DERMATOLOGIC: No rashes. MUSCULOSKELETAL: No joint effusion. NEUROLOGIC: No change in exam. MEDICATIONS: Reviewed. LABORATORY DATA: From 05/07/2018 was reviewed. Laboratory data from 05/08/2018 is pending. ASSESSMENT AND PLAN: 1. Hyponatremia. Etiology is felt to be secondary to syndrome of inappropriate antidiuretic hormone . Sodium levels have been fluctuating. Continue free water restriction, no more than 800 mL daily. Continue to encourage p.o. intake. 2. Hypokalemia, improved. 3. Respiratory acidosis with metabolic compensation. 4. Anemia. Continue to monitor hemoglobin and hematocrit levels. 5. Hypoxemic hypercapnic respiratory failure secondary to pulmonary fibrosis and pneumonia. Continu e BiPAP. Continue steroids being titrated down. Follow up with pulmonary. 6. Hypothyroidism. Continue Synthroid. 7. Dyslipidemia . Continue statin therapy. 8. Encephalopathy, etiology is toxic metabolic. Dictated By: GABO DURAN DO NR/NTS Conf#: [id number] DID#: [id number] CC: MERNA BLAKE MD; SOO FERRARA MD; RICHARDSON BROWN MD;*EndCC*
[2018-05-08] MEDS: BUDESONIDE (NEB) 0.5MG/2ML AMP INH SCH ×2 (09:24→20:02)
--- NOTE | 2018-05-08 10:56 | CONS ---
Assessment/Plan Assessment/Plan Assessment/Plan (Daily) Assessment and recommendations; 1. Patient admitted for IPF exacerbation with interval improvement. 2. Chronic severe hypercapnic respiratory failure Continue current supportive care. Consider discharge to senior care. Maintain current steroid dosing. Overall prognosis is poor. Consultation Date/Type/Reason Admit Date/Time Apr 27, 2018 at 02:15 Initial Consult Date Type of Consult Pulmonary Patient's condition is continually improving. Wean down to 3 L nasal cannula with adequate O2 saturation. Patient denies any coughing, wheezing, any shortness of breath at rest. General exam; elderly woman, awake and alert. Currently no distress. Date/Time of Note DATE: 05/08/18 TIME: 10:54 24 HR Interval Summary Free Text/Dictation Patient's condition is stable. Remains awake and alert. Doing fairly well on 3 L nasal cannula and nocturnal BiPAP. General exam; elderly female, awake and alert. Getting physical therapy. Currently no distress. Exam/Review of Systems Exam Vitals Vital Signs Date Temp Pulse Resp B/P (MAP) Pulse Ox O2 O2 Flow FiO2 Time Delivery Rate 05/08/18 82 20 98 Nasal 3.0 09:38 Cannula 05/08/18 97.9 125/60 07:28 (81) 05/08/18 30 01:45 Intake and Output 05/07/18 05/07/18 05/08/18 1515:00 23:00 07:00 IntakeIntake Total 920 ml OutputOutput Total 850 ml BalanceBalance 70 ml Exam HEENT exam; supple neck, no JVD. No lymphadenopathy. Midline trachea. No thyromegaly. Patient has multiple carious teeth. Chest exam; bilateral crackles. S1-S2 audible, no murmurs. Regular rhythm. Abdomen exam; soft, nondistended. Nontender. Bowel sounds audible. Extremity exam; no peripheral edema. [employer] exam; no focal deficit. Results Result Diagram: 05/08/18 0807 05/08/18 0807 Results 24hrs Laboratory Tests Test 05/08/18 08:07 White Blood Count 11.3 #H Red Blood Count 4.13 L Hemoglobin 11.3 L Hematocrit 36.2 L Mean Corpuscular Volume 87.7 Mean Corpuscular Hemoglobin 27.4 L Mean Corpuscular Hemoglobin Concent 31.2 L Red Cell Distribution Width 13.8 Platelet Count 310 Mean Platelet Volume 10.0 Immature Granulocytes % 1.100 H Neutrophils % 76.6 Lymphocytes % 11.4 L Monocytes % 10.0 Eosinophils % 0.6 Basophils % 0.3 Nucleated Red Blood Cells % 0.0 Immature Granulocytes # 0.120 H Neutrophils # 8.7 H Lymphocytes # 1.3 Monocytes # 1.1 H Eosinophils # 0.1 Basophils # 0.0 Nucleated Red Blood Cells # 0.0 Sodium Level 130 L Potassium Level 4.8 Chloride Level 84 L Carbon Dioxide Level 41 *H Anion Gap 5 Blood Urea Nitrogen 19 Creatinine 0.53 Est Glomerular Filtrat Rate mL/min Glucose Level 84 Calcium Level 8.6 Phosphorus Level 3.2 Magnesium Level 2.1 Medications Medication Current Medications IV Flush (NS 3 ml) 3 ml PER PROTOCOL IV ; Start 04/27/18 at 03:00 Ondansetron HCl (Zofran Inj) 4 mg Q6H PRN IV NAUSEA/VOMITING; Start 04/27/18 at 03:00 Acetaminophen (Tylenol Tab) 650 mg Q6H PRN PO .PAIN 1-3 OR TEMP; Start 04/27/18 at 03:00 Aspirin (Ecotrin) 325 mg DAILY PO Last administered on 05/08/18 08:31; Admin Dose 325 MG; Start 04/27/18 at 09:00 Albuterol/ Ipratropium (Duoneb) 3 ml Q6H RESP THERAPY INH Last administered on 05/08/18at 09:24; Admin Dose 3 ML; Start 04/27/18 at 08:00 Levothyroxine Sodium (Synthroid) 88 mcg BEFORE BREAKFAST PO Last administered on 05/08/18 08:30; Admin Dose 88 MCG; Start 04/27/18 at 07:00 Atorvastatin Calcium (Lipitor) 10 mg DAILY@21 PO Last administered on 05/07/18at 20:48; Admin Dose 10 MG; Start 04/27/18 at 21:00 Albuterol/ Ipratropium (Duoneb) 3 ml Q2H RESP THERAPY PRN HHN shortness of breath; Start 04/27/18 at 10:00 Enoxaparin Sodium (Lovenox) 40 mg DAILY SC Last administered on 05/08/18at 08:45; Admin Dose 40 MG; Start 04/28/18 at 09:00 Budesonide (Pulmicort (Neb)) 0.5 mg BID RESP THERAPY INH Last administered on 05/08/18 09:24; Admin Dose 0.5 MG; Start 04/29/18 at 09:00 Hydralazine HCl (Apresoline) 10 mg Q4H PRN IV SBP >160 Last administered on 05/02/18 18:50; Admin Dose 10 MG; Start 05/01/18 at 13:00 Polyethylene Glycol (Miralax) 17 gm DAILY PO Last administered on 05/08/18 08:30; Admin Dose 17 GM; Start 05/02/18 at 10:30 Docusate Sodium (Colace) 100 mg BID PRN PO CONSTIPATION; Start 05/02/18 at 10:30 Calcium/Vitamin D (Oyster Shell/ Vit-D (500/200)) 1 tab BID PO Last administered on 05/08/18 08:30; Admin Dose 1 TAB; Start 05/03/18 at 21:00 Prednisone (Prednisone) 30 mg DAILY PO Last administered on 05/08/18 08:53; Admin Dose 30 MG; Start 05/08/18 at 09:00 RAJESH BASS 26, 2019 10:56
--- NOTE | 2018-05-08 14:09 | PN ---
Date/Time of Note Date/Time of Note DATE: 05/08/18 TIME: 14:07 Objective Vitals Vital Signs Date Temp Pulse Resp B/P (MAP) Pulse Ox O2 O2 Flow FiO2 Time Delivery Rate 05/08/18 80 12:01 05/08/18 98.2 18 125/58 97 Nasal 11:30 (80) Cannula 05/08/18 3.0 09:38 05/08/18 30 01:45 Intake and Output 05/07/18 05/07/18 05/08/18 1515:00 23:00 07:00 IntakeIntake Total 920 ml OutputOutput Total 850 ml BalanceBalance 70 ml Results Result Diagram: 05/08/1807 05/08/1807 Medications Medications Current Medications IV Flush (NS 3 ml) 3 ml PER PROTOCOL IV ; Start 04/27/18 at 03:00 Ondansetron HCl (Zofran Inj) 4 mg Q6H PRN IV NAUSEA/VOMITING; Start 04/27/18 at 03:00 Acetaminophen (Tylenol Tab) 650 mg Q6H PRN PO .PAIN 1-3 OR TEMP; Start 04/27/18 at 03:00 Aspirin (Ecotrin) 325 mg DAILY PO Last administered on 05/08/18at 08:31; Admin Dose 325 MG; Start 04/27/18 at 09:00 Albuterol/ Ipratropium (Duoneb) 3 ml Q6H RESP THERAPY INH Last administered on 05/08/18at 09:24; Admin Dose 3 ML; Start 04/27/18 at 08:00 Levothyroxine Sodium (Synthroid) 88 mcg BEFORE BREAKFAST PO Last administered on 05/08/18at 08:30; Admin Dose 88 MCG; Start 04/27/18 at 07:00 Atorvastatin Calcium (Lipitor) 10 mg DAILY@21 PO Last administered on 05/07/18at 20:48; Admin Dose 10 MG; Start 04/27/18 at 21:00 Albuterol/ Ipratropium (Duoneb) 3 ml Q2H RESP THERAPY PRN HHN shortness of breath; Start 04/27/18 at 10:00 Enoxaparin Sodium (Lovenox) 40 mg DAILY SC Last administered on 05/08/18at 08:45; Admin Dose 40 MG; Start 04/28/18 at 09:00 Budesonide (Pulmicort (Neb)) 0.5 mg BID RESP THERAPY INH Last administered on 05/08/18 09:24; Admin Dose 0.5 MG; Start 04/29/18 at 09:00 Hydralazine HCl (Apresoline) 10 mg Q4H PRN IV SBP >160 Last administered on 05/02/18 18:50; Admin Dose 10 MG; Start 05/01/18 at 13:00 Polyethylene Glycol (Miralax) 17 gm DAILY PO Last administered on 05/08/18 08:30; Admin Dose 17 GM; Start 05/02/18 at 10:30 Docusate Sodium (Colace) 100 mg BID PRN PO CONSTIPATION; Start 05/02/18 at 10:30 Calcium/Vitamin D (Oyster Shell/ Vit-D (500/200)) 1 tab BID PO Last administered on 05/08/18 08:30; Admin Dose 1 TAB; Start 05/03/18 at 21:00 Prednisone (Prednisone) 30 mg DAILY PO Last administered on 05/08/18 08:53; Admin Dose 30 MG; Start 05/08/18 at 09:00 VTE Prophylaxis Risk score (from Ns)>0 risk: 9 SCD applied (from [facility] [place]): Yes Lines/Catheters IV Catheter Type: Rajan in Place: No Assessment/Plan Hospital Course Subjective Patient doing well, alert, on nasal cannula Objective Physical exam General: Patient is laying in bed and answers questions appropriately Mentation: Patient is alert and oriented 4, Head: Normocephalic atraumatic Eyes: EOMI, pupils reactive to light Neck: Supple, nontender, midline Respiratory: Mildly coarse to auscultation bilaterally Cardiovascular: regular rate, no obvious murmurs Gastrointestinal: non-tender to palpation, bowel sounds heard. Neurological: Moves all extremities spontaneously Skin: No new skin lesions Assessment/Plan 1. Acute hypoxic and hypercapnic respiratory failure- stable - Patient appears back to baseline respiratory status de paz. - Pulm on board and appreciate recommendations. Plans for further steroid taper as tolerated - BIPAP qhs and NC during the day 2. Acute metabolic Encephalopathy- resolved 3. Exacerbation of IPF- resolving - Follows with Pulm as outpatient - Continue steroid taper and nebs 4. Hypothyroidism -Continue home meds 5. Dyslipidemia -Continue home meds 6. Disposition - Family not comfortably taking patient home and requesting transfer to [facility]. Harper evaluation placed as well - continue steroid taper -likely harper transfer -Spoke with daughter, POA at bedside, patient is full code at the moment, intubation will be on a case by case basis will need to confirm with daughter before elective intubation. MERNA BLAKE May 08, 2018 14:08
[2018-05-08] MEDS: ATORVASTATIN 10 MG TAB PO SCH (20:51)
[2018-05-09] VITALS (16 sets, daily range): BP systolic 108–144; BP diastolic 57–94; PULSE 53–95; RESP 17–24
[2018-05-09] MEDS: ALBUTEROL/IPRATROPIUM (NEB) 3 ML AMP INH SCH ×4 (02:02→19:57)
[2018-05-09] MEDS: LEVOTHYROXINE 88 MCG TAB PO SCH (08:37)
[2018-05-09] MEDS: CALCIUM/VITAMIN D (500/200) TAB PO SCH ×2 (08:37→20:16)
[2018-05-09] MEDS: POLYETHYLENE GLYCOL 17 GM PACKET PO SCH (08:37)
[2018-05-09] MEDS: ASPIRIN (EC) 325 MG TAB PO SCH (08:37)
[2018-05-09] MEDS: BALSAM PERU/CASTOR OIL 60 GM TUBE TOP SCH ×2 (08:37→20:16)
[2018-05-09] MEDS: predniSONE 10 MG TAB PO SCH (08:37)
[2018-05-09] MEDS: ENOXAPARIN 40 MG/0.4 ML SYG SC SCH (08:46)
--- NOTE | 2018-05-09 08:50 | PN ---
DATE: 05/09/2018 SUBJECTIVE: The patient is stable, no events overnight. OBJECTIVE: VITAL SIGNS: Blood pressure is 144/68, temperature 97.8, pulse 82, respirations 20. HEENT: Head is normocephalic. NECK: Supple. HEART: Regular rate. LUNGS: Show diminished breath sounds at the base. ABDOMEN: Soft, nontender to palpation without rebound or guarding. EXTREMITIES: Negative for clubbing, cyanosis, no edema. DERMATOLOGIC: No rashes. MUSCULOSKELETAL: No joint effusion. NEUROLOGIC: No change in exam. LABORATORY DATA: From 05/08/2018 was reviewed. MEDICATIONS: The patient's medications have been reviewed. ASSESSMENT AND PLAN: 1. Hypernatremia, etiology is felt to be secondary to syndrome of inappropriate antidiuretic hormone . Sodium levels have been fluctuating. Continue free water restriction, continue to encourage high osmolar diet. Monitor sodium levels closely. 2. Hypokalemia, improved. 3. Mixed acid base disorder. The patient has a respiratory acidosis and metabolic alkalosis. We wi ll continue to monitor. May consider Diamox. 4. Anemia. Continue to monitor hemoglobin and hematocrit levels. 5. Hypoxemic hypercapnic respiratory failure Secondary to pulmonary fibrosis, pneumonia. Continue B iPAP. Continue steroids. Follow up with pulmonary. 6. Hypothyroidism. Continue Synthroid. 7. Dyslipidemia. Continue statin therapy. 8. Encephalopathy, etiology is toxic metabolic. Dictated By: GABO DURAN DO NR/NTS Conf#: [id number] DID#: [id number] CC: MERNA BLAKE MD; SOO FERRARA MD; RICHARDSON BROWN MD;*End*
[2018-05-09] MEDS: BUDESONIDE (NEB) 0.5MG/2ML AMP INH SCH ×2 (08:52→19:57)
--- NOTE | 2018-05-09 10:48 | CONS ---
Assessment/Plan Assessment/Plan Assessment/Plan (Daily) Assessment recommendations; 1. Patient admitted with IPF exacerbation with marked overall interval improvement. 2. Status post treatment for presumed pneumonia. Acute pneumonia difficult to make out on a background of IPF. Patient off antibiotics now. 3. Severe chronic hypoxemic and hypercapnic respiratory failure, maintained on nocturnal BiPAP. Continue current supportive care. Wean down prednisone to 20 mg as a maintenance dose. Patient's daughter is currently being trained on home ve ntilator use. Patient will be discharged once the family is trained. Consultation Date/Type/Reason Admit Date/Time Apr 27, 2018 at 02:15 Initial Consult Date Type of Consult Pulmonary Patient's condition is continually improving. Wean down to 3 L nasal cannula with adequate O2 saturation. Patient denies any coughing, wheezing, any shortness of breath at rest. General exam; elderly woman, awake and alert. Currently no distress. Date/Time of Note DATE: 05/09/18 TIME: 10:46 24 HR Interval Summary Free Text/Dictation Patient's condition is stable. Remains completely awake and alert. Doing very well on 3 L nasal cannula. On nocturnal BiPAP. General exam; elderly female, awake and alert. Currently in no distress. Exam/Review of Systems Exam Vitals Vital Signs Date Temp Pulse Resp B/P (MAP) Pulse Ox O2 O2 Flow FiO2 Time Delivery Rate 05/09/18 82 08:01 05/09/18 98.8 18 135/61 99 08:00 (85) 05/09/18 Nasal 07:54 Cannula 05/09/18 3.0 07:47 05/09/18 30 03:40 Intake and Output 05/08/18 05/08/18 05/09/18 1515:00 23:00 07:00 IntakeIntake Total 420 ml 60 ml OutputOutput Total 900 ml 600 ml 1200 ml BalanceBalance -900 ml -180 ml -1140 ml Exam H EENT exam; supple neck, no JVD. No lymphadenopathy. Midline trachea. No thyromegaly. No neck masses. Chest exam; diminished breath sounds bilaterally with minimal crackles. S1-S2 audible, no murmurs. Abdomen exam; soft, nontender. No organomegaly. Bowel sounds audible. Extremity exam; peripheral edema clubbing. GLAZE HANDLER exam; no focal deficit. Results Result Diagram: 05/08/18 0807 05/08/18 0807 Results 24hrs Laboratory Tests Test 05/08/18 18:52 05/09/18 00:25 Troponin I 0.023 0.037 Medications Medication Current Medications IV Flush (NS 3 ml) 3 ml PER PROTOCOL IV ; Start 04/27/18 at 03:00 Ondansetron HCl (Zofran Inj) 4 mg Q6H PRN IV NAUSEA/VOMITING; Start 04/27/18 at 03:00 Acetaminophen (Tylenol Tab) 650 mg Q6H PRN PO .PAIN 1-3 OR TEMP; Start 04/27/18 at 03:00 Aspirin (Ecotrin) 325 mg DAILY PO Last administered on 05/09/18 08:37; Admin Dose 325 MG; Start 04/27/18 at 09:00 Albuterol/ Ipratropium (Duoneb) 3 ml Q6H RESP THERAPY INH Last administered on 05/09/18 08:52; Admin Dose 3 ML; Start 04/27/18 at 08:00 Levothyroxine Sodium (Synthroid) 88 mcg BEFORE BREAKFAST PO Last administered on 05/09/18 08:37; Admin Dose 88 MCG; Start 04/27/18 at 07:00 Atorvastatin Calcium (Lipitor) 10 mg DAILY@21 PO Last administered on 05/08/18 20:51; Admin Dose 10 MG; Start 04/27/18 at 21:00 Albuterol/ Ipratropium (Duoneb) 3 ml Q2H RESP THERAPY PRN HHN shortness of breath; Start 04/27/18 at 10:00 Enoxaparin Sodium (Lovenox) 40 mg DAILY SC Last administered on 05/09/18 08:46; Admin Dose 40 MG; Start 04/28/18 at 09:00 Budesonide (Pulmicort (Neb)) 0.5 mg BID RESP THERAPY INH Last administered on 05/09/18 08:52; Admin Dose 0.5 MG; Start 04/29/18 at 09:00 Hydralazine HCl (Apresoline) 10 mg Q4H PRN IV SBP >160 Last administered on 05/02/18 18:50; Admin Dose 10 MG; Start 05/01/18 at 13:00 Polyethylene Glycol (Miralax) 17 gm DAILY PO Last administered on 05/09/18 08:37; Admin Dose 17 GM; Start 05/02/18 at 10:30 Docusate Sodium (Colace) 100 mg BID PRN PO CONSTIPATION; Start 05/02/18 at 10:30 Calcium/Vitamin D (Oyster Shell/ Vit-D (500/200)) 1 tab BID PO Last administered on 05/09/18at 08:37; Admin Dose 1 TAB; Start 05/03/18 at 21:00 Prednisone (Prednisone) 20 mg DAILY PO ; Start 05/10/18 at 09:00; Status RAJEHS SUTTON May 09, 2018 10:48
--- NOTE | 2018-05-09 14:33 | PN ---
Date/Time of Note Date/Time of Note DATE: 05/09/18 TIME: 14:31 Objective Vitals Vital Signs Date Temp Pulse Resp B/P (MAP) Pulse Ox O2 O2 Flow FiO2 Time Delivery Rate 05/09/18 91 12:01 05/09/18 98.6 20 108/59 96 Nasal 11:27 (75) Cannula 05/09/18 3.0 07:47 05/09/18 30 03:40 Intake and Output 05/08/18 05/08/18 05/09/18 1515:00 23:00 07:00 IntakeIntake Total 420 ml 60 ml OutputOutput Total 900 ml 600 ml 1200 ml BalanceBalance -900 ml -180 ml -1140 ml Results Result Diagram: 05/09/18 1039 05/09/18 1039 Medications Medications Current Medications IV Flush (NS 3 ml) 3 ml PER PROTOCOL IV ; Start 04/27/18 at 03:00 Ondansetron HCl (Zofran Inj) 4 mg Q6H PRN IV NAUSEA/VOMITING; Start 04/27/18 at 03:00 Acetaminophen (Tylenol Tab) 650 mg Q6H PRN PO .PAIN 1-3 OR TEMP; Start 04/27/18 at 03:00 Aspirin (Ecotrin) 325 mg DAILY PO Last administered on 05/09/18at 08:37; Admin Dose 325 MG; Start 04/27/18 at 09:00 Albuterol/ Ipratropium (Duoneb) 3 ml Q6H RESP THERAPY INH Last administered on 05/09/18 08:52; Admin Dose 3 ML; Start 04/27/18 at 08:00 Levothyroxine Sodium (Synthroid) 88 mcg BEFORE BREAKFAST PO Last administered on 05/09/18 08:37; Admin Dose 88 MCG; Start 04/27/18 at 07:00 Atorvastatin Calcium (Lipitor) 10 mg DAILY@21 PO Last administered on 05/08/18at 20:51; Admin Dose 10 MG; Start 04/27/18 at 21:00 Albuterol/ Ipratropium (Duoneb) 3 ml Q2H RESP THERAPY PRN HHN shortness of breath; Start 04/27/18 at 10:00 Enoxaparin Sodium (Lovenox) 40 mg DAILY SC Last administered on 05/09/18at 08:46; Admin Dose 40 MG; Start 04/28/18 at 09:00 Budesonide (Pulmicort (Neb)) 0.5 mg BID RESP THERAPY INH Last administered on 05/09/18at 08:52; Admin Dose 0.5 MG; Start 04/29/18 at 09:00 Hydralazine HCl (Apresoline) 10 mg Q4H PRN IV SBP >160 Last administered on 05/02/18at 18:50; Admin Dose 10 MG; Start 05/01/18 at 13:00 Polyethylene Glycol (Miralax) 17 gm DAILY PO Last administered on 05/09/18at 08:37; Admin Dose 17 GM; Start 05/02/18 at 10:30 Docusate Sodium (Colace) 100 mg BID PRN PO CONSTIPATION; Start 05/02/18 at 10:30 Calcium/Vitamin D (Oyster Shell/ Vit-D (500/200)) 1 tab BID PO Last administered on 05/09/18at 08:37; Admin Dose 1 TAB; Start 05/03/18 at 21:00 Prednisone (Prednisone) 20 mg DAILY PO ; Start 05/10/18 at 09:00 Cefepime HCl 50 ml @ 100 mls/hr Q12 IVPB ; Start 05/09/18 at 14:30; Status UNV VTE Prophylaxis Risk score (from Ns)>0 risk: 7 SCD applied (from Ns): Yes Lines/Catheters IV Catheter Type: Rajan in Place: No Assessment/Plan Hospital Course Subjective Patient doing well, alert, on nasal cannula Objective Physical exam General: Patient is laying in bed and answers questions appropriately Mentation: Patient is alert and oriented 4, Head: Normocephalic atraumatic Eyes: EOMI, pupils reactive to light Neck: Supple, nontender, midline Respiratory: Mildly coarse to auscultation bilaterally Cardiovascular: regular rate, no obvious murmurs Gastrointestinal: non-tender to palpation, bowel sounds heard. Neurological: Moves all extremities spontaneously Skin: No new skin lesions Assessment/Plan 1. Acute hypoxic and hypercapnic respiratory failure- stable - Patient appears back to baseline respiratory status de paz. - Pulm on board and appreciate recommendations. Plans for further steroid taper as tolerated - BIPAP qhs and NC during the day, machine delivered at home, likely trilogy per pulmonology, arranged by patient's outpatient corporate relations manager UTI -Also with yeast, will start fluconazole and cefepime due to patient's long hospital stay as well as on prednisone -Infectious disease has been consulted Leukocytosis -Chest x-ray, UA, blood cultures done -UTI was positive, it antibiotics and antifungal started, infectious disease consulted 2. Acute metabolic Encephalopathy- resolved 3. Exacerbation of IPF- resolving - Follows with Pulm as outpatient - Continue steroid taper and nebs 4. Hypothyroidism -Continue home meds 5. Dyslipidemia -Continue home meds 6. Disposition -Treat UTI, infectious disease consultation pending -Continue steroids at 20 mg daily for now per pulmonology, patient will likely be discharged with this dose -Patient's family will need to know how to use trilogy machine at home before discharge. -Spoke with daughter, POA at bedside, patient is full code at the moment, intubation will be on a case by case basis will need to confirm with daughter before elective intubation. MERNA BLAKE May 09, 2018 14:33
[2018-05-09] MEDS: CEFEPIME 1GM/50 ML (PMX) 50 ML IVPB SCH (15:30)
[2018-05-09] MEDS: FLUCONAZOLE 100 MG/50 ML (PMX) 50 ML IVPB SCH (17:00)
--- NOTE | 2018-05-09 19:47 | CONS ---
DATE OF ADMISSION: 04/27/2018 DATE OF CONSULTATION: 05/09/2018 TYPE OF CONSULTATION: Infectious disease. REASON FOR CONSULTATION: Antibiotic management. HISTORY OF PRESENT ILLNESS: Sully Johnson is an 87-year-old female who was admitted on 0 04/27/2018 brought in by ambulance with shortness of breath, chronic cough and history of pulmonary fi brosis. The patient is on oxygen 24/7 for pulmonary fibrosis, has chronic cough. She was given some promethazine cough syrup on the evening of admission and she was difficult to arouse. She was there fore brought into the hospital. Her past problems include: 1. 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 2. Mild dementia. 3. Titanium implant of the right shoulder. 4. Hypertension. HOSPITAL COURSE: On admission, her white count was 6.4, H and H of 11.4 and 36, platelet count 263,0 00. BUN and creatinine is 16/0.50, glucose of 97, sodium of 119, potassium 5.7, chloride 77, CO2 of 39. Her white count is 6.4 and 75% neutrophils. The patient was started on vancomycin and cefepime. Chest x-ray showed increased interstitial prominence, nonspecific, could represent interstitial holley ma, viral infection and/or chronic lung changes, bilateral lower lung opacities, possibly representin g atelectasis or pneumonia, small to moderate left pleural effusion, enlarged cardiac silhouette and aortic atherosclerosis. The patient has some blood cultures and antibiotics were given in the hospit al. The patient was seen by numerous physicians including Dr. Mcmillan for hyponatremia related to pr obably inappropriate ADH, component of volume depletion, possible underlying serum inappropriate ADH due to chronic pulmonary fibrosis, hyperkalemia, alkalosis, dyslipidemia. The patient was placed on BiPAP and was seen by Dr. Hernández as well as Dr. Moreno. She has bibasilar fine inspiratory rales. On 05/04/2018, her white count was 7.2; overall improved. She had acute on chronic hypoxemic and h ypercapnic respiratory failure, acute exacerbation of interstitial pulmonary fibrosis. She also had Gram-positive cocci bacteremia which was secondary to Staph epidermidis. On 05/08/2018, she had card iomegaly with new moderate failure. Differential considerations include bilateral patchy pneumonia. She was seen again by Dr. David today and weaned down prednisone to 20 mg as maintenance dose, statu s post treatment for presumed pneumonia. She is currently on nocturnal BiPAP. PHYSICAL EXAMINATION: GENERAL: The patient is an elderly ill-appearing female who is awake, responsive, in no acute distre ss. SKIN: Without generalized rash. HEENT: Within normal limits. NECK: Supple. LYMPH NODES: None palpable. CHEST: Decreased breath sounds at the bases. HEART: Without murmur or gallop. ABDOMEN: Soft, nontender without organosplenomegaly or masses. EXTREMITIES: Without cyanosis, clubbing or edema. RECTAL AND GENITAL: Deferred. NEUROLOGIC: No focal neurological abnormalities. LABORATORY DATA: The patient with a sodium of 130 and 129 today. White count is up to 16.7. DIAGNOSTIC DATA: As noted, she has some minimal crackles at the bases. IMPRESSION AND PLAN: At this point in time, she is currently afebrile. We will observe her on curre nt therapy. If she spikes any fever or white count continues to climb, then we will restart her on a ntibiotics. In fact, she was restarted on cefepime today to which I concur. She is also on fluconaz ole, so she is back on fluconazole and cefepime in view of her elevated white count. I will dictate my findings to the hospitalist and to the aforementioned consultants. Dictated By: DEE THOMAS MD, JD/NTS Conf#: [id number] DID#: [id number] CC: MERNA BLAKE MD; SOO HERNÁNDEZ MD; RICHARDSON BROWN MD;*End*
[2018-05-09] MEDS: ATORVASTATIN 10 MG TAB PO SCH (20:16)
--- NOTE | 2018-05-09 23:14 | CONS ---
DATE OF ADMISSION: 04/27/2018 DATE OF CONSULTATION: 05/09/2018 TYPE OF CONSULTATION: Pulmonary. REASON FOR CONSULTATION: Abnormal echocardiogram concerning for ST elevation [place] as well as cardiac a rrhythmia concerning secondary to type 1. REQUESTING PHYSICIAN: Dr. Benitez from the hospitalist service. HISTORY OF PRESENT ILLNESS: Ms. Fierro is an 87-year-old female with a history of pulmonary fibr osis, hypothyroidism, dyslipidemia, dementia who presented with lethargy, altered mental state, short ness of breath. The patient upon arrival was found to have severe hypernatremia with a sodium of 119 , a potassium elevated at 5.7. The patient subsequently admitted to the hospital through the [facility] and treated with broad-spectrum antibiotics, bronchodilators. The patient underwent a 2D echo inte rpreted by another skinning machine feeder on the revealing an EF of 60% to 65% with RVSP elevated at 67. There is trace pulmonic, mitral and aortic regurgitation. The patient has been followed by the pulmo nologist as well as renal service for elevated sodium. The patient most recently has been to monitor and was thought to have telemetry monitoring, possible ST elevations and additionally was noted to h ave a cardiac arrhythmia concerning for secondary type 1. The patient at this time has not had any r ecurrence of arrhythmia. The patient does not clearly respond ask questions pertaining to chest pain , shortness of breath. PAST MEDICAL HISTORY: As above in HPI. MEDICATIONS: Currently in hospital: 1. Prednisone 2. Fluconazole. 3. Cefepime. 4. Polyethylene glycol. 5. Colace. 6. Hydralazine p.r.n. 7. Pulmicort. 8. Lovenox 40 subq daily. 9. Lipitor 10 mg daily. 10. DuoNebs. 11. Aspirin 325 daily. 12. Synthroid. 13. Zofran. 14. Tylenol. ALLERGIES: NO KNOWN DRUG ALLERGIES. SOCIAL HISTORY: No current tobacco, ETOH or illicit drug use. FAMILY HISTORY: ____ cardiac or early CAD. REVIEW OF SYSTEMS: As above in HPI. CONSTITUTIONAL: No fevers, chills. PULMONARY: No current shortness of breath. CARDIOVASCULAR: No current obvious chest pain. GASTROINTESTINAL: No vomiting. GENITOURINARY: No hematuria. MUSCULOSKELETAL: Degenerative joint disease. PSYCHIATRIC: The patient has depression. NEUROLOGIC: No documented CVA. PHYSICAL EXAMINATION: VITAL SIGNS: Temperature 98.6, blood pressure 130/94, pulse 90, respiratory rate 20, sat 94%. GENERAL: The patient is alert, awake, no acute distress. NECK: JVP approximately 9 cm of water. CHEST: Fair air movement throughout. HEART: Regular rate and rhythm. Normal S1, S2, I/ systolic murmur, nondisplaced PMI. ABDOMEN: Positive bowel sounds, soft. EXTREMITIES: No significant pitting edema, 1+ pulses bilaterally posterior tibial. LABORATORIES: Most recently from today, sodium 129, potassium 4.5, creatinine 0.4, BUN 16, white cou nt 16.7, hemoglobin 11.2, platelet count 306. IMAGING STUDIES: A chest x-ray from the revealing mild cardiomegaly, diffuse prominence of inte rstitial markings may likely reflect chronic lung changes, possible fibrosis and/or mild edema. ECG from the reveals sinus rhythm, first-degree AV block, normal axis, inferior Q's. IMPRESSION: 1. Abnormal echocardiogram, assess for acute coronary syndrome. 2. Cardiac arrhythmia. Continue to follow. 3. Hyponatremia. 4. Pulmonary fibrosis. 5. Dementia. 6. Urinary tract infection. 7. Leukocytosis and anemia. RECOMMENDATIONS: 1. At this time, maintain the patient on telemetry monitoring to follow rhythm and rate control clos brooke. 2. Continue the patient's aspirin for prophylaxis cardiac events. 3. The patient is status post troponins negative x3 since having ST elevations and will send 1 addit ional make sure we will check serial EKGs to assess for significant ongoing changes. 4. Would follow the patient's blood pressure closely off of antihypertensives at this time. Continu e patient's antibiotics and antifungals. The patient's steroids. 5. The patient's statin and adjust it according to a fasting lipid panel to be checked in the patien t's current status post TSH assessment within normal limits. Thank you for allowing me to take part in the care of this patient. I will continue to follow very c losely with you with recommendations to be made as the patient progresses through her inpatient hospi eduardo clinical course. Dictated By: AKSHAT VELOZ/CODI Conf#: [id number] DID#: [id number] CC: MERNA BENITEZ MD; RICHARDSON BROWN MD;*End*
[2018-05-10] VITALS (15 sets, daily range): BP systolic 121–140; BP diastolic 57–80; PULSE 73–95; RESP 16–20
[2018-05-10] MEDS: CEFEPIME 1GM/50 ML (PMX) 50 ML IVPB SCH ×3 (00:38→20:07)
[2018-05-10] MEDS: ALBUTEROL/IPRATROPIUM (NEB) 3 ML AMP INH SCH ×4 (01:06→20:08)
[2018-05-10] MEDS: LEVOTHYROXINE 88 MCG TAB PO SCH (07:18)
[2018-05-10] MEDS: ENOXAPARIN 40 MG/0.4 ML SYG SC SCH (08:40)
[2018-05-10] MEDS: BALSAM PERU/CASTOR OIL 60 GM TUBE TOP SCH ×2 (08:41→20:07)
[2018-05-10] MEDS: CALCIUM/VITAMIN D (500/200) TAB PO SCH ×2 (08:41→20:06)
[2018-05-10] MEDS: ASPIRIN (EC) 325 MG TAB PO SCH (08:41)
[2018-05-10] MEDS: predniSONE 20 MG TAB PO SCH (08:41)
[2018-05-10] MEDS: POLYETHYLENE GLYCOL 17 GM PACKET PO SCH (08:41)
[2018-05-10] MEDS: BUDESONIDE (NEB) 0.5MG/2ML AMP INH SCH ×2 (08:55→20:08)
--- NOTE | 2018-05-10 09:13 | PN ---
DATE: 05/10/2018 SUBJECTIVE: The patient remains stable. No events overnight. No acute events noted. The patient remains on BiPAP at night. OBJECTIVE: VITAL SIGNS: Blood pressure is 121/57, respirations 20, pulse 95, temperature 97.9. HEENT: Head is normocephalic. NECK: Supple. HEART: Regular rate. LUNGS: Show diminished breath sounds at the base. ABDOMEN: Soft, nontender to palpation without rebound or guarding. EXTREMITIES: Negative for clubbing, cyanosis, no edema. DERMATOLOGIC: No rashes. MUSCULOSKELETAL: No joint effusion. NEUROLOGIC: No change in exam. MEDICATIONS: The patient's medications have been reviewed. LABORATORY DATA: From 05/09/2018 was reviewed. Laboratory data from 05/10/2018 is pending. ASSESSMENT AND PLAN: 1. Hyponatremia. Etiology is felt to be secondary to syndrome of inappropriate antidiuretic hormone . The patient's sodium levels remain low. We will continue to monitor, continue supportive care. C ontinue free water restriction. Continue to encourage high osmolar diet. 2. Hypokalemia, improved. 3. Mixed acid base disorder. The patient has a respiratory acidosis, metabolic alkalosis. Continue to monitor. 4. Anemia. Monitor hemoglobin and hematocrit levels. 5. Hypoxemic hypercapnic respiratory failure secondary to pulmonary fibrosis, pneumonia. Continue B iPAP. Continue steroids. Follow up with pulmonary. 6. Hypothyroidism. Continue Synthroid. 7. Dyslipidemia. Continue statin therapy. 8. Encephalopathy. Etiology is toxic metabolic. Dictated By: GABO DURAN DO NR/NTS Conf#: [id number] DID#: [id number] CC: SOO FERRARA MD; MERNA BLAKE MD; RICHARDSON BROWN MD;*End*
--- NOTE | 2018-05-10 10:50 | CONS ---
Assessment/Plan Assessment/Plan Assessment/Plan (Daily) Assessment and recommendations; 1. Patient admitted for IPF exacerbation with significant clinical improvement. 2. Status post treatment for presumed pneumonia. It was very difficult to make out for any acute infiltrates versus a background of chronic fibrotic changes. Patient however now off antibiotics. 3. Chronic type II respiratory failure with severe underlying hypercapnia, maintained on nocturnal BiPAP. Continue with supportive care. Patient awaiting discharge pending family sofia nair for home ventilator use. Overall prognosis remains poor. Consultation Date/Type/Reason Admit Date/Time Apr 27, 2018 at 02:15 Initial Consult Date Type of Consult Pulmonary Patient's condition is continually improving. Wean down to 3 L nasal cannula with adequate O2 saturation. Patient denies any coughing, wheezing, any shortness of breath at rest. General exam; elderly woman, awake and alert. Currently no distress. Date/Time of Note DATE: 05/10/18 TIME: 10:48 24 HR Interval Summary Free Text/Dictation Patient's condition is stable. Doing fairly well on 3 L nasal cannula daytime. On nocturnal BiPAP. General exam; elderly female, awake alert, currently no distress. Exam/Review of Systems Exam Vitals Vital Signs Date Temp Pulse Resp B/P (MAP) Pulse Ox O2 O2 Flow FiO2 Time Delivery Rate 05/10/18 95 20 95 Nasal 2.0 09:06 Cannula 05/10/18 97.9 121/57 07:46 (78) 05/10/18 30 03:20 Intake and Output 05/09/18 05/09/18 05/10/18 1515:00 23:00 07:00 IntakeIntake Total 500 ml 350 ml OutputOutput Total 980 ml 400 ml BalanceBalance -480 ml -50 ml Exam HEENT exam; supple neck, no JVD. No lymphadenopathy. Midline trachea. No thyromegaly. Chest exam; minimal bilateral crackles. S1-S2 audible, no murmurs. Regular r hythm. Abdomen exam; soft, nondistended. No organomegaly. Bowel sounds audible. Extremity exam; peripheral edema clubbing. SCENE SHIFTER exam; no focal deficit. Results Result Diagram: 05/10/18 0823 05/10/18 0823 Results 24hrs Laboratory Tests Test 05/09/18 13:40 05/10/18 08:23 Urine Color YELLOW Urine Clarity CLOUDY A Urine pH 7.0 Urine Specific [place] 1.014 Urine Ketones NEGATIVE Urine Nitrite NEGATIVE Urine Bilirubin NEGATIVE Urine Urobilinogen 2+ H Urine Leukocyte Esterase 2+ H Urine Microscopic RBC > 182 H Urine Microscopic WBC 74 H Urine Bacteria FEW A Urine Mucus FEW A Urine Yeast (Budding) MANY A Urine Hemoglobin 3+ H Urine Glucose NEGATIVE Urine Total Protein 1+ H White Blood Count 14.7 H Red Blood Count 4.03 L Hemoglobin 11.1 L Hematocrit 35.4 L Mean Corpuscular Volume 87.8 Mean Corpuscular Hemoglobin 27.5 L Mean Corpuscular Hemoglobin Concent 31.4 L Red Cell Distribution Width 14.2 Platelet Count 311 Mean Platelet Volume 9.9 Immature Granulocytes % 0.700 H Neutrophils % 88.1 H Lymphocytes % 5.0 L Monocytes % 5.7 Eosinophils % 0.3 Basophils % 0.2 Nucleated Red Blood Cells % 0.0 Immature Granulocytes # 0.100 H Neutrophils # 13.0 H Lymphocytes # 0.7 L Monocytes # 0.8 Eosinophils # 0.1 Basophils # 0.0 Nucleated Red Blood Cells # 0.0 Sodium Level 131 L Potassium Level 4.5 Chloride Level 89 L Carbon Dioxide Level 39 H Anion Gap 3 L Blood Urea Nitrogen 15 Creatinine 0.46 Est Glomerular Filtrat Rate mL/min Glucose Level 94 # Calcium Level 8.9 Phosphorus Level 3.2 Magnesium Level 2.0 Troponin I 0.028 Medications Medication Current Medications IV Flush (NS 3 ml) 3 ml PER PROTOCOL IV ; Start 04/27/18 at 03:00 Ondansetron HCl (Zofran Inj) 4 mg Q6H PRN IV NAUSEA/VOMITING; Start 04/27/18 at 03:00 Acetaminophen (Tylenol Tab) 650 mg Q6H PRN PO .PAIN 1-3 OR TEMP; Start 04/27/18 at 03:00 Aspirin (Ecotrin) 325 mg DAILY PO Last administered on 05/10/18at 08:41; Admin Dose 325 MG; Start 04/27/18 at 09:00 Albuterol/ Ipratropium (Duoneb) 3 ml Q6H RESP THERAPY INH Last administered on 05/10/18at 08:55; Admin Dose 3 ML; Start 04/27/18 at 08:00 Levothyroxine Sodium (Synthroid) 88 mcg BEFORE BREAKFAST PO Last administered on 05/10/18at 07:18; Admin Dose 88 MCG; Start 04/27/18 at 07:00 Atorvastatin Calcium (Lipitor) 10 mg DAILY@21 PO Last administered on 05/09/18 20:16; Admin Dose 10 MG; Start 04/27/18 at 21:00 Albuterol/ Ipratropium (Duoneb) 3 ml Q2H RESP THERAPY PRN HHN shortness of breath; Start 04/27/18 at 10:00 Enoxaparin Sodium (Lovenox) 40 mg DAILY SC Last administered on 05/10/18 08:40; Admin Dose 40 MG; Start 04/28/18 at 09:00 Budesonide (Pulmicort (Neb)) 0.5 mg BID RESP THERAPY INH Last administered on 05/10/18 08:55; Admin Dose 0.5 MG; Start 04/29/18 at 09:00 Hydralazine HCl (Apresoline) 10 mg Q4H PRN IV SBP >160 Last administered on 05/02/18 18:50; Admin Dose 10 MG; Start 05/01/18 at 13:00 Polyethylene Glycol (Miralax) 17 gm DAILY PO Last administered on 05/09/18 08:37; Admin Dose 17 GM; Start 05/02/18 at 10:30 Docusate Sodium (Colace) 100 mg BID PRN PO CONSTIPATION; Start 05/02/18 at 10:30 Calcium/Vitamin D (Oyster Shell/ Vit-D (500/200)) 1 tab BID PO Last administered on 05/10/18 08:41; Admin Dose 1 TAB; Start 05/03/18 at 21:00 Prednisone (Prednisone) 20 mg DAILY PO Last administered on 05/10/18 08:41; Admin Dose 20 MG; Start 05/10/18 at 09:00 Cefepime HCl 50 ml @ 100 mls/hr Q12 IVPB Last administered on 05/10/18 08:41; Admin Dose 100 MLS/HR; Start 05/09/18 at 16:00 Fluconazole/ Sodium Chloride 50 ml @ 50 mls/hr Q24H IVPB Last administered on 05/09/18 17:00; Admin Dose 50 MLS/HR; Start 05/09/18 at 17:00 RAJESH BASS May 10, 2018 10:50
--- NOTE | 2018-05-10 13:18 | PN ---
Date/Time of Note Date/Time of Note DATE: 05/10/18 TIME: 13:17 Objective Vitals Vital Signs Date Temp Pulse Resp B/P (MAP) Pulse Ox O2 O2 Flow FiO2 Time Delivery Rate 05/10/18 92 12:17 05/10/18 97.6 20 136/61 97 Nasal 11:16 (86) Cannula 05/10/18 2.0 09:06 05/10/18 30 03:20 Intake and Output 05/09/18 05/09/18 05/10/18 1515:00 23:00 07:00 IntakeIntake Total 500 ml 350 ml OutputOutput Total 980 ml 400 ml BalanceBalance -480 ml -50 ml Results Result Diagram: 05/10/1882205/10/18822 Medications Medications Current Medications IV Flush (NS 3 ml) 3 ml PER PROTOCOL IV ; Start 04/27/18 at 03:00 Ondansetron HCl (Zofran Inj) 4 mg Q6H PRN IV NAUSEA/VOMITING; Start 04/27/18 at 03:00 Acetaminophen (Tylenol Tab) 650 mg Q6H PRN PO .PAIN 1-3 OR TEMP; Start 04/27/18 at 03:00 Aspirin (Ecotrin) 325 mg DAILY PO Last administered on 05/10/18at 08:41; Admin Dose 325 MG; Start 04/27/18 at 09:00 Albuterol/ Ipratropium (Duoneb) 3 ml Q6H RESP THERAPY INH Last administered on 05/10/18at 08:55; Admin Dose 3 ML; Start 04/27/18 at 08:00 Levothyroxine Sodium (Synthroid) 88 mcg BEFORE BREAKFAST PO Last administered on 05/10/18 07:18; Admin Dose 88 MCG; Start 04/27/18 at 07:00 Atorvastatin Calcium (Lipitor) 10 mg DAILY@21 PO Last administered on 05/09/18at 20:16; Admin Dose 10 MG; Start 04/27/18 at 21:00 Albuterol/ Ipratropium (Duoneb) 3 ml Q2H RESP THERAPY PRN HHN shortness of robert ath; Start 04/27/18 at 10:00 Enoxaparin Sodium (Lovenox) 40 mg DAILY SC Last administered on 05/10/18at 08:40; Admin Dose 40 MG; Start 04/28/18 at 09:00 Budesonide (Pulmicort (Neb)) 0.5 mg BID RESP THERAPY INH Last administered on 05/10/18 08:55; Admin Dose 0.5 MG; Start 04/29/18 at 09:00 Hydralazine HCl (Apresoline) 10 mg Q4H PRN IV SBP >160 Last administered on 05/02/18 18:50; Admin Dose 10 MG; Start 05/01/18 at 13:00 Polyethylene Glycol (Miralax) 17 gm DAILY PO Last administered on 05/09/18 08:37; Admin Dose 17 GM; Start 05/02/18 at 10:30 Docusate Sodium (Colace) 100 mg BID PRN PO CONSTIPATION; Start 05/02/18 at 10:30 Calcium/Vitamin D (Oyster Shell/ Vit-D (500/200)) 1 tab BID PO Last administered on 05/10/18 08:41; Admin Dose 1 TAB; Start 05/03/18 at 21:00 Prednisone (Prednisone) 20 mg DAILY PO Last administered on 05/10/18 08:41; Admin Dose 20 MG; Start 05/10/18 at 09:00 Cefepime HCl 50 ml @ 100 mls/hr Q12 IVPB Last administered on 05/10/18 08:41; Admin Dose 100 MLS/HR; Start 05/09/18 at 16:00 Fluconazole/ Sodium Chloride 50 ml @ 50 mls/hr Q24H IVPB Last administered on 05/09/18 17:00; Admin Dose 50 MLS/HR; Start 05/09/18 at 17:00 VTE Prophylaxis Risk score (from Nsg)>0 risk: 7 SCD applied (from Ns): Yes Lines/Catheters IV Catheter Type: Strange in Place: Yes Cont'd strange catheter reason: skin wounds contaminated by urine Assessment/Plan Hospital Course Subjective Patient doing well, alert, on nasal cannula Objective Physical exam General: Patient is laying in bed and answers questions appropriately Mentation: Patient is alert and oriented 4, Head: Normocephalic atraumatic Eyes: EOMI, pupils reactive to light Neck: Supple, nontender, midline Respiratory: Mildly coarse to auscultation bilaterally Cardiovascular: regular rate, no obvious murmurs Gastrointestinal: non-tender to palpation, bowel sounds heard. Neurological: Moves all extremities spontaneously Skin: No new skin lesions Assessment/Plan 1. Acute hypoxic and hypercapnic respiratory failure- stable - Patient appears back to baseline respiratory status de paz. - Pulm on board and appreciate recommendations. 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 Acute metabolic Encephalopathy- resolved 3. Exacerbation of IPF- resolving - Follows with Pulm as outpatient - Continue steroid taper and nebs 4. Hypothyroidism -Continue home meds 5. Dyslipidemia -Continue home meds 6. Disposition -Treat UTI, infectious disease recs appreciated, await urine culture -Continue steroids at 20 mg daily for now per pulmonology, patient will likely be discharged with this dose -Patient's family will need to know how to use trilogy machine at home before discharge. -Spoke with daughter, TANNER at bedside, patient is full code at the moment, intubation will be on a case by case basis will need to confirm with daughter before elective intubation. MERNA BLAKE May 10, 2018 13:18
[2018-05-10] MEDS: FLUCONAZOLE 100 MG/50 ML (PMX) 50 ML IVPB SCH (17:02)
--- NOTE | 2018-05-10 17:27 | CONS ---
Assessment/Plan Assessment/Plan Hospital Course (Demo Recall) Patient is alert, comfortable on nasal cannula, family at bedside, no fevers overnight. WBC 14.7 platelets 311 neutrophils 88.1 BUN 15 creatinine 0.46 Microbiology: Blood cultures since admission negative urinalysis was positive for yeast. Patient is on fluconazole also cefepime she remains on steroids Chest x-ray from yesterday revealed chronic lung changes with possible fibrosis and/or mild edema. Persistent patchy lower lobe density which may reflect chronic lung disease as well. Underlying infiltrate is not excluded. Physical examination: This is a fragile very pleasant elderly woman who is awake in no distress. Head atraumatic normocephalic. Neck is supple chest rise symmetrical breath sounds diminished bases abdomen soft bowel sounds present extremities without cyanosis Assessment: 1. Acute on chronic hypoxemic respiratory failure 2. Possible pneumonia 3. Idiopathic pulmonary fibrosis status post exacerbation 4. Fungal UTI Plan: Patient is stable, on appropriate antibiotic regimen, continue present care, follow pulmonary, renal and cardiology recommendations Discussed with family at bedside Consultation Date/Type/Reason Admit Date/Time Apr 27, 2018 at 02:15 Initial Consult Date Type of Consult id Date/Time of Note DATE: 05/10/18 TIME: 17:26 Exam/Review of Systems Exam Vitals Vital Signs Date Temp Pulse Resp B/P (MAP) Pulse Ox O2 O2 Flow FiO2 Time Delivery Rate 05/10/18 92 16:05 05/10/18 3.0 15:41 05/10/18 98.4 20 125/60 95 Nasal 15:27 (81) Cannula 05/10/18 30 03:20 Intake and Output 05/09/18 05/09/18 05/10/18 1515:00 23:00 07:00 IntakeIntake Total 500 ml 350 ml OutputOutput Total 980 ml 400 ml BalanceBalance -480 ml -50 ml Results Result Diagram: 05/10/18 0823 05/10/18 0823 Results 24hrs Laboratory Tests Test 05/10/18 08:23 White Blood Count 14.7 H Red Blood Count 4.03 L Hemoglobin 11.1 L Hematocrit 35.4 L Mean Corpuscular Volume 87.8 Mean Corpuscular Hemoglobin 27.5 L Mean Corpuscular Hemoglobin Concent 31.4 L Red Cell Distribution Width 14.2 Platelet Count 311 Mean Platelet Volume 9.9 Immature Granulocytes % 0.700 H Neutrophils % 88.1 H Lymphocytes % 5.0 L Monocytes % 5.7 Eosinophils % 0.3 Basophils % 0.2 Nucleated Red Blood Cells % 0.0 Immature Granulocytes # 0.100 H Neutrophils # 13.0 H Lymphocytes # 0.7 L Monocytes # 0.8 Eosinophils # 0.1 Basophils # 0.0 Nucleated Red Blood Cells # 0.0 Sodium Level 131 L Potassium Level 4.5 Chloride Level 89 L Carbon Dioxide Level 39 H Anion Gap 3 L Blood Urea Nitrogen 15 Creatinine 0.46 Est Glomerular Filtrat Rate mL/min Glucose Level 94 # Calcium Level 8.9 Phosphorus Level 3.2 Magnesium Level 2.0 Troponin I 0.028 Medications Medication Current Medications IV Flush (NS 3 ml) 3 ml PER PROTOCOL IV ; Start 04/27/18 at 03:00 Ondansetron HCl (Zofran Inj) 4 mg Q6H PRN IV NAUSEA/VOMITING; Start 04/27/18 at 03:00 Acetaminophen (Tylenol Tab) 650 mg Q6H PRN PO .PAIN 1-3 OR TEMP; Start 04/27/18 at 03:00 Aspirin (Ecotrin) 325 mg DAILY PO Last administered on 05/10/18 08:41; Admin Dose 325 MG; Start 04/27/18 at 09:00 Albuterol/ Ipratropium (Duoneb) 3 ml Q6H RESP THERAPY INH Last administered on 05/10/18at 13:32; Admin Dose 3 ML; Start 04/27/18 at 08:00 Levothyroxine Sodium (Synthroid) 88 mcg BEFORE BREAKFAST PO Last administered on 05/10/18 07:18; Admin Dose 88 MCG; Start 04/27/18 at 07:00 Atorvastatin Calcium (Lipitor) 10 mg DAILY@21 PO Last administered on 05/09/18at 20:16; Admin Dose 10 MG; Start 04/27/18 at 21:00 Albuterol/ Ipratropium (Duoneb) 3 ml Q2H RESP THERAPY PRN HHN shortness of breath; Start 04/27/18 at 10:00 Enoxaparin Sodium (Lovenox) 40 mg DAILY SC Last administered on 05/10/18 08:40; Admin Dose 40 MG; Start 04/28/18 at 09:00 Budesonide (Pulmicort (Neb)) 0.5 mg BID RESP THERAPY INH Last administered on 05/10/18 08:55; Admin Dose 0.5 MG; Start 04/29/18 at 09:00 Hydralazine HCl (Apresoline) 10 mg Q4H PRN IV SBP >160 Last administered on 05/02/18 18:50; Admin Dose 10 MG; Start 05/01/18 at 13:00 Polyethylene Glycol (Miralax) 17 gm DAILY PO Last administered on 05/09/18 08:37; Admin Dose 17 GM; Start 05/02/18 at 10:30 Docusate Sodium (Colace) 100 mg BID PRN PO CONSTIPATION; Start 05/02/18 at 10:30 Calcium/Vitamin D (Oyster Shell/ Vit-D (500/200)) 1 tab BID PO Last administered on 05/10/18 08:41; Admin Dose 1 TAB; Start 05/03/18 at 21:00 Prednisone (Prednisone) 20 mg DAILY PO Last administered on 05/10/18 08:41; Admin Dose 20 MG; Start 05/10/18 at 09:00 Cefepime HCl 50 ml @ 100 mls/hr Q12 IVPB Last administered on 05/10/18 08:41; Admin Dose 100 MLS/HR; Start 05/09/18 at 16:00 Fluconazole/ Sodium Chloride 50 ml @ 50 mls/hr Q24H IVPB Last administered on 05/10/18 17:02; Admin Dose 50 MLS/HR; Start 05/09/18 at 17:00 EDUIN MANTILLA NP May 10, 2018 17:27
--- NOTE | 2018-05-10 18:56 | RADRPT ---
Vent Rate: 81 bpm RR Interval: 0 msec WI Interval: 200 msec QRS Duration: 74 msec QT Interval: 344 msec QTC Interval: 399 msec P-R-T Brooten: 1 - -2 - 9 degrees Normal sinus rhythm Inferior infarct , age undetermined Abnormal ECG Electronically Signed By: Ezio Carmichael
--- NOTE | 2018-05-10 18:59 | CONS ---
Assessment/Plan Assessment/Plan Hospital Course (Demo Recall) IMPRESSION: 1. Abnormal echocardiogram, assess for acute coronary syndrome.-neg x 3 since ecg abnl seen by tele. NO chest pain according to family member at bedside. repeat ecg today with inferior q's and only borderline J point elevation single lead 2. Cardiac arrhythmia. Continue to follow. 3. Hyponatremia- ongoing 4. Pulmonary fibrosis. 5. Dementia. 6. Urinary tract infection. 7. Leukocytosis and anemia. Recc: -Tele -serial ecg's -Follow asa/statin -Follow BP closely off of antihypertensives -Home BIPAP being set up -Continue steroids/bronchodilators and antifungals Consultation Date/Type/Reason Admit Date/Time Apr 27, 2018 at 02:15 Initial Consult Date 05/09/18 Type of Consult Cardiology Reason for Consultation abnl ecg Requesting Provider: MERNA BLAKE Date/Time of Note DATE: 05/10/18 TIME: 18:53 Exam/Review of Systems Vital Signs Vitals Vital Signs Date Temp Pulse Resp B/P (MAP) Pulse Ox O2 O2 Flow FiO2 Time Delivery Rate 05/10/18 92 16:05 05/10/18 3.0 15:41 05/10/18 98.4 20 125/60 95 Nasal 15:27 (81) Cannula 05/10/18 30 03:20 Intake and Output 05/09/18 05/09/18 05/10/18 1515:00 23:00 07:00 IntakeIntake Total 500 ml 350 ml OutputOutput Total 980 ml 400 ml BalanceBalance -480 ml -50 ml Exam Exam Review of Systems: CONSTITUTIONAL: No fevers, chills. PULMONARY: No sob CARDIOVASCULAR: No chest pain/palpitations GASTROINTESTINAL: No nausea/vomiting. GENITOURINARY: No hematuria/dysuria. MUSCULOSKELETAL: No myagias/arthalgias. PSYCHIATRIC: The patient denies depression. NEUROLOGIC: No weakness Constitutional: alert Psych: no complaints Head: normocephalic ENMT: mucosa pink and moist Neck: supple, jvd (9 cm wter) Respiratory: diminished breath sounds (at bases/B) Cardiovascular: regular rate and rhythm Gastrointestinal: soft, non-tender Musculoskeletal: muscle weakness (mild generalized) Extremities: edema (none) Neurological: lethargic (somewhat) Labs Result Diagram: 05/10/18 0823 05/10/18 0823 Results 24hrs Laboratory Tests Test 05/10/18 08:23 White Blood Count 14.7 H Red Blood Count 4.03 L Hemoglobin 11.1 L Hematocrit 35.4 L Mean Corpuscular Volume 87.8 Mean Corpuscular Hemoglobin 27.5 L Mean Corpuscular Hemoglobin Concent 31.4 L Red Cell Distribution Width 14.2 Platelet Count 311 Mean Platelet Volume 9.9 Immature Granulocytes % 0.700 H Neutrophils % 88.1 H Lymphocytes % 5.0 L Monocytes % 5.7 Eosinophils % 0.3 Basophils % 0.2 Nucleated Red Blood Cells % 0.0 Immature Granulocytes # 0.100 H Neutrophils # 13.0 H Lymphocytes # 0.7 L Monocytes # 0.8 Eosinophils # 0.1 Basophils # 0.0 Nucleated Red Blood Cells # 0.0 Sodium Level 131 L Potassium Level 4.5 Chloride Level 89 L Carbon Dioxide Level 39 H Anion Gap 3 L Blood Urea Nitrogen 15 Creatinine 0.46 Est Glomerular Filtrat Rate mL/min Glucose Level 94 # Calcium Level 8.9 Phosphorus Level 3.2 Magnesium Level 2.0 Troponin I 0.028 Medications Medications Current Medications IV Flush (NS 3 ml) 3 ml PER PROTOCOL IV ; Start 04/27/18 at 03:00 Ondansetron HCl (Zofran Inj) 4 mg Q6H PRN IV NAUSEA/VOMITING; Start 04/27/18 at 03:00 Acetaminophen (Tylenol Tab) 650 mg Q6H PRN PO .PAIN 1-3 OR TEMP; Start 04/27/18 at 03:00 Aspirin (Ecotrin) 325 mg DAILY PO Last administered on 05/10/18at 08:41; Admin Dose 325 MG; Start 04/27/18 at 09:00 Albuterol/ Ipratropium (Duoneb) 3 ml Q6H RESP THERAPY INH Last administered on 05/10/18at 13:32; Admin Dose 3 ML; Start 04/27/18 at 08:00 Levothyroxine Sodium (Synthroid) 88 mcg BEFORE BREAKFAST PO Last administered on 05/10/18at 07:18; Admin Dose 88 MCG; Start 04/27/18 at 07:00 Atorvastatin Calcium (Lipitor) 10 mg DAILY@21 PO Last administered on 05/09/18at 20:16; Admin Dose 10 MG; Start 04/27/18 at 21:00 Albuterol/ Ipratropium (Duoneb) 3 ml Q2H RESP THERAPY PRN HHN shortness of breath; Start 04/27/18 at 10:00 Enoxaparin Sodium (Lovenox) 40 mg DAILY SC Last administered on 05/10/18 08:40; Admin Dose 40 MG; Start 04/28/18 at 09:00 Budesonide (Pulmicort (Neb)) 0.5 mg BID RESP THERAPY INH Last administered on 05/10/18 08:55; Admin Dose 0.5 MG; Start 04/29/18 at 09:00 Hydralazine HCl (Apresoline) 10 mg Q4H PRN IV SBP >160 Last administered on 05/02/18 18:50; Admin Dose 10 MG; Start 05/01/18 at 13:00 Polyethylene Glycol (Miralax) 17 gm DAILY PO Last administered on 05/09/18 08:37; Admin Dose 17 GM; Start 05/02/18 at 10:30 Docusate Sodium (Colace) 100 mg BID PRN PO CONSTIPATION; Start 05/02/18 at 10:30 Calcium/Vitamin D (Oyster Shell/ Vit-D (500/200)) 1 tab BID PO Last administered on 05/10/18 08:41; Admin Dose 1 TAB; Start 05/03/18 at 21:00 Prednisone (Prednisone) 20 mg DAILY PO Last administered on 05/10/18 08:41; Admin Dose 20 MG; Start 05/10/18 at 09:00 Cefepime HCl 50 ml @ 100 mls/hr Q12 IVPB Last administered on 05/10/18 08:41; Admin Dose 100 MLS/HR; Start 05/09/18 at 16:00 Fluconazole/ Sodium Chloride 50 ml @ 50 mls/hr Q24H IVPB Last administered on 05/10/18 17:02; Admin Dose 50 MLS/HR; Start 05/09/18 at 17:00 AKSHAT HAY May 10, 2018 18:59
[2018-05-10] MEDS: ATORVASTATIN 10 MG TAB PO SCH (20:07)
[2018-05-11] VITALS (13 sets, daily range): BP systolic 130–151; BP diastolic 60–73; PULSE 73–102; RESP 18–20
[2018-05-11] MEDS: ALBUTEROL/IPRATROPIUM (NEB) 3 ML AMP INH SCH ×4 (01:02→19:29)
[2018-05-11] MEDS ORDERED: LORAZEPAM 2 MG INJ IV ONE (04:30)
[2018-05-11] MEDS ORDERED: ALPRAZOLAM 0.25 MG TAB PO ONE (05:00)
[2018-05-11] MEDS: LEVOTHYROXINE 88 MCG TAB PO SCH (07:00)
[2018-05-11] MEDS: POLYETHYLENE GLYCOL 17 GM PACKET PO SCH (08:56)
[2018-05-11] MEDS: BALSAM PERU/CASTOR OIL 60 GM TUBE TOP SCH ×2 (08:56→20:31)
[2018-05-11] MEDS: ENOXAPARIN 40 MG/0.4 ML SYG SC SCH (08:58)
[2018-05-11] MEDS: CALCIUM/VITAMIN D (500/200) TAB PO SCH ×2 (09:00→20:31)
[2018-05-11] MEDS: ASPIRIN (EC) 325 MG TAB PO SCH (09:00)
[2018-05-11] MEDS: predniSONE 20 MG TAB PO SCH (09:00)
[2018-05-11] MEDS: CEFEPIME 1GM/50 ML (PMX) 50 ML IVPB SCH ×2 (09:00→20:30)
--- NOTE | 2018-05-11 09:09 | PN ---
DATE: 05/11/2018 SUBJECTIVE: The patient noted with episodes of hematuria. Please note I spoke with the patient's fa kym and informed them that I would be repeating urinalysis. No other events noted. No hemoptysis, hematemesis or hematochezia. The patient had minimal free water intake. No other events noted. OBJECTIVE: VITAL SIGNS: Blood pressure is 132/62, respirations 20, pulse 88, temperature 98.0. I's and O's hav e been reviewed. HEENT: Head is normocephalic. NECK: Supple. HEART: Regular rate. LUNGS: Show diminished breath sounds at the base. ABDOMEN: Soft, nontender to palpation without rebound or guarding. EXTREMITIES: Negative for clubbing, cyanosis, no edema. DERMATOLOGIC: No rashes. MUSCULOSKELETAL: No joint effusion. NEUROLOGIC: No change in exam. MEDICATIONS: Reviewed. LABORATORY DATA: From 05/10/2018 was reviewed. ASSESSMENT AND PLAN: 1. Hypernatremia, etiology is felt to be secondary to syndrome of inappropriate antidiuretic hormone . The patient's sodium levels are low but stable. Continue free water restriction, continue to enco urage high osmolar diet. We will monitor sodium levels closely. 2. Hematuria. Etiology is possibly due to urinary tract infection. The patient's urinalysis shows evidence of yeast. Other possibilities include bladder trauma. At this point, continue current anti fungal and antibiotic therapy. We will monitor closely. If hematuria persists, we may consider urol ogic evaluation. 4. Anemia. Continue to monitor hemoglobin and hematocrit levels. 5. Acute hypoxemic hypercapnic respiratory failure secondary to pulmonary fibrosis, pneumonia. Cont inue BiPAP. Continue prednisone taper per pulmonary. 6. Hypothyroidism. Continue Synthroid. 7. Dyslipidemia. Continue statin therapy. 8. Encephalopathy, etiology is toxic metabolic. Continue to monitor. Dictated By: GABO DURAN DO NR/NTS Conf#: [id number] DID#: [id number] CC: SOO FERRARA MD; RICHARDSON BROWN MD; MERNA BALKE MD;*EndCC*
[2018-05-11] MEDS: BUDESONIDE (NEB) 0.5MG/2ML AMP INH SCH ×2 (09:25→19:29)
--- NOTE | 2018-05-11 10:21 | CONS ---
Assessment/Plan Assessment/Plan Assessment/Plan (Daily) Assessment and recommendations; 1. Patient admitted with IPF exacerbation with significant overall clinical improvement. 2. Chronic severe type II respiratory failure 3. Status post treatment for presumed pneumonia. Continue current supportive care. Patient awaiting discharge pending patient's daughter home ventilator training. Maintain current prednisone dosing. Consultation Date/Type/Reason Admit Date/Time Apr 27, 2018 at 02:15 Initial Consult Date Type of Consult Pulmonary Patient's condition is continually improving. Wean down to 3 L nasal cannula with adequate O2 saturation. Patient denies any coughing, wheezing, any shortness of breath at rest. General exam; elderly woman, awake and alert. Currently no distress. Requesting Provider: MERNA BLAKE Date/Time of Note DATE: 05/11/18 TIME: 10:20 24 HR Interval Summary Free Text/Dictation Patient's condition is stable. Denies any shortness of breath at rest. Doing well on 3 L nasal cannula daytime and BiPAP overnight. General exam; elderly female, awake alert, currently in no distress. Exam/Review of Systems Exam Vitals Vital Signs Date Temp Pulse Resp B/P (MAP) Pulse Ox O2 O2 Flow FiO2 Time Delivery Rate 05/11/18 88 20 99 Nasal 3.0 09:36 Cannula 05/11/18 98.0 132/62 07:26 (85) 05/11/18 30 03:06 Intake and Output 05/10/18 05/10/18 05/11/18 1515:00 23:00 07:00 IntakeIntake Total 530 ml 200 ml OutputOutput Total 500 ml 400 ml BalanceBalance 30 ml -200 ml Exam H EENT exam; supple neck, no JVD. No lymphadenopathy. Midline trachea. No thyromegaly. Chest exam; bilateral crackles. S1-S2 audible, no murmurs. Abdomen exam; soft, no organomegaly. Bowel sounds audible. Extremity exam; no peripheral edema. MANAGER THERAPY exam; no focal deficit. Results Result Diagram: 05/11/18 0742 05/11/18 0742 Results 24hrs Laboratory Tests Test 05/11/18 07:42 White Blood Count 11.5 #H Red Blood Count 3.65 L Hemoglobin 10.1 L Hematocrit 31.5 L Mean Corpuscular Volume 86.3 Mean Corpuscular Hemoglobin 27.7 L Mean Corpuscular Hemoglobin Concent 32.1 Red Cell Distribution Width 14.5 Platelet Count 308 Mean Platelet Volume 10.2 Immature Granulocytes % 0.600 H Neutrophils % 86.6 H Lymphocytes % 6.5 L Monocytes % 5.7 Eosinophils % 0.5 Basophils % 0.1 Nucleated Red Blood Cells % 0.0 Immature Granulocytes # 0.070 H Neutrophils # 9.9 H Lymphocytes # 0.8 Monocytes # 0.7 Eosinophils # 0.1 Basophils # 0.0 Nucleated Red Blood Cells # 0.0 Sodium Level 130 L Potassium Level 4.3 Chloride Level 88 L Carbon Dioxide Level 36 H Anion Gap 6 Blood Urea Nitrogen 14 Creatinine 0.49 Est Glomerular Filtrat Rate mL/min Glucose Level 92 Calcium Level 8.4 Phosphorus Level 2.9 Magnesium Level 1.9 Medications Medication Current Medications IV Flush (NS 3 ml) 3 ml PER PROTOCOL IV ; Start 04/27/18 at 03:00 Ondansetron HCl (Zofran Inj) 4 mg Q6H PRN IV NAUSEA/VOMITING; Start 04/27/18 at 03:00 Acetaminophen (Tylenol Tab) 650 mg Q6H PRN PO .PAIN 1-3 OR TEMP; Start 04/27/18 at 03:00 Aspirin (Ecotrin) 325 mg DAILY PO Last administered on 05/11/18 09:00; Admin Dose 325 MG; Start 04/27/18 at 09:00; Status Hold Albuterol/ Ipratropium (Duoneb) 3 ml Q6H RESP THERAPY INH Last administered on 05/11/18 09:24; Admin Dose 3 ML; Start 04/27/18 at 08:00 Levothyroxine Sodium (Synthroid) 88 mcg BEFORE BREAKFAST PO Last administered on 05/10/18 07:18; Admin Dose 88 MCG; Start 04/27/18 at 07:00 Atorvastatin Calcium (Lipitor) 10 mg DAILY@21 PO Last administered on 05/10/18 20:07; Admin Dose 10 MG; Start 04/27/18 at 21:00 Albuterol/ Ipratropium (Duoneb) 3 ml Q2H RESP THERAPY PRN HHN shortness of breath; Start 04/27/18 at 10:00 Enoxaparin Sodium (Lovenox) 40 mg DAILY SC Last administered on 05/11/18 08: 58; Admin Dose 40 MG; Start 04/28/18 at 09:00; Status Hold Budesonide (Pulmicort (Neb)) 0.5 mg BID RESP THERAPY INH Last administered on 05/11/18 09:25; Admin Dose 0.5 MG; Start 04/29/18 at 09:00 Hydralazine HCl (Apresoline) 10 mg Q4H PRN IV SBP >160 Last administered on 05/02/18 18:50; Admin Dose 10 MG; Start 05/01/18 at 13:00 Polyethylene Glycol (Miralax) 17 gm DAILY PO Last administered on 05/11/18 08:56; Admin Dose 17 GM; Start 05/02/18 at 10:30 Docusate Sodium (Colace) 100 mg BID PRN PO CONSTIPATION; Start 05/02/18 at 10:30 Calcium/Vitamin D (Oyster Shell/ Vit-D (500/200)) 1 tab BID PO Last administered on 05/11/18 09:00; Admin Dose 1 TAB; Start 05/03/18 at 21:00 Prednisone (Prednisone) 20 mg DAILY PO Last administered on 05/11/18 09:00; Admin Dose 20 MG; Start 05/10/18 at 09:00 Cefepime HCl 50 ml @ 100 mls/hr Q12 IVPB Last administered on 05/11/18 09:00; Admin Dose 100 MLS/HR; Start 05/09/18 at 16:00 Fluconazole/ Sodium Chloride 50 ml @ 50 mls/hr Q24H IVPB Last administered on 05/10/18 17:02; Admin Dose 50 MLS/HR; Start 05/09/18 at 17:00 RAJESH BASS May 11, 2018 10:21
--- NOTE | 2018-05-11 12:28 | CONS ---
Assessment/Plan Assessment/Plan Hospital Course (Demo Recall) All noted Microbiology: Blood cultures since admission negative urinalysis was positive for yeast. Patient is on fluconazole also cefepime she remains on steroids Chest x-ray from yesterday revealed chronic lung changes with possible fibrosis and/or mild edema. Persistent patchy lower lobe density which may reflect chronic lung disease as well. Underlying infiltrate is not excluded. Physical examination: This is a fragile very pleasant elderly woman who is awake in no distress. Head atraumatic normocephalic. Neck is supple chest rise symmetrical breath sounds diminished bases abdomen soft bowel sounds present extremities without cyanosis Assessment: 1. Acute on chronic hypoxemic respiratory failure 2. Possible pneumonia 3. Idiopathic pulmonary fibrosis status post exacerbation 4. Fungal UTI Plan: WBC trending down, continue antibiotics, follow pulmonary, renal and cardiology recommendations, family requesting tx to [facility] Consultation Date/Type/Reason Admit Date/Time Apr 27, 2018 at 02:15 Initial Consult Date Type of Consult id Requesting Provider: MERNA BLAKE Date/Time of Note DATE: 05/11/18 TIME: 12:27 Exam/Review of Systems Exam Vitals Vital Signs Date Temp Pulse Resp B/P (MAP) Pulse Ox O2 O2 Flow FiO2 Time Delivery Rate 05/11/18 78 12:02 05/11/18 97.3 20 130/60 98 Nasal 11:32 (83) Cannula 05/11/18 3.0 09:36 05/11/18 30 03:06 Intake and Output 05/10/18 05/10/18 05/11/18 1515:00 23:00 07:00 IntakeIntake Total 530 ml 200 ml OutputOutput Total 500 ml 400 ml BalanceBalance 30 ml -200 ml Results Result Diagram: 05/11/18 0742 05/11/18 0742 Results 24hrs Laboratory Tests Test 05/11/18 07:42 White Blood Count 11.5 #H Red Blood Count 3.65 L Hemoglobin 10.1 L Hematocrit 31.5 L Mean Corpuscular Volume 86.3 Mean Corpuscular Hemoglobin 27.7 L Mean Corpuscular Hemoglobin Concent 32.1 Red Cell Distribution Width 14.5 Platelet Count 308 Mean Platelet Volume 10.2 Immature Granulocytes % 0.600 H Neutrophils % 86.6 H Lymphocytes % 6.5 L Monocytes % 5.7 Eosinophils % 0.5 Basophils % 0.1 Nucleated Red Blood Cells % 0.0 Immature Granulocytes # 0.070 H Neutrophils # 9.9 H Lymphocytes # 0.8 Monocytes # 0.7 Eosinophils # 0.1 Basophils # 0.0 Nucleated Red Blood Cells # 0.0 Sodium Level 130 L Potassium Level 4.3 Chloride Level 88 L Carbon Dioxide Level 36 H Anion Gap 6 Blood Urea Nitrogen 14 Creatinine 0.49 Est Glomerular Filtrat Rate mL/min Glucose Level 92 Calcium Level 8.4 Phosphorus Level 2.9 Magnesium Level 1.9 Medications Medication Current Medications IV Flush (NS 3 ml) 3 ml PER PROTOCOL IV ; Start 04/27/18 at 03:00 Ondansetron HCl (Zofran Inj) 4 mg Q6H PRN IV NAUSEA/VOMITING; Start 04/27/18 at 03:00 Acetaminophen (Tylenol Tab) 650 mg Q6H PRN PO .PAIN 1-3 OR TEMP; Start 04/27/18 at 03:00 Aspirin (Ecotrin) 325 mg DAILY PO Last administered on 05/11/18 09:00; Admin Dose 325 MG; Start 04/27/18 at 09:00; Status Hold Albuterol/ Ipratropium (Duoneb) 3 ml Q6H RESP THERAPY INH Last administered on 05/11/18 09:24; Admin Dose 3 ML; Start 04/27/18 at 08:00 Levothyroxine Sodium (Synthroid) 88 mcg BEFORE BREAKFAST PO Last administered on 05/10/18 07:18; Admin Dose 88 MCG; Start 04/27/18 at 07:00 Atorvastatin Calcium (Lipitor) 10 mg DAILY@21 PO Last administered on 05/10/18 20:07; Admin Dose 10 MG; Start 04/27/18 at 21:00 Albuterol/ Ipratropium (Duoneb) 3 ml Q2H RESP THERAPY PRN HHN shortness of breath; Start 04/27/18 at 10:00 Enoxaparin Sodium (Lovenox) 40 mg DAILY SC Last administered on 05/11/18 08:58; Admin Dose 40 MG; Start 04/28/18 at 09:00; Status Hold Budesonide (Pulmicort (Neb)) 0.5 mg BID RESP THERAPY INH Last administered on 05/11/18 09:25; Admin Dose 0.5 MG; Start 04/29/18 at 09:00 Hydralazine HCl (Apresoline) 10 mg Q4H PRN IV SBP >160 Last administered on 05/02/18 18:50; Admin Dose 10 MG; Start 05/01/18 at 13:00 Polyethylene Glycol (Miralax) 17 gm DAILY PO Last administered on 05/11/18 08:56; Admin Dose 17 GM; Start 05/02/18 at 10:30 Docusate Sodium (Colace) 100 mg BID PRN PO CONSTIPATION; Start 05/02/18 at 10:30 Calcium/Vitamin D (Oyster Shell/ Vit-D (500/200)) 1 tab BID PO Last administe red on 05/11/18 09:00; Admin Dose 1 TAB; Start 05/03/18 at 21:00 Prednisone (Prednisone) 20 mg DAILY PO Last administered on 05/11/18 09:00; Admin Dose 20 MG; Start 05/10/18 at 09:00 Cefepime HCl 50 ml @ 100 mls/hr Q12 IVPB Last administered on 05/11/18 09:00; Admin Dose 100 MLS/HR; Start 05/09/18 at 16:00 Fluconazole/ Sodium Chloride 50 ml @ 50 mls/hr Q24H IVPB Last administered on 05/10/18 17:02; Admin Dose 50 MLS/HR; Start 05/09/18 at 17:00 EDUIN MANTILLA NP May 11, 2018 12:28
--- NOTE | 2018-05-11 13:49 | PN ---
Date/Time of Note Date/Time of Note DATE: 05/11/18 TIME: 13:47 Objective Vitals Vital Signs Date Temp Pulse Resp B/P (MAP) Pulse Ox O2 O2 Flow FiO2 Time Delivery Rate 05/11/18 4.0 13:20 05/11/18 78 12:02 05/11/18 97.3 20 130/60 98 Nasal 11:32 (83) Cannula 05/11/18 30 03:06 Intake and Output 05/10/18 05/10/18 05/11/18 1515:00 23:00 07:00 IntakeIntake Total 530 ml 200 ml OutputOutput Total 500 ml 400 ml BalanceBalance 30 ml -200 ml Results Result Diagram: 05/11/18 0742 05/11/1842 Medications Medications Current Medications IV Flush (NS 3 ml) 3 ml PER PROTOCOL IV ; Start 04/27/18 at 03:00 Ondansetron HCl (Zofran Inj) 4 mg Q6H PRN IV NAUSEA/VOMITING; Start 04/27/18 at 03:00 Acetaminophen (Tylenol Tab) 650 mg Q6H PRN PO .PAIN 1-3 OR TEMP; Start 04/27/18 at 03:00 Aspirin (Ecotrin) 325 mg DAILY PO Last administered on 05/11/18at 09:00; Admin Dose 325 MG; Start 04/27/18 at 09:00; Status Hold Albuterol/ Ipratropium (Duoneb) 3 ml Q6H RESP THERAPY INH Last administered on 05/11/18 09:24; Admin Dose 3 ML; Start 04/27/18 at 08:00 Levothyroxine Sodium (Synthroid) 88 mcg BEFORE BREAKFAST PO Last administered on 05/10/18 07:18; Admin Dose 88 MCG; Start 04/27/18 at 07:00 Atorvastatin Calcium (Lipitor) 10 mg DAILY@21 PO Last administered on 05/10/18 20:07; Admin Dose 10 MG; Start 04/27/18 at 21:00 Albuterol/ Ipratropium (Duoneb) 3 ml Q2H RESP THERAPY PRN HHN shortness of breath; Start 04/27/18 at 10:00 Enoxaparin Sodium (Lovenox) 40 mg DAILY SC Last administered on 05/11/18at 08:58; Admin Dose 40 MG; Start 04/28/18 at 09:00; Status Hold Budesonide (Pulmicort (Neb)) 0.5 mg BID RESP THERAPY INH Last administered on 05/11/18 09:25; Admin Dose 0.5 MG; Start 04/29/18 at 09:00 Hydralazine HCl (Apresoline) 10 mg Q4H PRN IV SBP >160 Last administered on 04/14 18:50; Admin Dose 10 MG; Start 05/01/18 at 13:00 Polyethylene Glycol (Miralax) 17 gm DAILY PO Last administered on 05/11/18 08:56; Admin Dose 17 GM; Start 05/02/18 at 10:30 Docusate Sodium (Colace) 100 mg BID PRN PO CONSTIPATION; Start 05/02/18 at 10:30 Calcium/Vitamin D (Oyster Shell/ Vit-D (500/200)) 1 tab BID PO Last administered on 05/11/18 09:00; Admin Dose 1 TAB; Start 05/03/18 at 21:00 Prednisone (Prednisone) 20 mg DAILY PO Last administered on 05/11/18 09:00; Admin Dose 20 MG; Start 05/10/18 at 09:00 Cefepime HCl 50 ml @ 100 mls/hr Q12 IVPB Last administered on 05/11/18 09:00; Admin Dose 100 MLS/HR; Start 05/09/18 at 16:00 Fluconazole/ Sodium Chloride 50 ml @ 50 mls/hr Q24H IVPB Last administered on 05/10/18 17:02; Admin Dose 50 MLS/HR; Start 05/09/18 at 17:00 VTE Prophylaxis Risk score (from Nsg)>0 risk: 8 SCD applied (from Nsg): Yes Lines/Catheters IV Catheter Type: Rajan in Place: No Assessment/Plan Hospital Course Subjective Patient developed hematuria overnight, however has no significant complaints at this time, daughter over the phone told rehabilitation caseworker that she suspected patient was doing worse due to worsening congestion however at this time I do not see any signs of worsening respiratory issues. Objective Physical exam General: Patient is laying in bed and answers questions appropriately Mentation: Patient is alert and oriented 4, Head: Normocephalic atraumatic Eyes: EOMI, pupils reactive to light Neck: Supple, nontender, midline Respiratory: Mildly coarse to auscultation bilaterally Cardiovascular: regular rate, no obvious murmurs Gastrointestinal: non-tender to palpation, bowel sounds heard. Neurological: Moves all extremities spontaneously Skin: No new skin lesions Assessment/Plan 1. Acute hypoxic and hypercapnic respiratory failure- stable - Patient appears back to baseline respiratory status de paz. - Pulm on board and appreciate recommendations. Plans for further steroid taper as tolerated - BIPAP qhs and NC during the day, machine delivered at home, likely trilogy per pulmonology, arranged by patient's outpatient mortar maker UTI -Also with yeast, will start fluconazole and cefepime due to patient's long hospital stay as well as on prednisone -Infectious disease has been consulted Leukocytosis -Chest x-ray, UA, blood cultures done -UTI was positive, it antibiotics and antifungal started, infectious disease consulted 2. Acute metabolic Encephalopathy- resolved 3. Exacerbation of IPF- resolving - Follows with Pulm as outpatient - Continue steroid taper and nebs 4. Hypothyroidism -Continue home meds 5. Dyslipidemia -Continue home meds 6. Disposition -Treat UTI, infectious disease recs appreciated, await urine culture -Continue steroids at 20 mg daily for now per pulmonology, patient will likely be discharged with this dose -Patient's family will need to know how to use trilogy machine at home before discharge. -Spoke with daughter, TANNER at bedside, patient is full code at the moment, intubation will be on a case by case basis will need to confirm with daughter before elective intubation. MERNA BLAKE May 11, 2018 13:49
--- NOTE | 2018-05-11 15:48 | CONS ---
Assessment/Plan Assessment/Plan Hospital Course (Demo Recall) IMPRESSION: 1. Abnormal echocardiogram, assess for acute coronary syndrome.-neg x 3 since ecg abnl seen by tele. NO chest pain according to family member at bedside. repeat ecg today with inferior q's and only borderline J point elevation single lead 2. Cardiac arrhythmia. Continue to follow. 3. Hyponatremia- ongoing 4. Pulmonary fibrosis. 5. Dementia. 6. Urinary tract infection. 7. Leukocytosis and anemia. 8. Hematuruia Recc: -Tele -serial ecg's -contineu statin -Follow BP closely off of antihypertensives -Home BIPAP being set up -Continue steroids/bronchodilators and antifungals -Holding asa due to hematuria Consultation Date/Type/Reason Admit Date/Time Apr 27, 2018 at 02:15 Initial Consult Date 05/09/18 Type of Consult Cardiology Reason for Consultation abnl ecg Requesting Provider: MERNA BLAKE Date/Time of Note DATE: 05/11/18 TIME: 15:45 Exam/Review of Systems Vital Signs Vitals Vital Signs Date Temp Pulse Resp B/P (MAP) Pulse Ox O2 O2 Flow FiO2 Time Delivery Rate 05/11/18 98.5 95 20 138/64 96 Nasal 15:08 (88) Cannula 05/11/18 4.0 14:06 05/11/18 30 03:06 Intake and Output 05/10/18 05/10/18 05/11/18 1515:00 23:00 07:00 IntakeIntake Total 530 ml 200 ml OutputOutput Total 500 ml 400 ml BalanceBalance 30 ml -200 ml Exam Exam Review of Systems: CONSTITUTIONAL: No fevers, chills. PULMONARY: No sob CARDIOVASCULAR: No chest pain/palpitations GASTROINTESTINAL: No nausea/vomiting. GENITOURINARY: No hematuria/dysuria. MUSCULOSKELETAL: No myagias/arthalgias. PSYCHIATRIC: The patient denies depression. NEUROLOGIC: No weakness Constitutional: alert Psych: no complaints Head: normocephalic ENMT: mucosa pink and moist Neck: supple, jvd (9 cm water) Respiratory: clear to auscultation Cardiovascular: regular rate and rhythm Gastrointestinal: soft, non-tender Musculoskeletal: muscle tone (normal) Extremities: edema (none) Neurological: other (no focal deficits) Labs Result Diagram: 05/11/18 0742 05/11/18 0742 Results 24hrs Laboratory Tests Test 05/11/18 07:42 White Blood Count 11.5 #H Red Blood Count 3.65 L Hemoglobin 10.1 L Hematocrit 31.5 L Mean Corpuscular Volume 86.3 Mean Corpuscular Hemoglobin 27.7 L Mean Corpuscular Hemoglobin Concent 32.1 Red Cell Distribution Width 14.5 Platelet Count 308 Mean Platelet Volume 10.2 Immature Granulocytes % 0.600 H Neutrophils % 86.6 H Lymphocytes % 6.5 L Monocytes % 5.7 Eosinophils % 0.5 Basophils % 0.1 Nucleated Red Blood Cells % 0.0 Immature Granulocytes # 0.070 H Neutrophils # 9.9 H Lymphocytes # 0.8 Monocytes # 0.7 Eosinophils # 0.1 Basophils # 0.0 Nucleated Red Blood Cells # 0.0 Sodium Level 130 L Potassium Level 4.3 Chloride Level 88 L Carbon Dioxide Level 36 H Anion Gap 6 Blood Urea Nitrogen 14 Creatinine 0.49 Est Glomerular Filtrat Rate mL/min Glucose Level 92 Calcium Level 8.4 Phosphorus Level 2.9 Magnesium Level 1.9 Medications Medications Current Medications IV Flush (NS 3 ml) 3 ml PER PROTOCOL IV ; Start 04/27/18 at 03:00 Ondansetron HCl (Zofran Inj) 4 mg Q6H PRN IV NAUSEA/VOMITING; Start 04/27/18 at 03:00 Acetaminophen (Tylenol Tab) 650 mg Q6H PRN PO .PAIN 1-3 OR TEMP; Start 04/27/18 at 03:00 Aspirin (Ecotrin) 325 mg DAILY PO Last administered on 05/11/18at 09:00; Admin Dose 325 MG; Start 04/27/18 at 09:00; Status Hold Albuterol/ Ipratropium (Duoneb) 3 ml Q6H RESP THERAPY INH Last administered on 05/11/18at 14:00; Admin Dose 3 ML; Start 04/27/18 at 08:00 Levothyroxine Sodium (Synthroid) 88 mcg BEFORE BREAKFAST PO Last administered on 05/10/18at 07:18; Admin Dose 88 MCG; Start 04/27/18 at 07:00 Atorvastatin Calcium (Lipitor) 10 mg DAILY@21 PO Last administered on 05/10/18at 20:07; Admin Dose 10 MG; Start 04/27/18 at 21:00 Albuterol/ Ipratropium (Duoneb) 3 ml Q2H RESP THERAPY PRN HHN shortness of breath; Start 04/27/18 at 10:00 Enoxaparin Sodium (Lovenox) 40 mg DAILY SC Last administered on 05/11/18 08:58; Admin Dose 40 MG; Start 04/28/18 at 09:00; Status Hold Budesonide (Pulmicort (Neb)) 0.5 mg BID RESP THERAPY INH Last administered on 05/11/18 09:25; Admin Dose 0.5 MG; Start 04/29/18 at 09:00 Hydralazine HCl (Apresoline) 10 mg Q4H PRN IV SBP >160 Last administered on 05/02/18 18:50; Admin Dose 10 MG; Start 05/01/18 at 13:00 Polyethylene Glycol (Miralax) 17 gm DAILY PO Last administered on 05/11/18 08:56; Admin Dose 17 GM; Start 05/02/18 at 10:30 Docusate Sodium (Colace) 100 mg BID PRN PO CONSTIPATION; Start 05/02/18 at 10:30 Calcium/Vitamin D (Oyster Shell/ Vit-D (500/200)) 1 tab BID PO Last administered on 05/11/18 09:00; Admin Dose 1 TAB; Start 05/03/18 at 21:00 Prednisone (Prednisone) 20 mg DAILY PO Last administered on 05/11/18 09:00; Admin Dose 20 MG; Start 05/10/18 at 09:00 Cefepime HCl 50 ml @ 100 mls/hr Q12 IVPB Last administered on 05/11/18 09:00; Admin Dose 100 MLS/HR; Start 05/09/18 at 16:00 Fluconazole/ Sodium Chloride 50 ml @ 50 mls/hr Q24H IVPB Last administered on 05/10/18 17:02; Admin Dose 50 MLS/HR; Start 05/09/18 at 17:00 AKSHAT HAY May 11, 2018 15:48
[2018-05-11] MEDS: FLUCONAZOLE 100 MG/50 ML (PMX) 50 ML IVPB SCH (16:23)
--- NOTE | 2018-05-11 19:26 | CONS ---
Assessment/Plan Assessment/Plan Hospital Course (Demo Recall) 87-year-old female with a history of dementia, pulmonary fibrosis, hypothyroidism, dyslipidemia was brought to the ER after she was found unresponsive. She was given promethazine the night before her admission and about 30 minutes or so after when the family tries to wake her up, she was very lethargic and difficult to arouse. It took about 10 minutes for the patient to wake up. No focal weakness/numbness, seizure-like activity, facial droop, slurred speech reported. Patient was admitted here last month for syncope which was thought to be from hypoxia caused by her pulmonary fibrosis. At that time echo and carotid Doppler ultrasound were nondiagnostic. Reportedly patient has been coughing, which is chronic. Patient had a Rajan catheter inserted on admission this time and the urine was noted to be bloody therefore the catheter was changed and a three-way Rajan catheter was inserted and continuous bladder irrigation was started. A urological consultation was requested because of the hematuria. I did talk to her 2 daughters. There is no history of hematuria before. No history of kidney stones. At the present the return from the bladder irrigation is clear pink I will order urine for cytology and also do renal ultrasound. Consultation Date/Type/Reason Admit Date/Time Apr 27, 2018 at 02:15 Date of Consultation: May 11, 2018 Type of Consult Urology Reason for Consultation Hematuria Requesting Provider: MERNA BLAKE Date/Time of Note DATE: 05/11/18 TIME: 19:05 Hx of Present Illness 87-year-old female with a history of dementia, pulmonary fibrosis, hypothyroidism, dyslipidemia was brought to the ER after she was found unresponsive. She was given promethazine the night before her admission and about 30 minutes or so after when the family tries to wake her up, she was very lethargic and difficult to arouse. It took about 10 minutes for the patient to wake up. No focal weakness/numbness, seizure-like activity, facial droop, slurred speech reported. Patient was admitted here last month for syncope which was thought to be from hypoxia caused by her pulmonary fibrosis. At that time echo and carotid Doppler ultrasound were nondiagnostic. Reportedly patient has been coughing, which is c hronic. Patient had a Rajan catheter inserted on admission this time and the urine was noted to be bloody therefore the catheter was changed and a three-way Rajan catheter was inserted and continuous bladder irrigation was started. A urological consultation was requested because of the hematuria. I did talk to her 2 daughters. There is no history of hematuria before. No history of kidney stones. Constitutional: no complaints Eyes: no complaints ENT: no complaints Respiratory: no complaints; No wheezing Cardiovascular: No chest pain Gastrointestinal: no complaints Genitourinary: no complaints, other Musculoskeletal: no complaints Skin: no complaints Neurologic: no complaints Endocrine: no complaints Lymphatic: no complaints Psychological: no complaints Past Medical History Medical History: high cholesterol, hypertension, hypothyroid, other (See HPI) Home Meds Reported Medications Formoterol Fumarate (Perforomist) 20 Mcg/2 Ml Vial.neb, 20 MCG INHALATION BID, VIAL 03/28/18 Ipratropium [place] (Ipratropium [place]) 5 Gm Powder, 10.5 MG MC BID 03/28/18 Ipratropium-Albuterol (Ipratropium-Albuterol) 0.5-3 Mg/3 Ml Ampul.neb, 3 ML INHALATION Q6, #30 VIAL 03/28/18 Budesonide* (Budesonide*) 0.25 Mg/2 Ml Ampul.neb, 0.25 MG INHALATION BID, AMP 03/28/18 Cholecalciferol* (Vitamin D3*) 1,000 Unit Tablet, 1000 UNIT PO DAILY, TAB 03/28/18 Simvastatin* (Zocor*) 20 Mg Tablet, 20 MG PO QHS, #30 TAB 03/28/18 Aspirin* (Aspirin* EC) 325 Mg Tab, 325 MG PO DAILY, TAB 03/28/18 Levothyroxine Sodium* (Levothyroxine Sodium*) 88 Mcg Tablet, 88 MCG PO BEFORE BREAKFAST, #30 TAB 03/28/18 Medications Current Medications IV Flush (NS 3 ml) 3 ml PER PROTOCOL IV ; Start 04/27/18 at 03:00 Ondansetron HCl (Zofran Inj) 4 mg Q6H PRN IV NAUSEA/VOMITING; Start 04/27/18 at 03:00 Acetaminophen (Tylenol Tab) 650 mg Q6H PRN PO .PAIN 1-3 OR TEMP; Start 04/27/18 at 03:00 Aspirin (Ecotrin) 325 mg DAILY PO Last administered on 05/11/18at 09:00; Admin Dose 325 MG; Start 04/27/18 at 09:00; Status Hold Albuterol/ Ipratropium (Duoneb) 3 ml Q6H RESP THERAPY INH Last administered on 05/11/18 14:00; Admin Dose 3 ML; Start 04/27/18 at 08:00 Levothyroxine Sodium (Synthroid) 88 mcg BEFORE BREAKFAST PO Last administered on 05/10/18 07:18; Admin Dose 88 MCG; Start 04/27/18 at 07:00 Atorvastatin Calcium (Lipitor) 10 mg DAILY@21 PO Last administered on 05/10/18 20:07; Admin Dose 10 MG; Start 04/27/18 at 21:00 Albuterol/ Ipratropium (Duoneb) 3 ml Q2H RESP THERAPY PRN HHN shortness of breath; Start 04/27/18 at 10:00 Enoxaparin Sodium (Lovenox) 40 mg DAILY SC Last administered on 05/11/18 08:58; Admin Dose 40 MG; Start 04/28/18 at 09:00; Status Hold Budesonide (Pulmicort (Neb)) 0.5 mg BID RESP THERAPY INH Last administered on 05/11/18 09:25; Admin Dose 0.5 MG; Start 04/29/18 at 09:00 Hydralazine HCl (Apresoline) 10 mg Q4H PRN IV SBP >160 Last administered on 05/02/18 18:50; Admin Dose 10 MG; Start 05/01/18 at 13:00 Polyethylene Glycol (Miralax) 17 gm DAILY PO Last administered on 05/11/18 08:56; Admin Dose 17 GM; Start 05/02/18 at 10:30 Docusate Sodium (Colace) 100 mg BID PRN PO CONSTIPATION; Start 05/02/18 at 10:30 Calcium/Vitamin D (Oyster Shell/ Vit-D (500/200)) 1 tab BID PO Last administered on 05/11/18 09:00; Admin Dose 1 TAB; Start 05/03/18 at 21:00 Prednisone (Prednisone) 20 mg DAILY PO Last administered on 05/11/18 09:00; Admin Dose 20 MG; Start 05/10/18 at 09:00 Cefepime HCl 50 ml @ 100 mls/hr Q12 IVPB Last administered on 05/11/18 09:00; Admin Dose 100 MLS/HR; Start 05/09/18 at 16:00 Fluconazole/ Sodium Chloride 50 ml @ 50 mls/hr Q24H IVPB Last administered on 05/11/18at 16:23; Admin Dose 50 MLS/HR; Start 05/09/18 at 17:00 Allergies: Coded Allergies: No Known Allergy (Unverified , 04/27/18) Past Surgical History Past Surgical Hx: cholecystectomy, other (See HPI) Social History Alcohol Use: none Smoking Status: Never smoker Drug Use: none Exam/Review of Systems Exam Vitals Vital Signs Date Temp Pulse Resp B/P (MAP) Pulse Ox O2 O2 Flow FiO2 Time Delivery Rate 05/11/18 87 16:06 05/11/18 98.5 20 138/64 96 Nasal 15:08 (88) Cannula 05/11/18 4.0 14:06 05/11/18 30 03:06 Intake and Output 05/10/18 05/10/18 05/11/18 1515:00 23:00 07:00 IntakeIntake Total 530 ml 200 ml OutputOutput Total 500 ml 400 ml BalanceBalance 30 ml -200 ml Constitutional: alert, oriented Psych: no complaints, anxiety Head: atraumatic Eyes: nl conjunctiva ENMT: nl external ears & nose Neck: supple Respiratory: normal air movement; No wheezing Cardiovascular: No jugular venous distention (JVD) Gastrointestinal: soft; No mass Genitourinary - Female: other (Pelvic exam no mass and no discharge, she has a three-way Rajan catheter with continuous bladder irrigation and the return from the irrigation is clear to clear pink) Musculoskeletal: nl extremities to inspection Extremities: No calf tenderness Neurological: nl mental status Skin: nl turgor Lymph: nl lymph nodes Results Result Diagram: 05/11/18 0742 05/11/18 0742 Results 24hrs Laboratory Tests Test 05/11/18 07:42 White Blood Count 11.5 #H Red Blood Count 3.65 L Hemoglobin 10.1 L Hematocrit 31.5 L Mean Corpuscular Volume 86.3 Mean Corpuscular Hemoglobin 27.7 L Mean Corpuscular Hemoglobin Concent 32.1 Red Cell Distribution Width 14.5 Platelet Count 308 Mean Platelet Volume 10.2 Immature Granulocytes % 0.600 H Neutrophils % 86.6 H Lymphocytes % 6.5 L Monocytes % 5.7 Eosinophils % 0.5 Basophils % 0.1 Nucleated Red Blood Cells % 0.0 Immature Granulocytes # 0.070 H Neutrophils # 9.9 H Lymphocytes # 0.8 Monocytes # 0.7 Eosinophils # 0.1 Basophils # 0.0 Nucleated Red Blood Cells # 0.0 Sodium Level 130 L Potassium Level 4.3 Chloride Level 88 L Carbon Dioxide Level 36 H Anion Gap 6 Blood Urea Nitrogen 14 Creatinine 0.49 Est Glomerular Filtrat Rate mL/min Glucose Level 92 Calcium Level 8.4 Phosphorus Level 2.9 Magnesium Level 1.9 Medications Medication Current Medications IV Flush (NS 3 ml) 3 ml PER PROTOCOL IV ; Start 04/27/18 at 03:00 Ondansetron HCl (Zofran Inj) 4 mg Q6H PRN IV NAUSEA/VOMITING; Start 04/27/18 at 03:00 Acetaminophen (Tylenol Tab) 650 mg Q6H PRN PO .PAIN 1-3 OR TEMP; Start 04/27/18 at 03:00 Aspirin (Ecotrin) 325 mg DAILY PO Last administered on 05/11/18 09:00; Admin Dose 325 MG; Start 04/27/18 at 09:00; Status Hold Albuterol/ Ipratropium (Duoneb) 3 ml Q6H RESP THERAPY INH Last administered on 05/11/18 14:00; Admin Dose 3 ML; Start 04/27/18 at 08:00 Levothyroxine Sodium (Synthroid) 88 mcg BEFORE BREAKFAST PO Last administered on 05/10/18 07:18; Admin Dose 88 MCG; Start 04/27/18 at 07:00 Atorvastatin Calcium (Lipitor) 10 mg DAILY@21 PO Last administered on 05/10/18 20:07; Admin Dose 10 MG; Start 04/27/18 at 21:00 Albuterol/ Ipratropium (Duoneb) 3 ml Q2H RESP THERAPY PRN HHN shortness of breath; Start 04/27/18 at 10:00 Enoxaparin Sodium (Lovenox) 40 mg DAILY SC Last administered on 05/11/18 08:58; Admin Dose 40 MG; Start 04/28/18 at 09:00; Status Hold Budesonide (Pulmicort (Neb)) 0.5 mg BID RESP THERAPY INH Last administered on 05/11/18 09:25; Admin Dose 0.5 MG; Start 04/29/18 at 09:00 Hydralazine HCl (Apresoline) 10 mg Q4H PRN IV SBP >160 Last administered on 05/02/18 18:50; Admin Dose 10 MG; Start 05/01/18 at 13:00 Polyethylene Glycol (Miralax) 17 gm DAILY PO Last administered on 05/11/18 08:56; Admin Dose 17 GM; Start 05/02/18 at 10:30 Docusate Sodium (Colace) 100 mg BID PRN PO CONSTIPATION; Start 05/02/18 at 10:30 Calcium/Vitamin D (Oyster Shell/ Vit-D (500/200)) 1 tab BID PO Last administered on 05/11/18 09:00; Admin Dose 1 TAB; Start 05/03/18 at 21:00 Prednisone (Prednisone) 20 mg DAILY PO Last administered on 05/11/18 09:00; Admin Dose 20 MG; Start 05/10/18 at 09:00 Cefepime HCl 50 ml @ 100 mls/hr Q12 IVPB Last administered on 05/11/18 09:00; Admin Dose 100 MLS/HR; Start 05/09/18 at 16:00 Fluconazole/ Sodium Chloride 50 ml @ 50 mls/hr Q24H IVPB Last administered on 05/11/18 16:23; Admin Dose 50 MLS/HR; Start 05/09/18 at 17:00 LINDSAY JULIO MD May 11, 2018 19:15
[2018-05-11] MEDS: ATORVASTATIN 10 MG TAB PO SCH (20:31)
[2018-05-12] VITALS (13 sets, daily range): BP systolic 122–147; BP diastolic 58–75; PULSE 68–88; RESP 20
[2018-05-12] MEDS: ALBUTEROL/IPRATROPIUM (NEB) 3 ML AMP INH SCH ×4 (01:07→20:02)
[2018-05-12] MEDS: BUDESONIDE (NEB) 0.5MG/2ML AMP INH SCH ×2 (08:11→20:02)
--- NOTE | 2018-05-12 08:35 | PN ---
Date/Time of Note Date/Time of Note DATE: 05/12/18 TIME: 08:34 Assessment/Plan VTE Prophylaxis Risk score (from Nsg)>0 risk: 8 SCD applied (from Nsg): Yes Pharmacological prophylaxis: other Lines/Catheters IV Catheter Type (from Nrsg): Saline Lock Urinary Cath still in place: Yes Reason Cath still needed: urinary retention Assessment/Plan Hospital Course renal follow up SUBJECTIVE: all noted. d/w Dr Martinez hemoptysis, hematemesis or hematochezia. The patient had minimal free water intake. No other events noted. OBJECTIVE: HEENT: Head is normocephalic. NECK: Supple. HEART: Regular rate. LUNGS: Show diminished breath sounds at the base. ABDOMEN: Soft, nontender to palpation without rebound or guarding. EXTREMITIES: Negative for clubbing, cyanosis, no edema. DERMATOLOGIC: No rashes. MUSCULOSKELETAL: No joint effusion. NEUROLOGIC: No change in exam. MEDICATIONS: Reviewed. ASSESSMENT AND PLAN: 1. Hypernatremia, etiology is felt to be secondary to syndrome of inappropriate antidiuretic hormone. The patient's sodium levels are low but stable. Continue free water restriction, continue to encourage high osmolar diet. We will monitor sodium levels closely. 2. Hematuria. 4. Anemia. Continue to monitor hemoglobin and hematocrit levels. 5. Acute hypoxemic hypercapnic respiratory failure secondary to pulmonary fibrosis, pneumonia. Continue BiPAP. Continue prednisone taper per pulmonary. 6. Hypothyroidism. Continue Synthroid. 7. Dyslipidemia. Continue statin therapy. 8. Encephalopathy, etiology is toxic metabolic. Continue to monitor. Result Diagram: 05/11/18 0742 05/11/18 0742 Exam/Review of Systems Exam Vitals Vital Signs Date Temp Pulse Resp B/P (MAP) Pulse Ox O2 O2 Flow FiO2 Time Delivery Rate 05/12/18 82 20 100 Nasal 2.5 08:13 Cannula 05/12/18 98.6 124/58 07:23 (80) 05/11/18 30 03:06 Intake and Output 05/11/18 05/11/18 05/12/18 1515:00 23:00 07:00 IntakeIntake Total 50 ml 720 ml 200 ml OutputOutput Total 800 ml 550 ml BalanceBalance 50 ml -80 ml -350 ml Medications Medication Current Medications IV Flush (NS 3 ml) 3 ml PER PROTOCOL IV ; Start 04/27/18 at 03:00 Ondansetron HCl (Zofran Inj) 4 mg Q6H PRN IV NAUSEA/VOMITING; Start 04/27/18 at 03:00 Acetaminophen (Tylenol Tab) 650 mg Q6H PRN PO .PAIN 1-3 OR TEMP; Start 04/27/18 at 03:00 Aspirin (Ecotrin) 325 mg DAILY PO Last administered on 05/11/18 09:00; Admin Dose 325 MG; Start 04/27/18 at 09:00; Status Hold Albuterol/ Ipratropium (Duoneb) 3 ml Q6H RESP THERAPY INH Last administered on 05/12/18 08:10; Admin Dose 3 ML; Start 04/27/18 at 08:00 Levothyroxine Sodium (Synthroid) 88 mcg BEFORE BREAKFAST PO Last administered on 05/10/18 07:18; Admin Dose 88 MCG; Start 04/27/18 at 07:00 Atorvastatin Calcium (Lipitor) 10 mg DAILY@21 PO Last administered on 05/11/18 20:31; Admin Dose 10 MG; Start 04/27/18 at 21:00 Albuterol/ Ipratropium (Duoneb) 3 ml Q2H RESP THERAPY PRN HHN shortness of breath; Start 04/27/18 at 10:00 Enoxaparin Sodium (Lovenox) 40 mg DAILY SC Last administered on 05/11/18 08:58; Admin Dose 40 MG; Start 04/28/18 at 09:00; Status Hold Budesonide (Pulmicort (Neb)) 0.5 mg BID RESP THERAPY INH Last administered on 05/12/18 08:11; Admin Dose 0.5 MG; Start 04/29/18 at 09:00 Hydralazine HCl (Apresoline) 10 mg Q4H PRN IV SBP >160 Last administered on 05/02/18 18:50; Admin Dose 10 MG; Start 05/01/18 at 13:00 Polyethylene Glycol (Miralax) 17 gm DAILY PO Last administered on 05/11/18 08:56; Admin Dose 17 GM; Start 05/02/18 at 10:30 Docusate Sodium (Colace) 100 mg BID PRN PO CONSTIPATION; Start 05/02/18 at 10:30 Calcium/Vitamin D (Oyster Shell/ Vit-D (500/200)) 1 tab BID PO Last administered on 05/11/18at 20:31; Admin Dose 1 TAB; Start 05/03/18 at 21:00 Prednisone (Prednisone) 20 mg DAILY PO Last administered on 05/11/18at 09:00; Admin Dose 20 MG; Start 05/10/18 at 09:00 Cefepime HCl 50 ml @ 100 mls/hr Q12 IVPB Last administered on 05/11/18at 20:30; Admin Dose 100 MLS/HR; Start 05/09/18 at 16:00 Fluconazole/ Sodium Chloride 50 ml @ 50 mls/hr Q24H IVPB Last administered on 05/11/18 16:23; Admin Dose 50 MLS/HR; Start 05/09/18 at 17:00 JUANITA METCALF DO May 12, 2018 08:35
[2018-05-12] MEDS: LEVOTHYROXINE 88 MCG TAB PO SCH (08:38)
[2018-05-12] MEDS: BALSAM PERU/CASTOR OIL 60 GM TUBE TOP SCH ×2 (08:38→20:49)
[2018-05-12] MEDS: CALCIUM/VITAMIN D (500/200) TAB PO SCH ×2 (08:38→20:48)
[2018-05-12] MEDS: predniSONE 20 MG TAB PO SCH (08:38)
[2018-05-12] MEDS: CEFEPIME 1GM/50 ML (PMX) 50 ML IVPB SCH ×2 (08:38→20:48)
[2018-05-12] MEDS: POLYETHYLENE GLYCOL 17 GM PACKET PO SCH (08:44)
--- NOTE | 2018-05-12 10:33 | CONS ---
Assessment/Plan Assessment/Plan Hospital Course (Demo Recall) ID PROGRESS NOTE CURRENT ABX: DAY # => Cefepime # 3.5 + Diflucan s/p Vanco IV s/p Zosyn 05/12/18 0925 05/11/18 0742 24H INTERVAL SUMMARY * Awake, alert, responsive, smiling, taking PO lunch via assist from daughter * No fevers, VSS, without distress, supplemental O2 via NC * WBC has normalized * URINE COLOR IMPROVED PER FAMILY => Patient had a Rajan catheter inserted on admission this time and the urine was noted to be bloody therefore the catheter was changed and a three-way Rajan catheter was inserted and continuous bladder irrigation was started. A urological consultation was requested because of the hematuria. DIAGNOSTIC IMAGING * 05/12/18 CXR: IMPRESSION: * Cardiomegaly with calcified atherosclerosis in the aorta. * Stable diffuse interstitial prominence in both lungs. Interstitial prominence could be chronic. * Stable potential superimposed alveolar infiltrates in the bilateral lower lungs, left greater than right. * Hypoinflated lungs with an elevated right hemidiaphragm. MICRO/OTHER * 05/09/18 BCX (-) * 05/09/18 UA (+)2+ LuekEsterase, pyuria, hematuria, MANY BUDDING YEAST * 05/02/18 bcX (-) * 04/26/18 BCX (+) 1/2 BOTTLES in ED for COAGULASE NEGATIVE STAPH COAG NEG M.I.C. RX --------- --- CEFAZOLIN S CIPROFLOXACIN 4 R CLINDAMYCIN I DOXYCYCLINE S ERYTHROMYCIN >=8 R LEVOFLOXACIN 4 R OXACILLIN <=0.25 S PENICILLIN-G 0.25 R RIFAMPIN <=0.5 S VANCOMYCIN <=0.5 S TRIMETHOPRIM/SULFAMETHOXAZOLE <=10 S PHYSICAL EXAMINATION: GENERAL: VSS, NAD HEENT: AT, NC, anicteric, NECK: Supple, CHEST: Equal chest rise bilaterally, without dyspnea on observation HEART: Pulse RRR ABDOMEN: Soft / NT : EXTREMITIES: Warm, dry SKIN: No rash, no diaphoresis ID ASSESSMENT 87 yo F admit with: 1. Acute on chronic hypoxemic respiratory failure 2. Possible pneumonia 3. Idiopathic pulmonary fibrosis status post exacerbation 4. Fungal UTI * 05/09/18 UA (+)2+ LuekEsterase, pyuria, hematuria, MANY BUDDING YEAST (-)MRSA Nares ABX ALLERGIES: KNDA INVASIVES: PIV CURRENT ABX: DAY # => Cefepime # 3.5 + Diflucan s/p Vanco IV s/p Zosyn ID RECOMMENDATIONS/PLAN: 1. Anticipate DC Cefepime tomorrow am 2. Change Diflucan to PO in am == When cleared for DC home -- anticipate DC home of Diflucan 100mg PO daily x 3-4 days . Consultation Date/Type/Reason Admit Date/Time Apr 27, 2018 at 02:15 Initial Consult Date 05/11/18 Requesting Provider: MERNA BLAKE Date/Time of Note DATE: 05/12/18 TIME: 10:33 Exam/Review of Systems Exam Vitals Vital Signs Date Temp Pulse Resp B/P (MAP) Pulse Ox O2 O2 Flow FiO2 Time Delivery Rate 05/12/18 84 08:51 05/12/18 20 100 Nasal 2.5 08:13 Cannula 05/12/18 98.6 124/58 07:23 (80) 05/11/18 30 03:06 Intake and Output 05/11/18 05/11/18 05/12/18 1515:00 23:00 07:00 IntakeIntake Total 50 ml 720 ml 200 ml OutputOutput Total 800 ml 550 ml BalanceBalance 50 ml -80 ml -350 ml Results Result Diagram: 05/12/18 0925 05/11/18 0742 Results 24hrs Laboratory Tests Test 05/12/18 07:00 05/12/18 09:25 Blood Gas Specimen Source Blood arterial Arterial Blood Date Drawn 05/12/2018 8:45:47 AM Arterial Blood pH (Temp corrected) 7.353 Arterial Blood pCO2 (Temp correct) 60.3 H Arterial Blood pO2 (Temp corrected) 115.8 H Arterial Blood HCO3 32.8 H Arterial Blood Base Excess 5.8 H Arterial Blood Oxygen Saturation 98.3 Abhishek Test ACCEPTAB Arterial Blood Gas Puncture Site Right Radial Arterial Blood Carboxyhemoglobin 0.3 Arterial Blood Methemoglobin 0.2 Blood Gas A-a O2 Differential 20.0 Oxyhemoglobin Percent 97.8 Blood Gas Temperature 37.0 Blood Gas Modality NASAL CANNULA FiO2 29.0 Blood Gas Notified Tom MUÑIZ RCP Blood Gas Notified Time 05/12/2018 9:00:18 AM White Blood Count 7.6 # Red Blood Count 3.61 L Hemoglobin 9.7 L Hematocrit 31.6 L Mean Corpuscular Volume 87.5 Mean Corpuscular Hemoglobin 26.9 L Mean Corpuscular Hemoglobin Concent 30.7 L Red Cell Distribution Width 14.4 Platelet Count 312 Mean Platelet Volume 9.7 Immature Granulocytes % 0.700 H Neutrophils % 83.8 H Lymphocytes % 8.5 L Monocytes % 5.8 Eosinophils % 1.1 Basophils % 0.1 Nucleated Red Blood Cells % 0.0 Immature Granulocytes # 0.050 H Neutrophils # 6.3 Lymphocytes # 0.6 L Monocytes # 0.4 Eosinophils # 0.1 Basophils # 0.0 Nucleated Red Blood Cells # 0.0 Medications Medication Current Medications IV Flush (NS 3 ml) 3 ml PER PROTOCOL IV ; Start 04/27/18 at 03:00 Ondansetron HCl (Zofran Inj) 4 mg Q6H PRN IV NAUSEA/VOMITING; Start 04/27/18 at 03:00 Acetaminophen (Tylenol Tab) 650 mg Q6H PRN PO .PAIN 1-3 OR TEMP; Start 04/27/18 at 03:00 Aspirin (Ecotrin) 325 mg DAILY PO Last administered on 05/11/18 09:00; Admin Dose 325 MG; Start 04/27/18 at 09:00; Status Hold Albuterol/ Ipratropium (Duoneb) 3 ml Q6H RESP THERAPY INH Last administered on 05/12/18 08:10; Admin Dose 3 ML; Start 04/27/18 at 08:00 Levothyroxine Sodium (Synthroid) 88 mcg BEFORE BREAKFAST PO Last administered on 05/12/18 08:38; Admin Dose 88 MCG; Start 04/27/18 at 07:00 Atorvastatin Calcium (Lipitor) 10 mg DAILY@21 PO Last administered on 05/11/18at 20:31; Admin Dose 10 MG; Start 04/27/18 at 21:00 Albuterol/ Ipratropium (Duoneb) 3 ml Q2H RESP THERAPY PRN HHN shortness of breath; Start 04/27/18 at 10:00 Enoxaparin Sodium (Lovenox) 40 mg DAILY SC Last administered on 05/11/18at 08:58; Admin Dose 40 MG; Start 04/28/18 at 09:00; Status Hold Budesonide (Pulmicort (Neb)) 0.5 mg BID RESP THERAPY INH Last administered on 05/12/18 08:11; Admin Dose 0.5 MG; Start 04/29/18 at 09:00 Hydralazine HCl (Apresoline) 10 mg Q4H PRN IV SBP >160 Last administered on 05/02/18 18:50; Admin Dose 10 MG; Start 05/01/18 at 13:00 Polyethylene Glycol (Miralax) 17 gm DAILY PO Last administered on 05/11/18 08:56; Admin Dose 17 GM; Start 05/02/18 at 10:30 Docusate Sodium (Colace) 100 mg BID PRN PO CONSTIPATION; Start 05/02/18 at 10:30 Calcium/Vitamin D (Oyster Shell/ Vit-D (500/200)) 1 tab BID PO Last administered on 05/12/18 08:38; Admin Dose 1 TAB; Start 05/03/18 at 21:00 Prednisone (Prednisone) 20 mg DAILY PO Last administered on 05/12/18 08:38; Admin Dose 20 MG; Start 05/10/18 at 09:00 Cefepime HCl 50 ml @ 100 mls/hr Q12 IVPB Last administered on 05/12/18 08:38; Admin Dose 100 MLS/HR; Start 05/09/18 at 16:00 Fluconazole/ Sodium Chloride 50 ml @ 50 mls/hr Q24H IVPB Last administered on 05/11/18 16:23; Admin Dose 50 MLS/HR; Start 05/09/18 at 17:00 MIRIAM GROVER NP May 12, 2018 10:33
--- NOTE | 2018-05-12 12:19 | PN ---
Date/Time of Note Date/Time of Note DATE: 05/12/18 TIME: 12:17 Objective Vitals Vital Signs Date Temp Pulse Resp B/P (MAP) Pulse Ox O2 O2 Flow FiO2 Time Delivery Rate 05/12/18 73 11:55 05/12/18 97.4 20 131/58 94 Nasal 11:06 (82) Cannula 05/12/18 2.5 08:13 05/11/18 30 03:06 Intake and Output 05/11/18 05/11/18 05/12/18 1515:00 23:00 07:00 IntakeIntake Total 50 ml 720 ml 200 ml OutputOutput Total 800 ml 550 ml BalanceBalance 50 ml -80 ml -350 ml Results Result Diagram: 05/12/1892405/12/18924 Medications Medications Current Medications IV Flush (NS 3 ml) 3 ml PER PROTOCOL IV ; Start 04/27/18 at 03:00 Ondansetron HCl (Zofran Inj) 4 mg Q6H PRN IV NAUSEA/VOMITING; Start 04/27/18 at 03:00 Acetaminophen (Tylenol Tab) 650 mg Q6H PRN PO .PAIN 1-3 OR TEMP; Start 04/27/18 at 03:00 Aspirin (Ecotrin) 325 mg DAILY PO Last administered on 05/11/18 09:00; Admin Dose 325 MG; Start 04/27/18 at 09:00; Status Hold Albuterol/ Ipratropium (Duoneb) 3 ml Q6H RESP THERAPY INH Last administered on 05/12/18 08:10; Admin Dose 3 ML; Start 04/27/18 at 08:00 Levothyroxine Sodium (Synthroid) 88 mcg BEFORE BREAKFAST PO Last administered on 05/12/18 08:38; Admin Dose 88 MCG; Start 04/27/18 at 07:00 Atorvastatin Calcium (Lipitor) 10 mg DAILY@21 PO Last administered on 05/11/18 20:31; Admin Dose 10 MG; Start 04/27/18 at 21:00 Albuterol/ Ipratropium (Duoneb) 3 ml Q2H RESP THERAPY PRN HHN shortness of breath; Start 04/27/18 at 10:00 Enoxaparin Sodium (Lovenox) 40 mg DAILY SC Last administered on 05/11/18at 08:58; Admin Dose 40 MG; Start 04/28/18 at 09:00; Status Hold Budesonide (Pulmicort (Neb)) 0.5 mg BID RESP THERAPY INH Last administered on 05/12/18 08:11; Admin Dose 0.5 MG; Start 04/29/18 at 09:00 Hydralazine HCl (Apresoline) 10 mg Q4H PRN IV SBP >160 Last administered on 05/02/18 18:50; Admin Dose 10 MG; Start 05/01/18 at 13:00 Polyethylene Glycol (Miralax) 17 gm DAILY PO Last administered on 05/11/18 08:56; Admin Dose 17 GM; Start 05/02/18 at 10:30 Docusate Sodium (Colace) 100 mg BID PRN PO CONSTIPATION; Start 05/02/18 at 10:30 Calcium/Vitamin D (Oyster Shell/ Vit-D (500/200)) 1 tab BID PO Last administered on 05/12/18 08:38; Admin Dose 1 TAB; Start 05/03/18 at 21:00 Prednisone (Prednisone) 20 mg DAILY PO Last administered on 05/12/18 08:38; Admin Dose 20 MG; Start 05/10/18 at 09:00 Cefepime HCl 50 ml @ 100 mls/hr Q12 IVPB Last administered on 05/12/18 08:38; Admin Dose 100 MLS/HR; Start 05/09/18 at 16:00 Fluconazole/ Sodium Chloride 50 ml @ 50 mls/hr Q24H IVPB Last administered on 05/11/18 16:23; Admin Dose 50 MLS/HR; Start 05/09/18 at 17:00 VTE Prophylaxis Risk score (from Nsg)>0 risk: 8 SCD applied (from Ns): Yes Lines/Catheters IV Catheter Type: Strange in Place: Yes Cont'd strange catheter reason: pres ulcer contaminated by urine, skin wounds contaminated by urine Assessment/Plan Hospital Course Subjective Patient on CBI, still pink urine Objective Physical exam General: Patient is laying in bed and answers questions appropriately Mentation: Patient is alert and oriented 4, Head: Normocephalic atraumatic Eyes: EOMI, pupils reactive to light Neck: Supple, nontender, midline Respiratory: Mildly coarse to auscultation bilaterally Cardiovascular: regular rate, no obvious murmurs Gastrointestinal: non-tender to palpation, bowel sounds heard. Neurological: Moves all extremities spontaneously Skin: No new skin lesions Assessment/Plan 1. Acute hypoxic and hypercapnic respiratory failure- stable - Patient appears back to baseline respiratory status de paz. - Pulm on board and appreciate recommendations. 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 Patient was diagnosed with UTI a few days prior to hematuria which did show some hemoglobin however this may be normal for UTI and patient did not have hematuria at this time. Leukocytosis -Chest x-ray, UA, blood cultures done -UTI was positive, it antibiotics and antifungal started, infectious disease consulted Anemia -Secondary to acute blood loss anemia secondary to hematuria, monitor closely 2. Acute metabolic Encephalopathy- resolved 3. Exacerbation of IPF- resolving - Follows with Pulm as outpatient - Continue steroid taper and nebs 4. Hypothyroidism -Continue home meds 5. Dyslipidemia -Continue home meds 6. Disposition -Treat UTI, infectious disease recs appreciated, await urine culture -Continue steroids at 20 mg daily for now per pulmonology, patient will likely be discharged with this dose -Patient's family will need to know how to use trilogy machine at home before discharge. -Spoke with daughter, TANNER at bedside, patient is full code at the moment, intubation will be on a case by case basis will need to confirm with daughter before elective intubation. MERNA BLAKE May 12, 2018 12:19
--- NOTE | 2018-05-12 12:25 | CONS ---
Consult Date/Type/Reason Admit Date/Time Apr 27, 2018 at 02:15 Initial Consult Date 05/11/18 Type of Consultation: Pulm/CCM Requesting Provider: MERNA BLAKE Date/Time of Note DATE: 05/12/18 TIME: 12:24 Subjective NO acute events - pt feels better - no CP now - no ectopy on tele ROS: No fever, no chills, no nausea, no vomiting, no diarrhea/constipation No recent weight changes No chest pain, no PND, no orthopnea - mild SOB No dizziness, blurred vision No thirst, no heat or cold intolerance Objective Vitals Vital Signs Date Temp Pulse Resp B/P (MAP) Pulse Ox O2 O2 Flow FiO2 Time Delivery Rate 05/12/18 73 12:22 05/12/18 97.4 20 131/58 94 Nasal 11:06 (82) Cannula 05/12/18 2.5 08:13 05/11/18 30 03:06 Intake and Output 05/11/18 05/11/18 05/12/18 1414:59 22:59 06:59 IntakeIntake Total 50 ml 720 ml 200 ml OutputOutput Total 800 ml 550 ml BalanceBalance 50 ml -80 ml -350 ml Exam General: WN/WD/NAD, AOx 2-3 [place] HEENT: Unicetric/atraumatic/EOMI (follows commands) NECK: JVD elevated, no thyromegaly Lymph: no lymphadenopathy HEART: regular with no S3, II/ systolic murmur at apex, PMI L LUNGS: Coarse sounds ABD: soft, NT, ND, +BS : Intact Neuro: non focal SKIN: chronic changes EXT: trace edema Results/Medications Result Diagram: 05/12/1892405/12/18924 Results 24 hrs Laboratory Tests Test 05/12/18 07:00 05/12/18 09:25 Blood Gas Specimen Source Blood arterial Arterial Blood Date Drawn 05/12/2018 8:45:47 AM Arterial Blood pH (Temp corrected) 7.353 Arterial Blood pCO2 (Temp correct) 60.3 H Arterial Blood pO2 (Temp corrected) 115.8 H Arterial Blood HCO3 32.8 H Arterial Blood Base Excess 5.8 H Arterial Blood Oxygen Saturation 98.3 Abhishek Test ACCEPTAB Arterial Blood Gas Puncture Site Right Radial Arterial Blood Carboxyhemoglobin 0.3 Arterial Blood Methemoglobin 0.2 Blood Gas A-a O2 Differential 20.0 Oxyhemoglobin Percent 97.8 Blood Gas Temperature 37.0 Blood Gas Modality NASAL CANNULA FiO2 29.0 Blood Gas Notified Whom Elie MUÑIZ [facility] [place] Blood Gas Notified Time 05/12/2018 9:00:18 AM White Blood Count 7.6 # Red Blood Count 3.61 L Hemoglobin 9.7 L Hematocrit 31.6 L Mean Corpuscular Volume 87.5 Mean Corpuscular Hemoglobin 26.9 L Mean Corpuscular Hemoglobin Concent 30.7 L Red Cell Distribution Width 14.4 Platelet Count 312 Mean Platelet Volume 9.7 Immature Granulocytes % 0.700 H Neutrophils % 83.8 H Lymphocytes % 8.5 L Monocytes % 5.8 Eosinophils % 1.1 Basophils % 0.1 Nucleated Red Blood Cells % 0.0 Immature Granulocytes # 0.050 H Neutrophils # 6.3 Lymphocytes # 0.6 L Monocytes # 0.4 Eosinophils # 0.1 Basophils # 0.0 Nucleated Red Blood Cells # 0.0 Sodium Level 127 L Potassium Level 4.2 Chloride Level 90 L Carbon Dioxide Level 38 H Anion Gap -1 L Blood Urea Nitrogen 9 Creatinine 0.39 L Est Glomerular Filtrat Rate mL/min Glucose Level 113 Calcium Level 8.6 Phosphorus Level 3.0 Magnesium Level 1.9 Home Meds Reported Medications Formoterol Fumarate (Perforomist) 20 Mcg/2 Ml Vial.neb, 20 MCG INHALATION BID, VIAL 03/28/18 Ipratropium [place] (Ipratropium [place]) 5 Gm Powder, 10.5 MG MC BID 03/28/18 Ipratropium-Albuterol (Ipratropium-Albuterol) 0.5-3 Mg/3 Ml Ampul.neb, 3 ML INHALATION Q6, #30 VIAL 03/28/18 Budesonide* (Budesonide*) 0.25 Mg/2 Ml Ampul.neb, 0.25 MG INHALATION BID, AMP 03/28/18 Cholecalciferol* (Vitamin D3*) 1,000 Unit Tablet, 1000 UNIT PO DAILY, TAB 03/28/18 Simvastatin* (Zocor*) 20 Mg Tablet, 20 MG PO QHS, #30 TAB 03/28/18 Aspirin* (Aspirin* EC) 325 Mg Tab, 325 MG PO DAILY, TAB 03/28/18 Levothyroxine Sodium* (Levothyroxine Sodium*) 88 Mcg Tablet, 88 MCG PO BEFORE BREAKFAST, #30 TAB 03/28/18 Medications Current Medications IV Flush (NS 3 ml) 3 ml PER PROTOCOL IV ; Start 04/27/18 at 03:00 Ondansetron HCl (Zofran Inj) 4 mg Q6H PRN IV NAUSEA/VOMITING; Start 04/27/18 at 03:00 Acetaminophen (Tylenol Tab) 650 mg Q6H PRN PO .PAIN 1-3 OR TEMP; Start 04/27/18 at 03:00 Aspirin (Ecotrin) 325 mg DAILY PO Last administered on 05/11/18 09:00; Admin Dose 325 MG; Start 04/27/18 at 09:00; Status Hold Albuterol/ Ipratropium (Duoneb) 3 ml Q6H RESP THERAPY INH Last administered on 05/12/18 08:10; Admin Dose 3 ML; Start 04/27/18 at 08:00 Levothyroxine Sodium (Synthroid) 88 mcg BEFORE BREAKFAST PO Last administered on 05/12/18 08:38; Admin Dose 88 MCG; Start 04/27/18 at 07:00 Atorvastatin Calcium (Lipitor) 10 mg DAILY@21 PO Last administered on 05/11/18 20:31; Admin Dose 10 MG; Start 04/27/18 at 21:00 Albuterol/ Ipratropium (Duoneb) 3 ml Q2H RESP THERAPY PRN HHN shortness of breath; Start 04/27/18 at 10:00 Enoxaparin Sodium (Lovenox) 40 mg DAILY SC Last administered on 05/11/18 08:58; Admin Dose 40 MG; Start 04/28/18 at 09:00; Status Hold Budesonide (Pulmicort (Neb)) 0.5 mg BID RESP THERAPY INH Last administered on 05/12/18 08:11; Admin Dose 0.5 MG; Start 04/29/18 at 09:00 Hydralazine HCl (Apresoline) 10 mg Q4H PRN IV SBP >160 Last administered on 05/02/18 18:50; Admin Dose 10 MG; Start 05/01/18 at 13:00 Polyethylene Glycol (Miralax) 17 gm DAILY PO Last administered on 05/11/18 08:56; Admin Dose 17 GM; Start 05/02/18 at 10:30 Docusate Sodium (Colace) 100 mg BID PRN PO CONSTIPATION; Start 05/02/18 at 10:30 Calcium/Vitamin D (Oyster Shell/ Vit-D (500/200)) 1 tab BID PO Last administered on 05/12/18 08:38; Admin Dose 1 TAB; Start 05/03/18 at 21:00 Prednisone (Prednisone) 20 mg DAILY PO Last administered on 05/12/18 08:38; Admin Dose 20 MG; Start 05/10/18 at 09:00 Cefepime HCl 50 ml @ 100 mls/hr Q12 IVPB Last administered on 05/12/18 08:38; Admin Dose 100 MLS/HR; Start 05/09/18 at 16:00 Fluconazole/ Sodium Chloride 50 ml @ 50 mls/hr Q24H IVPB Last administered on 05/11/18 16:23; Admin Dose 50 MLS/HR; Start 05/09/18 at 17:00 Assessment/Plan Hospital Course (Demo Recall) 1. Abnormal echocardiogram, assess for acute coronary syndrome.-neg x 3 since ecg abnl seen by tele. NO chest pain according to family member at bedside. repeat ecg today with inferior q's and only borderline J point elevation single lead - no ectopy on tele, rate controlled 2. Cardiac arrhythmia. Continue to follow. In sinus now. 3. Hyponatremia- ongoing - still low Na+ at 127 - primary team follows 4. Pulmonary fibrosis - stable by exam. 5. Dementia- chronic. 6. Urinary tract infection - Rx with anti-Bx now. 7. Leukocytosis and anemia. 8. Hematuruia LUIS ROSS MD May 12, 2018 12:25
--- NOTE | 2018-05-12 12:40 | CONS ---
Consult Date/Type/Reason Admit Date/Time Apr 27, 2018 at 02:15 Initial Consult Date 05/11/18 Type of Consultation: Urology Reason for Consultation Hematuria Requesting Provider: MERNA BLAKE Date/Time of Note DATE: 05/12/18 TIME: 12:38 Subjective Patient is alert and states that she is comfortable and has no pain. Objective Vitals Vital Signs Date Temp Pulse Resp B/P (MAP) Pulse Ox O2 O2 Flow FiO2 Time Delivery Rate 05/12/18 73 12:22 05/12/18 97.4 20 131/58 94 Nasal 11:06 (82) Cannula 05/12/18 2.5 08:13 05/11/18 30 03:06 Intake and Output 05/11/18 05/11/18 05/12/18 1515:00 23:00 07:00 IntakeIntake Total 50 ml 720 ml 200 ml OutputOutput Total 800 ml 550 ml BalanceBalance 50 ml -80 ml -350 ml Exam The Rajan catheter is draining clear urine with the continuous bladder irrigation. Results/Medications Result Diagram: 05/12/1825 05/12/1825 Results 24 hrs Laboratory Tests Test 05/12/18 07:00 05/12/18 09:25 Blood Gas Specimen Source Blood arterial Arterial Blood Date Drawn 05/12/2018 8:45:47 AM Arterial Blood pH (Temp corrected) 7.353 Arterial Blood pCO2 (Temp correct) 60.3 H Arterial Blood pO2 (Temp corrected) 115.8 H Arterial Blood HCO3 32.8 H Arterial Blood Base Excess 5.8 H Arterial Blood Oxygen Saturation 98.3 Abhishek Test ACCEPTAB Arterial Blood Gas Puncture Site Right Radial Arterial Blood Carboxyhemoglobin 0.3 Arterial Blood Methemoglobin 0.2 Blood Gas A-a O2 Differential 20.0 Oxyhemoglobin Percent 97.8 Blood Gas Temperature 37.0 Blood Gas Modality NASAL CANNULA FiO2 29.0 Blood Gas Notified Tom MUÑIZ RCP Blood Gas Notified Time 05/12/2018 9:00:18 AM White Blood Count 7.6 # Red Blood Count 3.61 L Hemoglobin 9.7 L Hematocrit 31.6 L Mean Corpuscular Volume 87.5 Mean Corpuscular Hemoglobin 26.9 L Mean Corpuscular Hemoglobin Concent 30.7 L Red Cell Distribution Width 14.4 Platelet Count 312 Mean Platelet Volume 9.7 Immature Granulocytes % 0.700 H Neutrophils % 83.8 H Lymphocytes % 8.5 L Monocytes % 5.8 Eosinophils % 1.1 Basophils % 0.1 Nucleated Red Blood Cells % 0.0 Immature Granulocytes # 0.050 H Neutrophils # 6.3 Lymphocytes # 0.6 L Monocytes # 0.4 Eosinophils # 0.1 Basophils # 0.0 Nucleated Red Blood Cells # 0.0 Sodium Level 127 L Potassium Level 4.2 Chloride Level 90 L Carbon Dioxide Level 38 H Anion Gap -1 L Blood Urea Nitrogen 9 Creatinine 0.39 L Est Glomerular Filtrat Rate mL/min Glucose Level 113 Calcium Level 8.6 Phosphorus Level 3.0 Magnesium Level 1.9 Home Meds Reported Medications Formoterol Fumarate (Perforomist) 20 Mcg/2 Ml Vial.neb, 20 MCG INHALATION BID, VIAL 03/28/18 Ipratropium [place] (Ipratropium [place]) 5 Gm Powder, 10.5 MG MC BID 03/28/18 Ipratropium-Albuterol (Ipratropium-Albuterol) 0.5-3 Mg/3 Ml Ampul.neb, 3 ML INHALATION Q6, #30 VIAL 03/28/18 Budesonide* (Budesonide*) 0.25 Mg/2 Ml Ampul.neb, 0.25 MG INHALATION BID, AMP 03/28/18 Cholecalciferol* (Vitamin D3*) 1,000 Unit Tablet, 1000 UNIT PO DAILY, TAB 03/28/18 Simvastatin* (Zocor*) 20 Mg Tablet, 20 MG PO QHS, #30 TAB 03/28/18 Aspirin* (Aspirin* EC) 325 Mg Tab, 325 MG PO DAILY, TAB 03/28/18 Levothyroxine Sodium* (Levothyroxine Sodium*) 88 Mcg Tablet, 88 MCG PO BEFORE BREAKFAST, #30 TAB 03/28/18 Medications Current Medications IV Flush (NS 3 ml) 3 ml PER PROTOCOL IV ; Start 04/27/18 at 03:00 Ondansetron HCl (Zofran Inj) 4 mg Q6H PRN IV NAUSEA/VOMITING; Start 04/27/18 at 03:00 Acetaminophen (Tylenol Tab) 650 mg Q6H PRN PO .PAIN 1-3 OR TEMP; Start 04/27/18 at 03:00 Aspirin (Ecotrin) 325 mg DAILY PO Last administered on 05/11/18at 09:00; Admin Dose 325 MG; Start 04/27/18 at 09:00; Status Hold Albuterol/ Ipratropium (Duoneb) 3 ml Q6H RESP THERAPY INH Last administered on 05/12/18 08:10; Admin Dose 3 ML; Start 04/27/18 at 08:00 Levothyroxine Sodium (Synthroid) 88 mcg BEFORE BREAKFAST PO Last administered on 05/12/18 08:38; Admin Dose 88 MCG; Start 04/27/18 at 07:00 Atorvastatin Calcium (Lipitor) 10 mg DAILY@21 PO Last administered on 05/11/18 20:31; Admin Dose 10 MG; Start 04/27/18 at 21:00 Albuterol/ Ipratropium (Duoneb) 3 ml Q2H RESP THERAPY PRN HHN shortness of breath; Start 04/27/18 at 10:00 Enoxaparin Sodium (Lovenox) 40 mg DAILY SC Last administered on 05/11/18 08:58; Admin Dose 40 MG; Start 04/28/18 at 09:00; Status Hold Budesonide (Pulmicort (Neb)) 0.5 mg BID RESP THERAPY INH Last administered on 05/12/18 08:11; Admin Dose 0.5 MG; Start 04/29/18 at 09:00 Hydralazine HCl (Apresoline) 10 mg Q4H PRN IV SBP >160 Last administered on 05/02/18 18:50; Admin Dose 10 MG; Start 05/01/18 at 13:00 Polyethylene Glycol (Miralax) 17 gm DAILY PO Last administered on 05/11/18 08:56; Admin Dose 17 GM; Start 05/02/18 at 10:30 Docusate Sodium (Colace) 100 mg BID PRN PO CONSTIPATION; Start 05/02/18 at 10:30 Calcium/Vitamin D (Oyster Shell/ Vit-D (500/200)) 1 tab BID PO Last administered on 05/12/18 08:38; Admin Dose 1 TAB; Start 05/03/18 at 21:00 Prednisone (Prednisone) 20 mg DAILY PO Last administered on 05/12/18 08:38; Admin Dose 20 MG; Start 05/10/18 at 09:00 Cefepime HCl 50 ml @ 100 mls/hr Q12 IVPB Last administered on 05/12/18at 08:38; Admin Dose 100 MLS/HR; Start 05/09/18 at 16:00 Fluconazole/ Sodium Chloride 50 ml @ 50 mls/hr Q24H IVPB Last administered on 05/11/18at 16:23; Admin Dose 50 MLS/HR; Start 05/09/18 at 17:00 Assessment/Plan Hospital Course (Demo Recall) 87-year-old female with a history of dementia, pulmonary fibrosis, h ypothyroidism, dyslipidemia was brought to the ER after she was found unresponsive. She was given promethazine the night before her admission and about 30 minutes or so after when the family tries to wake her up, she was very lethargic and difficult to arouse. It took about 10 minutes for the patient to wake up. No focal weakness/numbness, seizure-like activity, facial droop, slurred speech reported. Patient was admitted here last month for syncope which was thought to be from hypoxia caused by her pulmonary fibrosis. At that time echo and carotid Doppler ultrasound were nondiagnostic. Reportedly patient has been coughing, which is chronic. Patient had a Rajan catheter inserted on admission this time and the urine was noted to be bloody therefore the catheter was changed and a three-way Rajan catheter was inserted and continuous bladder irrigation was started. A urological consultation was requested because of the hematuria. I did talk to her 2 daughters. There is no history of hematuria before. No history of kidney stones. At the present the return from the bladder irrigation is clear to clear pink Renal ultrasound was normal. Urine cytology is pending. Patient is on cefepime and fluconazole. Continue the present treatment. LINDSAY JULIO MD May 12, 2018 12:40
[2018-05-12] MEDS: FLUCONAZOLE 100 MG/50 ML (PMX) 50 ML IVPB SCH (16:56)
--- NOTE | 2018-05-12 18:16 | RADRPT ---
Vent Rate: 90 bpm RR Interval: 0 msec NE Interval: 222 msec QRS Duration: 78 msec QT Interval: 328 msec QTC Interval: 401 msec P-R-T [place]: 13 - 80 - 12 degrees Sinus rhythm with 1st degree AV block Possible Inferior infarct , age undetermined Cannot rule out Anterior infarct , age undetermined Abnormal ECG Electronically Signed By: Ezio Carmichael
[2018-05-12] MEDS: ATORVASTATIN 10 MG TAB PO SCH (20:48)
[2018-05-13] VITALS (12 sets, daily range): BP systolic 119–146; BP diastolic 61–75; PULSE 70–92; RESP 20
[2018-05-13] MEDS: ALBUTEROL/IPRATROPIUM (NEB) 3 ML AMP INH SCH ×4 (01:01→20:21)
[2018-05-13] MEDS: LEVOTHYROXINE 88 MCG TAB PO SCH (06:29)
--- NOTE | 2018-05-13 08:07 | PN ---
Date/Time of Note Date/Time of Note DATE: 05/13/18 TIME: 08:06 Assessment/Plan VTE Prophylaxis Risk score (from Nsg)>0 risk: 8 SCD applied (from Nsg): Yes Pharmacological prophylaxis: other Lines/Catheters IV Catheter Type (from Nrs): Saline Lock Urinary Cath still in place: Yes Reason Cath still needed: urinary retention Assessment/Plan Hospital Course renal follow up SUBJECTIVE: all noted. d/w Dr Mcmillan. No hemoptysis, hematemesis or hematochezia. The patient had minimal free water intake. No other events noted. OBJECTIVE: HEENT: Head is normocephalic. NECK: Supple. HEART: Regular rate. LUNGS: Show diminished breath sounds at the base. ABDOMEN: Soft, nontender to palpation without rebound or guarding. EXTREMITIES: Negative for clubbing, cyanosis, no edema. DERMATOLOGIC: No rashes. MUSCULOSKELETAL: No joint effusion. NEUROLOGIC: No change in exam. MEDICATIONS: Reviewed. ASSESSMENT AND PLAN: 1. Hypernatremia, etiology is felt to be secondary to syndrome of inappropriate antidiuretic hormone. The patient's sodium levels are low but stable. Continue free water restriction, continue to encourage high osmolar diet. We will monitor sodium levels closely. 2. Hematuria. 4. Anemia. Continue to monitor hemoglobin and hematocrit levels. 5. Acute hypoxemic hypercapnic respiratory failure secondary to pulmonary fibrosis, pneumonia. Continue BiPAP. Continue prednisone taper per pulmonary. 6. Hypothyroidism. Continue Synthroid. 7. Dyslipidemia. Continue statin therapy. 8. Encephalopathy, etiology is toxic metabolic. Continue to monitor. Result Diagram: 05/13/18 0605/13/18 0606 Results 24hrs Laboratory Tests Test 05/12/18 09:25 05/13/18 06:06 White Blood Count 7.6 # 7.6 Red Blood Count 3.61 L 3.99 L Hemoglobin 9.7 L 10.9 L Hematocrit 31.6 L 34.4 L Mean Corpuscular Volume 87.5 86.2 Mean Corpuscular Hemoglobin 26.9 L 27.3 L Mean Corpuscular Hemoglobin Concent 30.7 L 31.7 L Red Cell Distribution Width 14.4 14.3 Platelet Count 312 304 Mean Platelet Volume 9.7 9.8 Immature Granulocytes % 0.700 H 0.800 H Neutrophils % 83.8 H 78.8 H Lymphocytes % 8.5 L 11.5 L Monocytes % 5.8 7.7 Eosinophils % 1.1 1.1 Basophils % 0.1 0.1 Nucleated Red Blood Cells % 0.0 0.0 Immature Granulocytes # 0.050 H 0.060 H Neutrophils # 6.3 6.0 Lymphocytes # 0.6 L 0.9 Monocytes # 0.4 0.6 Eosinophils # 0.1 0.1 Basophils # 0.0 0.0 Nucleated Red Blood Cells # 0.0 0.0 Sodium Level 127 L 127 L Potassium Level 4.2 4.8 Chloride Level 90 L 87 L Carbon Dioxide Level 38 H 38 H Anion Gap -1 L 2 L Blood Urea Nitrogen 9 7 Creatinine 0.39 L 0.40 L Est Glomerular Filtrat Rate mL/min Glucose Level 113 92 Calcium Level 8.6 8.8 Phosphorus Level 3.0 2.7 Magnesium Level 1.9 1.9 Exam/Review of Systems Exam Vitals Vital Signs Date Temp Pulse Resp B/P (MAP) Pulse Ox O2 O2 Flow FiO2 Time Delivery Rate 05/13/18 97.6 82 20 136/63 95 Nasal 07:23 (87) Cannula 05/13/18 2.0 05:56 05/11/18 30 03:06 Intake and Output 05/12/18 05/12/18 05/13/18 1515:00 23:00 07:00 IntakeIntake Total 50 ml 770 ml 150 ml OutputOutput Total 700 ml 430 ml BalanceBalance 50 ml 70 ml -280 ml Results Results 24hrs Laboratory Tests Test 05/12/18 09:25 05/13/18 06:06 White Blood Count 7.6 # 7.6 Red Blood Count 3.61 L 3.99 L Hemoglobin 9.7 L 10.9 L Hematocrit 31.6 L 34.4 L Mean Corpuscular Volume 87.5 86.2 Mean Corpuscular Hemoglobin 26.9 L 27.3 L Mean Corpuscular Hemoglobin Concent 30.7 L 31.7 L Red Cell Distribution Width 14.4 14.3 Platelet Count 312 304 Mean Platelet Volume 9.7 9.8 Immature Granulocytes % 0.700 H 0.800 H Neutrophils % 83.8 H 78.8 H Lymphocytes % 8.5 L 11.5 L Monocytes % 5.8 7.7 Eosinophils % 1.1 1.1 Basophils % 0.1 0.1 Nucleated Red Blood Cells % 0.0 0.0 Immature Granulocytes # 0.050 H 0.060 H Neutrophils # 6.3 6.0 Lymphocytes # 0.6 L 0.9 Monocytes # 0.4 0.6 Eosinophils # 0.1 0.1 Basophils # 0.0 0.0 Nucleated Red Blood Cells # 0.0 0.0 Sodium Level 127 L 127 L Potassium Level 4.2 4.8 Chloride Level 90 L 87 L Carbon Dioxide Level 38 H 38 H Anion Gap -1 L 2 L Blood Urea Nitrogen 9 7 Creatinine 0.39 L 0.40 L Est Glomerular Filtrat Rate mL/min Glucose Level 113 92 Calcium Level 8.6 8.8 Phosphorus Level 3.0 2.7 Magnesium Level 1.9 1.9 Medications Medication Current Medications IV Flush (NS 3 ml) 3 ml PER PROTOCOL IV ; Start 04/27/18 at 03:00 Ondansetron HCl (Zofran Inj) 4 mg Q6H PRN IV NAUSEA/VOMITING; Start 04/27/18 at 03:00 Acetaminophen (Tylenol Tab) 650 mg Q6H PRN PO .PAIN 1-3 OR TEMP; Start 04/27/18 at 03:00 Aspirin (Ecotrin) 325 mg DAILY PO Last administered on 05/11/18 09:00; Admin Dose 325 MG; Start 04/27/18 at 09:00; Status Hold Albuterol/ Ipratropium (Duoneb) 3 ml Q6H RESP THERAPY INH Last administered on 05/13/18 01:01; Admin Dose 3 ML; Start 04/27/18 at 08:00 Levothyroxine Sodium (Synthroid) 88 mcg BEFORE BREAKFAST PO Last administered on 05/13/18 06:29; Admin Dose 88 MCG; Start 04/27/18 at 07:00 Atorvastatin Calcium (Lipitor) 10 mg DAILY@21 PO Last administered on 05/12/18 20:48; Admin Dose 10 MG; Start 04/27/18 at 21:00 Albuterol/ Ipratropium (Duoneb) 3 ml Q2H RESP THERAPY PRN HHN shortness of breath; Start 04/27/18 at 10:00 Enoxaparin Sodium (Lovenox) 40 mg DAILY SC Last administered on 05/11/18at 08:58; Admin Dose 40 MG; Start 04/28/18 at 09:00; Status Hold Budesonide (Pulmicort (Neb)) 0.5 mg BID RESP THERAPY INH Last administered on 05/12/18 20:02; Admin Dose 0.5 MG; Start 04/29/18 at 09:00 Hydralazine HCl (Apresoline) 10 mg Q4H PRN IV SBP >160 Last administered on 05/02/18 18:50; Admin Dose 10 MG; Start 05/01/18 at 13:00 Polyethylene Glycol (Miralax) 17 gm DAILY PO Last administered on 05/11/18 08:56; Admin Dose 17 GM; Start 05/02/18 at 10:30 Docusate Sodium (Colace) 100 mg BID PRN PO CONSTIPATION; Start 05/02/18 at 10:30 Calcium/Vitamin D (Oyster Shell/ Vit-D (500/200)) 1 tab BID PO Last administered on 05/12/18 20:48; Admin Dose 1 TAB; Start 05/03/18 at 21:00 Prednisone (Prednisone) 20 mg DAILY PO Last administered on 05/12/18 08:38; Admin Dose 20 MG; Start 05/10/18 at 09:00 Cefepime HCl 50 ml @ 100 mls/hr Q12 IVPB Last administered on 05/12/18 20:48; Admin Dose 100 MLS/HR; Start 05/09/18 at 16:00 Fluconazole/ Sodium Chloride 50 ml @ 50 mls/hr Q24H IVPB Last administered on 05/12/18 16:56; Admin Dose 50 MLS/HR; Start 05/09/18 at 17:00 JUANITA METCALF DO May 13, 2018 08:07
[2018-05-13] MEDS: POLYETHYLENE GLYCOL 17 GM PACKET PO SCH (09:00)
[2018-05-13] MEDS: BUDESONIDE (NEB) 0.5MG/2ML AMP INH SCH ×2 (09:18→20:21)
[2018-05-13] MEDS: predniSONE 20 MG TAB PO SCH (09:45)
[2018-05-13] MEDS: CALCIUM/VITAMIN D (500/200) TAB PO SCH ×2 (09:45→21:08)
[2018-05-13] MEDS: CEFEPIME 1GM/50 ML (PMX) 50 ML IVPB SCH (09:49)
[2018-05-13] MEDS: BALSAM PERU/CASTOR OIL 60 GM TUBE TOP SCH ×2 (09:53→21:09)
--- NOTE | 2018-05-13 11:37 | PN ---
Date/Time of Note Date/Time of Note DATE: 05/13/18 TIME: 11:37 Objective Vitals Vital Signs Date Temp Pulse Resp B/P (MAP) Pulse Ox O2 O2 Flow FiO2 Time Delivery Rate 05/13/18 2.0 09:37 05/13/18 95 20 100 Nasal 09:35 Cannula 05/13/18 97.6 136/63 07:23 (87) 05/11/18 30 03:06 Intake and Output 05/12/18 05/12/18 05/13/18 1515:00 23:00 07:00 IntakeIntake Total 50 ml 770 ml 150 ml OutputOutput Total 700 ml 430 ml BalanceBalance 50 ml 70 ml -280 ml Results Result Diagram: 05/13/1860505/13/18605 Medications Medications Current Medications IV Flush (NS 3 ml) 3 ml PER PROTOCOL IV ; Start 04/27/18 at 03:00 Ondansetron HCl (Zofran Inj) 4 mg Q6H PRN IV NAUSEA/VOMITING; Start 04/27/18 at 03:00 Acetaminophen (Tylenol Tab) 650 mg Q6H PRN PO .PAIN 1-3 OR TEMP; Start 04/27/18 at 03:00 Aspirin (Ecotrin) 325 mg DAILY PO Last administered on 05/11/18at 09:00; Admin Dose 325 MG; Start 04/27/18 at 09:00; Status Hold Albuterol/ Ipratropium (Duoneb) 3 ml Q6H RESP THERAPY INH Last administered on 05/13/18 09:18; Admin Dose 3 ML; Start 04/27/18 at 08:00 Levothyroxine Sodium (Synthroid) 88 mcg BEFORE BREAKFAST PO Last administered on 05/13/18 06:29; Admin Dose 88 MCG; Start 04/27/18 at 07:00 Atorvastatin Calcium (Lipitor) 10 mg DAILY@21 PO Last administered on 05/12/18at 20:48; Admin Dose 10 MG; Start 04/27/18 at 21:00 Albuterol/ Ipratropium (Duoneb) 3 ml Q2H RESP THERAPY PRN HHN shortness of breath; Start 04/27/18 at 10:00 Enoxaparin Sodium (Lovenox) 40 mg DAILY SC Last administered on 05/11/18at 08:58; Admin Dose 40 MG; Start 04/28/18 at 09:00; Status Hold Budesonide (Pulmicort (Neb)) 0.5 mg BID RESP THERAPY INH Last administered on 05/13/18 09:18; Admin Dose 0.5 MG; Start 04/29/18 at 09:00 Hydralazine HCl (Apresoline) 10 mg Q4H PRN IV SBP >160 Last administered on 05/02/18 18:50; Admin Dose 10 MG; Start 05/01/18 at 13:00 Polyethylene Glycol (Miralax) 17 gm DAILY PO Last administered on 05/11/18 08:56; Admin Dose 17 GM; Start 05/02/18 at 10:30 Docusate Sodium (Colace) 100 mg BID PRN PO CONSTIPATION; Start 05/02/18 at 10:30 Calcium/Vitamin D (Oyster Shell/ Vit-D (500/200)) 1 tab BID PO Last administered on 05/13/18 09:45; Admin Dose 1 TAB; Start 05/03/18 at 21:00 Prednisone (Prednisone) 20 mg DAILY PO Last administered on 05/13/18 09:45; Admin Dose 20 MG; Start 05/10/18 at 09:00 Cefepime HCl 50 ml @ 100 mls/hr Q12 IVPB Last administered on 05/13/18 09:49; Admin Dose 100 MLS/HR; Start 05/09/18 at 16:00 Fluconazole/ Sodium Chloride 50 ml @ 50 mls/hr Q24H IVPB Last administered on 05/12/18 16:56; Admin Dose 50 MLS/HR; Start 05/09/18 at 17:00 VTE Prophylaxis Risk score (from Nsg)>0 risk: 8 SCD applied (from Nsg): Yes Lines/Catheters IV Catheter Type: Rajan in Place: No Assessment/Plan Hospital Course Subjective Patient on CBI, still pink urine Objective Physical exam General: Patient is laying in bed and answers questions appropriately Mentation: Patient is alert and oriented 4, Head: Normocephalic atraumatic Eyes: EOMI, pupils reactive to light Neck: Supple, nontender, midline Respiratory: Mildly coarse to auscultation bilaterally Cardiovascular: regular rate, no obvious murmurs Gastrointestinal: non-tender to palpation, bowel sounds heard. Neurological: Moves all extremities spontaneously Skin: No new skin lesions Assessment/Plan 1. Acute hypoxic and hypercapnic respiratory failure- stable - Patient appears back to baseline respiratory status de paz. - Pulm on board and appreciate recommendations. Plans for further steroid taper as tolerated - BIPAP qhs and NC during the day, machine delivered at home, likely trilogy per pulmonology, arranged by patient's outpatient manager reimbursement UTI -Also with yeast, will start fluconazole and cefepime due to patient's long hospital stay as well as on prednisone -Infectious disease has been consulted Hematuria -On CBI, urology consulted -Ultrasound renal within normal limits -Likely secondary to traumatic issues as patient likely tugged on Rajan unknowingly. Patient was diagnosed with UTI a few days prior to hematuria which did show some hemoglobin however this may be normal for UTI and patient did not have hematuria at this time. Leukocytosis -Chest x-ray, UA, blood cultures done -UTI was positive, it antibiotics and antifungal started, infectious disease consulted Anemia -Secondary to acute blood loss anemia secondary to hematuria, monitor closely 2. Acute metabolic Encephalopathy- resolved 3. Exacerbation of IPF- resolving - Follows with Pulm as outpatient - Continue steroid taper and nebs 4. Hypothyroidism -Continue home meds 5. Dyslipidemia -Continue home meds 6. Disposition -Patient's CBI has been slowed down, will likely be able to discharge once hematuria resolves hopefully in 1-2 days. -Treat UTI, infectious disease recs appreciated, await urine culture -Continue steroids at 20 mg daily for now per pulmonology, patient will likely be discharged with this dose -Patient's family will need to know how to use trilogy machine at home before discharge. -Spoke with daughter, TANNER at bedside, patient is full code at the moment, intubation will be on a case by case basis will need to confirm with daughter before elective intubation. MERNA BLAKE May 13, 2018 11:37
--- NOTE | 2018-05-13 12:39 | CONS ---
Consult Date/Type/Reason Admit Date/Time Apr 27, 2018 at 02:15 Initial Consult Date 05/11/18 Type of Consultation: Urology Requesting Provider: MERNA BLAKE Date/Time of Note DATE: 05/13/18 TIME: 12:38 Subjective NO acute events - no ectopy on tele -pt better now. NO CP noted. ROS: No fever, no chills, no nausea, no vomiting, no diarrhea/constipation No recent weight changes No chest pain, no PND, no orthopnea - mild SOB No dizziness, blurred vision No thirst, no heat or cold intolerance Objective Vitals Vital Signs Date Temp Pulse Resp B/P (MAP) Pulse Ox O2 O2 Flow FiO2 Time Delivery Rate 05/13/18 72 12:00 05/13/18 97.5 20 131/61 95 Nasal 11:41 (84) Cannula 05/13/18 2.0 09:37 05/11/18 30 03:06 Intake and Output 05/12/18 05/12/18 05/13/18 1515:00 23:00 07:00 IntakeIntake Total 50 ml 770 ml 150 ml OutputOutput Total 700 ml 430 ml BalanceBalance 50 ml 70 ml -280 ml Exam General: WN/WD/NAD, AOx 2-3 more alert HEENT: Unicetric/atraumatic/EOMI (follow commands) NECK: JVD elevated, no thyromegaly Lymph: no lymphadenopathy HEART: regular with no S3, II/ systolic murmur at apex LUNGS: Coarse sounds ABD: soft, NT, ND, +BS : Intact Neuro: non focal SKIN: chronic changes EXT: trace edema Results/Medications Result Diagram: 05/13/18 0605/13/18 0606 Results 24 hrs Laboratory Tests Test 05/13/18 06:06 White Blood Count 7.6 Red Blood Count 3.99 L Hemoglobin 10.9 L Hematocrit 34.4 L Mean Corpuscular Volume 86.2 Mean Corpuscular Hemoglobin 27.3 L Mean Corpuscular Hemoglobin Concent 31.7 L Red Cell Distribution Width 14.3 Platelet Count 304 Mean Platelet Volume 9.8 Immature Granulocytes % 0.800 H Neutrophils % 78.8 H Lymphocytes % 11.5 L Monocytes % 7.7 Eosinophils % 1.1 Basophils % 0.1 Nucleated Red Blood Cells % 0.0 Immature Granulocytes # 0.060 H Neutrophils # 6.0 Lymphocytes # 0.9 Monocytes # 0.6 Eosinophils # 0.1 Basophils # 0.0 Nucleated Red Blood Cells # 0.0 Sodium Level 127 L Potassium Level 4.8 Chloride Level 87 L Carbon Dioxide Level 38 H Anion Gap 2 L Blood Urea Nitrogen 7 Creatinine 0.40 L Est Glomerular Filtrat Rate mL/min Glucose Level 92 Calcium Level 8.8 Phosphorus Level 2.7 Magnesium Level 1.9 Home Meds Reported Medications Formoterol Fumarate (Perforomist) 20 Mcg/2 Ml Vial.neb, 20 MCG INHALATION BID, VIAL 03/28/18 Ipratropium Ullin (Ipratropium Ullin) 5 Gm Powder, 10.5 MG MC BID 03/28/18 Ipratropium-Albuterol (Ipratropium-Albuterol) 0.5-3 Mg/3 Ml Ampul.neb, 3 ML INHALATION Q6, #30 VIAL 03/28/18 Budesonide* (Budesonide*) 0.25 Mg/2 Ml Ampul.neb, 0.25 MG INHALATION BID, AMP 03/28/18 Cholecalciferol* (Vitamin D3*) 1,000 Unit Tablet, 1000 UNIT PO DAILY, TAB 03/28/18 Simvastatin* (Zocor*) 20 Mg Tablet, 20 MG PO QHS, #30 TAB 03/28/18 Aspirin* (Aspirin* EC) 325 Mg Tab, 325 MG PO DAILY, TAB 03/28/18 Levothyroxine Sodium* (Levothyroxine Sodium*) 88 Mcg Tablet, 88 MCG PO BEFORE BREAKFAST, #30 TAB 03/28/18 Medications Current Medications IV Flush (NS 3 ml) 3 ml PER PROTOCOL IV ; Start 04/27/18 at 03:00 Ondansetron HCl (Zofran Inj) 4 mg Q6H PRN IV NAUSEA/VOMITING; Start 04/27/18 at 03:00 Acetaminophen (Tylenol Tab) 650 mg Q6H PRN PO .PAIN 1-3 OR TEMP; Start 04/27/18 at 03:00 Aspirin (Ecotrin) 325 mg DAILY PO Last administered on 05/11/18at 09:00; Admin Dose 325 MG; Start 04/27/18 at 09:00; Status Hold Albuterol/ Ipratropium (Duoneb) 3 ml Q6H RESP THERAPY INH Last administered on 05/13/18 09:18; Admin Dose 3 ML; Start 04/27/18 at 08:00 Levothyroxine Sodium (Synthroid) 88 mcg BEFORE BREAKFAST PO Last administered on 05/13/18 06:29; Admin Dose 88 MCG; Start 04/27/18 at 07:00 Atorvastatin Calcium (Lipitor) 10 mg DAILY@21 PO Last administered on 05/12/18 20:48; Admin Dose 10 MG; Start 04/27/18 at 21:00 Albuterol/ Ipratropium (Duoneb) 3 ml Q2H RESP THERAPY PRN HHN shortness of breath; Start 04/27/18 at 10:00 Enoxaparin Sodium (Lovenox) 40 mg DAILY SC Last administered on 05/11/18 08:58; Admin Dose 40 MG; Start 04/28/18 at 09:00; Status Hold Budesonide (Pulmicort (Neb)) 0.5 mg BID RESP THERAPY INH Last administered on 05/13/18 09:18; Admin Dose 0.5 MG; Start 04/29/18 at 09:00 Hydralazine HCl (Apresoline) 10 mg Q4H PRN IV SBP >160 Last administered on 05/02/18 18:50; Admin Dose 10 MG; Start 05/01/18 at 13:00 Polyethylene Glycol (Miralax) 17 gm DAILY PO Last administered on 05/11/18 08:56; Admin Dose 17 GM; Start 05/02/18 at 10:30 Docusate Sodium (Colace) 100 mg BID PRN PO CONSTIPATION; Start 05/02/18 at 10:30 Calcium/Vitamin D (Oyster Shell/ Vit-D (500/200)) 1 tab BID PO Last administere d on 05/13/18 09:45; Admin Dose 1 TAB; Start 05/03/18 at 21:00 Prednisone (Prednisone) 20 mg DAILY PO Last administered on 05/13/18 09:45; Admin Dose 20 MG; Start 05/10/18 at 09:00 Cefepime HCl 50 ml @ 100 mls/hr Q12 IVPB Last administered on 05/13/18 09:49; Admin Dose 100 MLS/HR; Start 05/09/18 at 16:00 Fluconazole/ Sodium Chloride 50 ml @ 50 mls/hr Q24H IVPB Last administered on 05/12/18at 16:56; Admin Dose 50 MLS/HR; Start 05/09/18 at 17:00 Assessment/Plan Hospital Course (Demo Recall) 1. Abnormal echocardiogram, assess for acute coronary syndrome.-neg x 3 since ecg abnl seen by tele. NO chest pain according to family member at bedside. repeat ecg today with inferior q's and only borderline J point elevation single lead - no ectopy on tele, rate controlled - no ectopy on tele, comfortable now 2. Cardiac arrhythmia. Continue to follow. In sinus now. SINUS - no tachy- calixto noted. 3. Hyponatremia- ongoing - still low Na+ at 127 - primary team follows 4. Pulmonary fibrosis - stable by exam. Defer to pulmonary team. 5. Dementia- chronic. 6. Urinary tract infection - Rx with anti-Bx now. Improved. NO fevers. 7. Leukocytosis and anemia. 8. Hematuruia - H/H stable. LUIS ROSS MD May 13, 2018 12:39
--- NOTE | 2018-05-13 12:41 | CONS ---
Assessment/Plan Assessment/Plan Hospital Course (Demo Recall) ID PROGRESS NOTE CURRENT ABX: DAY # => Cefepime # 4.5 + Diflucan s/p Vanco IV s/p Zosyn 24H INTERVAL SUMMARY * Resolving hematuria -- feeling much better -- Awake, alert, responsive, smiling * No fevers, VSS, without distress, supplemental O2 via NC ,WBC has normalized * URINE COLOR IMPROVED PER FAMILY => Patient had a Rajan catheter inserted on admission this time and the urine was noted to be bloody therefore the catheter was changed and a three-way Rajan catheter was inserted and continuous bladder irrigation was started. A urological consultation was requested because of the hematuria. DIAGNOSTIC IMAGING * 05/12/18 CXR: IMPRESSION: * Cardiomegaly with calcified atherosclerosis in the aorta. * Stable diffuse interstitial prominence in both lungs. Interstitial prominence could be chronic. * Stable potential superimposed alveolar infiltrates in the bilateral lower lungs, left greater than right. * Hypoinflated lungs with an elevated right hemidiaphragm. MICRO/OTHER * 05/09/18 BCX (-) * 05/09/18 UA (+)2+ LuekEsterase, pyuria, hematuria, MANY BUDDING YEAST * 05/02/18 bcX (-) * 04/26/18 BCX (+) 1/2 BOTTLES in ED for COAGULASE NEGATIVE STAPH COAG NEG M.I.C. RX --------- --- CEFAZOLIN S CIPROFLOXACIN 4 R CLINDAMYCIN I DOXYCYCLINE S ERYTHROMYCIN >=8 R LEVOFLOXACIN 4 R OXACILLIN <=0.25 S PENICILLIN-G 0.25 R RIFAMPIN <=0.5 S VANCOMYCIN <=0.5 S TRIMETHOPRIM/SULFAMETHOXAZOLE <=10 S PHYSICAL EXAMINATION: GENERAL: VSS, NAD HEENT: AT, NC, anicteric, NECK: Supple, CHEST: Equal chest rise bilaterally, without dyspnea on observation HEART: Pulse RRR ABDOMEN: Soft / NT : EXTREMITIES: Warm, dry SKIN: No rash, no diaphoresis ID ASSESSMENT 87 yo F admit with: 1. Acute on chronic hypoxemic respiratory failure 2. Possible pneumonia 3. Idiopathic pulmonary fibrosis status post exacerbation 4. Fungal UTI * 05/09/18 UA (+)2+ LuekEsterase, pyuria, hematuria, MANY BUDDING YEAST (-)MRSA Nares ABX ALLERGIES: KNDA INVASIVES: PIV CURRENT ABX: DAY # => Cefepime # 4.5 + Diflucan s/p Vanco IV s/p Zosyn ID RECOMMENDATIONS/PLAN: 1. DC Cefepime 2. Change Diflucan to PO in am == When cleared for DC home -- anticipate DC home of Diflucan 100mg PO daily x 3-4 days . Consultation Date/Type/Reason Admit Date/Time Apr 27, 2018 at 02:15 Initial Consult Date 05/11/18 Requesting Provider: MERNA BLAKE Date/Time of Note DATE: 05/13/18 TIME: 12:38 Exam/Review of Systems Exam Vitals Vital Signs Date Temp Pulse Resp B/P (MAP) Pulse Ox O2 O2 Flow FiO2 Time Delivery Rate 05/13/18 72 12:00 05/13/18 97.5 20 131/61 95 Nasal 11:41 (84) Cannula 05/13/18 2.0 09:37 05/11/18 30 03:06 Intake and Output 05/12/18 05/12/18 05/13/18 1515:00 23:00 07:00 IntakeIntake Total 50 ml 770 ml 150 ml OutputOutput Total 700 ml 430 ml BalanceBalance 50 ml 70 ml -280 ml Results Result Diagram: 05/13/18 0606 05/13/18 0606 Results 24hrs Laboratory Tests Test 05/13/18 06:06 White Blood Count 7.6 Red Blood Count 3.99 L Hemoglobin 10.9 L Hematocrit 34.4 L Mean Corpuscular Volume 86.2 Mean Corpuscular Hemoglobin 27.3 L Mean Corpuscular Hemoglobin Concent 31.7 L Red Cell Distribution Width 14.3 Platelet Count 304 Mean Platelet Volume 9.8 Immature Granulocytes % 0.800 H Neutrophils % 78.8 H Lymphocytes % 11.5 L Monocytes % 7.7 Eosinophils % 1.1 Basophils % 0.1 Nucleated Red Blood Cells % 0.0 Immature Granulocytes # 0.060 H Neutrophils # 6.0 Lymphocytes # 0.9 Monocytes # 0.6 Eosinophils # 0.1 Basophils # 0.0 Nucleated Red Blood Cells # 0.0 Sodium Level 127 L Potassium Level 4.8 Chloride Level 87 L Carbon Dioxide Level 38 H Anion Gap 2 L Blood Urea Nitrogen 7 Creatinine 0.40 L Est Glomerular Filtrat Rate mL/min Glucose Level 92 Calcium Level 8.8 Phosphorus Level 2.7 Magnesium Level 1.9 Medications Medication Current Medications IV Flush (NS 3 ml) 3 ml PER PROTOCOL IV ; Start 04/27/18 at 03:00 Ondansetron HCl (Zofran Inj) 4 mg Q6H PRN IV NAUSEA/VOMITING; Start 04/27/18 at 03:00 Acetaminophen (Tylenol Tab) 650 mg Q6H PRN PO .PAIN 1-3 OR TEMP; Start 04/27/18 at 03:00 Aspirin (Ecotrin) 325 mg DAILY PO Last administered on 05/11/18 09:00; Admin Dose 325 MG; Start 04/27/18 at 09:00; Status Hold Albuterol/ Ipratropium (Duoneb) 3 ml Q6H RESP THERAPY INH Last administered on 05/13/18 09:18; Admin Dose 3 ML; Start 04/27/18 at 08:00 Levothyroxine Sodium (Synthroid) 88 mcg BEFORE BREAKFAST PO Last administered on 05/13/18 06:29; Admin Dose 88 MCG; Start 04/27/18 at 07:00 Atorvastatin Calcium (Lipitor) 10 mg DAILY@21 PO Last administered on 05/12/18 20:48; Admin Dose 10 MG; Start 04/27/18 at 21:00 Albuterol/ Ipratropium (Duoneb) 3 ml Q2H RESP THERAPY PRN HHN shortness of breath; Start 04/27/18 at 10:00 Enoxaparin Sodium (Lovenox) 40 mg DAILY SC Last administered on 05/11/18 08:58; Admin Dose 40 MG; Start 04/28/18 at 09:00; Status Hold Budesonide (Pulmicort (Neb)) 0.5 mg BID RESP THERAPY INH Last administered on 05/13/18 09:18; Admin Dose 0.5 MG; Start 04/29/18 at 09:00 Hydralazine HCl (Apresoline) 10 mg Q4H PRN IV SBP >160 Last administered on 05/02/18 18:50; Admin Dose 10 MG; Start 05/01/18 at 13:00 Polyethylene Glycol (Miralax) 17 gm DAILY PO Last administered on 05/11/18 08:56; Admin Dose 17 GM; Start 05/02/18 at 10:30 Docusate Sodium (Colace) 100 mg BID PRN PO CONSTIPATION; Start 05/02/18 at 10:30 Calcium/Vitamin D (Oyster Shell/ Vit-D (500/200)) 1 tab BID PO Last administer ed on 05/13/18 09:45; Admin Dose 1 TAB; Start 05/03/18 at 21:00 Prednisone (Prednisone) 20 mg DAILY PO Last administered on 05/13/18 09:45; Admin Dose 20 MG; Start 05/10/18 at 09:00 Cefepime HCl 50 ml @ 100 mls/hr Q12 IVPB Last administered on 05/13/18 09:49; Admin Dose 100 MLS/HR; Start 05/09/18 at 16:00 Fluconazole/ Sodium Chloride 50 ml @ 50 mls/hr Q24H IVPB Last administered on 05/12/18 16:56; Admin Dose 50 MLS/HR; Start 05/09/18 at 17:00 MIRIAM GROVER NP May 13, 2018 12:41
[2018-05-13] MEDS: FLUCONAZOLE 100 MG/50 ML (PMX) 50 ML IVPB SCH (16:11)
--- NOTE | 2018-05-13 16:46 | CONS ---
Consult Date/Type/Reason Admit Date/Time Apr 27, 2018 at 02:15 Initial Consult Date 05/11/18 Type of Consultation: Urology Reason for Consultation Hematuria Requesting Provider: MERNA BLAKE Date/Time of Note DATE: 05/13/18 TIME: 16:42 Subjective The patient is comfortable and denies any pain Objective Vitals Vital Signs Date Temp Pulse Resp B/P (MAP) Pulse Ox O2 O2 Flow FiO2 Time Delivery Rate 05/13/18 89 16:00 05/13/18 98.4 20 142/68 97 Nasal 15:28 (92) Cannula 05/13/18 2.0 09:37 05/11/18 30 03:06 Intake and Output 05/12/18 05/12/18 05/13/18 1515:00 23:00 07:00 IntakeIntake Total 50 ml 770 ml 150 ml OutputOutput Total 700 ml 430 ml BalanceBalance 50 ml 70 ml -280 ml Exam The Rajan catheter is draining clear to clear pink urine with the continuous bladder irrigation Results/Medications Result Diagram: 05/13/18 0606 05/13/18 0606 Results 24 hrs Laboratory Tests Test 05/13/18 06:06 White Blood Count 7.6 Red Blood Count 3.99 L Hemoglobin 10.9 L Hematocrit 34.4 L Mean Corpuscular Volume 86.2 Mean Corpuscular Hemoglobin 27.3 L Mean Corpuscular Hemoglobin Concent 31.7 L Red Cell Distribution Width 14.3 Platelet Count 304 Mean Platelet Volume 9.8 Immature Granulocytes % 0.800 H Neutrophils % 78.8 H Lymphocytes % 11.5 L Monocytes % 7.7 Eosinophils % 1.1 Basophils % 0.1 Nucleated Red Blood Cells % 0.0 Immature Granulocytes # 0.060 H Neutrophils # 6.0 Lymphocytes # 0.9 Monocytes # 0.6 Eosinophils # 0.1 Basophils # 0.0 Nucleated Red Blood Cells # 0.0 Sodium Level 127 L Potassium Level 4.8 Chloride Level 87 L Carbon Dioxide Level 38 H Anion Gap 2 L Blood Urea Nitrogen 7 Creatinine 0.40 L Est Glomerular Filtrat Rate mL/min Glucose Level 92 Calcium Level 8.8 Phosphorus Level 2.7 Magnesium Level 1.9 Home Meds Reported Medications Formoterol Fumarate (Perforomist) 20 Mcg/2 Ml Vial.neb, 20 MCG INHALATION BID, VIAL 03/28/18 Ipratropium [place] [facility] (Ipratropium [facility]) 5 Gm Powder, 10.5 MG MC BID 03/28/18 Ipratropium-Albuterol (Ipratropium-Albuterol) 0.5-3 Mg/3 Ml Ampul.neb, 3 ML INHALATION Q6, #30 VIAL 03/28/18 Budesonide* (Budesonide*) 0.25 Mg/2 Ml Ampul.neb, 0.25 MG INHALATION BID, AMP 03/28/18 Cholecalciferol* (Vitamin D3*) 1,000 Unit Tablet, 1000 UNIT PO DAILY, TAB 03/28/18 Simvastatin* (Zocor*) 20 Mg Tablet, 20 MG PO QHS, #30 TAB 03/28/18 Aspirin* (Aspirin* EC) 325 Mg Tab, 325 MG PO DAILY, TAB 03/28/18 Levothyroxine Sodium* (Levothyroxine Sodium*) 88 Mcg Tablet, 88 MCG PO BEFORE BREAKFAST, #30 TAB 03/28/18 Medications Current Medications IV Flush (NS 3 ml) 3 ml PER PROTOCOL IV ; Start 04/27/18 at 03:00 Ondansetron HCl (Zofran Inj) 4 mg Q6H PRN IV NAUSEA/VOMITING; Start 04/27/18 at 03:00 Acetaminophen (Tylenol Tab) 650 mg Q6H PRN PO .PAIN 1-3 OR TEMP; Start 04/27/18 at 03:00 Aspirin (Ecotrin) 325 mg DAILY PO Last administered on 05/11/18at 09:00; Admin Dose 325 MG; Start 04/27/18 at 09:00; Status Hold Albuterol/ Ipratropium (Duoneb) 3 ml Q6H RESP THERAPY INH Last administered on 05/13/18at 13:39; Admin Dose 3 ML; Start 04/27/18 at 08:00 Levothyroxine Sodium (Synthroid) 88 mcg BEFORE BREAKFAST PO Last administered on 05/13/18at 06:29; Admin Dose 88 MCG; Start 04/27/18 at 07:00 Atorvastatin Calcium (Lipitor) 10 mg DAILY@21 PO Last administered on 05/12/18at 20:48; Admin Dose 10 MG; Start 04/27/18 at 21:00 Albuterol/ Ipratropium (Duoneb) 3 ml Q2H RESP THERAPY PRN HHN shortness of breath; Start 04/27/18 at 10:00 Enoxaparin Sodium (Lovenox) 40 mg DAILY SC Last administered on 05/11/18 08:58; Admin Dose 40 MG; Start 04/28/18 at 09:00; Status Hold Budesonide (Pulmicort (Neb)) 0.5 mg BID RESP THERAPY INH Last administered on 05/13/18 09:18; Admin Dose 0.5 MG; Start 04/29/18 at 09:00 Hydralazine HCl (Apresoline) 10 mg Q4H PRN IV SBP >160 Last administered on 05/02/18 18:50; Admin Dose 10 MG; Start 05/01/18 at 13:00 Polyethylene Glycol (Miralax) 17 gm DAILY PO Last administered on 05/11/18 08:56; Admin Dose 17 GM; Start 05/02/18 at 10:30 Docusate Sodium (Colace) 100 mg BID PRN PO CONSTIPATION; Start 05/02/18 at 10:30 Calcium/Vitamin D (Oyster Shell/ Vit-D (500/200)) 1 tab BID PO Last administered on 05/13/18 09:45; Admin Dose 1 TAB; Start 05/03/18 at 21:00 Prednisone (Prednisone) 20 mg DAILY PO Last administered on 05/13/18 09:45; Admin Dose 20 MG; Start 05/10/18 at 09:00 Fluconazole/ Sodium Chloride 50 ml @ 50 mls/hr Q24H IVPB Last administered on 05/13/18 16:11; Admin Dose 50 MLS/HR; Start 05/09/18 at 17:00 Assessment/Plan Hospital Course (Demo Recall) 87-year-old female with a history of dementia, pulmonary fibrosis, hypothyroidism, dyslipidemia was brought to the ER after she was found unresponsive. She was given promethazine the night before her admission and about 30 minutes or so after when the family tries to wake her up, she was very lethargic and difficult to arouse. It took about 10 minutes for the patient to wake up. No focal weakness/numbness, seizure-like activity, facial droop, slurred speech reported. Patient was admitted here last month for syncope which was thought to be from hypoxia caused by her pulmonary fibrosis. At that time echo and carotid Doppler ultrasound were nondiagnostic. Reportedly patient has been coughing, which is chronic. Patient had a Rajan catheter inserted on admission this time and the urine was noted to be bloody therefore the catheter was changed and a three-way Rajan catheter was inserted and continuous bladder irrigation was started. A urological consultation was requested because of the hematuria. I did talk to her 2 daughters. There is no history of hematuria before. No history of kidney stones. At the present the return from the bladder irrigation is clear to clear pink Renal ultrasound was normal. Urine cytology still is pending. Patient is on fluconazole. Continue the present treatment. LINDSAY JULIO MD May 13, 2018 16:46
[2018-05-13] MEDS: ATORVASTATIN 10 MG TAB PO SCH (21:08)
[2018-05-14] VITALS (13 sets, daily range): BP systolic 114–132; BP diastolic 55–69; PULSE 65–100; RESP 16–20
[2018-05-14] MEDS: ALBUTEROL/IPRATROPIUM (NEB) 3 ML AMP INH SCH ×4 (01:13→20:11)
[2018-05-14] MEDS: LEVOTHYROXINE 88 MCG TAB PO SCH (06:44)
[2018-05-14] MEDS: predniSONE 20 MG TAB PO SCH (08:31)
[2018-05-14] MEDS: CALCIUM/VITAMIN D (500/200) TAB PO SCH ×2 (08:31→21:02)
[2018-05-14] MEDS: BALSAM PERU/CASTOR OIL 60 GM TUBE TOP SCH ×2 (08:31→21:06)
[2018-05-14] MEDS: POLYETHYLENE GLYCOL 17 GM PACKET PO SCH (08:32)
--- NOTE | 2018-05-14 09:51 | PN ---
DATE: 05/14/2018 SUBJECTIVE: The patient remains on continuous bladder irrigation. No other events noted overnight. OBJECTIVE: VITAL SIGNS: Blood pressure is 122/57, pulse 66, respirations 20, temperature 98.7. HEENT: Head is normocephalic. NECK: Supple. HEART: Regular rate. LUNGS: Show diminished breath sounds at the base. ABDOMEN: Soft, nontender to palpation without rebound or guarding. EXTREMITIES: Negative for clubbing, cyanosis. Trace edema. DERMATOLOGIC: No rashes. MUSCULOSKELETAL: No joint effusion. NEUROLOGIC: No change in exam. MEDICATIONS: The patient's medications have been reviewed. LABORATORY DATA: From 05/13/2018 showed potassium 127, Chem-7, creatinine 0.4. ASSESSMENT AND PLAN: 1. Hyponatremia, etiology is felt to be secondary to syndrome of inappropriate antidiuretic hormone. The patient's sodium levels remain low. Will continue free water restriction, continue high osmola r diet. We will repeat urine sodium and urine osmolarity. 2. Hematuria. The patient remains on continuous bladder irrigation. Continue to monitor. Follow u p with cytology. Follow up with urology. 3. Anemia. Continue to monitor hemoglobin and hematocrit levels. 4. Acute hypoxemic respiratory failure secondary to pulmonary fibrosis, pneumonia. Continue BiPAP. Continue prednisone taper per pulmonary. 5. Hypothyroidism. Continue Synthroid. 6. Dyslipidemia. Continue statin therapy. 7. Encephalopathy, etiology is toxic metabolic. Continue to monitor. Dictated By: GABO DURAN DO NR/NTS Conf#: [id number] DID#: [id number] CC: RICHARDSON BROWN MD;*End*
[2018-05-14] MEDS: BUDESONIDE (NEB) 0.5MG/2ML AMP INH SCH ×2 (10:12→20:11)
--- NOTE | 2018-05-14 10:32 | PN ---
Date/Time of Note Date/Time of Note DATE: 05/14/18 TIME: 10:32 Assessment/Plan VTE Prophylaxis Risk score (from Ns)>0 risk: 6 SCD applied (from Ns): Yes Pharmacological prophylaxis: NA/contraindicated Pharm contraindication: bleeding Lines/Catheters IV Catheter Type (from Nrsg): Peripheral IV Urinary Cath still in place: Yes Reason Cath still needed: urinary retention Assessment/Plan Assessment/Plan 1. Hematuria - Urology on board and appreciate recommendations. Continue CBI given still with pink tinged urine - Likely secondary to trauma given patient tends to play with strange' - LMWH on hold - H/H remains stable 2. UTI - will continue on Diflucan per ID recommendations. Cefepime d/c - ID consultation appreciated 3. Acute hypoxic and hypercapnic respiratory failure- stable - Patient appears back to baseline respiratory status de paz. - Pulm on board and appreciate recommendations - BIPAP qhs and NC during the day, machine delivered at home, likely trilogy per pulmonology, arranged by patient's outpatient gas line servicer 4. Hyponatremia - Nephrology on board and appreciate recommendations 5. Anemia- stable - Secondary to acute blood loss anemia secondary to hematuria 6. Exacerbation of IPF- resolving - Follows with Pulm as outpatient. will need to continue on Pred 20mg daily 7. Hypothyroidism -Continue home meds 8. Dyslipidemia -Continue home meds 9. Disposition - Monitor for improvement in hematuria and continue CBI per Urology recommendations Result Diagram: 05/14/18 0900 05/14/18 0900 Results 24hrs Laboratory Tests Test 05/13/18 23:21 05/14/18 09:00 Blood Gas Specimen Source Blood arterial Arterial Blood Date Drawn 05/14/2018 12:00:07 AM Arterial Blood pH (Temp corrected) 7.408 Arterial Blood pCO2 (Temp correct) 60.5 H Arterial Blood pO2 (Temp corrected) 166.6 H Arterial Blood HCO3 37.3 H Arterial Blood Base Excess 10.6 H Arterial Blood Oxygen Saturation 99.2 Abhishek Test ACCEPTAB Arterial Blood Gas Puncture Site Right Radial Arterial Blood Carboxyhemoglobin 0.4 Arterial Blood Methemoglobin 0.2 Oxyhemoglobin Percent 98.6 Blood Gas Temperature 37.0 Blood Gas Modality NASAL CANNULA FiO2 27.0 Blood Gas Critical Value Read Back EMILI GONZALEZ Blood Gas Notified Whom Blood Gas Notified Time 05/14/2018 12:20:28 AM White Blood Count 6.8 Red Blood Count 3.81 L Hemoglobin 10.8 L Hematocrit 33.4 L Mean Corpuscular Volume 87.7 Mean Corpuscular Hemoglobin 28.3 L Mean Corpuscular Hemoglobin Concent 32.3 Red Cell Distribution Width 14.5 Platelet Count 288 Mean Platelet Volume 9.1 Immature Granulocytes % 0.700 H Neutrophils % 79.6 H Lymphocytes % 12.1 L Monocytes % 6.5 Eosinophils % 1.0 Basophils % 0.1 Nucleated Red Blood Cells % 0.0 Immature Granulocytes # 0.050 H Neutrophils # 5.4 Lymphocytes # 0.8 Monocytes # 0.4 Eosinophils # 0.1 Basophils # 0.0 Nucleated Red Blood Cells # 0.0 Sodium Level 128 L Potassium Level 4.3 Chloride Level 87 L Carbon Dioxide Level 38 H Anion Gap 3 L Blood Urea Nitrogen 11 Creatinine 0.50 Est Glomerular Filtrat Rate mL/min Glucose Level 117 Calcium Level 8.8 Phosphorus Level 3.4 Magnesium Level 1.9 Subjective 24 Hr Interval Summary Free Text/Dictation Patient remains stable and in no acute distress. Still with pink tinged fluid in strange catheter. No acute overnight events. Exam/Review of Systems Exam Vitals Vital Signs Date Temp Pulse Resp B/P (MAP) Pulse Ox O2 O2 Flow FiO2 Time Delivery Rate 05/14/18 100 2.0 10:19 05/14/18 74 20 Nasal 10:17 Cannula 05/14/18 98.7 122/57 07:18 (78) 05/11/18 30 03:06 Intake and Output 05/13/18 05/13/18 05/14/18 1414:59 22:59 06:59 IntakeIntake Total 720 ml OutputOutput Total 4750 ml BalanceBalance -4030 ml Exam General: Patient is laying in bed. no acute distress Neck: Supple, nontender, midline Respiratory: Diminished breath sounds. no wheezing appreciated Cardiovascular: regular rate and rhythm, no obvious murmurs Gastrointestinal: soft, non-tender to palpation, bowel sounds heard. Neurological: Moves all extremities spontaneously Skin: No new skin lesions Results Results 24hrs Laboratory Tests Test 05/13/18 23:21 05/14/18 09:00 Blood Gas Specimen Source Blood arterial Arterial Blood Date Drawn 05/14/2018 12:00:07 AM Arterial Blood pH (Temp corrected) 7.408 Arterial Blood pCO2 (Temp correct) 60.5 H Arterial Blood pO2 (Temp corrected) 166.6 H Arterial Blood HCO3 37.3 H Arterial Blood Base Excess 10.6 H Arterial Blood Oxygen Saturation 99.2 Abhishek Test ACCEPTAB Arterial Blood Gas Puncture Site Right Radial Arterial Blood Carboxyhemoglobin 0.4 Arterial Blood Methemoglobin 0.2 Oxyhemoglobin Percent 98.6 Blood Gas Temperature 37.0 Blood Gas Modality NASAL CANNULA FiO2 27.0 Blood Gas Critical Value Read Back EMILI GONZALEZ Blood Gas Notified Whom RH Blood Gas Notified Time 05/14/2018 12:20:28 AM White Blood Count 6.8 Red Blood Count 3.81 L Hemoglobin 10.8 L Hematocrit 33.4 L Mean Corpuscular Volume 87.7 Mean Corpuscular Hemoglobin 28.3 L Mean Corpuscular Hemoglobin Concent 32.3 Red Cell Distribution Width 14.5 Platelet Count 288 Mean Platelet Volume 9.1 Immature Granulocytes % 0.700 H Neutrophils % 79.6 H Lymphocytes % 12.1 L Monocytes % 6.5 Eosinophils % 1.0 Basophils % 0.1 Nucleated Red Blood Cells % 0.0 Immature Granulocytes # 0.050 H Neutrophils # 5.4 Lymphocytes # 0.8 Monocytes # 0.4 Eosinophils # 0.1 Basophils # 0.0 Nucleated Red Blood Cells # 0.0 Sodium Level 128 L Potassium Level 4.3 Chloride Level 87 L Carbon Dioxide Level 38 H Anion Gap 3 L Blood Urea Nitrogen 11 Creatinine 0.50 Est Glomerular Filtrat Rate mL/min Glucose Level 117 Calcium Level 8.8 Phosphorus Level 3.4 Magnesium Level 1.9 Medications Medication Current Medications IV Flush (NS 3 ml) 3 ml PER PROTOCOL IV ; Start 04/27/18 at 03:00 Ondansetron HCl (Zofran Inj) 4 mg Q6H PRN IV NAUSEA/VOMITING; Start 04/27/18 at 03:00 Acetaminophen (Tylenol Tab) 650 mg Q6H PRN PO .PAIN 1-3 OR TEMP; Start 04/27/18 at 03:00 Aspirin (Ecotrin) 325 mg DAILY PO Last administered on 05/11/18at 09:00; Admin D ose 325 MG; Start 04/27/18 at 09:00; Status Hold Albuterol/ Ipratropium (Duoneb) 3 ml Q6H RESP THERAPY INH Last administered on 05/14/18at 08:03; Admin Dose 3 ML; Start 04/27/18 at 08:00 Levothyroxine Sodium (Synthroid) 88 mcg BEFORE BREAKFAST PO Last administered on 05/14/18 06:44; Admin Dose 88 MCG; Start 04/27/18 at 07:00 Atorvastatin Calcium (Lipitor) 10 mg DAILY@21 PO Last administered on 05/13/18 21:08; Admin Dose 10 MG; Start 04/27/18 at 21:00 Albuterol/ Ipratropium (Duoneb) 3 ml Q2H RESP THERAPY PRN HHN shortness of breath; Start 04/27/18 at 10:00 Enoxaparin Sodium (Lovenox) 40 mg DAILY SC Last administered on 05/11/18 08:58; Admin Dose 40 MG; Start 04/28/18 at 09:00; Status Hold Budesonide (Pulmicort (Neb)) 0.5 mg BID RESP THERAPY INH Last administered on 05/14/18 10:12; Admin Dose 0.5 MG; Start 04/29/18 at 09:00 Hydralazine HCl (Apresoline) 10 mg Q4H PRN IV SBP >160 Last administered on 05/02/18 18:50; Admin Dose 10 MG; Start 05/01/18 at 13:00 Polyethylene Glycol (Miralax) 17 gm DAILY PO Last administered on 05/11/18 08:56; Admin Dose 17 GM; Start 05/02/18 at 10:30 Docusate Sodium (Colace) 100 mg BID PRN PO CONSTIPATION; Start 05/02/18 at 10:30 Calcium/Vitamin D (Oyster Shell/ Vit-D (500/200)) 1 tab BID PO Last administered on 05/14/18 08:31; Admin Dose 1 TAB; Start 05/03/18 at 21:00 Prednisone (Prednisone) 20 mg DAILY PO Last administered on 05/14/18 08:31; Admin Dose 20 MG; Start 05/10/18 at 09:00 Fluconazole/ Sodium Chloride 50 ml @ 50 mls/hr Q24H IVPB Last administered on 05/13/18 16:11; Admin Dose 50 MLS/HR; Start 05/09/18 at 17:00 KALEB JAIMES MD May 14, 2018 10:32
--- NOTE | 2018-05-14 13:17 | CONS ---
Assessment/Plan Assessment/Plan Hospital Course (Demo Recall) IMPRESSION: 1. Abnormal echocardiogram, assess for acute coronary syndrome.-neg x 3 since ecg abnl seen by tele. NO chest pain according to family member at bedside. repeat ecg today with inferior q's and only borderline J point elevation single lead 2. Cardiac arrhythmia. Continue to follow. 3. Hyponatremia- ongoing 4. Pulmonary fibrosis. 5. Dementia. 6. Urinary tract infection. 7. Leukocytosis and anemia. 8. Hematuria Recc: -Tele -serial ecg's -contineu statin -Follow BP closely off of antihypertensives -Home BIPAP being set up -Continue steroids/bronchodilators and antifungals -Holding asa due to hematuria -follow volume status closely Consultation Date/Type/Reason Admit Date/Time Apr 27, 2018 at 02:15 Initial Consult Date 05/09/18 Type of Consult Cardiology Reason for Consultation abnl ecg Requesting Provider: MERNA BLAKE Date/Time of Note DATE: 05/14/18 TIME: 13:15 Exam/Review of Systems Vital Signs Vitals Vital Signs Date Temp Pulse Resp B/P (MAP) Pulse Ox O2 O2 Flow FiO2 Time Delivery Rate 05/14/18 100 12:01 05/14/18 98.6 16 114/55 97 11:40 (74) 05/14/18 2.0 10:19 05/14/18 Nasal 10:17 Cannula 05/11/18 30 03:06 Intake and Output 05/13/18 05/13/18 05/14/18 1515:00 23:00 07:00 IntakeIntake Total 720 ml OutputOutput Total 4750 ml BalanceBalance -4030 ml Exam Exam Review of Systems: CONSTITUTIONAL: No fevers, chills. PULMONARY: No sob CARDIOVASCULAR: No chest pain/palpitations GASTROINTESTINAL: No nausea/vomiting. GENITOURINARY: No hematuria/dysuria. MUSCULOSKELETAL: No myagias/arthalgias. PSYCHIATRIC: The patient denies depression. NEUROLOGIC: No weakness Constitutional: alert Psych: no complaints Head: normocephalic ENMT: mucosa pink and moist Neck: supple, jvd (9 cm water) Respiratory: diminished breath sounds (at bases/B) Cardiovascular: regular rate and rhythm Gastrointestinal: soft, non-tender Musculoskeletal: muscle tone (normal) Extremities: edema (none) Labs Result Diagram: 05/14/18 0900 05/14/18 0900 Results 24hrs Laboratory Tests Test 05/13/18 23:21 05/14/18 09:00 Blood Gas Specimen Source Blood arterial Arterial Blood Date Drawn 05/14/2018 12:00:07 AM Arterial Blood pH (Temp corrected) 7.408 Arterial Blood pCO2 (Temp correct) 60.5 H Arterial Blood pO2 (Temp corrected) 166.6 H Arterial Blood HCO3 37.3 H Arterial Blood Base Excess 10.6 H Arterial Blood Oxygen Saturation 99.2 Abhishek Test ACCEPTAB Arterial Blood Gas Puncture Site Right Radial Arterial Blood Carboxyhemoglobin 0.4 Arterial Blood Methemoglobin 0.2 Oxyhemoglobin Percent 98.6 Blood Gas Temperature 37.0 Blood Gas Modality NASAL CANNULA FiO2 27.0 Blood Gas Critical Value Read Back EMILI GONZALEZ Blood Gas Notified Whom RH Blood Gas Notified Time 05/14/2018 12:20:28 AM White Blood Count 6.8 Red Blood Count 3.81 L Hemoglobin 10.8 L Hematocrit 33.4 L Mean Corpuscular Volume 87.7 Mean Corpuscular Hemoglobin 28.3 L Mean Corpuscular Hemoglobin Concent 32.3 Red Cell Distribution Width 14.5 Platelet Count 288 Mean Platelet Volume 9.1 Immature Granulocytes % 0.700 H Neutrophils % 79.6 H Lymphocytes % 12.1 L Monocytes % 6.5 Eosinophils % 1.0 Basophils % 0.1 Nucleated Red Blood Cells % 0.0 Immature Granulocytes # 0.050 H Neutrophils # 5.4 Lymphocytes # 0.8 Monocytes # 0.4 Eosinophils # 0.1 Basophils # 0.0 Nucleated Red Blood Cells # 0.0 Sodium Level 128 L Potassium Level 4.3 Chloride Level 87 L Carbon Dioxide Level 38 H Anion Gap 3 L Blood Urea Nitrogen 11 Creatinine 0.50 Est Glomerular Filtrat Rate mL/min Glucose Level 117 Calcium Level 8.8 Phosphorus Level 3.4 Magnesium Level 1.9 Medications Medications Current Medications IV Flush (NS 3 ml) 3 ml PER PROTOCOL IV ; Start 04/27/18 at 03:00 Ondansetron HCl (Zofran Inj) 4 mg Q6H PRN IV NAUSEA/VOMITING; Start 04/27/18 at 03:00 Acetaminophen (Tylenol Tab) 650 mg Q6H PRN PO .PAIN 1-3 OR TEMP; Start 04/27/18 at 03:00 Aspirin (Ecotrin) 325 mg DAILY PO Last administered on 05/11/18 09:00; Admin Dose 325 MG; Start 04/27/18 at 09:00; Status Hold Albuterol/ Ipratropium (Duoneb) 3 ml Q6H RESP THERAPY INH Last administered on 05/14/18 08:03; Admin Dose 3 ML; Start 04/27/18 at 08:00 Levothyroxine Sodium (Synthroid) 88 mcg BEFORE BREAKFAST PO Last administered on 05/14/18 06:44; Admin Dose 88 MCG; Start 04/27/18 at 07:00 Atorvastatin Calcium (Lipitor) 10 mg DAILY@21 PO Last administered on 05/13/18 21:08; Admin Dose 10 MG; Start 04/27/18 at 21:00 Albuterol/ Ipratropium (Duoneb) 3 ml Q2H RESP THERAPY PRN HHN shortness of breath; Start 04/27/18 at 10:00 Enoxaparin Sodium (Lovenox) 40 mg DAILY SC Last administered on 05/11/18 08:58; Admin Dose 40 MG; Start 04/28/18 at 09:00; Status Hold Budesonide (Pulmicort (Neb)) 0.5 mg BID RESP THERAPY INH Last administered on 05/14/18 10:12; Admin Dose 0.5 MG; Start 04/29/18 at 09:00 Hydralazine HCl (Apresoline) 10 mg Q4H PRN IV SBP >160 Last administered on 05/02/18 18:50; Admin Dose 10 MG; Start 05/01/18 at 13:00 Polyethylene Glycol (Miralax) 17 gm DAILY PO Last administered on 05/11/18 08:56; Admin Dose 17 GM; Start 05/02/18 at 10:30 Docusate Sodium (Colace) 100 mg BID PRN PO CONSTIPATION; Start 05/02/18 at 10:30 Calcium/Vitamin D (Oyster Shell/ Vit-D (500/200)) 1 tab BID PO Last administered on 05/14/18 08:31; Admin Dose 1 TAB; Start 05/03/18 at 21:00 Prednisone (Prednisone) 20 mg DAILY PO Last administered on 05/14/18 08:31; Admin Dose 20 MG; Start 05/10/18 at 09:00 Fluconazole/ Sodium Chloride 50 ml @ 50 mls/hr Q24H IVPB Last administered on 05/13/18at 16:11; Admin Dose 50 MLS/HR; Start 05/09/18 at 17:00 AKSHAT HAY May 14, 2018 13:16
--- NOTE | 2018-05-14 14:15 | CONS ---
Assessment/Plan Assessment/Plan Hospital Course (Demo Recall) Patient is awake very weak looks comfortable on nasal cannula. No fevers overnight WBC 6.8 platelets 288 BUN 11 creatinine 0.5 Microbiology: Blood cultures since admission negative urinalysis was positive for yeast. Patient is on fluconazole also cefepime she remains on steroids Physical examination: This is a fragile very pleasant elderly woman who is awake in no distress. Head atraumatic normocephalic. Neck is supple chest rise symmetrical breath sounds diminished bases abdomen soft bowel sounds present extremities without cyanosis Assessment: 1. Acute on chronic hypoxemic respiratory failure 2. Possible pneumonia 3. Idiopathic pulmonary fibrosis status post exacerbation 4. Fungal UTI Plan: Stable, WBC normalized, continue present care, follow pulmonary recomm endations Consultation Date/Type/Reason Admit Date/Time Apr 27, 2018 at 02:15 Initial Consult Date Type of Consult id Requesting Provider: MERNA BLAKE Date/Time of Note DATE: 05/14/18 TIME: 14:14 Exam/Review of Systems Exam Vitals Vital Signs Date Temp Pulse Resp B/P (MAP) Pulse Ox O2 O2 Flow FiO2 Time Delivery Rate 05/14/18 100 12:01 05/14/18 98.6 16 114/55 97 11:40 (74) 05/14/18 2.0 10:19 05/14/18 Nasal 10:17 Cannula 05/11/18 30 03:06 Intake and Output 05/13/18 05/13/18 05/14/18 1515:00 23:00 07:00 IntakeIntake Total 720 ml OutputOutput Total 4750 ml BalanceBalance -4030 ml Results Result Diagram: 05/14/18 0900 05/14/18 0900 Results 24hrs Laboratory Tests Test 05/13/18 23:21 05/14/18 09:00 Blood Gas Specimen Source Blood arterial Arterial Blood Date Drawn 05/14/2018 12:00:07 AM Arterial Blood pH (Temp corrected) 7.408 Arterial Blood pCO2 (Temp correct) 60.5 H Arterial Blood pO2 (Temp corrected) 166.6 H Arterial Blood HCO3 37.3 H Arterial Blood Base Excess 10.6 H Arterial Blood Oxygen Saturation 99.2 Abhishek Test ACCEPTAB Arterial Blood Gas Puncture Site Right Radial Arterial Blood Carboxyhemoglobin 0.4 Arterial Blood Methemoglobin 0.2 Oxyhemoglobin Percent 98.6 Blood Gas Temperature 37.0 Blood Gas Modality NASAL CANNULA FiO2 27.0 Blood Gas Critical Value Read Back EMILI GONZALEZ Blood Gas Notified Whom RH Blood Gas Notified Time 05/14/2018 12:20:28 AM White Blood Count 6.8 Red Blood Count 3.81 L Hemoglobin 10.8 L Hematocrit 33.4 L Mean Corpuscular Volume 87.7 Mean Corpuscular Hemoglobin 28.3 L Mean Corpuscular Hemoglobin Concent 32.3 Red Cell Distribution Width 14.5 Platelet Count 288 Mean Platelet Volume 9.1 Immature Granulocytes % 0.700 H Neutrophils % 79.6 H Lymphocytes % 12.1 L Monocytes % 6.5 Eosinophils % 1.0 Basophils % 0.1 Nucleated Red Blood Cells % 0.0 Immature Granulocytes # 0.050 H Neutrophils # 5.4 Lymphocytes # 0.8 Monocytes # 0.4 Eosinophils # 0.1 Basophils # 0.0 Nucleated Red Blood Cells # 0.0 Sodium Level 128 L Potassium Level 4.3 Chloride Level 87 L Carbon Dioxide Level 38 H Anion Gap 3 L Blood Urea Nitrogen 11 Creatinine 0.50 Est Glomerular Filtrat Rate mL/min Glucose Level 117 Calcium Level 8.8 Phosphorus Level 3.4 Magnesium Level 1.9 Medications Medication Current Medications IV Flush (NS 3 ml) 3 ml PER PROTOCOL IV ; Start 04/27/18 at 03:00 Ondansetron HCl (Zofran Inj) 4 mg Q6H PRN IV NAUSEA/VOMITING; Start 04/27/18 at 03:00 Acetaminophen (Tylenol Tab) 650 mg Q6H PRN PO .PAIN 1-3 OR TEMP; Start 04/27/18 at 03:00 Aspirin (Ecotrin) 325 mg DAILY PO Last administered on 05/11/18at 09:00; Admin Dose 325 MG; Start 04/27/18 at 09:00; Status Hold Albuterol/ Ipratropium (Duoneb) 3 ml Q6H RESP THERAPY INH Last administered on 05/14/18at 08:03; Admin Dose 3 ML; Start 04/27/18 at 08:00 Levothyroxine Sodium (Synthroid) 88 mcg BEFORE BREAKFAST PO Last administered on 05/14/18at 06:44; Admin Dose 88 MCG; Start 04/27/18 at 07:00 Atorvastatin Calcium (Lipitor) 10 mg DAILY@21 PO Last administered on 05/13/18at 21:08; Admin Dose 10 MG; Start 04/27/18 at 21:00 Albuterol/ Ipratropium (Duoneb) 3 ml Q2H RESP THERAPY PRN HHN shortness of breath; Start 04/27/18 at 10:00 Enoxaparin Sodium (Lovenox) 40 mg DAILY SC Last administered on 05/11/18 08:58; Admin Dose 40 MG; Start 04/28/18 at 09:00; Status Hold Budesonide (Pulmicort (Neb)) 0.5 mg BID RESP THERAPY INH Last administered on 05/14/18 10:12; Admin Dose 0.5 MG; Start 04/29/18 at 09:00 Hydralazine HCl (Apresoline) 10 mg Q4H PRN IV SBP >160 Last administered on 05/02/18 18:50; Admin Dose 10 MG; Start 05/01/18 at 13:00 Polyethylene Glycol (Miralax) 17 gm DAILY PO Last administered on 05/11/18 08:56; Admin Dose 17 GM; Start 05/02/18 at 10:30 Docusate Sodium (Colace) 100 mg BID PRN PO CONSTIPATION; Start 05/02/18 at 10:30 Calcium/Vitamin D (Oyster Shell/ Vit-D (500/200)) 1 tab BID PO Last administered on 05/14/18 08:31; Admin Dose 1 TAB; Start 05/03/18 at 21:00 Prednisone (Prednisone) 20 mg DAILY PO Last administered on 05/14/18 08:31; Admin Dose 20 MG; Start 05/10/18 at 09:00 Fluconazole/ Sodium Chloride 50 ml @ 50 mls/hr Q24H IVPB Last administered on 05/13/18 16:11; Admin Dose 50 MLS/HR; Start 05/09/18 at 17:00 EDUIN MANTILLA NP May 14, 2018 14:15
[2018-05-14] MEDS: FLUCONAZOLE 100 MG/50 ML (PMX) 50 ML IVPB SCH (18:10)
--- NOTE | 2018-05-14 19:26 | CONS ---
Consult Date/Type/Reason Admit Date/Time Apr 27, 2018 at 02:15 Initial Consult Date 05/11/18 Type of Consultation: Urology Reason for Consultation Hematuria Requesting Provider: MERNA BLAKE Date/Time of Note DATE: 05/14/18 TIME: 19:24 Subjective The patient is comfortable and has no pain. Objective Vitals Vital Signs Date Temp Pulse Resp B/P (MAP) Pulse Ox O2 O2 Flow FiO2 Time Delivery Rate 05/14/18 2.0 17:27 05/14/18 74 16:01 05/14/18 98.3 18 126/57 95 15:06 (80) 05/14/18 Nasal 14:20 Cannula 05/11/18 30 03:06 Intake and Output 05/13/18 05/13/18 05/14/18 1414:59 22:59 06:59 IntakeIntake Total 720 ml OutputOutput Total 4750 ml BalanceBalance -4030 ml Exam Rajan catheter is draining clear to clear pink urine with the continuous bladder irrigation. Results/Medications Result Diagram: 05/14/18 0900 05/14/18 0900 Results 24 hrs Laboratory Tests Test 05/13/18 23:21 05/14/18 09:00 Blood Gas Specimen Source Blood arterial Arterial Blood Date Drawn 05/14/2018 12:00:07 AM Arterial Blood pH (Temp corrected) 7.408 Arterial Blood pCO2 (Temp correct) 60.5 H Arterial Blood pO2 (Temp corrected) 166.6 H Arterial Blood HCO3 37.3 H Arterial Blood Base Excess 10.6 H Arterial Blood Oxygen Saturation 99.2 Abhishek Test ACCEPTAB Arterial Blood Gas Puncture Site Right Radial Arterial Blood Carboxyhemoglobin 0.4 Arterial Blood Methemoglobin 0.2 Oxyhemoglobin Percent 98.6 Blood Gas Temperature 37.0 Blood Gas Modality NASAL CANNULA FiO2 27.0 Blood Gas Critical Value Read Back EMILI GONZALEZ Blood Gas Notified Whom RH Blood Gas Notified Time 05/14/2018 12:20:28 AM White Blood Count 6.8 Red Blood Count 3.81 L Hemoglobin 10.8 L Hematocrit 33.4 L Mean Corpuscular Volume 87.7 Mean Corpuscular Hemoglobin 28.3 L Mean Corpuscular Hemoglobin Concent 32.3 Red Cell Distribution Width 14.5 Platelet Count 288 Mean Platelet Volume 9.1 Immature Granulocytes % 0.700 H Neutrophils % 79.6 H Lymphocytes % 12.1 L Monocytes % 6.5 Eosinophils % 1.0 Basophils % 0.1 Nucleated Red Blood Cells % 0.0 Immature Granulocytes # 0.050 H Neutrophils # 5.4 Lymphocytes # 0.8 Monocytes # 0.4 Eosinophils # 0.1 Basophils # 0.0 Nucleated Red Blood Cells # 0.0 Sodium Level 128 L Potassium Level 4.3 Chloride Level 87 L Carbon Dioxide Level 38 H Anion Gap 3 L Blood Urea Nitrogen 11 Creatinine 0.50 Est Glomerular Filtrat Rate mL/min Glucose Level 117 Calcium Level 8.8 Phosphorus Level 3.4 Magnesium Level 1.9 Home Meds Reported Medications Formoterol Fumarate (Perforomist) 20 Mcg/2 Ml Vial.neb, 20 MCG INHALATION BID, VIAL 03/28/18 Ipratropium [place] (Ipratropium [place]) 5 Gm Powder, 10.5 MG MC BID 03/28/18 Ipratropium-Albuterol (Ipratropium-Albuterol) 0.5-3 Mg/3 Ml Ampul.neb, 3 ML INHALATION Q6, #30 VIAL 03/28/18 Budesonide* (Budesonide*) 0.25 Mg/2 Ml Ampul.neb, 0.25 MG INHALATION BID, AMP 03/28/18 Cholecalciferol* (Vitamin D3*) 1,000 Unit Tablet, 1000 UNIT PO DAILY, TAB 03/28/18 Simvastatin* (Zocor*) 20 Mg Tablet, 20 MG PO QHS, #30 TAB 03/28/18 Aspirin* (Aspirin* EC) 325 Mg Tab, 325 MG PO DAILY, TAB 03/28/18 Levothyroxine Sodium* (Levothyroxine Sodium*) 88 Mcg Tablet, 88 MCG PO BEFORE BREAKFAST, #30 TAB 03/28/18 Medications Current Medications IV Flush (NS 3 ml) 3 ml PER PROTOCOL IV ; Start 04/27/18 at 03:00 Ondansetron HCl (Zofran Inj) 4 mg Q6H PRN IV NAUSEA/VOMITING; Start 04/27/18 at 03:00 Acetaminophen (Tylenol Tab) 650 mg Q6H PRN PO .PAIN 1-3 OR TEMP; Start 04/27/18 at 03:00 Aspirin (Ecotrin) 325 mg DAILY PO Last administered on 05/11/18at 09:00; Admin Dose 325 MG; Start 04/27/18 at 09:00; Status Hold Albuterol/ Ipratropium (Duoneb) 3 ml Q6H RESP THERAPY INH Last administered on 05/14/18 14:17; Admin Dose 3 ML; Start 04/27/18 at 08:00 Levothyroxine Sodium (Synthroid) 88 mcg BEFORE BREAKFAST PO Last administered on 05/14/18 06:44; Admin Dose 88 MCG; Start 04/27/18 at 07:00 Atorvastatin Calcium (Lipitor) 10 mg DAILY@21 PO Last administered on 05/13/18 21:08; Admin Dose 10 MG; Start 04/27/18 at 21:00 Albuterol/ Ipratropium (Duoneb) 3 ml Q2H RESP THERAPY PRN HHN shortness of breath; Start 04/27/18 at 10:00 Enoxaparin Sodium (Lovenox) 40 mg DAILY SC Last administered on 05/11/18 08:58; Admin Dose 40 MG; Start 04/28/18 at 09:00; Status Hold Budesonide (Pulmicort (Neb)) 0.5 mg BID RESP THERAPY INH Last administered on 05/14/18 10:12; Admin Dose 0.5 MG; Start 04/29/18 at 09:00 Hydralazine HCl (Apresoline) 10 mg Q4H PRN IV SBP >160 Last administered on 05/02/18 18:50; Admin Dose 10 MG; Start 05/01/18 at 13:00 Polyethylene Glycol (Miralax) 17 gm DAILY PO Last administered on 05/11/18 08:56; Admin Dose 17 GM; Start 05/02/18 at 10:30 Docusate Sodium (Colace) 100 mg BID PRN PO CONSTIPATION; Start 05/02/18 at 10:30 Calcium/Vitamin D (Oyster Shell/ Vit-D (500/200)) 1 tab BID PO Last administered on 05/14/18 08:31; Admin Dose 1 TAB; Start 05/03/18 at 21:00 Prednisone (Prednisone) 20 mg DAILY PO Last administered on 05/14/18 08:31; Admin Dose 20 MG; Start 05/10/18 at 09:00 Fluconazole/ Sodium Chloride 50 ml @ 50 mls/hr Q24H IVPB Last administered on 05/14/18 18:10; Admin Dose 50 MLS/HR; Start 05/09/18 at 17:00 Assessment/Plan Hospital Course (Demo Recall) 87-year-old female with a history of dementia, pulmonary fibrosis, hypothyroidism, dyslipidemia was brought to the ER after she was found unresponsive. She was given promethazine the night before her admission and about 30 minutes or so after when the family tries to wake her up, she was very lethargic and difficult to arouse. It took about 10 minutes for the patient to wake up. No focal weakness/numbness, seizure-like activity, facial droop, slurred speech reported. Patient was admitted here last month for syncope which was thought to be from hypoxia caused by her pulmonary fibrosis. At that time echo and carotid Doppler ultrasound were nondiagnostic. Reportedly patient has been coughing, which is chronic. Patient had a Rajan catheter inserted on admission this time and the urine was noted to be bloody therefore the catheter was changed and a three-way Rajan catheter was inserted and continuous bladder irrigation was started. A urological consultation was requested because of the hematuria. I did talk to her 2 daughters. There is no history of hematuria before. No history of kidney stones. At the present the return from the bladder irrigation is clear to clear pink Renal ultrasound was normal. Urine cytology still is pending. Patient is on fluconazole. Continue the present treatment. LINDSAY JULIO MD May 14, 2018 19:26
[2018-05-14] MEDS: ATORVASTATIN 10 MG TAB PO SCH (21:00)
[2018-05-15] VITALS (10 sets, daily range): BP systolic 111–132; BP diastolic 59–68; PULSE 67–98; RESP 18–20
[2018-05-15] MEDS: ALBUTEROL/IPRATROPIUM (NEB) 3 ML AMP INH SCH ×4 (01:26→19:05)
[2018-05-15] MEDS: LEVOTHYROXINE 88 MCG TAB PO SCH (07:58)
[2018-05-15] MEDS: CALCIUM/VITAMIN D (500/200) TAB PO SCH ×2 (08:39→20:26)
[2018-05-15] MEDS: predniSONE 20 MG TAB PO SCH (08:39)
[2018-05-15] MEDS: POLYETHYLENE GLYCOL 17 GM PACKET PO SCH (08:39)
[2018-05-15] MEDS: BALSAM PERU/CASTOR OIL 60 GM TUBE TOP SCH ×2 (08:39→20:26)
--- NOTE | 2018-05-15 09:26 | PN ---
DATE: 05/15/2018 SUBJECTIVE: The patient is stable, no events overnight. The patient remains on continuous bladder i rrigation. OBJECTIVE: VITAL SIGNS: Blood pressure is 111/59, pulse 76, respirations 18, temperature 97.3. HEENT: Head is normocephalic. NECK: Supple. HEART: Regular rate. LUNGS: Show diminished breath sounds at the base. ABDOMEN: Soft, nontender to palpation without rebound or guarding. EXTREMITIES: Negative for clubbing, cyanosis, no edema. DERMATOLOGIC: No rashes. MUSCULOSKELETAL: No joint effusion. NEUROLOGIC: No change in exam. MEDICATIONS: Reviewed. LABORATORY DATA: Reviewed. ASSESSMENT AND PLAN: 1. Hyponatremia, etiology is felt to be secondary to syndrome of inappropriate antidiuretic hormone. The patient's sodium levels remain low. We will continue free water restriction, continue to encou rage high osmolar diet. We will repeat urine sodium and urine osmolarity. 2. Hematuria. Continue continuous bladder irrigation. Follow up with urology. Follow up cytology. 3. Anemia. Monitor hemoglobin and hematocrit levels. 4. Acute hypoxemic respiratory failure secondary to pulmonary fibrosis, pneumonia. Continue prednis one taper. Continue BiPAP. Follow up with pulmonary. 5. Hypothyroidism. Continue Synthroid. 6. Dyslipidemia. Continue statin therapy. 7. Encephalopathy, etiology toxic metabolic. Continue to monitor. Dictated By: GABO DURAN DO NR/NTS Conf#: [id number] DID#: [id number] CC: SOO FERRARA MD; KALEB JAIMES MD; RICHARDSON BROWN MD;*End*
[2018-05-15] MEDS: BUDESONIDE (NEB) 0.5MG/2ML AMP INH SCH ×2 (09:51→19:06)
--- NOTE | 2018-05-15 10:22 | CONS ---
Consult Date/Type/Reason Admit Date/Time Apr 27, 2018 at 02:15 Initial Consult Date 05/11/18 Type of Consultation: Urology Requesting Provider: MERNA BLAKE Date/Time of Note DATE: 05/15/18 TIME: 10:21 Subjective NON acute events - BP in good range - con't bladder care - no ectopy on tele now. ROS: No fever, no chills, no nausea, no vomiting, no diarrhea/constipation No recent weight changes No chest pain, no PND, no orthopnea - mild SOB No dizziness, blurred vision No thirst, no heat or cold intolerance Objective Vitals Vital Signs Date Temp Pulse Resp B/P (MAP) Pulse Ox O2 O2 Flow FiO2 Time Delivery Rate 05/15/18 80 36 96 Nasal 2.0 09:51 Cannula 05/15/18 97.3 111/59 07:43 (76) Intake and Output 05/14/18 05/14/18 05/15/18 1515:00 23:00 07:00 IntakeIntake Total 200 ml 650 ml OutputOutput Total 400 ml 500 ml BalanceBalance -200 ml 150 ml Exam General: WN/WD/NAD, AOx 2-3 comfirtable HEENT: Unicetric/atraumatic/EOMI (follow commands) NECK: JVD elevated, no thyromegaly Lymph: no lymphadenopathy HEART: regular with no S3, II/ systolic murmur at apex LUNGS: Coarse sounds ABD: soft, NT, ND, +BS : Intact, bladder irrigation Neuro: non focal SKIN: chronic changes EXT: trace edema Results/Medications Result Diagram: 05/15/18 0820 05/15/18 0820 Results 24 hrs Laboratory Tests Test 05/15/18 08:20 White Blood Count 5.9 Red Blood Count 3.77 L Hemoglobin 10.3 L Hematocrit 33.3 L Mean Corpuscular Volume 88.3 Mean Corpuscular Hemoglobin 27.3 L Mean Corpuscular Hemoglobin Concent 30.9 L Red Cell Distribution Width 14.5 Platelet Count 267 Mean Platelet Volume 9.3 Immature Granulocytes % 0.300 Neutrophils % 81.6 H Lymphocytes % 10.3 L Monocytes % 6.1 Eosinophils % 1.5 Basophils % 0.2 Nucleated Red Blood Cells % 0.0 Immature Granulocytes # 0.020 Neutrophils # 4.8 Lymphocytes # 0.6 L Monocytes # 0.4 Eosinophils # 0.1 Basophils # 0.0 Nucleated Red Blood Cells # 0.0 Sodium Level 127 L Potassium Level 4.4 Chloride Level 84 L Carbon Dioxide Level 38 H Anion Gap 5 Blood Urea Nitrogen 12 Creatinine 0.52 Est Glomerular Filtrat Rate mL/min Glucose Level 97 Calcium Level 8.8 Phosphorus Level 3.6 Magnesium Level 1.9 Home Meds Reported Medications Formoterol Fumarate (Perforomist) 20 Mcg/2 Ml Vial.neb, 20 MCG INHALATION BID, VIAL 03/28/18 Ipratropium [place] (Ipratropium [place]) 5 Gm Powder, 10.5 MG MC BID 03/28/18 Ipratropium-Albuterol (Ipratropium-Albuterol) 0.5-3 Mg/3 Ml Ampul.neb, 3 ML INHALATION Q6, #30 VIAL 03/28/18 Budesonide* (Budesonide*) 0.25 Mg/2 Ml Ampul.neb, 0.25 MG INHALATION BID, AMP 03/28/18 Cholecalciferol* (Vitamin D3*) 1,000 Unit Tablet, 1000 UNIT PO DAILY, TAB 03/28/18 Simvastatin* (Zocor*) 20 Mg Tablet, 20 MG PO QHS, #30 TAB 03/28/18 Aspirin* (Aspirin* EC) 325 Mg Tab, 325 MG PO DAILY, TAB 03/28/18 Levothyroxine Sodium* (Levothyroxine Sodium*) 88 Mcg Tablet, 88 MCG PO BEFORE BREAKFAST, #30 TAB 03/28/18 Medications Current Medications IV Flush (NS 3 ml) 3 ml PER PROTOCOL IV ; Start 04/27/18 at 03:00 Ondansetron HCl (Zofran Inj) 4 mg Q6H PRN IV NAUSEA/VOMITING; Start 04/27/18 at 03:00 Acetaminophen (Tylenol Tab) 650 mg Q6H PRN PO .PAIN 1-3 OR TEMP; Start 04/27/18 at 03:00 Aspirin (Ecotrin) 325 mg DAILY PO Last administered on 05/11/18at 09:00; Admin Dose 325 MG; Start 04/27/18 at 09:00; Status Hold Albuterol/ Ipratropium (Duoneb) 3 ml Q6H RESP THERAPY INH Last administered on 05/15/18at 09:50; Admin Dose 3 ML; Start 04/27/18 at 08:00 Levothyroxine Sodium (Synthroid) 88 mcg BEFORE BREAKFAST PO Last administered on 05/15/18 07:58; Admin Dose 88 MCG; Start 04/27/18 at 07:00 Atorvastatin Calcium (Lipitor) 10 mg DAILY@21 PO Last administered on 05/14/18 21:00; Admin Dose 10 MG; Start 04/27/18 at 21:00 Albuterol/ Ipratropium (Duoneb) 3 ml Q2H RESP THERAPY PRN HHN shortness of breath; Start 04/27/18 at 10:00 Enoxaparin Sodium (Lovenox) 40 mg DAILY SC Last administered on 05/11/18 08:58; Admin Dose 40 MG; Start 04/28/18 at 09:00; Status Hold Budesonide (Pulmicort (Neb)) 0.5 mg BID RESP THERAPY INH Last administered on 05/15/18 09:51; Admin Dose 0.5 MG; Start 04/29/18 at 09:00 Hydralazine HCl (Apresoline) 10 mg Q4H PRN IV SBP >160 Last administered on 05/02/18 18:50; Admin Dose 10 MG; Start 05/01/18 at 13:00 Polyethylene Glycol (Miralax) 17 gm DAILY PO Last administered on 05/15/18 08:39; Admin Dose 17 GM; Start 05/02/18 at 10:30 Docusate Sodium (Colace) 100 mg BID PRN PO CONSTIPATION; Start 05/02/18 at 10:30 Calcium/Vitamin D (Oyster Shell/ Vit-D (500/200)) 1 tab BID PO Last administered on 05/15/18 08:39; Admin Dose 1 TAB; Start 05/03/18 at 21:00 Prednisone (Prednisone) 20 mg DAILY PO Last administered on 05/15/18 08:39; Admin Dose 20 MG; Start 05/10/18 at 09:00 Fluconazole/ Sodium Chloride 50 ml @ 50 mls/hr Q24H IVPB Last administered on 05/14/18 18:10; Admin Dose 50 MLS/HR; Start 05/09/18 at 17:00 Assessment/Plan Hospital Course (Demo Recall) 1. Abnormal echocardiogram, assess for acute coronary syndrome.-neg x 3 since ecg abnl seen by tele. NO chest pain according to family member at bedside. repeat ecg today with inferior q's and only borderline J point elevation single lead - no ectopy on tele, rate controlled - no ectopy on tele, comfortable now - VS stable -no intervention planned. 2. Cardiac arrhythmia. Continue to follow. In sinus now. SINUS - no tachy- calixto noted. Rate controlled. 3. Hyponatremia- ongoing - still low Na+ - Renal team follows 4. Pulmonary fibrosis - stable by exam. Defer to pulmonary team. 5. Dementia- chronic. 6. Urinary tract infection - Rx with anti-Bx now. Improved. NO fevers. 7. Leukocytosis and anemia. 8. Hematuruia - H/H stable. NO blood Rx needed now, LUIS ROSS MD May 15, 2018 10:22
--- NOTE | 2018-05-15 14:56 | CONS ---
Assessment/Plan Assessment/Plan Hospital Course (Demo Recall) Patient is awake and comfortable on nc, no fevers Microbiology: Blood cultures since admission negative urinalysis was positive for yeast. Patient is on fluconazole, s/p cefepime Physical examination: This is a fragile very pleasant elderly woman who is awake in no distress. Head atraumatic normocephalic. Neck is supple chest rise symmetrical breath sounds diminished bases abdomen soft bowel sounds present extremities without cyanosis Assessment: 1. Acute on chronic hypoxemic respiratory failure 2. Possible pneumonia 3. Idiopathic pulmonary fibrosis status post exacerbation 4. Fungal UTI Plan: Remains stable, pulmonary follows, dc Diflucan Consultation Date/Type/Reason Admit Date/Time Apr 27, 2018 at 02:15 Initial Consult Date Type of Consult id Requesting Provider: MERNA BLAKE Date/Time of Note DATE: 05/15/18 TIME: 14:55 Exam/Review of Systems Exam Vitals Vital Signs Date Temp Pulse Resp B/P (MAP) Pulse Ox O2 O2 Flow FiO2 Time Delivery Rate 05/15/18 98 2.0 14:18 05/15/18 88 28 Nasal 14:18 Cannula 05/15/18 97.3 132/60 11:19 (84) Intake and Output 05/14/18 05/14/18 05/15/18 1515:00 23:00 07:00 IntakeIntake Total 200 ml 650 ml OutputOutput Total 400 ml 500 ml BalanceBalance -200 ml 150 ml Results Result Diagram: 05/15/18 0820 05/15/18 0820 Results 24hrs Laboratory Tests Test 05/15/18 08:20 White Blood Count 5.9 Red Blood Count 3.77 L Hemoglobin 10.3 L Hematocrit 33.3 L Mean Corpuscular Volume 88.3 Mean Corpuscular Hemoglobin 27.3 L Mean Corpuscular Hemoglobin Concent 30.9 L Red Cell Distribution Width 14.5 Platelet Count 267 Mean Platelet Volume 9.3 Immature Granulocytes % 0.300 Neutrophils % 81.6 H Lymphocytes % 10.3 L Monocytes % 6.1 Eosinophils % 1.5 Basophils % 0.2 Nucleated Red Blood Cells % 0.0 Immature Granulocytes # 0.020 Neutrophils # 4.8 Lymphocytes # 0.6 L Monocytes # 0.4 Eosinophils # 0.1 Basophils # 0.0 Nucleated Red Blood Cells # 0.0 Sodium Level 127 L Potassium Level 4.4 Chloride Level 84 L Carbon Dioxide Level 38 H Anion Gap 5 Blood Urea Nitrogen 12 Creatinine 0.52 Est Glomerular Filtrat Rate mL/min Glucose Level 97 Calcium Level 8.8 Phosphorus Level 3.6 Magnesium Level 1.9 Medications Medication Current Medications IV Flush (NS 3 ml) 3 ml PER PROTOCOL IV ; Start 04/27/18 at 03:00 Ondansetron HCl (Zofran Inj) 4 mg Q6H PRN IV NAUSEA/VOMITING; Start 04/27/18 at 03:00 Acetaminophen (Tylenol Tab) 650 mg Q6H PRN PO .PAIN 1-3 OR TEMP; Start 04/27/18 at 03:00 Aspirin (Ecotrin) 325 mg DAILY PO Last administered on 05/11/18 09:00; Admin Dose 325 MG; Start 04/27/18 at 09:00; Status Hold Albuterol/ Ipratropium (Duoneb) 3 ml Q6H RESP THERAPY INH Last administered on 05/15/18 14:18; Admin Dose 3 ML; Start 04/27/18 at 08:00 Levothyroxine Sodium (Synthroid) 88 mcg BEFORE BREAKFAST PO Last administered on 05/15/18 07:58; Admin Dose 88 MCG; Start 04/27/18 at 07:00 Atorvastatin Calcium (Lipitor) 10 mg DAILY@21 PO Last administered on 05/14/18 21:00; Admin Dose 10 MG; Start 04/27/18 at 21:00 Albuterol/ Ipratropium (Duoneb) 3 ml Q2H RESP THERAPY PRN HHN shortness of breath; Start 04/27/18 at 10:00 Enoxaparin Sodium (Lovenox) 40 mg DAILY SC Last administered on 05/11/18 08:58; Admin Dose 40 MG; Start 04/28/18 at 09:00; Status Hold Budesonide (Pulmicort (Neb)) 0.5 mg BID RESP THERAPY INH Last administered on 05/15/18 09:51; Admin Dose 0.5 MG; Start 04/29/18 at 09:00 Hydralazine HCl (Apresoline) 10 mg Q4H PRN IV SBP >160 Last administered on 05/02/18 18:50; Admin Dose 10 MG; Start 05/01/18 at 13:00 Polyethylene Glycol (Miralax) 17 gm DAILY PO Last administered on 05/15/18 08:39; Admin Dose 17 GM; Start 05/02/18 at 10:30 Docusate Sodium (Colace) 100 mg BID PRN PO CONSTIPATION; Start 05/02/18 at 10:30 Calcium/Vitamin D (Oyster Shell/ Vit-D (500/200)) 1 tab BID PO Last administered on 05/15/18 08:39; Admin Dose 1 TAB; Start 05/03/18 at 21:00 Prednisone (Prednisone) 20 mg DAILY PO Last administered on 05/15/18 08:39; Admin Dose 20 MG; Start 05/10/18 at 09:00 Fluconazole/ Sodium Chloride 50 ml @ 50 mls/hr Q24H IVPB Last administered on 05/14/18 18:10; Admin Dose 50 MLS/HR; Start 05/09/18 at 17:00 EDUIN MANTILLA NP May 15, 2018 14:56
[2018-05-15] MEDS ORDERED: VITAMIN A & D 5 GM OINT PACKET TOP ONE (15:35)
--- NOTE | 2018-05-15 16:32 | PN ---
Date/Time of Note Date/Time of Note DATE: 05/15/18 TIME: 16:29 Assessment/Plan VTE Prophylaxis Risk score (from Ns)>0 risk: 8 SCD applied (from Ns): Yes Pharmacological prophylaxis: NA/contraindicated Pharm contraindication: bleeding Lines/Catheters IV Catheter Type (from Nrs): Peripheral IV Urinary Cath still in place: Yes Reason Cath still needed: other (indicate) Assessment/Plan Assessment/Plan 1. Hematuria - Urology on board and appreciate recommendations. Continue CBI given still with pink tinged urine - Likely secondary to trauma given patient tends to play with strange' - LMWH on hold - H/H remains stable 2. UTI - ID consultation appreciated. completed course of antibiotics and antifungals 3. Acute hypoxic and hypercapnic respiratory failure- stable - Patient appears back to baseline respiratory status de paz. - Pulm on board and appreciate recommendations - BIPAP qhs and NC during the day, machine delivered at home, likely trilogy per pulmonology, arranged by patient's outpatient newspaper publisher 4. Hyponatremia - Nephrology on board and appreciate recommendations 5. Anemia- stable - Secondary to acute blood loss anemia secondary to hematuria 6. Exacerbation of IPF- resolving - Follows with Pulm as outpatient. will need to continue on Pred 20mg daily 7. Hypothyroidism -Continue home meds 8. Dyslipidemia -Continue home meds 9. Disposition - Monitor for improvement in hematuria and continue CBI per Urology recommendations Result Diagram: 05/15/18 0820 05/15/18 0820 Results 24hrs Laboratory Tests Test 05/15/18 08:20 White Blood Count 5.9 Red Blood Count 3.77 L Hemoglobin 10.3 L Hematocrit 33.3 L Mean Corpuscular Volume 88.3 Mean Corpuscular Hemoglobin 27.3 L Mean Corpuscular Hemoglobin Concent 30.9 L Red Cell Distribution Width 14.5 Platelet Count 267 Mean Platelet Volume 9.3 Immature Granulocytes % 0.300 Neutrophils % 81.6 H Lymphocytes % 10.3 L Monocytes % 6.1 Eosinophils % 1.5 Basophils % 0.2 Nucleated Red Blood Cells % 0.0 Immature Granulocytes # 0.020 Neutrophils # 4.8 Lymphocytes # 0.6 L Monocytes # 0.4 Eosinophils # 0.1 Basophils # 0.0 Nucleated Red Blood Cells # 0.0 Sodium Level 127 L Potassium Level 4.4 Chloride Level 84 L Carbon Dioxide Level 38 H Anion Gap 5 Blood Urea Nitrogen 12 Creatinine 0.52 Est Glomerular Filtrat Rate mL/min Glucose Level 97 Calcium Level 8.8 Phosphorus Level 3.6 Magnesium Level 1.9 Subjective 24 Hr Interval Summary Free Text/Dictation Patient doing well and slept well overnight but per daughter did not wear BIPAP mask. Per PT she was tachypneic during therapy. still with pink tinged urine in strange bag. Exam/Review of Systems Exam Vitals Vital Signs Date Temp Pulse Resp B/P (MAP) Pulse Ox O2 O2 Flow FiO2 Time Delivery Rate 05/15/18 98.6 85 18 129/68 97 Nasal 16:03 (88) Cannula 05/15/18 2.0 14:18 Intake and Output 05/14/18 05/14/18 05/15/18 1515:00 23:00 07:00 IntakeIntake Total 200 ml 650 ml OutputOutput Total 400 ml 500 ml BalanceBalance -200 ml 150 ml Exam General: Patient is laying in bed. no acute distress Neck: Supple, nontender, midline Respiratory: Diminished breath sounds. no wheezing appreciated Cardiovascular: regular rate and rhythm, no obvious murmurs Gastrointestinal: soft, non-tender to palpation, bowel sounds heard. Neurological: Moves all extremities spontaneously Skin: No new skin lesions Results Results 24hrs Laboratory Tests Test 05/15/18 08:20 White Blood Count 5.9 Red Blood Count 3.77 L Hemoglobin 10.3 L Hematocrit 33.3 L Mean Corpuscular Volume 88.3 Mean Corpuscular Hemoglobin 27.3 L Mean Corpuscular Hemoglobin Concent 30.9 L Red Cell Distribution Width 14.5 Platelet Count 267 Mean Platelet Volume 9.3 Immature Granulocytes % 0.300 Neutrophils % 81.6 H Lymphocytes % 10.3 L Monocytes % 6.1 Eosinophils % 1.5 Basophils % 0.2 Nucleated Red Blood Cells % 0.0 Immature Granulocytes # 0.020 Neutrophils # 4.8 Lymphocytes # 0.6 L Monocytes # 0.4 Eosinophils # 0.1 Basophils # 0.0 Nucleated Red Blood Cells # 0.0 Sodium Level 127 L Potassium Level 4.4 Chloride Level 84 L Carbon Dioxide Level 38 H Anion Gap 5 Blood Urea Nitrogen 12 Creatinine 0.52 Est Glomerular Filtrat Rate mL/min Glucose Level 97 Calcium Level 8.8 Phosphorus Level 3.6 Magnesium Level 1.9 Medications Medication Current Medications IV Flush (NS 3 ml) 3 ml PER PROTOCOL IV ; Start 04/27/18 at 03:00 Ondansetron HCl (Zofran Inj) 4 mg Q6H PRN IV NAUSEA/VOMITING; Start 04/27/18 at 03:00 Acetaminophen (Tylenol Tab) 650 mg Q6H PRN PO .PAIN 1-3 OR TEMP; Start 04/27/18 at 03:00 Aspirin (Ecotrin) 325 mg DAILY PO Last administered on 05/11/18 09:00; Admin Dose 325 MG; Start 04/27/18 at 09:00; Status Hold Albuterol/ Ipratropium (Duoneb) 3 ml Q6H RESP THERAPY INH Last administered on 05/15/18 14:18; Admin Dose 3 ML; Start 04/27/18 at 08:00 Levothyroxine Sodium (Synthroid) 88 mcg BEFORE BREAKFAST PO Last administered on 05/15/18 07:58; Admin Dose 88 MCG; Start 04/27/18 at 07:00 Atorvastatin Calcium (Lipitor) 10 mg DAILY@21 PO Last administered on 05/14/18 21:00; Admin Dose 10 MG; Start 04/27/18 at 21:00 Albuterol/ Ipratropium (Duoneb) 3 ml Q2H RESP THERAPY PRN HHN shortness of breath; Start 04/27/18 at 10:00 Enoxaparin Sodium (Lovenox) 40 mg DAILY SC Last administered on 05/11/18 08:58; Admin Dose 40 MG; Start 04/28/18 at 09:00; Status Hold Budesonide (Pulmicort (Neb)) 0.5 mg BID RESP THERAPY INH Last administered on 05/15/18 09:51; Admin Dose 0.5 MG; Start 04/29/18 at 09:00 Hydralazine HCl (Apresoline) 10 mg Q4H PRN IV SBP >160 Last administered on 05/02/18 18:50; Admin Dose 10 MG; Start 05/01/18 at 13:00 Polyethylene Glycol (Miralax) 17 gm DAILY PO Last administered on 05/15/18 08:39; Admin Dose 17 GM; Start 05/02/18 at 10:30 Docusate Sodium (Colace) 100 mg BID PRN PO CONSTIPATION; Start 05/02/18 at 10:30 Calcium/Vitamin D (Oyster Shell/ Vit-D (500/200)) 1 tab BID PO Last admin istered on 05/15/18 08:39; Admin Dose 1 TAB; Start 05/03/18 at 21:00 Prednisone (Prednisone) 20 mg DAILY PO Last administered on 05/15/18 08:39; Admin Dose 20 MG; Start 05/10/18 at 09:00 Fluconazole/ Sodium Chloride 50 ml @ 50 mls/hr Q24H IVPB Last administered on 05/14/18at 18:10; Admin Dose 50 MLS/HR; Start 05/09/18 at 17:00; Stop 05/15/18 at 23:30 KALEB JAIMES MD May 15, 2018 16:32
[2018-05-15] MEDS: FLUCONAZOLE 100 MG/50 ML (PMX) 50 ML IVPB SCH (17:07)
[2018-05-15] MEDS: ATORVASTATIN 10 MG TAB PO SCH (20:26)
[2018-05-16] VITALS (11 sets, daily range): BP systolic 110–141; BP diastolic 59–65; PULSE 71–85; RESP 18–24
[2018-05-16] MEDS: ALBUTEROL/IPRATROPIUM (NEB) 3 ML AMP INH SCH ×4 (01:00→19:40)
[2018-05-16] MEDS: LEVOTHYROXINE 88 MCG TAB PO SCH (06:56)
--- NOTE | 2018-05-16 08:46 | PN ---
DATE: 05/16/2018 SUBJECTIVE: The patient continues to be on continuous bladder irrigation and continues to have ongoi ng hematuria. No other events noted. OBJECTIVE: VITAL SIGNS: Blood pressure is 129/60, respirations 18, pulse 76, temperature 98.5. HEENT: Head is normocephalic. NECK: Supple. HEART: Regular rate. LUNGS: Show diminished breath sounds at the base. ABDOMEN: Soft, nontender to palpation. No rebound or guarding. EXTREMITIES: Negative for clubbing, cyanosis, no edema. DERMATOLOGIC: No rashes. MUSCULOSKELETAL: No joint effusion. NEUROLOGIC: No change in exam. MEDICATIONS: Reviewed. LABORATORY DATA: Reviewed. ASSESSMENT AND PLAN: 1. 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 Repeat u rine osmolarity. Sodium levels have been reviewed. The patient's sodium levels remain low, likely i n part due to low solute intake. Plan is to start the patient on salt tablets. Continue free water restriction. If sodium levels do not improve, we will consider starting the patient on demeclocyclin e. 2. Hematuria. The patient has ongoing bladder irrigation. Continue to monitor. Follow up with uro logy. 3. Anemia. Continue to monitor hemoglobin and hematocrit levels. 4. Acute hypoxemic respiratory failure secondary to pulmonary fibrosis, pneumonia. Continue BiPAP, prednisone taper. Follow up with pulmonary. 5. Hypothyroidism. Continue Synthroid. 6. Dyslipidemia. Continue statin therapy. 7. Encephalopathy, etiology is toxic metabolic. Continue to monitor. 8. Urinary tract infection. Continue current antibiotic regimen. Dictated By: GABO DURAN DO NR/NTS Conf#: [id number] DID#: [id number] CC: SOO FERRARA MD; RICHARDSON BROWN MD; KALEB JAIMES MD;*EndCC*
--- NOTE | 2018-05-16 08:54 | PN ---
Date/Time of Note Date/Time of Note DATE: 05/16/18 TIME: 08:54 Assessment/Plan VTE Prophylaxis Risk score (from Ns)>0 risk: 9 SCD applied (from Nsg): Yes Pharmacological prophylaxis: NA/contraindicated Pharm contraindication: bleeding Lines/Catheters IV Catheter Type (from Nrsg): Peripheral IV Urinary Cath still in place: Yes Reason Cath still needed: other (indicate) (hematuria) Assessment/Plan Assessment/Plan 1. Hematuria - Urology on board and appreciate recommendations. will plan to manually flush today and if no improvement, cystoscopy. Cleared from pulm standpoint for procedure - LMWH on hold - H/H remains stable 2. UTI - ID consultation appreciated. completed course of antibiotics and antifungals 3. Acute hypoxic and hypercapnic respiratory failure - Per PT, when sitting on edge of bed patient still get tachypneic and hypoxic - Pulm on board and appreciate recommendations - BIPAP qhs and NC during the day, machine delivered at home, likely trilogy per pulmonology, arranged by patient's outpatient waste cotton cleaner 4. Hyponatremia - Nephrology on board and appreciate recommendations. will start salt tablets and monitor for improvement in Na levels 5. Anemia- stable - Secondary to acute blood loss anemia secondary to hematuria 6. Exacerbation of IPF- resolving - Follows with Pulm as outpatient. will need to continue on Pred 20mg daily 7. Hypothyroidism -Continue home meds 8. Dyslipidemia -Continue home meds 9. Disposition - Urology to irrigate and possible cystoscopy if continues with hematuria. CM to discuss with Crystal reevaluation given patient still desaturation and tachypneic with minimal movement Result Diagram: 05/15/18 0820 05/15/18 0820 Results 24hrs Laboratory Tests Test 05/15/18 19:00 Urine Osmolality 285 Urine Random Sodium 156 H Subjective 24 Hr Interval Summary Free Text/Dictation Patient denies any discomfort or acute issues. Still with hematuria. Granddaughter at bedside and discussed plan of care and discharge planning. Exam/Review of Systems Exam Vitals Vital Signs Date Temp Pulse Resp B/P (MAP) Pulse Ox O2 O2 Flow FiO2 Time Delivery Rate 05/16/18 72 08:02 05/16/18 98.5 18 129/60 96 Nasal 07:52 (83) Cannula 05/16/18 2.0 01:00 Intake and Output 405/15/18 05/16/18 1515:00 23:00 07:00 IntakeIntake Total 300 ml 450 ml 100 ml OutputOutput Total 425 ml 1250 ml 975 ml BalanceBalance -125 ml -800 ml -875 ml Exam General: Patient is laying in bed. no acute distress Neck: Supple, nontender, midline Respiratory: Diminished breath sounds. no wheezing appreciated Cardiovascular: regular rate and rhythm, no obvious murmurs Gastrointestinal: soft, non-tender to palpation, bowel sounds heard. Neurological: Moves all extremities spontaneously Skin: No new skin lesions Results Results 24hrs Laboratory Tests Test 05/15/18 19:00 Urine Osmolality 285 Urine Random Sodium 156 H Medications Medication Current Medications IV Flush (NS 3 ml) 3 ml PER PROTOCOL IV ; Start 04/27/18 at 03:00 Ondansetron HCl (Zofran Inj) 4 mg Q6H PRN IV NAUSEA/VOMITING; Start 04/27/18 at 03:00 Acetaminophen (Tylenol Tab) 650 mg Q6H PRN PO .PAIN 1-3 OR TEMP; Start 04/27/18 at 03:00 Aspirin (Ecotrin) 325 mg DAILY PO Last administered on 05/11/18 09:00; Admin Dose 325 MG; Start 04/27/18 at 09:00; Status Hold Albuterol/ Ipratropium (Duoneb) 3 ml Q6H RESP THERAPY INH Last administered on 05/16/18 01:00; Admin Dose 3 ML; Start 04/27/18 at 08:00 Levothyroxine Sodium (Synthroid) 88 mcg BEFORE BREAKFAST PO Last administered on 05/16/18 06:56; Admin Dose 88 MCG; Start 04/27/18 at 07:00 Atorvastatin Calcium (Lipitor) 10 mg DAILY@21 PO Last administered on 05/15/18 20:26; Admin Dose 10 MG; Start 04/27/18 at 21:00 Albuterol/ Ipratropium (Duoneb) 3 ml Q2H RESP THERAPY PRN HHN shortness of breath; Start 04/27/18 at 10:00 Enoxaparin Sodium (Lovenox) 40 mg DAILY SC Last administered on 05/11/18at 08:58; Admin Dose 40 MG; Start 04/28/18 at 09:00; Status Hold Budesonide (Pulmicort (Neb)) 0.5 mg BID RESP THERAPY INH Last administered on 05/15/18 19:06; Admin Dose 0.5 MG; Start 04/29/18 at 09:00 Hydralazine HCl (Apresoline) 10 mg Q4H PRN IV SBP >160 Last administered on 05/02/18 18:50; Admin Dose 10 MG; Start 05/01/18 at 13:00 Polyethylene Glycol (Miralax) 17 gm DAILY PO Last administered on 05/15/18 08:39; Admin Dose 17 GM; Start 05/02/18 at 10:30 Docusate Sodium (Colace) 100 mg BID PRN PO CONSTIPATION; Start 05/02/18 at 10:30 Calcium/Vitamin D (Oyster Shell/ Vit-D (500/200)) 1 tab BID PO Last administered on 05/15/18 20:26; Admin Dose 1 TAB; Start 05/03/18 at 21:00 Prednisone (Prednisone) 20 mg DAILY PO Last administered on 05/15/18 08:39; Admin Dose 20 MG; Start 05/10/18 at 09:00 Sodium Chloride (Nacl) 1 gm TID PO ; Start 05/16/18 at 09:00; Status UNKALEB PULIDO MD May 16, 2018 08:54
[2018-05-16] MEDS: POLYETHYLENE GLYCOL 17 GM PACKET PO SCH (09:00)
[2018-05-16] MEDS: CALCIUM/VITAMIN D (500/200) TAB PO SCH ×2 (09:21→21:55)
[2018-05-16] MEDS: predniSONE 20 MG TAB PO SCH (09:21)
[2018-05-16] MEDS: BUDESONIDE (NEB) 0.5MG/2ML AMP INH SCH ×2 (09:46→19:50)
[2018-05-16] MEDS: BALSAM PERU/CASTOR OIL 60 GM TUBE TOP SCH ×2 (10:19→21:56)
[2018-05-16] MEDS: SODIUM CHLORIDE 1 GM TAB PO SCH ×3 (10:26→21:55)
[2018-05-16] MEDS ORDERED: INSULIN REGULAR, HUMAN 100 UNIT/1 ML 3ML VIAL IVP ONE (10:36)
[2018-05-16] MEDS ORDERED: DEXTROSE 50% 50 ML SYRINGE IV PRN (11:00)
--- NOTE | 2018-05-16 11:47 | CONS ---
Assessment/Plan Assessment/Plan Hospital Course (Demo Recall) All noted, no acute events, no fevers Microbiology: Blood cultures since admission negative urinalysis was positive for yeast. Patient is on fluconazole, s/p cefepime Physical examination: This is a fragile very pleasant elderly woman who is awake in no distress. Head atraumatic normocephalic. Neck is supple chest rise symmetrical breath sounds diminished bases abdomen soft bowel sounds present extremities without cyanosis Assessment: 1. Acute on chronic hypoxemic respiratory failure 2. Possible pneumonia 3. Idiopathic pulmonary fibrosis status post exacerbation 4. Fungal UTI==> treated Plan: Remains stable, continue present care Consultation Date/Type/Reason Admit Date/Time Apr 27, 2018 at 02:15 Initial Consult Date Type of Consult id Requesting Provider: MERNA BLAKE Date/Time of Note DATE: 05/16/18 TIME: 11:46 Exam/Review of Systems Exam Vitals Vital Signs Date Temp Pulse Resp B/P (MAP) Pulse Ox O2 O2 Flow FiO2 Time Delivery Rate 05/16/18 98.6 76 18 115/59 98 11:15 (77) 05/16/18 Nasal 2.0 10:02 Cannula Intake and Output 05/15/18 05/15/18 05/16/18 1515:00 23:00 07:00 IntakeIntake Total 300 ml 450 ml 100 ml OutputOutput Total 425 ml 1250 ml 975 ml BalanceBalance -125 ml -800 ml -875 ml Results Result Diagram: 05/15/18 0820 05/16/18 0928 Results 24hrs Laboratory Tests Test 05/15/18 19:00 05/16/18 09:28 Urine Osmolality 285 Urine Random Sodium 156 H Sodium Level 127 L Potassium Level 5.2 H Chloride Level 84 L Carbon Dioxide Level 40 H Anion Gap 3 L Blood Urea Nitrogen 8 Creatinine 0.48 Est Glomerular Filtrat Rate mL/min Glucose Level 96 Calcium Level 8.8 Phosphorus Level 2.9 Magnesium Level 1.9 Medications Medication Current Medications IV Flush (NS 3 ml) 3 ml PER PROTOCOL IV ; Start 04/27/18 at 03:00 Ondansetron HCl (Zofran Inj) 4 mg Q6H PRN IV NAUSEA/VOMITING; Start 04/27/18 at 03:00 Acetaminophen (Tylenol Tab) 650 mg Q6H PRN PO .PAIN 1-3 OR TEMP; Start 04/27/18 at 03:00 Aspirin (Ecotrin) 325 mg DAILY PO Last administered on 05/11/18 09:00; Admin Dose 325 MG; Start 04/27/18 at 09:00; Status Hold Albuterol/ Ipratropium (Duoneb) 3 ml Q6H RESP THERAPY INH Last administered on 05/16/18 09:46; Admin Dose 3 ML; Start 04/27/18 at 08:00 Levothyroxine Sodium (Synthroid) 88 mcg BEFORE BREAKFAST PO Last administered on 05/16/18 06:56; Admin Dose 88 MCG; Start 04/27/18 at 07:00 Atorvastatin Calcium (Lipitor) 10 mg DAILY@21 PO Last administered on 05/15/18 20:26; Admin Dose 10 MG; Start 04/27/18 at 21:00 Albuterol/ Ipratropium (Duoneb) 3 ml Q2H RESP THERAPY PRN HHN shortness of breath; Start 04/27/18 at 10:00 Enoxaparin Sodium (Lovenox) 40 mg DAILY SC Last administered on 05/11/18 08:58; Admin Dose 40 MG; Start 04/28/18 at 09:00; Status Hold Budesonide (Pulmicort (Neb)) 0.5 mg BID RESP THERAPY INH Last administered on 05/16/18 09:46; Admin Dose 0.5 MG; Start 04/29/18 at 09:00 Hydralazine HCl (Apresoline) 10 mg Q4H PRN IV SBP >160 Last administered on 05/02/18 18:50; Admin Dose 10 MG; Start 05/01/18 at 13:00 Polyethylene Glycol (Miralax) 17 gm DAILY PO Last administered on 05/15/18 08:39; Admin Dose 17 GM; Start 05/02/18 at 10:30 Docusate Sodium (Colace) 100 mg BID PRN PO CONSTIPATION; Start 05/02/18 at 10:30 Calcium/Vitamin D (Oyster Shell/ Vit-D (500/200)) 1 tab BID PO Last administered on 05/16/18 09:21; Admin Dose 1 TAB; Start 05/03/18 at 21:00 Prednisone (Prednisone) 20 mg DAILY PO Last administered on 05/16/18 09:21; Admin Dose 20 MG; Start 05/10/18 at 09:00 Sodium Chloride (Nacl) 1 gm TID PO ; Start 05/16/18 at 09:00 Dextrose (D50w Syringe) ONCE PRN IV DECREASED GLUCOSE; Start 05/16/18 at 11:00; Stop 05/16/18 at 23:59 EDUIN MANTILLA NP May 16, 2018 11:47
--- NOTE | 2018-05-16 20:47 | CONS ---
Consult Date/Type/Reason Admit Date/Time Apr 27, 2018 at 02:15 Initial Consult Date 05/11/18 Type of Consultation: Urology Reason for Consultation Hematuria Requesting Provider: MERNA BLAKE Date/Time of Note DATE: 05/16/18 TIME: 20:45 Subjective Patient continues to have hematuria even though she has continuous bladder irrigation. Objective Vitals Vital Signs Date Temp Pulse Resp B/P (MAP) Pulse Ox O2 O2 Flow FiO2 Time Delivery Rate 05/16/18 79 20:00 05/16/18 97 3.0 19:52 05/16/18 20 Nasal 26 19:42 Cannula 05/16/18 97.5 110/59 19:00 (76) Intake and Output 05/15/18 05/15/18 05/16/18 1515:00 23:00 07:00 IntakeIntake Total 300 ml 450 ml 100 ml OutputOutput Total 425 ml 1250 ml 975 ml BalanceBalance -125 ml -800 ml -875 ml Exam Rajan catheter is draining clear to blood-tinged urine with the continuous bladder irrigation. Results/Medications Result Diagram: 05/15/18 0820 05/16/18 0928 Results 24 hrs Laboratory Tests Test 05/16/18 09:28 05/16/18 12:16 05/16/18 12:59 05/16/18 16:29 Sodium Level 127 L Potassium Level 5.2 H Chloride Level 84 L Carbon Dioxide Level 40 H Anion Gap 3 L Blood Urea Nitrogen 8 Creatinine 0.48 Est Glomerular Filtrat Rate mL/min Glucose Level 96 Calcium Level 8.8 Phosphorus Level 2.9 Magnesium Level 1.9 Bedside Glucose 125 86 149 Home Meds Reported Medications Formoterol Fumarate (Perforomist) 20 Mcg/2 Ml Vial.neb, 20 MCG INHALATION BID, VIAL 03/28/18 Ipratropium [place] (Ipratropium [place]) 5 Gm Powder, 10.5 MG MC BID 03/28/18 Ipratropium-Albuterol (Ipratropium-Albuterol) 0.5-3 Mg/3 Ml Ampul.neb, 3 ML INHALATION Q6, #30 VIAL 03/28/18 Budesonide* (Budesonide*) 0.25 Mg/2 Ml Ampul.neb, 0.25 MG INHALATION BID, AMP 03/28/18 Cholecalciferol* (Vitamin D3*) 1,000 Unit Tablet, 1000 UNIT PO DAILY, TAB 03/28/18 Simvastatin* (Zocor*) 20 Mg Tablet, 20 MG PO QHS, #30 TAB 03/28/18 Aspirin* (Aspirin* EC) 325 Mg Tab, 325 MG PO DAILY, TAB 03/28/18 Levothyroxine Sodium* (Levothyroxine Sodium*) 88 Mcg Tablet, 88 MCG PO BEFORE BREAKFAST, #30 TAB 03/28/18 Medications Current Medications IV Flush (NS 3 ml) 3 ml PER PROTOCOL IV ; Start 04/27/18 at 03:00 Ondansetron HCl (Zofran Inj) 4 mg Q6H PRN IV NAUSEA/VOMITING; Start 04/27/18 at 03:00 Acetaminophen (Tylenol Tab) 650 mg Q6H PRN PO .PAIN 1-3 OR TEMP; Start 04/27/18 at 03:00 Aspirin (Ecotrin) 325 mg DAILY PO Last administered on 05/11/18at 09:00; Admin Dose 325 MG; Start 04/27/18 at 09:00; Status Hold Albuterol/ Ipratropium (Duoneb) 3 ml Q6H RESP THERAPY INH Last administered on 05/16/18 19:40; Admin Dose 3 ML; Start 04/27/18 at 08:00 Levothyroxine Sodium (Synthroid) 88 mcg BEFORE BREAKFAST PO Last administered on 05/16/18 06:56; Admin Dose 88 MCG; Start 04/27/18 at 07:00 Atorvastatin Calcium (Lipitor) 10 mg DAILY@21 PO Last administered on 05/15/18 20:26; Admin Dose 10 MG; Start 04/27/18 at 21:00 Albuterol/ Ipratropium (Duoneb) 3 ml Q2H RESP THERAPY PRN HHN shortness of breath; Start 04/27/18 at 10:00 Enoxaparin Sodium (Lovenox) 40 mg DAILY SC Last administered on 05/11/18at 08:58; Admin Dose 40 MG; Start 04/28/18 at 09:00; Status Hold Budesonide (Pulmicort (Neb)) 0.5 mg BID RESP THERAPY INH Last administered on 05/16/18 19:50; Admin Dose 0.5 MG; Start 04/29/18 at 09:00 Hydralazine HCl (Apresoline) 10 mg Q4H PRN IV SBP >160 Last administered on 05/02/18at 18:50; Admin Dose 10 MG; Start 05/01/18 at 13:00 Polyethylene Glycol (Miralax) 17 gm DAILY PO Last administered on 05/15/18 08:39; Admin Dose 17 GM; Start 05/02/18 at 10:30 Docusate Sodium (Colace) 100 mg BID PRN PO CONSTIPATION; Start 05/02/18 at 10:30 Calcium/Vitamin D (Oyster Shell/ Vit-D (500/200)) 1 tab BID PO Last administered on 05/16/18 09:21; Admin Dose 1 TAB; Start 05/03/18 at 21:00 Prednisone (Prednisone) 20 mg DAILY PO Last administered on 05/16/18 09:21; Ad min Dose 20 MG; Start 05/10/18 at 09:00 Sodium Chloride (Nacl) 1 gm TID PO Last administered on 05/16/18 12:17; Admin Dose 1 GM; Start 05/16/18 at 09:00 Dextrose (D50w Syringe) ONCE PRN IV DECREASED GLUCOSE; Start 05/16/18 at 11:00; Stop 05/16/18 at 23:59 Assessment/Plan Hospital Course (Demo Recall) 87-year-old female with a history of dementia, pulmonary fibrosis, hypothyroidism, dyslipidemia was brought to the ER after she was found unresponsive. She was given promethazine the night before her admission and about 30 minutes or so after when the family tries to wake her up, she was very lethargic and difficult to arouse. It took about 10 minutes for the patient to wake up. No focal weakness/numbness, seizure-like activity, facial droop, slurred speech reported. Patient was admitted here last month for syncope which was thought to be from hypoxia caused by her pulmonary fibrosis. At that time echo and carotid Doppler ultrasound were nondiagnostic. Reportedly patient has been coughing, which is chronic. Patient had a Rajan catheter inserted on admission this time and the urine was noted to be bloody therefore the catheter was changed and a three-way Rajan catheter was inserted and continuous bladder irrigation was started. A urological consultation was requested because of the hematuria. I did talk to her 2 daughters. There is no history of hematuria before. No history of kidney stones. At the present the return from the bladder irrigation is clear to blood-tinged Renal ultrasound was normal. Urine cytology is negative on 2 specimen.. Patient is on fluconazole. Plan is to do a cystoscopy and if there is any bladder tumor to resection of the tumor and if there is no tumor may need to do bladder biopsy and retrograde pyelograms. I did explain that to the family and they will decide if they want to go through it. The patient will need anesthesia for this. LINDSAY JULIO MD May 16, 2018 20:47
[2018-05-16] MEDS: ATORVASTATIN 10 MG TAB PO SCH (21:55)
[2018-05-17] VITALS (12 sets, daily range): BP systolic 120–147; BP diastolic 57–67; PULSE 69–94; RESP 18–22
[2018-05-17] MEDS: ALBUTEROL/IPRATROPIUM (NEB) 3 ML AMP INH SCH ×5 (01:50→19:41)
[2018-05-17] MEDS: LEVOTHYROXINE 88 MCG TAB PO SCH (06:29)
[2018-05-17] MEDS: BUDESONIDE (NEB) 0.5MG/2ML AMP INH SCH ×2 (08:17→19:41)
--- NOTE | 2018-05-17 08:28 | CONS ---
Consult Date/Type/Reason Admit Date/Time Apr 27, 2018 at 02:15 Initial Consult Date 05/11/18 Type of Consultation: Urology Reason for Consultation Hematuria Requesting Provider: MERNA BLAKE Date/Time of Note DATE: 05/17/18 TIME: 08:20 Subjective The patient is awake and appears to be comfortable. Objective Vitals Vital Signs Date Temp Pulse Resp B/P (MAP) Pulse Ox O2 O2 Flow FiO2 Time Delivery Rate 05/17/18 86 18 98 Nasal 3.0 32 08:14 Cannula 05/17/18 98.2 120/57 07:12 (78) Intake and Output 05/16/18 05/16/18 05/17/18 1515:00 23:00 07:00 IntakeIntake Total 400 ml 200 ml OutputOutput Total 1150 ml 3500 ml BalanceBalance -750 ml -3300 ml Exam The Rajan catheter is draining well and the return from the irrigation is clear to clear pink. Results/Medications Result Diagram: 05/15/18 0820 05/16/18 0928 Results 24 hrs Laboratory Tests Test 05/16/18 09:28 05/16/18 12:16 05/16/18 12:59 05/16/18 16:29 Sodium Level 127 L Potassium Level 5.2 H Chloride Level 84 L Carbon Dioxide Level 40 H Anion Gap 3 L Blood Urea Nitrogen 8 Creatinine 0.48 Est Glomerular Filtrat Rate mL/min Glucose Level 96 Calcium Level 8.8 Phosphorus Level 2.9 Magnesium Level 1.9 Bedside Glucose 125 86 149 Home Meds Reported Medications Formoterol Fumarate (Perforomist) 20 Mcg/2 Ml Vial.neb, 20 MCG INHALATION BID, VIAL 03/28/18 Ipratropium [place] (Ipratropium [place]) 5 Gm Powder, 10.5 MG MC BID 03/28/18 Ipratropium-Albuterol (Ipratropium-Albuterol) 0.5-3 Mg/3 Ml Ampul.neb, 3 ML INHALATION Q6, #30 VIAL 03/28/18 Budesonide* (Budesonide*) 0.25 Mg/2 Ml Ampul.neb, 0.25 MG INHALATION BID, AMP 03/28/18 Cholecalciferol* (Vitamin D3*) 1,000 Unit Tablet, 1000 UNIT PO DAILY, TAB 03/28/18 Simvastatin* (Zocor*) 20 Mg Tablet, 20 MG PO QHS, #30 TAB 03/28/18 Aspirin* (Aspirin* EC) 325 Mg Tab, 325 MG PO DAILY, TAB 03/28/18 Levothyroxine Sodium* (Levothyroxine Sodium*) 88 Mcg Tablet, 88 MCG PO BEFORE BREAKFAST, #30 TAB 03/28/18 Medications Current Medications IV Flush (NS 3 ml) 3 ml PER PROTOCOL IV ; Start 04/27/18 at 03:00 Ondansetron HCl (Zofran Inj) 4 mg Q6H PRN IV NAUSEA/VOMITING; Start 04/27/18 at 03:00 Acetaminophen (Tylenol Tab) 650 mg Q6H PRN PO .PAIN 1-3 OR TEMP; Start 04/27/18 at 03:00 Aspirin (Ecotrin) 325 mg DAILY PO Last administered on 05/11/18 09:00; Admin Dose 325 MG; Start 04/27/18 at 09:00; Status Hold Albuterol/ Ipratropium (Duoneb) 3 ml Q6H RESP THERAPY INH Last administered on 05/17/18 08:17; Admin Dose 3 ML; Start 04/27/18 at 08:00 Levothyroxine Sodium (Synthroid) 88 mcg BEFORE BREAKFAST PO Last administered on 05/17/18 06:29; Admin Dose 88 MCG; Start 04/27/18 at 07:00 Atorvastatin Calcium (Lipitor) 10 mg DAILY@21 PO Last administered on 05/16/18 21:55; Admin Dose 10 MG; Start 04/27/18 at 21:00 Albuterol/ Ipratropium (Duoneb) 3 ml Q2H RESP THERAPY PRN HHN shortness of breath; Start 04/27/18 at 10:00 Enoxaparin Sodium (Lovenox) 40 mg DAILY SC Last administered on 05/11/18 08:58; Admin Dose 40 MG; Start 04/28/18 at 09:00; Status Hold Budesonide (Pulmicort (Neb)) 0.5 mg BID RESP THERAPY INH Last administered on 05/17/18 08:17; Admin Dose 0.5 MG; Start 04/29/18 at 09:00 Hydralazine HCl (Apresoline) 10 mg Q4H PRN IV SBP >160 Last administered on 05/02/18at 18:50; Admin Dose 10 MG; Start 05/01/18 at 13:00 Polyethylene Glycol (Miralax) 17 gm DAILY PO Last administered on 05/15/18 08:39; Admin Dose 17 GM; Start 05/02/18 at 10:30 Docusate Sodium (Colace) 100 mg BID PRN PO CONSTIPATION; Start 05/02/18 at 10:30 Calcium/Vitamin D (Oyster Shell/ Vit-D (500/200)) 1 tab BID PO Last administered on 05/16/18 21:55; Admin Dose 1 TAB; Start 05/03/18 at 21:00 Prednisone (Prednisone) 20 mg DAILY PO Last administered on 05/16/18 09:21; Admin Dose 20 MG; Start 05/10/18 at 09:00 Sodium Chloride (Nacl) 1 gm TID PO Last administered on 05/16/18 21:55; Admin Dose 1 GM; Start 05/16/18 at 09:00 Assessment/Plan Hospital Course (Demo Recall) 87-year-old female with a history of dementia, pulmonary fibrosis, hypothyroidism, dyslipidemia was brought to the ER after she was found unresponsive. She was given promethazine the night before her admission and about 30 minutes or so after when the family tries to wake her up, she was very lethargic and difficult to arouse. It took about 10 minutes for the patient to wake up. No focal weakness/numbness, seizure-like activity, facial droop, slurred speech reported. Patient was admitted here last month for syncope which was thought to be from hypoxia caused by her pulmonary fibrosis. At that time echo and carotid Doppler ultrasound were nondiagnostic. Reportedly patient has been coughing, which is chronic. Patient had a Rajan catheter inserted on admission this time and the urine was noted to be bloody therefore the catheter was changed and a three-way Rajan catheter was inserted and continuous bladder irrigation was started. A urological consultation was requested because of the hematuria. I did talk to her 2 daughters. There is no history of hematuria before. No history of kidney stones. At the present the return from the bladder irrigation is clear to blood-tinged Renal ultrasound was normal. Urine cytology is negative on 2 specimen.. I did talk with Dr. Hernández yesterday about this patient and discussed with him her condition. I had the patient scheduled for cystoscopy today and possible TUR bladder tumor if one is found and or bladder biopsy and retrograde pyelograms. The family did not want to go through that stating that she cannot have any sedation/anesthesia. I did talk to her daughter for almost 25 minutes and discussed with her the possible causes of the hematuria. My feeling is that most likely will find nothing serious but I cannot tell her there is nothing without checking. The bleeding could be because of irritation, infection but also could be because of a tumor in the bladder or ureters or renal pelvis. We had her on the bladder irrigation for a while and that did not clear it completely yet. The daughter mentioned that the mother has had bladder prolapse and they tried pessary on her before. I doubt that the bladder prolapse is causing her hematuria. The plan for now would be to keep the irrigation today and may be discontinue the Rajan catheter tomorrow and see if she is able to urinate and see if the urine is clear. LINDSAY JULIO MD May 17, 2018 08:28
--- NOTE | 2018-05-17 08:38 | PN ---
DATE: 05/17/2018 SUBJECTIVE: The patient is stable. Patient had poor oral intake. Please note I spoke with the fabienne ent's daughter, updating her and discussing her overall hyponatremic state. No other events noted. OBJECTIVE: VITAL SIGNS: Blood pressure is 120/57, respirations 22, pulse 82, temperature 98.2. HEENT: Head is normocephalic. NECK: Supple. HEART: Regular rate. LUNGS: Show diminished breath sounds at base. ABDOMEN: Soft, nontender to palpation without rebound or guarding. EXTREMITIES: Negative for clubbing, cyanosis, no edema. DERMATOLOGIC: No rashes. MUSCULOSKELETAL: No joint effusion. NEUROLOGIC: No change in exam. MEDICATIONS: Reviewed. LABORATORY DATA: From 05/17/2018 is pending. ASSESSMENT AND PLAN: 1. Hyponatremia. Etiology is likely secondary to syndrome of inappropriate antidiuretic hormone. T he patient's sodium levels remain low due in part to low solute intake. The patient was placed on sa lt tablets and free water restriction. Plan is to repeat a renal panel. If sodium levels do not imp rove, will consider a gentle course of IV hydration as there may be a component of volume depletion. 2. Mild hyperkalemia. Etiology may be secondary to decreased oral intake, volume depletion. Will r epeat a potassium level and monitor. 3. Anemia. Continue to monitor hemoglobin and hematocrit levels. 4. Acute hypoxemic respiratory failure secondary to pulmonary fibrosis, pneumonia. Continue prednis one taper. Continue BiPAP. 5. Hypothyroidism. Continue Synthroid. 6. Dyslipidemia. Continue statin therapy. 7. Encephalopathy, etiology toxic metabolic. 8. Urinary tract infection. Patient is completing antibiotic course. Dictated By: GABO DURAN DO NR/NTS Conf#: [id number] DID#: [id number] CC: RICHARDSON BROWN MD;*EndCC*
[2018-05-17] MEDS: POLYETHYLENE GLYCOL 17 GM PACKET PO SCH (08:40)
[2018-05-17] MEDS: SODIUM CHLORIDE 1 GM TAB PO SCH ×3 (08:40→21:25)
[2018-05-17] MEDS: BALSAM PERU/CASTOR OIL 60 GM TUBE TOP SCH ×2 (08:40→21:25)
[2018-05-17] MEDS: CALCIUM/VITAMIN D (500/200) TAB PO SCH ×2 (08:40→21:25)
[2018-05-17] MEDS: predniSONE 20 MG TAB PO SCH (08:40)
--- NOTE | 2018-05-17 09:20 | PN ---
Date/Time of Note Date/Time of Note DATE: 05/17/18 TIME: 09:20 Assessment/Plan VTE Prophylaxis Risk score (from Ns)>0 risk: 9 SCD applied (from Ns): Yes Pharmacological prophylaxis: NA/contraindicated Pharm contraindication: bleeding Lines/Catheters IV Catheter Type (from Nrsg): Peripheral IV Urinary Cath still in place: Yes Reason Cath still needed: other (indicate) Assessment/Plan Assessment/Plan 1. Hematuria- improving - Urology on board and appreciate recommendations. Would like to performed cystoscopy but family refusing given do not want her receiving anesthesia. Plan to d/c CBI tomorrow and remove strange. Will monitor for further episodes of hematuria. - LMWH on hold - H/H remains stable 2. UTI - ID consultation appreciated. completed course of antibiotics and antifungals 3. Acute hypoxic and hypercapnic respiratory failure - stable - Pulm on board and appreciate recommendations - BIPAP qhs and NC during the day, machine delivered at home, likely trilogy per pulmonology, arranged by patient's outpatient regional account manager 4. Hyponatremia - Nephrology on board and appreciate recommendations. Salt tablets started and will monitor for improvement in Na levels 5. Anemia- stable - Secondary to acute blood loss anemia secondary to hematuria 6. Exacerbation of IPF- resolving - Follows with Pulm as outpatient. will need to continue on Pred 20mg daily 7. Hypothyroidism -Continue home meds 8. Dyslipidemia -Continue home meds 9. Disposition - Per Urology, d/c CBI tomorrow and remove strange. Monitor for further hematuria and if no further episodes, will d/c home Result Diagram: 05/15/18 0820 05/17/18 0753 Results 24hrs Laboratory Tests Test 05/16/18 09:28 05/16/18 12:16 05/16/18 12:59 05/16/18 16:29 Sodium Level 127 L Potassium Level 5.2 H Chloride Level 84 L Carbon Dioxide Level 40 H Anion Gap 3 L Blood Urea Nitrogen 8 Creatinine 0.48 Est Glomerular Filtrat Rate mL/min Glucose Level 96 Calcium Level 8.8 Phosphorus Level 2.9 Magnesium Level 1.9 Bedside Glucose 125 86 149 Test 05/17/18 07:53 Sodium Level 126 L Potassium Level 4.5 Chloride Level 84 L Carbon Dioxide Level Pending Anion Gap Pending Blood Urea Nitrogen 11 Creatinine 0.47 Est Glomerular Filtrat Rate mL/min Glucose Level 113 Calcium Level 8.8 Phosphorus Level 3.6 Magnesium Level 1.8 Subjective 24 Hr Interval Summary Free Text/Dictation Patient remains stable and urine is clear with pink tinge at time. No acute overnight events. plan of care discussed with family this am. Exam/Review of Systems Exam Vitals Vital Signs Date Temp Pulse Resp B/P (MAP) Pulse Ox O2 O2 Flow FiO2 Time Delivery Rate 05/17/18 78 09:16 05/17/18 18 98 Nasal 3.0 32 08:14 Cannula 05/17/18 98.2 120/57 07:12 (78) Intake and Output 05/16/18 05/16/18 05/17/18 1515:00 23:00 07:00 IntakeIntake Total 400 ml 200 ml OutputOutput Total 1150 ml 3500 ml BalanceBalance -750 ml -3300 ml Exam General: Patient is laying in bed. no acute distress Neck: Supple, nontender, midline Respiratory: Diminished breath sounds. no wheezing appreciated Cardiovascular: regular rate and rhythm, no obvious murmurs Gastrointestinal: soft, non-tender to palpation, bowel sounds heard. Neurological: Moves all extremities spontaneously Skin: No new skin lesions Results Results 24hrs Laboratory Tests Test 05/16/18 09:28 05/16/18 12:16 05/16/18 12:59 05/16/18 16:29 Sodium Level 127 L Potassium Level 5.2 H Chloride Level 84 L Carbon Dioxide Level 40 H Anion Gap 3 L Blood Urea Nitrogen 8 Creatinine 0.48 Est Glomerular Filtrat Rate mL/min Glucose Level 96 Calcium Level 8.8 Phosphorus Level 2.9 Magnesium Level 1.9 Bedside Glucose 125 86 149 Test 05/17/18 07:53 Sodium Level 126 L Potassium Level 4.5 Chloride Level 84 L Carbon Dioxide Level Pending Anion Gap Pending Blood Urea Nitrogen 11 Creatinine 0.47 Est Glomerular Filtrat Rate mL/min Glucose Level 113 Calcium Level 8.8 Phosphorus Level 3.6 Magnesium Level 1.8 Medications Medication Current Medications IV Flush (NS 3 ml) 3 ml PER PROTOCOL IV ; Start 04/27/18 at 03:00 Ondansetron HCl (Zofran Inj) 4 mg Q6H PRN IV NAUSEA/VOMITING; Start 04/27/18 at 03:00 Acetaminophen (Tylenol Tab) 650 mg Q6H PRN PO .PAIN 1-3 OR TEMP; Start 04/27/18 at 03:00 Aspirin (Ecotrin) 325 mg DAILY PO Last administered on 05/11/18 09:00; Admin Dose 325 MG; Start 04/27/18 at 09:00; Status Hold Albuterol/ Ipratropium (Duoneb) 3 ml Q6H RESP THERAPY INH Last administered on 05/17/18 08:17; Admin Dose 3 ML; Start 04/27/18 at 08:00 Levothyroxine Sodium (Synthroid) 88 mcg BEFORE BREAKFAST PO Last administered on 05/17/18 06:29; Admin Dose 88 MCG; Start 04/27/18 at 07:00 Atorvastatin Calcium (Lipitor) 10 mg DAILY@21 PO Last administered on 05/16/18 21:55; Admin Dose 10 MG; Start 04/27/18 at 21:00 Albuterol/ Ipratropium (Duoneb) 3 ml Q2H RESP THERAPY PRN HHN shortness of breath; Start 04/27/18 at 10:00 Enoxaparin Sodium (Lovenox) 40 mg DAILY SC Last administered on 05/11/18 08:58; Admin Dose 40 MG; Start 04/28/18 at 09:00; Status Hold Budesonide (Pulmicort (Neb)) 0.5 mg BID RESP THERAPY INH Last administered on 05/17/18 08:17; Admin Dose 0.5 MG; Start 04/29/18 at 09:00 Hydralazine HCl (Apresoline) 10 mg Q4H PRN IV SBP >160 Last administered on 05/02/18 18:50; Admin Dose 10 MG; Start 05/01/18 at 13:00 Polyethylene Glycol (Miralax) 17 gm DAILY PO Last administered on 05/17/18 08:40; Admin Dose 17 GM; Start 05/02/18 at 10:30 Docusate Sodium (Colace) 100 mg BID PRN PO CONSTIPATION; Start 05/02/18 at 10:30 Calcium/Vitamin D (Oyster Shell/ Vit-D (500/200)) 1 tab BID PO Last administered on 05/17/18 08:40; Admin Dose 1 TAB; Start 05/03/18 at 21:00 Prednisone (Prednisone) 20 mg DAILY PO Last administered on 05/17/18 08:40; Admin Dose 20 MG; Start 05/10/18 at 09:00 Sodium Chloride (Nacl) 1 gm TID PO Last administered on 05/17/18 08:40; Admin Dose 1 GM; Start 05/16/18 at 09:00 KALEB JAIMES MD May 17, 2018 09:20
--- NOTE | 2018-05-17 13:17 | CONS ---
Assessment/Plan Assessment/Plan Hospital Course (Demo Recall) All noted, no fevers Microbiology: Blood cultures since admission negative urinalysis was positive for yeast. Patient is on fluconazole, s/p cefepime Physical examination: This is a fragile very pleasant elderly woman who is awake in no distress. Head atraumatic normocephalic. Neck is supple chest rise symmetrical breath sounds diminished bases abdomen soft bowel sounds prese nt extremities without cyanosis Assessment: 1. Acute on chronic hypoxemic respiratory failure 2. Possible pneumonia 3. Idiopathic pulmonary fibrosis status post exacerbation 4. Fungal UTI==> treated 5. Hematuria Plan: Clinically unchanged, stable, continue present care, urology rec-s noted Consultation Date/Type/Reason Admit Date/Time Apr 27, 2018 at 02:15 Initial Consult Date Type of Consult id Requesting Provider: MERNA BLAKE Date/Time of Note DATE: 05/17/18 TIME: 13:16 Exam/Review of Systems Exam Vitals Vital Signs Date Temp Pulse Resp B/P (MAP) Pulse Ox O2 O2 Flow FiO2 Time Delivery Rate 05/17/18 82 12:48 05/17/18 98.0 22 147/65 96 Nasal 3.0 11:30 (92) Cannula 05/17/18 32 08:14 Intake and Output 05/16/18 05/16/18 05/17/18 1414:59 22:59 06:59 IntakeIntake Total 100 ml 400 ml 200 ml OutputOutput Total 975 ml 1150 ml 3500 ml BalanceBalance -875 ml -750 ml -3300 ml Results Result Diagram: 05/15/18 0820 05/17/18 0753 Results 24hrs Laboratory Tests Test 05/16/18 16:29 05/17/18 07:53 Bedside Glucose 149 Sodium Level 126 L Potassium Level 4.5 Chloride Level 84 L Carbon Dioxide Level 36 H Anion Gap 6 Blood Urea Nitrogen 11 Creatinine 0.47 Est Glomerular Filtrat Rate mL/min Glucose Level 113 Calcium Level 8.8 Phosphorus Level 3.6 Magnesium Level 1.8 Medications Medication Current Medications IV Flush (NS 3 ml) 3 ml PER PROTOCOL IV ; Start 04/27/18 at 03:00 Ondansetron HCl (Zofran Inj) 4 mg Q6H PRN IV NAUSEA/VOMITING; Start 04/27/18 at 03:00 Acetaminophen (Tylenol Tab) 650 mg Q6H PRN PO .PAIN 1-3 OR TEMP; Start 04/27/18 at 03:00 Aspirin (Ecotrin) 325 mg DAILY PO Last administered on 05/11/18 09:00; Admin Dose 325 MG; Start 04/27/18 at 09:00; Status Hold Albuterol/ Ipratropium (Duoneb) 3 ml Q6H RESP THERAPY INH Last administered on 05/17/18 08:17; Admin Dose 3 ML; Start 04/27/18 at 08:00 Levothyroxine Sodium (Synthroid) 88 mcg BEFORE BREAKFAST PO Last administered on 05/17/18 06:29; Admin Dose 88 MCG; Start 04/27/18 at 07:00 Atorvastatin Calcium (Lipitor) 10 mg DAILY@21 PO Last administered on 05/16/18 21:55; Admin Dose 10 MG; Start 04/27/18 at 21:00 Albuterol/ Ipratropium (Duoneb) 3 ml Q2H RESP THERAPY PRN HHN shortness of breath; Start 04/27/18 at 10:00 Enoxaparin Sodium (Lovenox) 40 mg DAILY SC Last administered on 05/11/18 08:58; Admin Dose 40 MG; Start 04/28/18 at 09:00; Status Hold Budesonide (Pulmicort (Neb)) 0.5 mg BID RESP THERAPY INH Last administered on 05/17/18 08:17; Admin Dose 0.5 MG; Start 04/29/18 at 09:00 Hydralazine HCl (Apresoline) 10 mg Q4H PRN IV SBP >160 Last administered on 05/02/18 18:50; Admin Dose 10 MG; Start 05/01/18 at 13:00 Polyethylene Glycol (Miralax) 17 gm DAILY PO Last administered on 05/17/18 08 :40; Admin Dose 17 GM; Start 05/02/18 at 10:30 Docusate Sodium (Colace) 100 mg BID PRN PO CONSTIPATION; Start 05/02/18 at 10:30 Calcium/Vitamin D (Oyster Shell/ Vit-D (500/200)) 1 tab BID PO Last ad ministered on 05/17/18 08:40; Admin Dose 1 TAB; Start 05/03/18 at 21:00 Prednisone (Prednisone) 20 mg DAILY PO Last administered on 05/17/18at 08:40; Admin Dose 20 MG; Start 05/10/18 at 09:00 Sodium Chloride (Nacl) 1 gm TID PO Last administered on 05/17/18at 13:05; Admin Dose 1 GM; Start 05/16/18 at 09:00 EDUIN MANTILLA NP May 17, 2018 13:17
[2018-05-17] MEDS: SOD CHLORIDE 0.9% 1,000 ML IV SCH (15:00)
--- NOTE | 2018-05-17 17:55 | CONS ---
Assessment/Plan Assessment/Plan Hospital Course (Demo Recall) IMPRESSION: 1. Abnormal echocardiogram, assess for acute coronary syndrome.-neg x 3 since ecg abnl seen by tele. NO chest pain according to family member at bedside. repeat ecg today with inferior q's and only borderline J point elevation single lead 2. Cardiac arrhythmia. Continue to follow.-SR by tle most recently 3. Hyponatremia- ongoing 4. Pulmonary fibrosis. 5. Dementia. 6. Urinary tract infection. 7. Leukocytosis and anemia. 8. Hematuria-improving but ongoing Recc: -Tele -serial ecg's -contineu statin -Follow BP closely off of antihypertensives -Home BIPAP being set up -Continue steroids/bronchodilators -Holding asa/lovenox due to hematuria -follow volume status closely Consultation Date/Type/Reason Admit Date/Time Apr 27, 2018 at 02:15 Initial Consult Date 05/09/18 Type of Consult Cardiology Reason for Consultation abnl ecg Requesting Provider: MERNA BLAKE Date/Time of Note DATE: 05/17/18 TIME: 17:52 Exam/Review of Systems Vital Signs Vitals Vital Signs Date Temp Pulse Resp B/P (MAP) Pulse Ox O2 O2 Flow FiO2 Time Delivery Rate 05/17/18 81 16:30 05/17/18 98.0 22 124/60 96 Room Air 15:33 (81) 05/17/18 3.0 11:30 05/17/18 32 08:14 Intake and Output 05/16/18 05/16/18 05/17/18 1515:00 23:00 07:00 IntakeIntake Total 400 ml 200 ml OutputOutput Total 1150 ml 3500 ml BalanceBalance -750 ml -3300 ml Exam Exam Review of Systems: CONSTITUTIONAL: No fevers, chills. PULMONARY: No sob CARDIOVASCULAR: No chest pain/palpitations GASTROINTESTINAL: No nausea/vomiting. GENITOURINARY: No hematuria/dysuria. MUSCULOSKELETAL: No myagias/arthalgias. PSYCHIATRIC: The patient denies depression. NEUROLOGIC: encephalopathic Constitutional: other (encephalopathic) Psych: no complaints Head: normocephalic ENMT: mucosa pink and moist Neck: supple, jvd (9 cm water) Respiratory: diminished breath sounds (at bases/B) Cardiovascular: regular rate and rhythm Gastrointestinal: soft, non-tender Musculoskeletal: muscle weakness (generalized) Extremities: edema (none) Neurological: other (No focal deficits) Labs Result Diagram: 05/15/18 0820 05/17/18 0753 Results 24hrs Laboratory Tests Test 05/17/18 07:53 Sodium Level 126 L Potassium Level 4.5 Chloride Level 84 L Carbon Dioxide Level 36 H Anion Gap 6 Blood Urea Nitrogen 11 Creatinine 0.47 Est Glomerular Filtrat Rate mL/min Glucose Level 113 Calcium Level 8.8 Phosphorus Level 3.6 Magnesium Level 1.8 Medications Medications Current Medications IV Flush (NS 3 ml) 3 ml PER PROTOCOL IV ; Start 04/27/18 at 03:00 Ondansetron HCl (Zofran Inj) 4 mg Q6H PRN IV NAUSEA/VOMITING; Start 04/27/18 at 03:00 Acetaminophen (Tylenol Tab) 650 mg Q6H PRN PO .PAIN 1-3 OR TEMP; Start 04/27/18 at 03:00 Aspirin (Ecotrin) 325 mg DAILY PO Last administered on 05/11/18 09:00; Admin Dose 325 MG; Start 04/27/18 at 09:00; Status Hold Albuterol/ Ipratropium (Duoneb) 3 ml Q6H RESP THERAPY INH Last administered on 05/17/18 08:17; Admin Dose 3 ML; Start 04/27/18 at 08:00 Levothyroxine Sodium (Synthroid) 88 mcg BEFORE BREAKFAST PO Last administered on 05/17/18 06:29; Admin Dose 88 MCG; Start 04/27/18 at 07:00 Atorvastatin Calcium (Lipitor) 10 mg DAILY@21 PO Last administered on 05/16/18 21:55; Admin Dose 10 MG; Start 04/27/18 at 21:00 Albuterol/ Ipratropium (Duoneb) 3 ml Q2H RESP THERAPY PRN HHN shortness of breath; Start 04/27/18 at 10:00 Enoxaparin Sodium (Lovenox) 40 mg DAILY SC Last administered on 05/11/18 08:58; Admin Dose 40 MG; Start 04/28/18 at 09:00; Status Hold Budesonide (Pulmicort (Neb)) 0.5 mg BID RESP THERAPY INH Last administered on 05/17/18 08:17; Admin Dose 0.5 MG; Start 04/29/18 at 09:00 Hydralazine HCl (Apresoline) 10 mg Q4H PRN IV SBP >160 Last administered on 05/02/18 18:50; Admin Dose 10 MG; Start 05/01/18 at 13:00 Polyethylene Glycol (Miralax) 17 gm DAILY PO Last administered on 05/17/18 08 :40; Admin Dose 17 GM; Start 05/02/18 at 10:30 Docusate Sodium (Colace) 100 mg BID PRN PO CONSTIPATION; Start 05/02/18 at 10:30 Calcium/Vitamin D (Oyster Shell/ Vit-D (500/200)) 1 tab BID PO Last ad ministered on 05/17/18 08:40; Admin Dose 1 TAB; Start 05/03/18 at 21:00 Prednisone (Prednisone) 20 mg DAILY PO Last administered on 05/17/18 08:40; Admin Dose 20 MG; Start 05/10/18 at 09:00 Sodium Chloride (Nacl) 1 gm TID PO Last administered on 05/17/18 13:05; Admin Dose 1 GM; Start 05/16/18 at 09:00 Sodium Chloride 1,000 ml @ 50 mls/hr Q20H IV Last administered on 05/17/18 15:00; Admin Dose 50 MLS/HR; Start 05/17/18 at 15:00 AKSHAT HAY May 17, 2018 17:55
[2018-05-17] MEDS: ATORVASTATIN 10 MG TAB PO SCH (21:24)
[2018-05-18] VITALS (11 sets, daily range): BP systolic 112–132; BP diastolic 56–60; PULSE 67–96; RESP 18–22
[2018-05-18] MEDS: ALBUTEROL/IPRATROPIUM (NEB) 3 ML AMP INH SCH ×4 (01:08→19:34)
[2018-05-18] MEDS: LEVOTHYROXINE 88 MCG TAB PO SCH (07:00)
[2018-05-18] MEDS: BUDESONIDE (NEB) 0.5MG/2ML AMP INH SCH ×2 (08:15→19:34)
--- NOTE | 2018-05-18 08:37 | PN ---
Date/Time of Note Date/Time of Note DATE: 05/18/18 TIME: 08:37 Assessment/Plan VTE Prophylaxis Risk score (from Ns)>0 risk: 7 SCD applied (from Ns): Yes Pharmacological prophylaxis: NA/contraindicated Pharm contraindication: bleeding Lines/Catheters IV Catheter Type (from Nrs): Peripheral IV Urinary Cath still in place: No Assessment/Plan Assessment/Plan 1. Hematuria - Urology on board and appreciate recommendations. Rajan removed and will m onitor for further episodes. Urine cultures sent this am. Cytology negative x3. - LMWH on hold - H/H remains stable 2. UTI - ID consultation appreciated. completed course of antibiotics and antifungals 3. Acute hypoxic and hypercapnic respiratory failure- stable - patient at baseline and will follow with Fe[facility] Driver as outpatient - Pulm on board and appreciate recommendations - BIPAP qhs and NC during the day, machine delivered at home, likely trilogy per pulmonology, arranged by patient's outpatient it network administrator 4. Hyponatremia - Nephrology on board and appreciate recommendations. Awaiting repeat BMP this am to determine improvement of Na levels after fluid. If no improvement will need to start on demeclocycline 5. Anemia- stable - Secondary to acute blood loss anemia secondary to hematuria 6. Exacerbation of IPF- resolving - Follows with Pulm as outpatient. will need to continue on Pred 20mg daily 7. Hypothyroidism -Continue home meds 8. Dyslipidemia -Continue home meds 9. Disposition - Awaiting repeat sodium levels to determine treatment plan. Will awaiting urine cultures - If remains stable without any new acute issues, will plan for d/c tomorrow am Result Diagram: 05/15/18 0820 05/17/18 0753 Subjective 24 Hr Interval Summary Free Text/Dictation Patient is working with PT this am. No acute issues. Rajan removed and per granddaughter urinating without issues. Exam/Review of Systems Exam Vitals Vital Signs Date Temp Pulse Resp B/P (MAP) Pulse Ox O2 O2 Flow FiO2 Time Delivery Rate 05/18/18 2.5 08:21 05/18/18 65 20 100 Nasal 08:15 Cannula 05/18/18 98.0 114/56 07:15 (75) 05/17/18 32 08:14 Intake and Output 05/17/18 05/17/18 05/18/18 1515:00 23:00 07:00 IntakeIntake Total 600 ml OutputOutput Total 3200 ml BalanceBalance -2600 ml Exam General: Patient is sitting at bedside, no acute distress Neck: Supple, nontender, midline Respiratory: Diminished breath sounds. no wheezing appreciated Cardiovascular: regular rate and rhythm, no obvious murmurs Gastrointestinal: soft, non-tender to palpation, bowel sounds heard. Neurological: Moves all extremities spontaneously Skin: No new skin lesions Medications Medication Current Medications IV Flush (NS 3 ml) 3 ml PER PROTOCOL IV ; Start 04/27/18 at 03:00 Ondansetron HCl (Zofran Inj) 4 mg Q6H PRN IV NAUSEA/VOMITING; Start 04/27/18 at 03:00 Acetaminophen (Tylenol Tab) 650 mg Q6H PRN PO .PAIN 1-3 OR TEMP; Start 04/27/18 at 03:00 Aspirin (Ecotrin) 325 mg DAILY PO Last administered on 05/11/18 09:00; Admin Dose 325 MG; Start 04/27/18 at 09:00; Status Hold Albuterol/ Ipratropium (Duoneb) 3 ml Q6H RESP THERAPY INH Last administered on 05/18/18 08:15; Admin Dose 3 ML; Start 04/27/18 at 08:00 Levothyroxine Sodium (Synthroid) 88 mcg BEFORE BREAKFAST PO Last administered on 05/17/18 06:29; Admin Dose 88 MCG; Start 04/27/18 at 07:00 Atorvastatin Calcium (Lipitor) 10 mg DAILY@21 PO Last administered on 05/17/18 21:24; Admin Dose 10 MG; Start 04/27/18 at 21:00 Albuterol/ Ipratropium (Duoneb) 3 ml Q2H RESP THERAPY PRN HHN shortness of breath; Start 04/27/18 at 10:00 Enoxaparin Sodium (Lovenox) 40 mg DAILY SC Last administered on 05/11/18 08:58; Admin Dose 40 MG; Start 04/28/18 at 09:00; Status Hold Budesonide (Pulmicort (Neb)) 0.5 mg BID RESP THERAPY INH Last administered on 05/18/18 08:15; Admin Dose 0.5 MG; Start 04/29/18 at 09:00 Hydralazine HCl (Apresoline) 10 mg Q4H PRN IV SBP >160 Last administered on 05/02/18 18:50; Admin Dose 10 MG; Start 05/01/18 at 13:00 Polyethylene Glycol (Miralax) 17 gm DAILY PO Last administered on 05/17/18 08:40; Admin Dose 17 GM; Start 05/02/18 at 10:30 Docusate Sodium (Colace) 100 mg BID PRN PO CONSTIPATION; Start 05/02/18 at 10:30 Calcium/Vitamin D (Oyster Shell/ Vit-D (500/200)) 1 tab BID PO Last administered on 05/17/18 21:25; Admin Dose 1 TAB; Start 05/03/18 at 21:00 Prednisone (Prednisone) 20 mg DAILY PO Last administered on 05/17/18 08:40; Admin Dose 20 MG; Start 05/10/18 at 09:00 Sodium Chloride (Nacl) 1 gm TID PO Last administered on 05/17/18 21:25; Admin Dose 1 GM; Start 05/16/18 at 09:00 Sodium Chloride 1,000 ml @ 50 mls/hr Q20H IV Last administered on 05/17/18 15:00; Admin Dose 50 MLS/HR; Start 05/17/18 at 15:00 KALEB JAIMES MD May 18, 2018 08:37
--- NOTE | 2018-05-18 09:12 | PN ---
DATE: 05/18/2018 SUBJECTIVE: The patient is stable, no events overnight. No fevers, chills, nausea, vomiting. OBJECTIVE: VITAL SIGNS: Blood pressure is 114/56, respirations 22, pulse 73, temperature 98.0. HEENT: Head is normocephalic. NECK: Supple. HEART: Regular rate. LUNGS: Show diminished breath sounds at the base. ABDOMEN: Soft, nontender to palpation without rebound or guarding. EXTREMITIES: Negative for clubbing, cyanosis, no edema. DERMATOLOGIC: No rashes. MUSCULOSKELETAL: No joint effusion. NEUROLOGIC: No change in exam. MEDICATIONS: Reviewed. LABORATORY DATA: Currently pending. ASSESSMENT AND PLAN: 1. Hyponatremia, etiology is felt to be secondary to syndrome of inappropriate antidiuretic hormone with a possible component of hypovolemia. The patient's sodium levels were declining despite free wa ter restriction, salt tablets. A gentle fluid challenge was started for the patient. If odium level s are not improving, will discontinue IV fluids and start the patient on demeclocycline. We will con tinue to monitor sodium levels closely. 2. Mild hyperkalemia, resolved. Continue to monitor. 3. Anemia. Monitor hemoglobin and hematocrit levels. 3. Acute hypoxemic respiratory failure secondary to pulmonary fibrosis, pneumonia. Continue prednis one. Continue BiPAP. 5. Hypothyroidism. Continue Synthroid. 6. Dyslipidemia. Continue statin therapy. 7. Encephalopathy, etiology toxic metabolic. 8. Urinary tract infection. Patient completing antibiotic course. Dictated By: GABO GOMEZ/CODI Conf#: [id number] DID#: [id number]
[2018-05-18] MEDS: CALCIUM/VITAMIN D (500/200) TAB PO SCH ×2 (09:39→20:19)
[2018-05-18] MEDS: POLYETHYLENE GLYCOL 17 GM PACKET PO SCH (09:39)
[2018-05-18] MEDS: predniSONE 20 MG TAB PO SCH (09:39)
[2018-05-18] MEDS: SODIUM CHLORIDE 1 GM TAB PO SCH ×3 (09:39→20:19)
[2018-05-18] MEDS: BALSAM PERU/CASTOR OIL 60 GM TUBE TOP SCH ×2 (09:39→20:20)
[2018-05-18] MEDS: SOD CHLORIDE 0.9% 1,000 ML IV SCH (11:11)
--- NOTE | 2018-05-18 15:17 | CONS ---
Assessment/Plan Assessment/Plan Hospital Course (Demo Recall) IMPRESSION: 1. Abnormal echocardiogram, assess for acute coronary syndrome.-neg x 3 since ecg abnl seen by tele. NO chest pain according to family member at bedside. repeat ecg today with inferior q's and only borderline J point elevation single lead 2. Cardiac arrhythmia. Continue to follow.-SR by tele 3. Hyponatremia- ongoing 4. Pulmonary fibrosis. 5. Dementia. 6. Urinary tract infection. 7. Leukocytosis and anemia. 8. Hematuria-improving but ongoing Recc: -Tele -serial ecg's -contineu statin -Follow BP closely off of antihypertensives -Home BIPAP being set up -Continue steroids/bronchodilators -Holding asa/lovenox due to hematuria -follow volume status closely Consultation Date/Type/Reason Admit Date/Time Apr 27, 2018 at 02:15 Initial Consult Date 05/09/18 Type of Consult Cardiology Reason for Consultation abnl ecg Requesting Provider: MERNA BLAKE Date/Time of Note DATE: 05/18/18 TIME: 15:14 Exam/Review of Systems Vital Signs Vitals Vital Signs Date Temp Pulse Resp B/P (MAP) Pulse Ox O2 O2 Flow FiO2 Time Delivery Rate 05/18/18 83 20 100 Nasal 2.5 14:00 Cannula 05/18/18 96.8 117/56 11:25 (76) 05/17/18 32 08:14 Intake and Output 05/17/18 05/17/18 05/18/18 1515:00 23:00 07:00 IntakeIntake Total 600 ml 200 ml OutputOutput Total 3200 ml 3075 ml BalanceBalance -2600 ml -2875 ml Exam Exam Review of Systems: CONSTITUTIONAL: No fevers, chills. PULMONARY: No sob CARDIOVASCULAR: No chest pain/palpitations GASTROINTESTINAL: No nausea/vomiting. GENITOURINARY: No hematuria/dysuria. MUSCULOSKELETAL: No myagias/arthalgias. PSYCHIATRIC: The patient denies depression. NEUROLOGIC: somewhat lethargic Constitutional: alert Psych: no complaints Head: normocephalic ENMT: mucosa pink and moist Neck: supple, jvd (9 cm water) Respiratory: diminished breath sounds (at bases/B) Cardiovascular: regular rate and rhythm Gastrointestinal: soft, non-tender Musculoskeletal: muscle weakness (generalized) Extremities: edema (trace/B) Labs Result Diagram: 05/18/18 1038 05/18/18 1038 Results 24hrs Laboratory Tests Test 05/18/18 10:38 White Blood Count 5.8 Red Blood Count 3.78 L Hemoglobin 10.4 L Hematocrit 33.6 L Mean Corpuscular Volume 88.9 Mean Corpuscular Hemoglobin 27.5 L Mean Corpuscular Hemoglobin Concent 31.0 L Red Cell Distribution Width 14.6 H Platelet Count 161 # Mean Platelet Volume 9.3 Immature Granulocytes % 0.700 H Neutrophils % 81.4 H Lymphocytes % 12.7 L Monocytes % 3.5 Eosinophils % 1.4 Basophils % 0.3 Nucleated Red Blood Cells % 0.0 Immature Granulocytes # 0.040 H Neutrophils # 4.7 Lymphocytes # 0.7 L Monocytes # 0.2 L Eosinophils # 0.1 Basophils # 0.0 Nucleated Red Blood Cells # 0.0 Sodium Level 128 L Potassium Level 4.6 Chloride Level 85 L Carbon Dioxide Level 37 H Anion Gap 6 Blood Urea Nitrogen 10 Creatinine 0.47 Est Glomerular Filtrat Rate mL/min Glucose Level 114 Calcium Level 8.7 Phosphorus Level 3.2 Magnesium Level 1.8 Medications Medications Current Medications IV Flush (NS 3 ml) 3 ml PER PROTOCOL IV ; Start 04/27/18 at 03:00 Ondansetron HCl (Zofran Inj) 4 mg Q6H PRN IV NAUSEA/VOMITING; Start 04/27/18 at 03:00 Acetaminophen (Tylenol Tab) 650 mg Q6H PRN PO .PAIN 1-3 OR TEMP; Start 04/27/18 at 03:00 Aspirin (Ecotrin) 325 mg DAILY PO Last administered on 05/11/18at 09:00; Admin Dose 325 MG; Start 04/27/18 at 09:00; Status Hold Albuterol/ Ipratropium (Duoneb) 3 ml Q6H RESP THERAPY INH Last administered on 05/18/18at 14:00; Admin Dose 3 ML; Start 04/27/18 at 08:00 Levothyroxine Sodium (Synthroid) 88 mcg BEFORE BREAKFAST PO Last administered on 05/18/18at 07:00; Admin Dose 88 MCG; Start 04/27/18 at 07:00 Atorvastatin Calcium (Lipitor) 10 mg DAILY@21 PO Last administered on 05/17/18at 21:24; Admin Dose 10 MG; Start 04/27/18 at 21:00 Albuterol/ Ipratropium (Duoneb) 3 ml Q2H RESP THERAPY PRN HHN shortness of breath; Start 04/27/18 at 10:00 Enoxaparin Sodium (Lovenox) 40 mg DAILY SC Last administered on 05/11/18 08:58; Admin Dose 40 MG; Start 04/28/18 at 09:00; Status Hold Budesonide (Pulmicort (Neb)) 0.5 mg BID RESP THERAPY INH Last administered on 05/18/18 08:15; Admin Dose 0.5 MG; Start 04/29/18 at 09:00 Hydralazine HCl (Apresoline) 10 mg Q4H PRN IV SBP >160 Last administered on 05/02/18 18:50; Admin Dose 10 MG; Start 05/01/18 at 13:00 Polyethylene Glycol (Miralax) 17 gm DAILY PO Last administered on 05/18/18 09:39; Admin Dose 17 GM; Start 05/02/18 at 10:30 Docusate Sodium (Colace) 100 mg BID PRN PO CONSTIPATION; Start 05/02/18 at 10:30 Calcium/Vitamin D (Oyster Shell/ Vit-D (500/200)) 1 tab BID PO Last administered on 05/18/18 09:39; Admin Dose 1 TAB; Start 05/03/18 at 21:00 Prednisone (Prednisone) 20 mg DAILY PO Last administered on 05/18/18 09:39; Admin Dose 20 MG; Start 05/10/18 at 09:00 Sodium Chloride (Nacl) 1 gm TID PO Last administered on 05/18/18 09:39; Admin Dose 1 GM; Start 05/16/18 at 09:00 Sodium Chloride 1,000 ml @ 50 mls/hr Q20H IV Last administered on 05/18/18 11:11; Admin Dose 50 MLS/HR; Start 05/17/18 at 15:00 AKSHAT HAY May 18, 2018 15:17
[2018-05-18] MEDS: ATORVASTATIN 10 MG TAB PO SCH (20:19)
[2018-05-19 00:06] VITALS: BP 175/78; PULSE 78; RESP 19
[2018-05-19] MEDS: SOD CHLORIDE 0.9% 1,000 ML IV SCH ×2 (00:50→07:00)
[2018-05-19] MEDS: ALBUTEROL/IPRATROPIUM (NEB) 3 ML AMP INH SCH ×4 (01:26→19:43)
[2018-05-19 01:41] VITALS: BP 161/75; PULSE 72; RESP 20
[2018-05-19] MEDS: BUDESONIDE (NEB) 0.5MG/2ML AMP INH SCH ×2 (08:07→19:43)
[2018-05-19] MEDS: LEVOTHYROXINE 88 MCG TAB PO SCH (08:12)
[2018-05-19] MEDS: POLYETHYLENE GLYCOL 17 GM PACKET PO SCH (08:12)
[2018-05-19 08:15] VITALS: BP 132/61; PULSE 69; RESP 18
[2018-05-19] MEDS ORDERED: PENDING SANTYL ORDER FOR WOUND CARE XX PRN (08:30)
--- NOTE | 2018-05-19 08:53 | PN ---
Date/Time of Note Date/Time of Note DATE: 05/19/18 TIME: 08:53 Assessment/Plan VTE Prophylaxis Risk score (from Ns)>0 risk: 7 SCD applied (from [facility] [place], [place]): Yes Pharmacological prophylaxis: NA/contraindicated Pharm contraindication: bleeding Lines/Catheters IV Catheter Type (from [facility]): Peripheral IV Urinary Cath still in place: No Assessment/Plan Assessment/Plan 1. Hematuria - Monitoring for further episodes of hematuria - Urology on board and appreciate recommendations. urine cultures negative. Cytology negative x3. - LMWH on hold - H/H remains stable 2. UTI - ID consultation appreciated. completed course of antibiotics and antifungals 3. Acute hypoxic and hypercapnic respiratory failure- stable - patient at baseline and will follow with Electrocardiograph Repairer as outpatient - Pulm on board and appreciate recommendations - BIPAP qhs and NC during the day, machine delivered at home, arranged by patient's outpatient statistician theoretical 4. Hyponatremia- improving - Na levels trending up. Lost IV access and will monitor off fluids. continue salt tablets but if Na decreases will need demeclocycline - Nephrology on board and appreciate recommendations. 5. Anemia- stable - Secondary to acute blood loss anemia secondary to hematuria 6. Exacerbation of IPF- resolving - Follows with Pulm as outpatient. will need to continue on Pred 20mg daily 7. Hypothyroidism -Continue home meds 8. Dyslipidemia -Continue home meds 9. Disposition - Discussed plan of care with daughter, Shae. Will plan for discharge in am if patient remains stable Result Diagram: 05/18/18 1038 05/19/18 0515 Results 24hrs Laboratory Tests Test 05/18/18 10:38 05/19/18 05:15 05/19/18 06:21 White Blood Count 5.8 Red Blood Count 3.78 L Hemoglobin 10.4 L Hematocrit 33.6 L Mean Corpuscular Volume 88.9 Mean Corpuscular Hemoglobin 27.5 L Mean Corpuscular Hemoglobin Concent 31.0 L Red Cell Distribution Width 14.6 H Platelet Count 161 # Mean Platelet Volume 9.3 Immature Granulocytes % 0.700 H Neutrophils % 81.4 H Lymphocytes % 12.7 L Monocytes % 3.5 Eosinophils % 1.4 Basophils % 0.3 Nucleated Red Blood Cells % 0.0 Immature Granulocytes # 0.040 H Neutrophils # 4.7 Lymphocytes # 0.7 L Monocytes # 0.2 L Eosinophils # 0.1 Basophils # 0.0 Nucleated Red Blood Cells # 0.0 Sodium Level 128 L 129 L Potassium Level 4.6 4.6 Chloride Level 85 L 86 L Carbon Dioxide Level 37 H 38 H Anion Gap 6 5 Blood Urea Nitrogen 10 11 Creatinine 0.47 0.44 Est Glomerular Filtrat Rate mL/min Glucose Level 114 110 Calcium Level 8.7 8.6 Phosphorus Level 3.2 3.6 Magnesium Level 1.8 1.8 Bedside Glucose 114 Subjective 24 Hr Interval Summary Free Text/Dictation Patient resting comfortably with no acute issues. per night baker notes, no noted blood in urine. Exam/Review of Systems Exam Vitals Vital Signs Date Temp Pulse Resp B/P (MAP) Pulse Ox O2 O2 Flow FiO2 Time Delivery Rate 05/19/18 98.4 69 18 132/61 99 Nasal 2.0 08:15 (84) Cannula 05/17/18 32 08:14 Intake and Output 05/18/18 05/18/18 05/19/18 1515:00 23:00 07:00 IntakeIntake Total 800 ml 680 ml 300 ml BalanceBalance 800 ml 680 ml 300 ml Exam General: Patient is laying in bed. no acute distress. Neck: Supple, nontender, midline Respiratory: Diminished breath sounds. no wheezing appreciated Cardiovascular: regular rate and rhythm, no obvious murmurs Gastrointestinal: soft, non-tender to palpation, bowel sounds heard. Neurological: Moves all extremities spontaneously Skin: No new skin lesions Results Results 24hrs Laboratory Tests Test 05/18/18 10:38 05/19/18 05:15 05/19/18 06:21 White Blood Count 5.8 Red Blood Count 3.78 L Hemoglobin 10.4 L Hematocrit 33.6 L Mean Corpuscular Volume 88.9 Mean Corpuscular Hemoglobin 27.5 L Mean Corpuscular Hemoglobin Concent 31.0 L Red Cell Distribution Width 14.6 H Platelet Count 161 # Mean Platelet Volume 9.3 Immature Granulocytes % 0.700 H Neutrophils % 81.4 H Lymphocytes % 12.7 L Monocytes % 3.5 Eosinophils % 1.4 Basophils % 0.3 Nucleated Red Blood Cells % 0.0 Immature Granulocytes # 0.040 H Neutrophils # 4.7 Lymphocytes # 0.7 L Monocytes # 0.2 L Eosinophils # 0.1 Basophils # 0.0 Nucleated Red Blood Cells # 0.0 Sodium Level 128 L 129 L Potassium Level 4.6 4.6 Chloride Level 85 L 86 L Carbon Dioxide Level 37 H 38 H Anion Gap 6 5 Blood Urea Nitrogen 10 11 Creatinine 0.47 0.44 Est Glomerular Filtrat Rate mL/min Glucose Level 114 110 Calcium Level 8.7 8.6 Phosphorus Level 3.2 3.6 Magnesium Level 1.8 1.8 Bedside Glucose 114 Medications Medication Current Medications IV Flush (NS 3 ml) 3 ml PER PROTOCOL IV ; Start 04/27/18 at 03:00 Ondansetron HCl (Zofran Inj) 4 mg Q6H PRN IV NAUSEA/VOMITING; Start 04/27/18 at 03:00 Acetaminophen (Tylenol Tab) 650 mg Q6H PRN PO .PAIN 1-3 OR TEMP; Start 04/27/18 at 03:00 Aspirin (Ecotrin) 325 mg DAILY PO Last administered on 05/11/18 09:00; Admin Dose 325 MG; Start 04/27/18 at 09:00; Status Hold Albuterol/ Ipratropium (Duoneb) 3 ml Q6H RESP THERAPY INH Last administered on 05/19/18 07:58; Admin Dose 3 ML; Start 04/27/18 at 08:00 Levothyroxine Sodium (Synthroid) 88 mcg BEFORE BREAKFAST PO Last administered on 05/19/18 08:12; Admin Dose 88 MCG; Start 04/27/18 at 07:00 Atorvastatin Calcium (Lipitor) 10 mg DAILY@21 PO Last administered on 05/18/18 20:19; Admin Dose 10 MG; Start 04/27/18 at 21:00 Albuterol/ Ipratropium (Duoneb) 3 ml Q2H RESP THERAPY PRN HHN shortness of breath; Start 04/27/18 at 10:00 Enoxaparin Sodium (Lovenox) 40 mg DAILY SC Last administered on 05/11/18 08:58; Admin Dose 40 MG; Start 04/28/18 at 09:00; Status Hold Budesonide (Pulmicort (Neb)) 0.5 mg BID RESP THERAPY INH Last administered on 05/19/18 08:07; Admin Dose 0.5 MG; Start 04/29/18 at 09:00 Hydralazine HCl (Apresoline) 10 mg Q4H PRN IV SBP >160 Last administered on 05/02/18at 18:50; Admin Dose 10 MG; Start 05/01/18 at 13:00 Polyethylene Glycol (Miralax) 17 gm DAILY PO Last administered on 05/19/18at 08:12; Admin Dose 17 GM; Start 05/02/18 at 10:30 Docusate Sodium (Colace) 100 mg BID PRN PO CONSTIPATION; Start 05/02/18 at 10:30 Calcium/Vitamin D (Oyster Shell/ Vit-D (500/200)) 1 tab BID PO Last administered on 05/18/18 20:19; Admin Dose 1 TAB; Start 05/03/18 at 21:00 Prednisone (Prednisone) 20 mg DAILY PO Last administered on 05/18/18 09:39; Admin Dose 20 MG; Start 05/10/18 at 09:00 Sodium Chloride (Nacl) 1 gm TID PO Last administered on 05/18/18 20:19; Admin Dose 1 GM; Start 05/16/18 at 09:00 Sodium Chloride 1,000 ml @ 50 mls/hr Q20H IV Last administered on 05/19/18at 00:50; Admin Dose 50 MLS/HR; Start 05/17/18 at 15:00 Miscellaneous Information (Pending Santyl Order For Wound Care) This patient bradshaw... PRN PRN XX WOUND CARE; Start 05/19/18 at 08:30 KALEB JAIMES MD May 19, 2018 08:53
[2018-05-19] MEDS: predniSONE 20 MG TAB PO SCH (09:44)
[2018-05-19] MEDS: CALCIUM/VITAMIN D (500/200) TAB PO SCH ×2 (09:44→20:44)
[2018-05-19] MEDS: SODIUM CHLORIDE 1 GM TAB PO SCH ×3 (09:44→20:44)
[2018-05-19] MEDS: BALSAM PERU/CASTOR OIL 60 GM TUBE TOP SCH ×3 (09:45→20:44)
--- NOTE | 2018-05-19 12:28 | CONS ---
Assessment/Plan Assessment/Plan Assessment/Plan (Daily) 1. Hyponatremia, etiology is felt to be secondary to syndrome of inappropriate antidiuretic hormone with a possible component of hypovolemia. The patient's sodium levels were declining despite free water restriction, salt tablets. pt was given IVF on monday with improvement of Na. now off of IVF. if Na doesn't improve, will start demeclocycline. We will continue to monitor sodium levels closely. 2. Mild hyperkalemia, resolved. Continue to monitor. 3. Anemia. Monitor hemoglobin and hematocrit levels. 3. Acute hypoxemic respiratory failure secondary to pulmonary fibrosis, pneumonia. Continue prednisone. 5. Hypothyroidism. Continue Synthroid. 6. Dyslipidemia. Continue statin therapy. 7. Encephalopathy, etiology toxic metabolic. 8. Urinary tract infection. Patient completing antibiotic course. Consultation Date/Type/Reason Admit Date/Time Apr 27, 2018 at 02:15 Initial Consult Date 05/11/18 Requesting Provider: MERNA BLAKE Date/Time of Note DATE: 05/19/18 TIME: 12:27 24 HR Interval Summary Free Text/Dictation s/p IVF denies shortness of breath trying to eat. denies n/v gen nad cv rrr pulm ctab abd soft, nd ,nt +bs ext: no edema Exam/Review of Systems Exam Vitals Vital Signs Date Temp Pulse Resp B/P (MAP) Pulse Ox O2 O2 Flow FiO2 Time Delivery Rate 05/19/18 98.4 69 18 132/61 99 Nasal 2.0 08:15 (84) Cannula 05/17/18 32 08:14 Intake and Output 05/18/18 05/18/18 05/19/18 1515:00 23:00 07:00 IntakeIntake Total 800 ml 680 ml 300 ml BalanceBalance 800 ml 680 ml 300 ml Results Result Diagram: 05/18/18 1038 05/19/18 0515 Results 24hrs Laboratory Tests Test 05/19/18 05:15 05/19/18 06:21 Sodium Level 129 L Potassium Level 4.6 Chloride Level 86 L Carbon Dioxide Level 38 H Anion Gap 5 Blood Urea Nitrogen 11 Creatinine 0.44 Est Glomerular Filtrat Rate mL/min Glucose Level 110 Calcium Level 8.6 Phosphorus Level 3.6 Magnesium Level 1.8 Bedside Glucose 114 Medications Medication Current Medications IV Flush (NS 3 ml) 3 ml PER PROTOCOL IV ; Start 04/27/18 at 03:00 Ondansetron HCl (Zofran Inj) 4 mg Q6H PRN IV NAUSEA/VOMITING; Start 04/27/18 at 03:00 Acetaminophen (Tylenol Tab) 650 mg Q6H PRN PO .PAIN 1-3 OR TEMP; Start 04/27/18 at 03:00 Aspirin (Ecotrin) 325 mg DAILY PO Last administered on 05/11/18 09:00; Admin Dose 325 MG; Start 04/27/18 at 09:00; Status Hold Albuterol/ Ipratropium (Duoneb) 3 ml Q6H RESP THERAPY INH Last administered on 05/19/18 07:58; Admin Dose 3 ML; Start 04/27/18 at 08:00 Levothyroxine Sodium (Synthroid) 88 mcg BEFORE BREAKFAST PO Last administered on 05/19/18 08:12; Admin Dose 88 MCG; Start 04/27/18 at 07:00 Atorvastatin Calcium (Lipitor) 10 mg DAILY@21 PO Last administered on 05/18/18 20:19; Admin Dose 10 MG; Start 04/27/18 at 21:00 Albuterol/ Ipratropium (Duoneb) 3 ml Q2H RESP THERAPY PRN HHN shortness of breath; Start 04/27/18 at 10:00 Enoxaparin Sodium (Lovenox) 40 mg DAILY SC Last administered on 05/11/18 08:58; Admin Dose 40 MG; Start 04/28/18 at 09:00; Status Hold Budesonide (Pulmicort (Neb)) 0.5 mg BID RESP THERAPY INH Last administered on 05/19/18 08:07; Admin Dose 0.5 MG; Start 04/29/18 at 09:00 Hydralazine HCl (Apresoline) 10 mg Q4H PRN IV SBP >160 Last administered on 05/02/18 18:50; Admin Dose 10 MG; Start 05/01/18 at 13:00 Polyethylene Glycol (Miralax) 17 gm DAILY PO Last administered on 05/19/18 08:12; Admin Dose 17 GM; Start 05/02/18 at 10:30 Docusate Sodium (Colace) 100 mg BID PRN PO CONSTIPATION; Start 05/02/18 at 10:30 Calcium/Vitamin D (Oyster Shell/ Vit-D (500/200)) 1 tab BID PO Last administered on 05/19/18 09:44; Admin Dose 1 TAB; Start 05/03/18 at 21:00 Prednisone (Prednisone) 20 mg DAILY PO Last administered on 05/19/18 09:44; Admin Dose 20 MG; Start 05/10/18 at 09:00 Sodium Chloride (Nacl) 1 gm TID PO Last administered on 05/19/18 12:10; Admin Dose 1 GM; Start 05/16/18 at 09:00 Miscellaneous Information (Pending Santyl Order For Wound Care) This patient bradshaw... PRN PRN XX WOUND CARE; Start 05/19/18 at 08:30 TORIBIO BLAKE MD May 19, 2018 12:28
--- NOTE | 2018-05-19 12:40 | CONS ---
Assessment/Plan Assessment/Plan Hospital Course (Demo Recall) All noted, no events per report Microbiology: Blood cultures since admission negative urinalysis was positive for yeast. Patient is on fluconazole, s/p cefepime Physical examination: This is a fragile very pleasant elderly woman who is awake in no distress. Head atraumatic normocephalic. Neck is supple chest rise symmetrical breath sounds diminished bases abdomen soft bowel sounds present extremities without cyanosis Assessment: 1. Acute on chronic hypoxemic respiratory failure 2. Possible pneumonia==> treated 3. Idiopathic pulmonary fibrosis status post exacerbation 4. Fungal UTI==> treated 5. Hematuria Plan: Off abx, repeat urine cx neg, continue present care Consultation Date/Type/Reason Admit Date/Time Apr 27, 2018 at 02:15 Initial Consult Date Type of Consult id Requesting Provider: MERNA BLAKE Date/Time of Note DATE: 05/19/18 TIME: 12:39 Exam/Review of Systems Exam Vitals Vital Signs Date Temp Pulse Resp B/P (MAP) Pulse Ox O2 O2 Flow FiO2 Time Delivery Rate 05/19/18 98.4 69 18 132/61 99 Nasal 2.0 08:15 (84) Cannula 05/17/18 32 08:14 Intake and Output 05/18/18 05/18/18 05/19/18 1515:00 23:00 07:00 IntakeIntake Total 800 ml 680 ml 300 ml BalanceBalance 800 ml 680 ml 300 ml Results Result Diagram: 05/18/18 1038 05/19/18 0515 Results 24hrs Laboratory Tests Test 05/19/18 05:15 05/19/18 06:21 Sodium Level 129 L Potassium Level 4.6 Chloride Level 86 L Carbon Dioxide Level 38 H Anion Gap 5 Blood Urea Nitrogen 11 Creatinine 0.44 Est Glomerular Filtrat Rate mL/min Glucose Level 110 Calcium Level 8.6 Phosphorus Level 3.6 Magnesium Level 1.8 Bedside Glucose 114 Medications Medication Current Medications IV Flush (NS 3 ml) 3 ml PER PROTOCOL IV ; Start 04/27/18 at 03:00 Ondansetron HCl (Zofran Inj) 4 mg Q6H PRN IV NAUSEA/VOMITING; Start 04/27/18 at 03:00 Acetaminophen (Tylenol Tab) 650 mg Q6H PRN PO .PAIN 1-3 OR TEMP; Start 04/27/18 at 03:00 Aspirin (Ecotrin) 325 mg DAILY PO Last administered on 05/11/18 09:00; Admin Dose 325 MG; Start 04/27/18 at 09:00; Status Hold Albuterol/ Ipratropium (Duoneb) 3 ml Q6H RESP THERAPY INH Last administered on 05/19/18 07:58; Admin Dose 3 ML; Start 04/27/18 at 08:00 Levothyroxine Sodium (Synthroid) 88 mcg BEFORE BREAKFAST PO Last administered on 05/19/18 08:12; Admin Dose 88 MCG; Start 04/27/18 at 07:00 Atorvastatin Calcium (Lipitor) 10 mg DAILY@21 PO Last administered on 05/18/18 20:19; Admin Dose 10 MG; Start 04/27/18 at 21:00 Albuterol/ Ipratropium (Duoneb) 3 ml Q2H RESP THERAPY PRN HHN shortness of breath; Start 04/27/18 at 10:00 Enoxaparin Sodium (Lovenox) 40 mg DAILY SC Last administered on 05/11/18 08:58; Admin Dose 40 MG; Start 04/28/18 at 09:00; Status Hold Budesonide (Pulmicort (Neb)) 0.5 mg BID RESP THERAPY INH Last administered on 05/19/18 08:07; Admin Dose 0.5 MG; Start 04/29/18 at 09:00 Hydralazine HCl (Apresoline) 10 mg Q4H PRN IV SBP >160 Last administered on 18:50; Admin Dose 10 MG; Start 05/01/18 at 13:00 Polyethylene Glycol (Miralax) 17 gm DAILY PO Last administered on 05/19/18 08:12; Admin Dose 17 GM; Start 05/02/18 at 10:30 Docusate Sodium (Colace) 100 mg BID PRN PO CONSTIPATION; Start 05/02/18 at 10:30 Calcium/Vitamin D (Oyster Shell/ Vit-D (500/200)) 1 tab BID PO Last administered on 05/19/18 09:44; Admin Dose 1 TAB; Start 05/03/18 at 21:00 Prednisone (Prednisone) 20 mg DAILY PO Last administered on 05/19/18 09:44; Admin Dose 20 MG; Start 05/10/18 at 09:00 Sodium Chloride (Nacl) 1 gm TID PO Last administered on 05/19/18at 12:10; Admin Dose 1 GM; Start 05/16/18 at 09:00 Miscellaneous Information (Pending Santyl Order For Wound Care) This patient bradshaw... PRN PRN XX WOUND CARE; Start 05/19/18 at 08:30 EDUIN MANTILLA NP May 19, 2018 12:40
[2018-05-19 14:00] VITALS: BP 129/59; PULSE 80; RESP 18
--- NOTE | 2018-05-19 15:21 | CONS ---
Consult Date/Type/Reason Admit Date/Time Apr 27, 2018 at 02:15 Initial Consult Date 05/11/18 Type of Consultation: Urology Reason for Consultation Hematuria Requesting Provider: MERNA BLAKE Date/Time of Note DATE: 05/19/18 TIME: 15:15 Subjective Patient is awake and appears to be comfortable. When she is asked if she is voiding and she says she has and she does not know whether there is any blood in her urine. Objective Vitals Vital Signs Date Temp Pulse Resp B/P (MAP) Pulse Ox O2 O2 Flow FiO2 Time Delivery Rate 05/19/18 98 2.0 14:44 05/19/18 82 18 Nasal 14:37 Cannula 05/19/18 98.4 132/61 08:15 (84) 05/17/18 32 08:14 Intake and Output 05/18/18 05/18/18 05/19/18 1515:00 23:00 07:00 IntakeIntake Total 800 ml 680 ml 300 ml BalanceBalance 800 ml 680 ml 300 ml Exam According to her nurse today the patient is voiding and there is blood stain on the pads. Results/Medications Result Diagram: 05/18/18 1038 05/19/18 0515 Results 24 hrs Laboratory Tests Test 05/19/18 05:15 05/19/18 06:21 Sodium Level 129 L Potassium Level 4.6 Chloride Level 86 L Carbon Dioxide Level 38 H Anion Gap 5 Blood Urea Nitrogen 11 Creatinine 0.44 Est Glomerular Filtrat Rate mL/min Glucose Level 110 Calcium Level 8.6 Phosphorus Level 3.6 Magnesium Level 1.8 Bedside Glucose 114 Home Meds Reported Medications Formoterol Fumarate (Perforomist) 20 Mcg/2 Ml Vial.neb, 20 MCG INHALATION BID, VIAL 03/28/18 Ipratropium [place] (Ipratropium [place]) 5 Gm Powder, 10.5 MG MC BID 03/28/18 Ipratropium-Albuterol (Ipratropium-Albuterol) 0.5-3 Mg/3 Ml Ampul.neb, 3 ML INHALATION Q6, #30 VIAL 03/28/18 Budesonide* (Budesonide*) 0.25 Mg/2 Ml Ampul.neb, 0.25 MG INHALATION BID, AMP 03/28/18 Cholecalciferol* (Vitamin D3*) 1,000 Unit Tablet, 1000 UNIT PO DAILY, TAB 03/28/18 Simvastatin* (Zocor*) 20 Mg Tablet, 20 MG PO QHS, #30 TAB 03/28/18 Aspirin* (Aspirin* EC) 325 Mg Tab, 325 MG PO DAILY, TAB 03/28/18 Levothyroxine Sodium* (Levothyroxine Sodium*) 88 Mcg Tablet, 88 MCG PO BEFORE BREAKFAST, #30 TAB 03/28/18 Medications Current Medications IV Flush (NS 3 ml) 3 ml PER PROTOCOL IV ; Start 04/27/18 at 03:00 Ondansetron HCl (Zofran Inj) 4 mg Q6H PRN IV NAUSEA/VOMITING; Start 04/27/18 at 03:00 Acetaminophen (Tylenol Tab) 650 mg Q6H PRN PO .PAIN 1-3 OR TEMP; Start 04/27/18 at 03:00 Aspirin (Ecotrin) 325 mg DAILY PO Last administered on 05/11/18at 09:00; Admin Dose 325 MG; Start 04/27/18 at 09:00; Status Hold Albuterol/ Ipratropium (Duoneb) 3 ml Q6H RESP THERAPY INH Last administered on 05/19/18at 14:37; Admin Dose 3 ML; Start 04/27/18 at 08:00 Levothyroxine Sodium (Synthroid) 88 mcg BEFORE BREAKFAST PO Last administered on 05/19/18at 08:12; Admin Dose 88 MCG; Start 04/27/18 at 07:00 Atorvastatin Calcium (Lipitor) 10 mg DAILY@21 PO Last administered on 05/18/18at 20:19; Admin Dose 10 MG; Start 04/27/18 at 21:00 Albuterol/ Ipratropium (Duoneb) 3 ml Q2H RESP THERAPY PRN HHN shortness of breath; Start 04/27/18 at 10:00 Enoxaparin Sodium (Lovenox) 40 mg DAILY SC Last administered on 05/11/18at 08:58; Admin Dose 40 MG; Start 04/28/18 at 09:00; Status Hold Budesonide (Pulmicort (Neb)) 0.5 mg BID RESP THERAPY INH Last administered on 05/19/18at 08:07; Admin Dose 0.5 MG; Start 04/29/18 at 09:00 Hydralazine HCl (Apresoline) 10 mg Q4H PRN IV SBP >160 Last administered on 05/02/18 18:50; Admin Dose 10 MG; Start 05/01/18 at 13:00 Polyethylene Glycol (Miralax) 17 gm DAILY PO Last administered on 05/19/18 08:12; Admin Dose 17 GM; Start 05/02/18 at 10:30 Docusate Sodium (Colace) 100 mg BID PRN PO CONSTIPATION; Start 05/02/18 at 10:30 Calcium/Vitamin D (Oyster Shell/ Vit-D (500/200)) 1 tab BID PO Last administered on 05/19/18 09:44; Admin Dose 1 TAB; Start 05/03/18 at 21:00 Prednisone (Prednisone) 20 mg DAILY PO Last administered on 05/19/18 09:44; Admin Dose 20 MG; Start 05/10/18 at 09:00 Sodium Chloride (Nacl) 1 gm TID PO Last administered on 05/19/18 12:10; Admin Dose 1 GM; Start 05/16/18 at 09:00 Miscellaneous Information (Pending [facility] Order For Wound Care) This patient bradshaw... PRN PRN XX WOUND CARE; Start 05/19/18 at 08:30 Assessment/Plan Hospital Course (Demo Recall) 87-year-old female with a history of dementia, pulmonary fibrosis, hypothyroidism, dyslipidemia was brought to the ER after she was found unresponsive. She was given promethazine the night before her admission and about 30 minutes or so after when the family tries to wake her up, she was very lethargic and difficult to arouse. It took about 10 minutes for the patient to wake up. No focal weakness/numbness, seizure-like activity, facial droop, slurred speech reported. Patient was admitted here last month for syncope which was thought to be from hypoxia caused by her pulmonary fibrosis. At that time echo and carotid Doppler ultrasound were nondiagnostic. Reportedly patient has been coughing, which is chronic. Patient had a Rajan catheter inserted on admission this time and the urine was noted to be bloody therefore the catheter was changed and a three-way Rajan catheter was inserted and continuous bladder irrigation was started. A urological consultation was requested because of the hematuria. I did talk to her 2 daughters. There is no history of hematuria before. No history of kidney stones. At the present the return from the bladder irrigation is clear to blood-tinged Renal ultrasound was normal. Urine cytology is negative on 3 specimen.. I did talk with Dr. Hernández about this patient and discussed with him her condition. I had the patient scheduled for cystoscopy today and possible TUR bladder tumor if one is found and or bladder biopsy and retrograde pyelograms. The family did not want to go through that stating that she cannot have any sedation/anesthesia. I did talk to her daughter for almost 25 minutes and discussed with her the possible causes of the hematuria. My feeling is that most likely we'll find nothing serious but I cannot tell her there is nothing without checking. The bleeding could be because of irritation, infection but also could be because of a tumor in the bladder or ureters or renal pelvis. We had her on the bladder irrigation for a while and that did not clear it co mpletely yet. The daughter mentioned that the mother has had bladder prolapse and they tried pessary on her before. I doubt that the bladder prolapse is causing her hematuria. The Rajan catheter has since been removed and the patient is voiding but according to the nursing today there was some blood stained on the pads. The urine culture showed no growth. We will just watch LINDSAY JULIO MD May 19, 2018 15:21
--- NOTE | 2018-05-19 15:55 | CONS ---
Assessment/Plan Assessment/Plan Hospital Course (Demo Recall) IMPRESSION: 1. Abnormal echocardiogram, assess for acute coronary syndrome.-neg x 3 since ecg abnl seen by tele. NO chest pain according to family member at bedside. repeat ecg today with inferior q's and only borderline J point elevation single lead 2. Cardiac arrhythmia. Continue to follow.-SR by tele 3. Hyponatremia- ongoing 4. Pulmonary fibrosis. 5. Dementia. 6. Urinary tract infection. 7. Leukocytosis and anemia. 8. Hematuria-improving but ongoing, sp removal of strange Recc: -Now on med-surg -serial ecg's -contineu statin -Follow BP closely off of antihypertensives -Home BIPAP being set up -Continue steroids/bronchodilators -Holding asa/lovenox due to hematuria -follow volume status closely Consultation Date/Type/Reason Admit Date/Time Apr 27, 2018 at 02:15 Initial Consult Date 05/09/18 Type of Consult Cardiology Reason for Consultation abnl ecg Requesting Provider: MERNA BLAKE Date/Time of Note DATE: 05/19/18 TIME: 15:51 Exam/Review of Systems Vital Signs Vitals Vital Signs Date Temp Pulse Resp B/P (MAP) Pulse Ox O2 O2 Flow FiO2 Time Delivery Rate 05/19/18 98 2.0 14:44 05/19/18 82 18 Nasal 14:37 Cannula 05/19/18 97.3 129/59 14:00 (82) 05/17/18 32 08:14 Intake and Output 05/18/18 05/18/18 05/19/18 1515:00 23:00 07:00 IntakeIntake Total 800 ml 680 ml 300 ml BalanceBalance 800 ml 680 ml 300 ml Exam Exam Review of Systems: CONSTITUTIONAL: No fevers, chills. PULMONARY: No sob CARDIOVASCULAR: No chest pain/palpitations GASTROINTESTINAL: No nausea/vomiting. GENITOURINARY: No hematuria/dysuria. MUSCULOSKELETAL: No myagias/arthalgias. PSYCHIATRIC: The patient denies depression. NEUROLOGIC: No weakness Constitutional: alert Psych: no complaints Head: normocephalic ENMT: mucosa pink and moist Neck: supple Cardiovascular: regular rate and rhythm Gastrointestinal: soft, non-tender Extremities: edema (none) Neurological: other (No focal deficits) Labs Result Diagram: 05/18/18 1038 05/19/18 0515 Results 24hrs Laboratory Tests Test 05/19/18 05:15 05/19/18 06:21 Sodium Level 129 L Potassium Level 4.6 Chloride Level 86 L Carbon Dioxide Level 38 H Anion Gap 5 Blood Urea Nitrogen 11 Creatinine 0.44 Est Glomerular Filtrat Rate mL/min Glucose Level 110 Calcium Level 8.6 Phosphorus Level 3.6 Magnesium Level 1.8 Bedside Glucose 114 Medications Medications Current Medications IV Flush (NS 3 ml) 3 ml PER PROTOCOL IV ; Start 04/27/18 at 03:00 Ondansetron HCl (Zofran Inj) 4 mg Q6H PRN IV NAUSEA/VOMITING; Start 04/27/18 at 03:00 Acetaminophen (Tylenol Tab) 650 mg Q6H PRN PO .PAIN 1-3 OR TEMP; Start 04/27/18 at 03:00 Aspirin (Ecotrin) 325 mg DAILY PO Last administered on 05/11/18 09:00; Admin Dose 325 MG; Start 04/27/18 at 09:00; Status Hold Albuterol/ Ipratropium (Duoneb) 3 ml Q6H RESP THERAPY INH Last administered on 05/19/18at 14:37; Admin Dose 3 ML; Start 04/27/18 at 08:00 Levothyroxine Sodium (Synthroid) 88 mcg BEFORE BREAKFAST PO Last administered on 05/19/18 08:12; Admin Dose 88 MCG; Start 04/27/18 at 07:00 Atorvastatin Calcium (Lipitor) 10 mg DAILY@21 PO Last administered on 05/18/18 20:19; Admin Dose 10 MG; Start 04/27/18 at 21:00 Albuterol/ Ipratropium (Duoneb) 3 ml Q2H RESP THERAPY PRN HHN shortness of breath; Start 04/27/18 at 10:00 Enoxaparin Sodium (Lovenox) 40 mg DAILY SC Last administered on 05/11/18at 08:58; Admin Dose 40 MG; Start 04/28/18 at 09:00; Status Hold Budesonide (Pulmicort (Neb)) 0.5 mg BID RESP THERAPY INH Last administered on 05/19/18 08:07; Admin Dose 0.5 MG; Start 04/29/18 at 09:00 Hydralazine HCl (Apresoline) 10 mg Q4H PRN IV SBP >160 Last administered on 05/02/18 18:50; Admin Dose 10 MG; Start 05/01/18 at 13:00 Polyethylene Glycol (Miralax) 17 gm DAILY PO Last administered on 05/19/18 08:12; Admin Dose 17 GM; Start 05/02/18 at 10:30 Docusate Sodium (Colace) 100 mg BID PRN PO CONSTIPATION; Start 05/02/18 at 10:30 Calcium/Vitamin D (Oyster Shell/ Vit-D (500/200)) 1 tab BID PO Last administered on 05/19/18 09:44; Admin Dose 1 TAB; Start 05/03/18 at 21:00 Prednisone (Prednisone) 20 mg DAILY PO Last administered on 05/19/18 09:44; Admin Dose 20 MG; Start 05/10/18 at 09:00 Sodium Chloride (Nacl) 1 gm TID PO Last administered on 05/19/18 12:10; Admin Dose 1 GM; Start 05/16/18 at 09:00 Miscellaneous Information ([facility]) This patient bradshaw... PRN PRN XX WOUND CARE; Start 05/19/18 at 08:30 AKSHAT HAY May 19, 2018 15:55
[2018-05-19 20:17] VITALS: BP 119/59; PULSE 76; RESP 18
[2018-05-19] MEDS: ATORVASTATIN 10 MG TAB PO SCH (20:44)
[2018-05-20] MEDS: ALBUTEROL/IPRATROPIUM (NEB) 3 ML AMP INH SCH ×2 (02:37→09:11)
[2018-05-20] MEDS: LEVOTHYROXINE 88 MCG TAB PO SCH ×2 (06:57→08:32)
[2018-05-20 07:38] VITALS: BP 123/58; PULSE 72; RESP 16
[2018-05-20] MEDS: CALCIUM/VITAMIN D (500/200) TAB PO SCH (08:31)
[2018-05-20] MEDS: POLYETHYLENE GLYCOL 17 GM PACKET PO SCH (08:31)
[2018-05-20] MEDS: predniSONE 20 MG TAB PO SCH (08:31)
[2018-05-20] MEDS: BALSAM PERU/CASTOR OIL 60 GM TUBE TOP SCH (08:31)
[2018-05-20] MEDS: SODIUM CHLORIDE 1 GM TAB PO SCH ×2 (08:31→12:27)
--- NOTE | 2018-05-20 08:49 | PN ---
Date/Time of Note Date/Time of Note DATE: 05/20/18 TIME: 08:49 Assessment/Plan VTE Prophylaxis Risk score (from Ns)>0 risk: 8 SCD applied (from [facility] [place] Yes Pharmacological prophylaxis: NA/contraindicated Pharm contraindication: bleeding Lines/Catheters IV Catheter Type (from [facility]): Peripheral IV Urinary Cath still in place: No Assessment/Plan Assessment/Plan 1. Hematuria- improving - Hgb has remained stable - Urology on board and appreciate recommendations. urine cultures negative. Cytology negative x3. 2. UTI- resolved - ID consultation appreciated. completed course of antibiotics and antifungals 3. Acute hypoxic and hypercapnic respiratory failure- stable - patient at baseline and will follow with Health Claims Examiner as outpatient - Pulm on board and appreciate recommendations - BIPAP qhs and NC during the day, machine delivered at home, arranged by patient's outpatient roll edge machine operator 4. Hyponatremia- improving - Na levels trending up. continue salt tablets - Nephrology on board and appreciate recommendations. 5. Anemia- stable - Secondary to acute blood loss anemia secondary to hematuria 6. Exacerbation of IPF- resolved - Follows with Pulm as outpatient. will need to continue on Pred 20mg daily 7. Hypothyroidism -Continue home meds 8. Dyslipidemia -Continue home meds 9. Disposition - Medically stable for discharge home Result Diagram: 05/18/18 1038 05/19/18 0515 Subjective 24 Hr Interval Summary Free Text/Dictation Patient is doing well and no acute overnight events. No new complaints. Family at bedside. Exam/Review of Systems Exam Vitals Vital Signs Date Temp Pulse Resp B/P (MAP) Pulse Ox O2 O2 Flow FiO2 Time Delivery Rate 05/20/18 Nasal 2.0 07:41 Cannula 05/20/18 98.2 72 16 123/58 98 07:38 (79) 05/17/18 32 08:14 Intake and Output 05/19/18 05/19/18 05/20/18 1515:00 23:00 07:00 IntakeIntake Total 720 ml 240 ml 200 ml BalanceBalance 720 ml 240 ml 200 ml Exam General: Patient is laying in bed. no acute distress. Neck: Supple, nontender, midline Respiratory: Diminished breath sounds. no wheezing appreciated Cardiovascular: regular rate and rhythm, no obvious murmurs Gastrointestinal: soft, non-tender to palpation, bowel sounds heard. Neurological: Moves all extremities spontaneously Skin: No new skin lesions Medications Medication Current Medications IV Flush (NS 3 ml) 3 ml PER PROTOCOL IV ; Start 04/27/18 at 03:00 Ondansetron HCl (Zofran Inj) 4 mg Q6H PRN IV NAUSEA/VOMITING; Start 04/27/18 at 03:00 Acetaminophen (Tylenol Tab) 650 mg Q6H PRN PO .PAIN 1-3 OR TEMP; Start 04/27/18 at 03:00 Aspirin (Ecotrin) 325 mg DAILY PO Last administered on 05/11/18 09:00; Admin Dose 325 MG; Start 04/27/18 at 09:00; Status Hold Albuterol/ Ipratropium (Duoneb) 3 ml Q6H RESP THERAPY INH Last administered on 05/20/18 02:37; Admin Dose 3 ML; Start 04/27/18 at 08:00 Levothyroxine Sodium (Synthroid) 88 mcg BEFORE BREAKFAST PO Last administered on 05/20/18 08:32; Admin Dose 88 MCG; Start 04/27/18 at 07:00 Atorvastatin Calcium (Lipitor) 10 mg DAILY@21 PO Last administered on 05/19/18 20:44; Admin Dose 10 MG; Start 04/27/18 at 21:00 Albuterol/ Ipratropium (Duoneb) 3 ml Q2H RESP THERAPY PRN HHN shortness of breath; Start 04/27/18 at 10:00 Enoxaparin Sodium (Lovenox) 40 mg DAILY SC Last administered on 05/11/18 08:58; Admin Dose 40 MG; Start 04/28/18 at 09:00; Status Hold Budesonide (Pulmicort (Neb)) 0.5 mg BID RESP THERAPY INH Last administered on 05/19/18 19:43; Admin Dose 0.5 MG; Start 04/29/18 at 09:00 Hydralazine HCl (Apresoline) 10 mg Q4H PRN IV SBP >160 Last administered on 05/02/18 18:50; Admin Dose 10 MG; Start 05/01/18 at 13:00 Polyethylene Glycol (Miralax) 17 gm DAILY PO Last administered on 05/20/18 08:31; Admin Dose 17 GM; Start 05/02/18 at 10:30 Docusate Sodium (Colace) 100 mg BID PRN PO CONSTIPATION; Start 05/02/18 at 10:30 Calcium/Vitamin D (Oyster Shell/ Vit-D (500/200)) 1 tab BID PO Last administered on 05/20/18at 08:31; Admin Dose 1 TAB; Start 05/03/18 at 21:00 Prednisone (Prednisone) 20 mg DAILY PO Last administered on 05/20/18at 08:31; Admin Dose 20 MG; Start 05/10/18 at 09:00 Sodium Chloride (Nacl) 1 gm TID PO Last administered on 05/20/18 08:31; Admin Dose 1 GM; Start 05/16/18 at 09:00 Miscellaneous Information (Pending [facility] Order For Wound Care) This patient bradshaw... PRN PRN XX WOUND CARE; Start 05/19/18 at 08:30 KALEB JAIMES MD May 20, 2018 08:49
[2018-05-20] MEDS: BUDESONIDE (NEB) 0.5MG/2ML AMP INH SCH (09:11)
--- NOTE | 2018-05-20 13:06 | CONS ---
Assessment/Plan Assessment/Plan Assessment/Plan (Daily) 1. Hyponatremia, etiology is felt to be secondary to syndrome of inappropriate antidiuretic hormone with a possible component of hypovolemia. now euvolemic. Sodium improving. cont NaCl. We will continue to monitor sodium levels closely. 2. Mild hyperkalemia, resolved. Continue to monitor. 3. Anemia. Monitor hemoglobin and hematocrit levels. 3. Acute hypoxemic respiratory failure secondary to pulmonary fibrosis, pneumonia. Continue prednisone. 5. Hypothyroidism. Continue Synthroid. 6. Dyslipidemia. Continue statin therapy. 7. Encephalopathy, etiology toxic metabolic. 8. Urinary tract infection. s/p abx Consultation Date/Type/Reason Admit Date/Time Apr 27, 2018 at 02:15 Initial Consult Date 05/11/18 Requesting Provider: MERNA BLAKE Date/Time of Note DATE: 05/20/18 TIME: 13:04 24 HR Interval Summary Free Text/Dictation denies shortness of breath or n/v d/w rn gen nad cv rrr pulm ctab abd soft, nd, nt +bs ext: no edema Exam/Review of Systems Exam Vitals Vital Signs Date Temp Pulse Resp B/P (MAP) Pulse Ox O2 O2 Flow FiO2 Time Delivery Rate 05/20/18 96 2.0 09:12 05/20/18 79 20 Nasal 09:12 Cannula 05/20/18 98.2 123/58 07:38 (79) 05/17/18 32 08:14 Intake and Output 05/19/18 05/19/18 05/20/18 1515:00 23:00 07:00 IntakeIntake Total 720 ml 240 ml 200 ml BalanceBalance 720 ml 240 ml 200 ml Results Result Diagram: 05/20/18 0839 05/20/18 0839 Results 24hrs Laboratory Tests Test 05/20/18 08:39 White Blood Count 4.4 #L Red Blood Count 3.58 L Hemoglobin 9.9 L Hematocrit 31.6 L Mean Corpuscular Volume 88.3 Mean Corpuscular Hemoglobin 27.7 L Mean Corpuscular Hemoglobin Concent 31.3 L Red Cell Distribution Width 14.3 Platelet Count 122 #L Mean Platelet Volume 9.2 Immature Granulocytes % 0.500 H Neutrophils % 76.9 Lymphocytes % 16.0 Monocytes % 4.1 Eosinophils % 2.3 Basophils % 0.2 Nucleated Red Blood Cells % 0.0 Immature Granulocytes # 0.020 Neutrophils # 3.4 Lymphocytes # 0.7 L Monocytes # 0.2 L Eosinophils # 0.1 Basophils # 0.0 Nucleated Red Blood Cells # 0.0 Sodium Level 130 L Potassium Level 4.5 Chloride Level 86 L Carbon Dioxide Level 38 H Anion Gap 6 Blood Urea Nitrogen 12 Creatinine 0.51 Glucose Level 120 Calcium Level 9.0 Phosphorus Level 3.5 Magnesium Level 1.8 Albumin 2.9 L Medications Medication Current Medications IV Flush (NS 3 ml) 3 ml PER PROTOCOL IV ; Start 04/27/18 at 03:00 Ondansetron HCl (Zofran Inj) 4 mg Q6H PRN IV NAUSEA/VOMITING; Start 04/27/18 at 03:00 Acetaminophen (Tylenol Tab) 650 mg Q6H PRN PO .PAIN 1-3 OR TEMP; Start 04/27/18 at 03:00 Aspirin (Ecotrin) 325 mg DAILY PO Last administered on 05/11/18 09:00; Admin Dose 325 MG; Start 04/27/18 at 09:00; Status Hold Albuterol/ Ipratropium (Duoneb) 3 ml Q6H RESP THERAPY INH Last administered on 05/20/18 09:11; Admin Dose 3 ML; Start 04/27/18 at 08:00 Levothyroxine Sodium (Synthroid) 88 mcg BEFORE BREAKFAST PO Last administered on 05/20/18 08:32; Admin Dose 88 MCG; Start 04/27/18 at 07:00 Atorvastatin Calcium (Lipitor) 10 mg DAILY@21 PO Last administered on 05/19/18 20:44; Admin Dose 10 MG; Start 04/27/18 at 21:00 Albuterol/ Ipratropium (Duoneb) 3 ml Q2H RESP THERAPY PRN HHN shortness of breath; Start 04/27/18 at 10:00 Enoxaparin Sodium (Lovenox) 40 mg DAILY SC Last administered on 05/11/18 08:58; Admin Dose 40 MG; Start 04/28/18 at 09:00; Status Hold Budesonide (Pulmicort (Neb)) 0.5 mg BID RESP THERAPY INH Last administered on 05/20/18 09:11; Admin Dose 0.5 MG; Start 04/29/18 at 09:00 Hydralazine HCl (Apresoline) 10 mg Q4H PRN IV SBP >160 Last administered on 05/02/18 18:50; Admin Dose 10 MG; Start 05/01/18 at 13:00 Polyethylene Glycol (Miralax) 17 gm DAILY PO Last administered on 05/20/18 08:31; Admin Dose 17 GM; Start 05/02/18 at 10:30 Docusate Sodium (Colace) 100 mg BID PRN PO CONSTIPATION; Start 05/02/18 at 10:30 Calcium/Vitamin D (Oyster Shell/ Vit-D (500/200)) 1 tab BID PO Last administered on 05/20/18 08:31; Admin Dose 1 TAB; Start 05/03/18 at 21:00 Prednisone (Prednisone) 20 mg DAILY PO Last administered on 05/20/18 08:31; Admin Dose 20 MG; Start 05/10/18 at 09:00 Sodium Chloride (Nacl) 1 gm TID PO Last administered on 05/20/18 12:27; Admin Dose 1 GM; Start 05/16/18 at 09:00 Miscellaneous Information (Pending [facility]yl Order For Wound Care) This patient bradshaw... PRN PRN XX WOUND CARE; Start 05/19/18 at 08:30 TORIBIO BLAKE MD May 20, 2018 13:06
--- NOTE | 2018-05-20 13:08 | CONS ---
Assessment/Plan Assessment/Plan Hospital Course (Demo Recall) Looks comfortable, no fevers Microbiology: Blood cultures since admission negative urinalysis was positive for yeast. Patient is on fluconazole, s/p cefepime Physical examination: This is a fragile very pleasant elderly woman who is awake in no distress. Head atraumatic normocephalic. Neck is supple chest rise symmetrical breath sounds diminished bases abdomen soft bowel sounds present extremities without cyanosis Assessment: 1. Acute on chronic hypoxemic respiratory failure 2. Possible pneumonia==> treated 3. Idiopathic pulmonary fibrosis status post exacerbation 4. Fungal UTI==> treated 5. Hematuria Plan: Stable off abx, repeat urine cx neg, continue present care Consultation Date/Type/Reason Admit Date/Time Apr 27, 2018 at 02:15 Initial Consult Date Type of Consult id Requesting Provider: MERNA BLAKE Date/Time of Note DATE: 05/20/18 TIME: 13:07 Exam/Review of Systems Exam Vitals Vital Signs Date Temp Pulse Resp B/P (MAP) Pulse Ox O2 O2 Flow FiO2 Time Delivery Rate 05/20/18 96 2.0 09:12 05/20/18 79 20 Nasal 09:12 Cannula 05/20/18 98.2 123/58 07:38 (79) 05/17/18 32 08:14 Intake and Output 05/19/18 05/19/18 05/20/18 1515:00 23:00 07:00 IntakeIntake Total 720 ml 240 ml 200 ml BalanceBalance 720 ml 240 ml 200 ml Results Result Diagram: 05/20/18 0839 05/20/18 0839 Results 24hrs Laboratory Tests Test 05/20/18 08:39 White Blood Count 4.4 #L Red Blood Count 3.58 L Hemoglobin 9.9 L Hematocrit 31.6 L Mean Corpuscular Volume 88.3 Mean Corpuscular Hemoglobin 27.7 L Mean Corpuscular Hemoglobin Concent 31.3 L Red Cell Distribution Width 14.3 Platelet Count 122 #L Mean Platelet Volume 9.2 Immature Granulocytes % 0.500 H Neutrophils % 76.9 Lymphocytes % 16.0 Monocytes % 4.1 Eosinophils % 2.3 Basophils % 0.2 Nucleated Red Blood Cells % 0.0 Immature Granulocytes # 0.020 Neutrophils # 3.4 Lymphocytes # 0.7 L Monocytes # 0.2 L Eosinophils # 0.1 Basophils # 0.0 Nucleated Red Blood Cells # 0.0 Sodium Level 130 L Potassium Level 4.5 Chloride Level 86 L Carbon Dioxide Level 38 H Anion Gap 6 Blood Urea Nitrogen 12 Creatinine 0.51 Glucose Level 120 Calcium Level 9.0 Phosphorus Level 3.5 Magnesium Level 1.8 Albumin 2.9 L Medications Medication Current Medications IV Flush (NS 3 ml) 3 ml PER PROTOCOL IV ; Start 04/27/18 at 03:00 Ondansetron HCl (Zofran Inj) 4 mg Q6H PRN IV NAUSEA/VOMITING; Start 04/27/18 at 03:00 Acetaminophen (Tylenol Tab) 650 mg Q6H PRN PO .PAIN 1-3 OR TEMP; Start 04/27/18 at 03:00 Aspirin (Ecotrin) 325 mg DAILY PO Last administered on 05/11/18 09:00; Admin Dose 325 MG; Start 04/27/18 at 09:00; Status Hold Albuterol/ Ipratropium (Duoneb) 3 ml Q6H RESP THERAPY INH Last administered on 05/20/18 09:11; Admin Dose 3 ML; Start 04/27/18 at 08:00 Levothyroxine Sodium (Synthroid) 88 mcg BEFORE BREAKFAST PO Last administered on 05/20/18 08:32; Admin Dose 88 MCG; Start 04/27/18 at 07:00 Atorvastatin Calcium (Lipitor) 10 mg DAILY@21 PO Last administered on 05/19/18 20:44; Admin Dose 10 MG; Start 04/27/18 at 21:00 Albuterol/ Ipratropium (Duoneb) 3 ml Q2H RESP THERAPY PRN HHN shortness of breath; Start 04/27/18 at 10:00 Enoxaparin Sodium (Lovenox) 40 mg DAILY SC Last administered on 05/11/18 08:58; Admin Dose 40 MG; Start 04/28/18 at 09:00; Status Hold Budesonide (Pulmicort (Neb)) 0.5 mg BID RESP THERAPY INH Last administered on 05/20/18 09:11; Admin Dose 0.5 MG; Start 04/29/18 at 09:00 Hydralazine HCl (Apresoline) 10 mg Q4H PRN IV SBP >160 Last administered on 05/02/18 18:50; Admin Dose 10 MG; Start 05/01/18 at 13:00 Polyethylene Glycol (Miralax) 17 gm DAILY PO Last administered on 05/20/18 08:31; Admin Dose 17 GM; Start 05/02/18 at 10:30 Docusate Sodium (Colace) 100 mg BID PRN PO CONSTIPATION; Start 05/02/18 at 10:30 Calcium/Vitamin D (Oyster Shell/ Vit-D (500/200)) 1 tab BID PO Last administered on 05/20/18 08:31; Admin Dose 1 TAB; Start 05/03/18 at 21:00 Prednisone (Prednisone) 20 mg DAILY PO Last administered on 05/20/18 08:31; Admin Dose 20 MG; Start 05/10/18 at 09:00 Sodium Chloride (Nacl) 1 gm TID PO Last administered on 05/20/18 12:27; Admin Dose 1 GM; Start 05/16/18 at 09:00 Miscellaneous Information (Pending Santyl Order For Wound Care) This patient bradshaw... PRN PRN XX WOUND CARE; Start 05/19/18 at 08:30 EDUIN MANTILLA NP May 20, 2018 13:08
[2018-05-20] MEDS ORDERED: BALS60OI TOP (13:14)
[2018-05-20] MEDS ORDERED: PRED20TA PO (13:14)
[2018-05-20] MEDS ORDERED: CHOL100062 PO (13:14)
[2018-05-20] MEDS ORDERED: [UNRECOGNIZED DRUG - CODE] PO (13:14)
--- NOTE | 2018-05-20 13:20 | PDOCDIS ---
Discharge Instructions DIAGNOSIS Discharge Diagnosis 1. UTI- resolved, completed course of treatment 2. Acute hypoxic and hypercapnic respiratory failure- resolved, back to baseline 3. Hyponatremia- improving, last Na level 130, normal >135 4. Anemia- stable 5. Exacerbation of IPF- resolved 6. Hypothyroidism 7. Dyslipidemia CONDITION [id number] Patient Condition: [id number] Stable HOME CARE INSTRUCTIONS: [id number] Diet Instructions: [id number] Low Fat /Cholesterol FOLLOW UP/APPOINTMENTS Follow-up Plan 1. Follow up with your primary care physician in 1-2 weeks. You will need to have repeat labs drawn prior to appointment to monitor sodium levels to determine if you need to continue on salt tablets. Your last sodium level on 05/20/18 was 130, with normal being 135-144 2. Follow up with your College Specialist in 1-2 weeks. Continue all home inhalers and Prednisone 20mg daily until you are evaluated by Dr. Martino 3. Take all other medications as prescribed. I recommend you take Calcium 500 mg twice a day and Vitamin D 2000mg daily to while on steroids 4. If experiencing any concerning symptoms, please go to you nearest emergency department 5. You will have home health and physical therapy come to your home, starting on Monday05/22/18 6. You were given a prescription for Venelex that can be used on areas of irritation on buttocks to prevent sores from developing KALEB JAIMES MD May 20, 2018 13:20
[2018-05-20 14:46] VITALS: BP 127/62; PULSE 86; RESP 20
--- NOTE | 2018-05-20 14:54 | CONS ---
Assessment/Plan Assessment/Plan Hospital Course (Demo Recall) IMPRESSION: 1. Abnormal echocardiogram, assess for acute coronary syndrome.-neg x 3 since ecg abnl seen by tele. NO chest pain according to family member at bedside. repeat ecg today with inferior q's and only borderline J point elevation single lead 2. Cardiac arrhythmia. Continue to follow.-SR by tele 3. Hyponatremia- slowly improving 4. Pulmonary fibrosis. 5. Dementia. 6. Urinary tract infection. 7. Leukocytosis and anemia. 8. Hematuria-improving but ongoing, sp removal of strange Recc: -Now on med-surg -serial ecg's -contineu statin -Follow BP closely off of antihypertensives -Continue steroids/bronchodilators -Holding asa/lovenox due to hematuria -follow volume status closely -Follow NA on salt tabs Consultation Date/Type/Reason Admit Date/Time Apr 27, 2018 at 02:15 Initial Consult Date 05/09/18 Type of Consult Cardiology Reason for Consultation abnl ecg Requesting Provider: MERNA BLAKE Date/Time of Note DATE: 05/20/18 TIME: 14:53 Exam/Review of Systems Vital Signs Vitals Vital Signs Date Temp Pulse Resp B/P (MAP) Pulse Ox O2 O2 Flow FiO2 Time Delivery Rate 05/20/18 97.7 86 20 127/62 94 14:46 (83) 05/20/18 2.0 09:12 05/20/18 Nasal 09:12 Cannula 05/17/18 32 08:14 Intake and Output 05/19/18 05/19/18 05/20/18 1515:00 23:00 07:00 IntakeIntake Total 720 ml 240 ml 200 ml BalanceBalance 720 ml 240 ml 200 ml Exam Exam Review of Systems: CONSTITUTIONAL: No fevers, chills. PULMONARY: No sob CARDIOVASCULAR: No chest pain/palpitations GASTROINTESTINAL: No nausea/vomiting. GENITOURINARY: No hematuria/dysuria. MUSCULOSKELETAL: No myagias/arthalgias. PSYCHIATRIC: The patient denies depression. NEUROLOGIC: No weakness Constitutional: other (sleeping) Psych: no complaints Head: normocephalic ENMT: mucosa pink and moist Neck: supple, jvd (9 cm water) Respiratory: diminished breath sounds (at bases/B) Cardiovascular: regular rate and rhythm Gastrointestinal: soft, non-tender Musculoskeletal: muscle weakness (mild generalized) Extremities: edema (trace/B) Neurological: lethargic Labs Result Diagram: 05/20/1839 05/20/18 0839 Results 24hrs Laboratory Tests Test 05/20/18 08:39 White Blood Count 4.4 #L Red Blood Count 3.58 L Hemoglobin 9.9 L Hematocrit 31.6 L Mean Corpuscular Volume 88.3 Mean Corpuscular Hemoglobin 27.7 L Mean Corpuscular Hemoglobin Concent 31.3 L Red Cell Distribution Width 14.3 Platelet Count 122 #L Mean Platelet Volume 9.2 Immature Granulocytes % 0.500 H Neutrophils % 76.9 Lymphocytes % 16.0 Monocytes % 4.1 Eosinophils % 2.3 Basophils % 0.2 Nucleated Red Blood Cells % 0.0 Immature Granulocytes # 0.020 Neutrophils # 3.4 Lymphocytes # 0.7 L Monocytes # 0.2 L Eosinophils # 0.1 Basophils # 0.0 Nucleated Red Blood Cells # 0.0 Sodium Level 130 L Potassium Level 4.5 Chloride Level 86 L Carbon Dioxide Level 38 H Anion Gap 6 Blood Urea Nitrogen 12 Creatinine 0.51 Glucose Level 120 Calcium Level 9.0 Phosphorus Level 3.5 Magnesium Level 1.8 Albumin 2.9 L Medications Medications Current Medications IV Flush (NS 3 ml) 3 ml PER PROTOCOL IV ; Start 04/27/18 at 03:00 Ondansetron HCl (Zofran Inj) 4 mg Q6H PRN IV NAUSEA/VOMITING; Start 04/27/18 at 03:00 Acetaminophen (Tylenol Tab) 650 mg Q6H PRN PO .PAIN 1-3 OR TEMP; Start 04/27/18 at 03:00 Aspirin (Ecotrin) 325 mg DAILY PO Last administered on 05/11/18at 09:00; Admin Dose 325 MG; Start 04/27/18 at 09:00; Status Hold Albuterol/ Ipratropium (Duoneb) 3 ml Q6H RESP THERAPY INH Last administered on 05/20/18at 09:11; Admin Dose 3 ML; Start 04/27/18 at 08:00 Levothyroxine Sodium (Synthroid) 88 mcg BEFORE BREAKFAST PO Last administered on 05/20/18at 08:32; Admin Dose 88 MCG; Start 04/27/18 at 07:00 Atorvastatin Calcium (Lipitor) 10 mg DAILY@21 PO Last administered on 05/19/18at 20:44; Admin Dose 10 MG; Start 04/27/18 at 21:00 Albuterol/ Ipratropium (Duoneb) 3 ml Q2H RESP THERAPY PRN HHN shortness of breath; Start 04/27/18 at 10:00 Enoxaparin Sodium (Lovenox) 40 mg DAILY SC Last administered on 05/11/18 08:58; Admin Dose 40 MG; Start 04/28/18 at 09:00; Status Hold Budesonide (Pulmicort (Neb)) 0.5 mg BID RESP THERAPY INH Last administered on 05/20/18 09:11; Admin Dose 0.5 MG; Start 04/29/18 at 09:00 Hydralazine HCl (Apresoline) 10 mg Q4H PRN IV SBP >160 Last administered on 05/02/18 18:50; Admin Dose 10 MG; Start 05/01/18 at 13:00 Polyethylene Glycol (Miralax) 17 gm DAILY PO Last administered on 05/20/18 08:31; Admin Dose 17 GM; Start 05/02/18 at 10:30 Docusate Sodium (Colace) 100 mg BID PRN PO CONSTIPATION; Start 05/02/18 at 10:30 Calcium/Vitamin D (Oyster Shell/ Vit-D (500/200)) 1 tab BID PO Last administered on 05/20/18 08:31; Admin Dose 1 TAB; Start 05/03/18 at 21:00 Prednisone (Prednisone) 20 mg DAILY PO Last administered on 05/20/18 08:31; Admin Dose 20 MG; Start 05/10/18 at 09:00 Sodium Chloride (Nacl) 1 gm TID PO Last administered on 05/20/18 12:27; Admin Dose 1 GM; Start 05/16/18 at 09:00 Miscellaneous Information (Pending Santyl Order For Wound Care) This patient bradshaw... PRN PRN XX WOUND CARE; Start 05/19/18 at 08:30 AKSHAT HAY May 20, 2018 14:54
--- NOTE | 2018-05-20 16:04 | DS ---
Date/Time of Note Date/Time of Note DATE: 05/20/18 TIME: 15:51 Discharge Summary Admission/Discharge Info Admit Date/Time Apr 27, 2018 at 02:15 Discharge Date/Time 05/20/18 Discharge Diagnosis 1. UTI- resolved, completed course of treatment 2. Acute hypoxic and hypercapnic respiratory failure- resolved, back to baseline 3. Hyponatremia- improving, last Na level 130, normal >135 4. Anemia- stable 5. Exacerbation of IPF- resolved 6. Hypothyroidism 7. Dyslipidemia Patient Condition: Stable Consults Pulmonology- Dr. Hernández cardiology- Dr. Soria Urology- Dr. Banks Nephrology- Dr. Mcmillan Infectious disease- Dr. Jain Palliative- Dr. Benavidez Hx of Present Illness This is an 87-year-old female with a history of dementia, pulmonary fibrosis, hypothyroidism, dyslipidemia who was brought to the ER after she was found unresponsive. She was given promethazine last night and about 30 minutes or so after when the family tries to wake her up, she was very lethargic and difficult to arouse. It took about 10 minutes for the patient to wake up. No focal weakness/numbness, seizure-like activity, facial droop, slurred speech reported Patient was admitted here last month for syncope which was thought to be from hypoxia caused by her pulmonary fibrosis. At that time echo and carotid Doppler ultrasound were nondiagnostic. Reportedly patient has been coughing, which is chronic. When she presented to ER, sodium was found to be 119, potassium 5.7. Chest x- ray shows the following Increased interstitial prominence. This is nonspecific but could represent in terstitial edema, a viral chest infection, and/or chronic lung changes. Bilateral lower lung opacities, possibly representing atelectasis or pneumonia. Small to moderate left pleural effusion. Enlarged cardiac silhouette and aortic atherosclerosis. Hospital Course Patient was admitted for work up of AMS and hypoxia. Patient was found with h yponatremia as well and Nephrology was consulted for further recommendations. 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 Patient was also started on steroids and IV antibiotics given pulmonary fibrosis and respiratory distress. Pulmonology was consulted and patient was transferred to ICU for close monitoring. She was started on BIPAP and code status was discussed given poor prognosis if intubated. Family decided to continue as full code and steroids were increased to 250mg TID for treatment of acute exacerbation of interstitial pulmonary fibrosis. Patients respiratory function improved and she was transferred out of ICU. Patient was weaned down on steroids and O2 requirement with improvement in pulmonary function. Patients family requested transfer to [facility] where her residential air sealing technician was available but due to bed availability for lateral transfer, transfer was unsuccessful. Patient was improving and discharge planning was discussed. Family was not comfortable taking her home but refused SNF placement. Crystal evaluation was requested but given patient was at baseline pulmonary de paz and finished course of antibiotics, she did not meet criteria. Patients hospital course was complicated by episode of hematuria requiring CBI and Urology consultation. Family was offered cystoscopy for patient to evaluate etiology for persistent hematuria but they refused given they did not want patient to have sedation. CBI was continued until urine cleared and patient had strange removed with no cruz hematuria appreciated. Patient was weak from prolonged hospitalization but overall was improving since admission. Family was agreeable for discharge home and arranged for HHPT. Patients presenting symptoms improved and she remained stable. On day of discharge, patients vitals and physical exam were stable. Patient was discharged home in good condition with home health services. Home Meds Active Scripts Balsam Daisy/Nichols Oil (Venelex Ointment) 60 Gm Oint..gm., 1 APPLIC TOP BID for 30 Days, #1 TUB 6 Refills Prov:KALEB JAIMES MD 05/20/18 Sodium Chloride (Sodium Chloride) 1,000 Mg Tablet.buffy, 1 GM PO TID for 30 Days, #90 TAB Prov:KALEB JAIMES MD 05/20/18 Prednisone* (Prednisone*) 20 Mg Tab, 20 MG PO DAILY for 30 Days, #30 TAB 1 Refill Prov:KALEB JAIMES MD 05/20/18 Cholecalciferol* (Vitamin D3*) 1,000 Unit Tablet, 1000 UNIT PO BID for 30 Days, #60 TAB 9 Refills Prov:KALEB JAIMES MD 05/20/18 Reported Medications Formoterol Fumarate (Perforomist) 20 Mcg/2 Ml Vial.neb, 20 MCG INHALATION BID, VIAL 03/28/18 Ipratropium [place] (Ipratropium [place]) 5 Gm Powder, 10.5 MG MC BID 03/28/18 Ipratropium-Albuterol (Ipratropium-Albuterol) 0.5-3 Mg/3 Ml Ampul.neb, 3 ML INHALATION Q6, #30 VIAL 03/28/18 Budesonide* (Budesonide*) 0.25 Mg/2 Ml Ampul.neb, 0.25 MG INHALATION BID, AMP 03/28/18 Simvastatin* (Zocor*) 20 Mg Tablet, 20 MG PO QHS, #30 TAB 03/28/18 Aspirin* (Aspirin* EC) 325 Mg Tab, 325 MG PO DAILY, TAB 03/28/18 Levothyroxine Sodium* (Levothyroxine Sodium*) 88 Mcg Tablet, 88 MCG PO BEFORE BREAKFAST, #30 TAB 03/28/18 Follow-up Plan 1. Follow up with your primary care physician in 1-2 weeks. You will need to have repeat labs drawn prior to appointment to monitor sodium levels to determine if you need to continue on salt tablets. Your last sodium level on 05/20/18 was 130, with normal being 135-144 2. Follow up with your Behavioral Therapist in 1-2 weeks. Continue all home inhalers and Prednisone 20mg daily until you are evaluated by Dr. Martino 3. Take all other medications as prescribed. I recommend you take Calcium 500 mg twice a day and Vitamin D 2000mg daily to while on steroids 4. If experiencing any concerning symptoms, please go to you nearest emergency department 5. You will have home health and physical therapy come to your home, starting on Monday05/22/18 6. You were given a prescription for Venelex that can be used on areas of irritation on buttocks to prevent sores from developing Primary Care Provider Not On Staff Doctor Time spent on discharge: > 30 minutes Pending Labs Laboratory Tests Test 05/20/18 08:39 White Blood Count 4.4 10^3/ul (4.8-10.8) Red Blood Count 3.58 10^6/ul (4.20-5.40) Hemoglobin 9.9 g/dl (12.0-16.0) Hematocrit 31.6 % (37.0-47.0) Mean Corpuscular Volume 88.3 fl (82.0-101.0) Mean Corpuscular Hemoglobin 27.7 pg (29.0-33.0) Mean Corpuscular Hemoglobin Concent 31.3 g/dl (32.0-37.0) Red Cell Distribution Width 14.3 % (11.5-14.5) Platelet Count 122 10^3/UL (140-415) Mean Platelet Volume 9.2 fl (7.4-10.4) Immature Granulocytes % 0.500 % (0.001-0.429) Neutrophils % 76.9 % (39.0-77.0) Lymphocytes % 16.0 % (15.0-51.0) Monocytes % 4.1 % (0.0-11.0) Eosinophils % 2.3 % (0.0-7.0) Basophils % 0.2 % (0.0-2.0) Nucleated Red Blood Cells % 0.0 /100WBC (0.0-0.0) Immature Granulocytes # 0.020 10^3/ul (0.0-0.031) Neutrophils # 3.4 10^3/ul (1.6-7.5) Lymphocytes # 0.7 10^3/ul (0.8-2.9) Monocytes # 0.2 10^3/ul (0.3-0.9) Eosinophils # 0.1 10^3/ul (0.0-0.5) Basophils # 0.0 10^3/ul (0.0-0.1) Nucleated Red Blood Cells # 0.0 10^3/ul (0.0-0.0) Sodium Level 130 mmol/L (135-144) Potassium Level 4.5 mmol/L (3.5-5.1) Chloride Level 86 mmol/L (97-110) Carbon Dioxide Level 38 mmol/L (21-31) Anion Gap 6 (5-13) Blood Urea Nitrogen 12 mg/dl (7-20) Creatinine 0.51 mg/dl (0.44-1.00) Glucose Level 120 mg/dl (70-220) Calcium Level 9.0 mg/dl (8.4-10.2) Phosphorus Level 3.5 mg/dl (2.5-4.9) Magnesium Level 1.8 mg/dl (1.7-2.5) Albumin 2.9 g/dl (3.3-4.9) KALEB JAIMES MD May 20, 2018 16:03
== END 2018-05-20 15:55 | disposition home health service (06) | DRG 643 ==
LOC: E/R 23:35 → 6WM 04-27 02:15 → EDBEDREQTM 04-27 02:31 → EDBEDREQSVC 04-27 02:31 → ICU 04-27 13:25 → TEL 05-01 09:00 → 2NE 05-19 00:04
PROVIDERS: ADMIT Internal Medicine; ATTEND Internal Medicine
PROC: 5A09457 Assistance with Respiratory Ventilation, 24-96 Consecutive Hours, Continuous Positive Airway Pressure (ICD-10-PCS; principal; 2018-04-27)
DX: E22.2 Syndrome of inappropriate secretion of antidiuretic hormone (principal); J18.9 Pneumonia, unspecified organism; J96.22 Acute and chronic respiratory failure with hypercapnia; J96.21 Acute and chronic respiratory failure with hypoxia; G92 Toxic encephalopathy; E87.3 Alkalosis; B37.49 Other urogenital candidiasis; E87.5 Hyperkalemia; E03.9 Hypothyroidism, unspecified; E78.5 Hyperlipidemia, unspecified; F03.90 Unspecified dementia, unspecified severity, without behavioral disturbance, psychotic disturbance, mood disturbance, and anxiety; D64.9 Anemia, unspecified; J84.112 Idiopathic pulmonary fibrosis; I10 Essential (primary) hypertension; I08.8 Other rheumatic multiple valve diseases; I49.9 Cardiac arrhythmia, unspecified; R31.9 Hematuria, unspecified; R93.1 Abnormal findings on diagnostic imaging of heart and coronary circulation; E86.0 Dehydration
CPT/HCPCS: 36415; 36600; 71045; 76775; 80048; 80053; 80061; 80069; 80202; 80307; 81001; 81003; 82043; 82436; 82533; 82803; 82962; 83735; 83880; 83930; 83935; 84100; 84133; 84155; 84300; 84443; 84484; 84560; 85025; 87081; 87086; 88104; 88107; 92526; 92610; 93005; 93306; 94640; 94644; 94660; 94664; 94667; 94668; 96365; 96375; 97110; 97116; 97161; 97530; J0360; J0692; J1450; J1650; J1815; J1940; J2543; J2920; J2930; J3370; J3475; J3480; J7030; J7040; J7042; J7512